=== PATIENT | female | born 1960 | race Caucasian/White ===

== ENCOUNTER 2024-12-22 16:27 | Emergency (ER) | payer MEDICARE, SELFPAY ==
[2024-12-22] VITALS (31 sets, daily range): BP systolic 77–116; BP diastolic 35–85; PULSE 110–150; RESP 17–35; TEMP 36.9–39.4; O2SAT 88–100
--- NOTE | ~2024-12-22 | XR_ITS ---
CHEST RADIOGRAPH CLINICAL HISTORY: Fever, weakness, CANCER PATIENT ([place]) . COMPARISON: None available TECHNIQUE: Single portable view of the chest. FINDINGS The cardiomediastinal silhouette is unremarkable. The lungs are clear. Visualized osseous structures and soft tissues are unremarkable. IMPRESSION: No focal infiltrate or effusion. Reviewed, dictated and finalized at location A.
--- NOTE | ~2024-12-22 | CT_ITS ---
History: Altered mental status PROCEDURE: CT head without contrast. COMPARISON: None TECHNIQUE: Axial imaging of the head performed from the skull base to the vertex without IV contrast. Sagittal a nd coronal reformations obtained. DLP: 605 mGy-cm FINDINGS: The ventricles are enlarged. The dilatation of the ventricles is proportional to the degree of sulcal prominence, not uncommon in the senescent brain. Decreased attenuation is identified within the periventricular white matter, likely secondary to micr ovascular ischemic disease, in a patient of this age. There is no mass, mass effect or midline shift. There is no abnormal extra-axial fluid collection or intracranial hemorrhage. Visualized paranasal sinuses are clear. The mastoid air cells are well aerated. No acute displaced fractures within the overlying cranium. Impression: No acute intracranial hemorrhage or suspicious mass effect. Reviewed, dictated and finalized at location A. Impression: No acute intracranial hemorrhage or suspicious mass effect.
--- NOTE | 2024-12-22 16:45 | ECG_ITS ---
Test Date: 2024-12-22 16:47:03 Measurements Intervals [place] Rate: 136 P: 52 WV: 119 QRS: 4 QRSD: 72 T: 89 QT: 331 QTc: 498 Interpretive Statements SINUS TACHYCARDIA WITH SHORT [place] INTERVAL EARLY PRECORDIAL R/S TRANSITION BORDERLINE ST-T WAVE ABNORMALITY- DIFFUSE LEADS BASELINE ARTIFACT- III, AVL, AVF ABNORMAL ECG No previous ECG available for comparison Electronically Signed On 12-23-2024 08:09:45 CDT by Alexandre Yoon D.O.
[2024-12-22 16:59] LABS: Hematocrit 26.3 % (37.0-47.0); Hemoglobin 8.8 g/dL (12.0-15.0); Immature Platelet Fraction Pct 11.9 % (0.9-11.2); Mean Corpuscular HGB Conc 33.5 g/dl (32-36); Mean Corpuscular Hemoglobin 28.4 pg (26-34); Mean Corpuscular Volume 84.8 fl (80-100); Red Cell Distribution Width 13.7 % (11.5-14.5)
[2024-12-22 17:20] LABS: Albumin Level 3.3 g/dL (3.5-5.1); Alkaline Phosphatase 60 U/L (38-126); Anion Gap 16 mmol/L (4-12); Aspartate Amino Transferase 26 U/L (14-36); Bilirubin,Total 1.4 mg/dL (0.2-1.3); Blood Urea Nitrogen 37 mg/dL (7-17); Calcium 8.3 mg/dL (8.4-10.2); Carbon Dioxide 27 mmol/L (22-30); Chloride 94 mmol/L (98-107); Estimated CRCL calculation 13 ml/min; Estimated Glomerular Filt Rate 15; Glucose 185 mg/dL (65-110); Potassium 3.3 mmol/L (3.4-5.0); Sodium 137 mmol/L (137-145)
--- NOTE | 2024-12-22 17:22 | ED_ITS ---
HPI - General Adult General Chief complaint: Weakness <Trav Perales MD - Last Filed: 12/22/24 22:11> Stated complaint: weakness, diarrhea, vag bleeding <Trav Perales MD - Last Filed: 12/22/24 22:11> Time Seen by Provider: 12/22/24 16:40 <Trav Perales MD - Last Filed: 12/22/24 22:11> History of Present Illness HPI narrative: Patient is a 64-year-old female who presents ER with diarrhea. There is blood either in her stool or coming from her vagina she is unsure which. She was recently diagnosed with lymphoma started on chemotherapy. Last chemo was on 12/18/2024. She is on experimental therapy at site in the cancer center. She is on Eliquis but does not know why. She is a poor historian and her family member who brought her in also does not know much else about the illness. Patient denies any fall or injury but has not been eating or drinking and and is having trouble standing due to weakness. <Trav Perales MD - Last Filed: 12/22/24 22:11> Related Data Allergies/adverse reactions: Allergies Allergy/AdvReac Type Severity Reaction Status Date / Time No Known Allergies Allergy Verified 12/22/24 16:48 <Trav Perales MD - Last Filed: 12/22/24 22:11> Review of Systems 2 Review of Systems: All systems reviewed & are unremarkable except as noted in HPI and below <Trav Perales MD - Last Filed: 12/22/24 22:11> Constitutional: Constitutional: Denies chills, Reports fatigue, Denies fever(s) and Reports weakness <Trav Perales MD - Last Filed: 12/22/24 22:11> ENT: Reports system reviewed and no additional complaints, except as documented <Trav Perales MD - Last Filed: 12/22/24 22:11> Cardiovascular: Cardiovascular: Reports no additional cardiovascular complaints <Trav Perales MD - Last Filed: 12/22/24 22:11> Respiratory: Respiratory: Reports no additional respiratory complaints < Trav Perales MD - Last Filed: 12/22/24 22:11> Gastrointestinal: Gastrointestinal: Denies abdominal pain, Denies nausea and Denies vomiting <Trav Perales MD - Last Filed: 12/22/24 22:11> Comments: + Rectal bleeding <Trav Perales MD - Last Filed: 12/22/24 22:11> Genitourinary: Genitourinary: Reports no additional female genitourinary complaints <Trav Perales MD - Last Filed: 12/22/24 22:11> [facility] Past Medical History Medical History: Medical History (Updated 12/22/24 @ 23:27 by Joaquín Rivera MD) DVT (deep venous thrombosis) Diffuse large B cell lymphoma Hypothyroidism <Trav Perales MD - Last Filed: 12/22/24 22:11> Exam 2 Narrative: GENERAL: Chronically ill-appearing, thin, and in no acute distress. HEAD: Normocephalic, atraumatic. EYES: PERRL and EOMI. ENT: Dry mucous membranes. NECK: Supple. CHEST: Clear to auscultation. No respiratory distress. HEART: Regular rate and rhythm. Normal peripheral pulses. ABDOMEN: Soft, nontender, nondistended. Liquid brown stool on digital rectal exam that is Hemoccult positive but there is no gross blood on inspection. EXTREMITIES: Normal range of motion. No edema. SKIN: Warm, dry, excoriations the skin around the vagina without hemorrhage. NEURO: Alert and oriented x3. <Trav Perales MD - Last Filed: 12/22/24 22:11> Course Course Emergency Course: 2118: Patient received 3 L of IV fluid which is above the 30 milliliters/kilogram fluid bolus for hypertension. She was found to be febrile. Her platelets were critically low as is her white blood cell count with an ANC of 880. She received 2 units of platelets. Initially given ceftriaxone IV. I spoke with Dr. Sharma with the bone marrow transplant team at [facility]. He accepts the patient for transfer. We will broaden the patient's antibiotic coverage to cefepime and vancomycin. Also recommends that should the patient's hemoglobin dropped below 8 that the patient should receive a unit of blood transfusion. 2208: Pressure is still poor. Accepted to ICU at [facility] by Dr. Dennis Aldridge. Will transfuse patient with a couple units of blood as she may have delusional anemia from the IV fluid. No central line to be started at this time his platelets are 5 and she is on Eliquis. She has started her platelet transfusion. No active hemorrhage. MARGARITA to Dr. Rivera <Trav Perales MD - Last Filed: 12/22/24 22:11> 9: Patient received 3 L of IV fluid which is above the 30 milliliters/kilogram fluid bolus for hypertension. She was found to be febrile. Her platelets were critically low as is her white blood cell count with an ANC of 880. She received 2 units of platelets. Initially given ceftriaxone IV. I spoke with Dr. Sharma with the bone marrow transplant team at [facility]. He accepts the patient for transfer. We will broaden the patient's antibiotic coverage to cefepime and vancomycin. Also recommends that should the patient's hemoglobin dropped below 8 that the patient should receive a unit of blood transfusion. 2208: Pressure is still poor. Accepted to ICU at [facility] by Dr. Dennis Aldridge. Will transfuse patient with a couple units of blood as she may have delusional anemia from the IV fluid. No central line to be started at this time his platelets are 5 and she is on Eliquis. She has started her platelet transfusion. No active hemorrhage. MARGARITA to Dr. Rivera Received patient in sign-out at 10:[address] Perales. Patient is what appears to be in septic shock likely source pain potential urinary tract infection. [facility] has accepted the patient to an ICU. I received a phone call from the fellow at their facility with additional recommendations. 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 Recommendations from him were to start tocilizumab 8 milligrams/kilogram for a total proximally 450 mg as well as dexamethasone 10 mg q.6 hours.. Patient is currently receiving blood products and has maxed out at 30 cc/kg bolus and still hypotensive and tachycardic. Mentation is appropriate at A&O 3-4, saturating 92% on 4 L nasal cannula. Norepinephrine was initiated peripherally. She has significant comorbidities and with nearly undetectable platelets would not be getting a central access catheter at this time. Will run vasopressor medications peripherally until repeat laboratory studies show improvement. Family at bedside were updated and made aware. Pending bed assignment in the ICU at [facility]. Patient was placed on high-flow nasal cannula for comfort and tachypnea. Chest x-ray was clear without any focal findings. Patient care signed out to oncoming morning physician at 7:00 a.m. <Joaquín Rivera MD - Last Filed: 12/23/24 20:20> Vital Signs Vital signs: Vital Signs Temperature 36.9 C 12/22/24 16:32 Pulse Rate 150 H 12/22/24 16:32 Respiratory Rate 17 12/22/24 16:32 Blood Pressure 83/35 L 12/22/24 16:32 Pulse Oximetry 96 12/22/24 16:32 Oxygen Delivery Room Air 12/22/24 16:32 Temperature 36.4 C 12/23/24 07:16 Pulse Rate 119 H 12/23/24 07:46 Respiratory Rate 24 H 12/23/24 07:46 Blood Pressure 139/87 12/23/24 07:46 Pulse Oximetry 94 12/23/24 07:46 Oxygen Delivery High Flow Therapy with Nasal Cannula 12/23/24 01:00 Oxygen Flow Rate 60 12/23/24 01:00 Fraction of Inspired Oxygen 61 12/23/24 01:00 <Trav Perales MD - Last Filed: 12/22/24 22:11> Vital Signs Temperature 36.9 C 12/22/24 16:32 Pulse Rate 150 H 12/22/24 16:32 Respiratory Rate 17 12/22/24 16:32 Blood Pressure 83/35 L 12/22/24 16:32 Pulse Oximetry 96 12/22/24 16:32 Oxygen Delivery Room Air 12/22/24 16:32 Temperature 36.4 C 12/23/24 07:16 Pulse Rate 119 H 12/23/24 07:46 Respiratory Rate 24 H 12/23/24 07:46 Blood Pressure 139/87 12/23/24 07:46 Pulse Oximetry 94 12/23/24 07:46 Oxygen Delivery High Flow Therapy with Nasal Cannula 12/23/24 01:00 Oxygen Flow Rate 60 12/23/24 01:00 Fraction of Inspired Oxygen 61 12/23/24 01:00 <Joaquín Rivera MD - Last Filed: 12/23/24 20:20> Medical Decision Making Vital Signs Vital Signs: Vital Signs Temperature 36.9 C 12/22/24 16:32 Pulse Rate 150 H 12/22/24 16:32 Respiratory Rate 17 12/22/24 16:32 Blood Pressure 83/35 L 12/22/24 16:32 Pulse Oximetry 96 12/22/24 16:32 Oxygen Delivery Room Air 12/22/24 16:32 Temperature 36.4 C 12/23/24 07:16 Pulse Rate 119 H 12/23/24 07:46 Respiratory Rate 24 H 12/23/24 07:46 Blood Pressure 139/87 12/23/24 07:46 Pulse Oximetry 94 12/23/24 07:46 Oxygen Delivery High Flow Therapy with Nasal Cannula 12/23/24 01:00 Oxygen Flow Rate 60 12/23/24 01:00 Fraction of Inspired Oxygen 61 12/23/24 01:00 <Trav Perales MD - Last Filed: 12/22/24 22:11> Vital Signs Temperature 36.9 C 12/22/24 16:32 Pulse Rate 150 H 12/22/24 16:32 Respiratory Rate 17 12/22/24 16:32 Blood Pressure 83/35 L 12/22/24 16:32 Pulse Oximetry 96 12/22/24 16:32 Oxygen Delivery Room Air 12/22/24 16:32 Temperature 36.4 C 12/23/24 07:16 Pulse Rate 119 H 12/23/24 07:46 Respiratory Rate 24 H 12/23/24 07:46 Blood Pressure 139/87 12/23/24 07:46 Pulse Oximetry 94 12/23/24 07:46 Oxygen Delivery High Flow Therapy with Nasal Cannula 12/23/24 01:00 Oxygen Flow Rate 60 12/23/24 01:00 Fraction of Inspired Oxygen 61 12/23/24 01:00 <Joaquín Rivera MD - Last Filed: 12/23/24 20:20> Lab Data Result diagrams: 12/23/24 05:24 12/23/24 05:24 <Trav Perales MD - Last Filed: 12/22/24 22:11> Labs: Lab Results 12/22/24 12/22/24 12/22/24 Range/Units 16:50 17:54 18:37 WBC 1.0 L* (4.5-10.0) K/mm3 RBC 3.10 L (4.2-5.4) M/mm3 Hgb 8.8 L (12.0-15.0) g/dL Hct 26.3 L (37.0-47.0) % MCV 84.8 (80-100) fl MCH 28.4 (26-34) pg MCHC 33.5 (32-36) g/dl RDW 13.7 (11.5-14.5) % Plt Count 5 L* (150-375) k/mm3 MPV Not Reportable Immature Gran % (Auto) Not Reportable Neut % (Auto) Not Reportable Lymph % (Auto) Not Reportable [place] % (Auto) Not Reportable Eos % (Auto) Not Reportable Baso % (Auto) Not Reportable Lymph # (Auto) Not Reportable [place] # (Auto) Not Reportable Eos # (Auto) Not Reportable Baso # (Auto) Not Reportable Abs Immat Gran (auto) Not Reportable Absolute Neuts (auto) Not Reportable Absolute Nucleated RBC Not Reportable Total Counted 100 Neutrophils % (Manual) 71 (46-73) % Band Neutrophils % 17 H (0-6) % Lymphocytes % (Manual) 5 L (18-44) % Monocytes % (Manual) 6 (3-9) % Myelocytes % 1 % Nucleated RBC % Not Reportable Abs Neuts (Manual) 0.88 L (1.7-7.2) K/mm3 Abs Lymphs (Manual) 0.05 L (1.1-4.5) K/mm3 Abs Monocytes (Manual) 0.06 L (0.1-0.90) K/mm3 Platelet Estimate Decreased (Adequate) % Immature Plt Fraction 11.9 H (0.9-11.2) % Ovalocytes 1+ Schistocytes None seen ESR (0-20) mm/hr PT (11.1-14.7) Seconds INR APTT (22.3-36.8) Seconds Sodium 137 (137-145) mmol/L Potassium 3.3 L (3.4-5.0) mmol/L Chloride 94 L (98-107) mmol/L Carbon Dioxide 27 (22-30) mmol/L Anion Gap 16 H (4-12) mmol/L BUN 37 H (7-17) mg/dL Creatinine 3.14 H (0.7-1.0) mg/dL Estim Creat Clear Calc 13 ml/min Estimated GFR 15 L (59 - ) Glucose 185 H (65-110) mg/dL Lactic Acid 4.2 H* (0.7-2.0) mmol/L Calcium 8.3 L (8.4-10.2) mg/dL Total Bilirubin 1.4 H (0.2-1.3) mg/dL AST 26 (14-36) U/L ALT 30 (6-35) U/L Alkaline Phosphatase 60 (38-126) U/L C-Reactive Protein (<1.0) mg/dL Total Protein 6.0 L (6.3-8.2) g/dL Albumin 3.3 L (3.5-5.1) g/dL Urine Color Dark yellow (Yellow) Urine Appearance Turbid H (Clear) Urine pH 5.0 (5.0-9.0) Ur Specific [place] 1.019 (1.001-1.035) Urine Protein 2+ H (Negative) mg/dL Urine Glucose (UA) Negative (Negative) mg/dL Urine Ketones Trace H (Negative) mg/dL Ur Blood (Man) 3+ H (Negative) Urine Nitrate Positive H (Negative) Urine Bilirubin 2+ H (Negative) Urine Urobilinogen 1.0 (<2.0) mg/dL Add Ur Microanalysis Reviewed Leukocyte Esterase Rfl 1+ H (Negative) DOLORES/UL Urine RBC 11-20 H (0-2) /hpf Urine WBC 6-10 H (0-3) /hpf Ur Squamous Epith Cells Many H (Few) /hpf Amorphous Sediment Few H (None) Urine Bacteria 3+ H /hpf Urine Casts >20 Urine Mucus Present /lpf Nasal MRSA (PCR) (NOT DETECTE) Influenza A (RT-PCR) Negative (Negative) Influenza B (RT-PCR) Negative (Negative) RSV (RT-PCR) Negative (Negative) SARS-CoV-2 RNA (RT-PCR) Negative (Negative) Blood Type O Positive Antibody Screen Negative Crossmatch See Detail 12/22/24 12/22/24 12/23/24 Range/Units 20:43 21:56 05:24 WBC 0.3 L* (4.5-10.0) K/mm3 RBC 3.51 L (4.2-5.4) M/mm3 Hgb 9.9 L (12.0-15.0) g/dL Hct 28.8 L (37.0-47.0) % MCV 82.1 (80-100) fl MCH 28.2 (26-34) pg MCHC 34.4 (32-36) g/dl RDW 14.0 (11.5-14.5) % Plt Count 47 L D (150-375) k/mm3 MPV 11.2 H Immature Gran % (Auto) Not Reportable Neut % (Auto) Not Reportable Lymph % (Auto) Not Reportable [place] % (Auto) Not Reportable Eos % (Auto) Not Reportable Baso % (Auto) Not Reportable Lymph # (Auto) Not Reportable [place] # (Auto) Not Reportable Eos # (Auto) Not Reportable Baso # (Auto) Not Reportable Abs Immat Gran (auto) Not Reportable Absolute Neuts (auto) Not Reportable Absolute Nucleated RBC Not Reportable Total Counted 100 Neutrophils % (Manual) 90 H (46-73) % Band Neutrophils % 3 (0-6) % Lymphocytes % (Manual) 3 L (18-44) % Monocytes % (Manual) 4 (3-9) % Myelocytes % % Nucleated RBC % Not Reportable Abs Neuts (Manual) 0.27 L (1.7-7.2) K/mm3 Abs Lymphs (Manual) 0.00 L (1.1-4.5) K/mm3 Abs Monocytes (Manual) 0.01 L (0.1-0.90) K/mm3 Platelet Estimate Slightly decreased (Adequate) % Immature Plt Fraction 3.5 (0.9-11.2) % Ovalocytes Schistocytes None seen ESR > 140 H (0-20) mm/hr PT 16.8 H (11.1-14.7) Seconds INR 1.3 APTT 30.6 (22.3-36.8) Seconds Sodium 140 (137-145) mmol/L Potassium 2.9 L (3.4-5.0) mmol/L Chloride 105 (98-107) mmol/L Carbon Dioxide 22 (22-30) mmol/L Anion Gap 13 H (4-12) mmol/L BUN 30 H (7-17) mg/dL Creatinine Cancelled (0.7-1.0) mg/dL Estim Creat Clear Calc ml/min Estimated GFR (59 - ) Glucose (65-110) mg/dL Lactic Acid 2.0 (0.7-2.0) mmol/L Calcium (8.4-10.2) mg/dL Total Bilirubin (0.2-1.3) mg/dL AST (14-36) U/L ALT (6-35) U/L Alkaline Phosphatase (38-126) U/L C-Reactive Protein (<1.0) mg/dL Total Protein (6.3-8.2) g/dL Albumin (3.5-5.1) g/dL Urine Color (Yellow) Urine Appearance (Clear) Urine pH (5.0-9.0) Ur Specific [place] (1.001-1.035) Urine Protein (Negative) mg/dL Urine Glucose (UA) (Negative) mg/dL Urine Ketones (Negative) mg/dL Ur Blood (Man) (Negative) Urine Nitrate (Negative) Urine Bilirubin (Negative) Urine Urobilinogen (<2.0) mg/dL Add Ur Microanalysis Leukocyte Esterase Rfl (Negative) DOLORES/UL Urine RBC (0-2) /hpf Urine WBC (0-3) /hpf Ur Squamous Epith Cells (Few) /hpf Amorphous Sediment (None) Urine Bacteria /hpf Urine Casts Urine Mucus /lpf Nasal MRSA (PCR) Not detected (NOT DETECTE) Influenza A (RT-PCR) (Negative) Influenza B (RT-PCR) (Negative) RSV (RT-PCR) (Negative) SARS-CoV-2 RNA (RT-PCR) (Negative) Blood Type Antibody Screen Crossmatch 12/23/24 12/23/24 12/23/24 Range/Units 05:24 05:24 05:24 WBC (4.5-10.0) K/mm3 RBC (4.2-5.4) M/mm3 Hgb (12.0-15.0) g/dL Hct (37.0-47.0) % MCV (80-100) fl MCH (26-34) pg MCHC (32-36) g/dl RDW (11.5-14.5) % Plt Count (150-375) k/mm3 MPV Immature Gran % (Auto) Neut % (Auto) Lymph % (Auto) [place] % (Auto) Eos % (Auto) Baso % (Auto) Lymph # (Auto) [place] # (Auto) Eos # (Auto) Baso # (Auto) Abs Immat Gran (auto) Absolute Neuts (auto) Absolute Nucleated RBC Total Counted Neutrophils % (Manual) (46-73) % Band Neutrophils % (0-6) % Lymphocytes % (Manual) (18-44) % Monocytes % (Manual) (3-9) % Myelocytes % % Nucleated RBC % Abs Neuts (Manual) (1.7-7.2) K/mm3 Abs Lymphs (Manual) (1.1-4.5) K/mm3 Abs Monocytes (Manual) (0.1-0.90) K/mm3 Platelet Estimate (Adequate) % Immature Plt Fraction (0.9-11.2) % Ovalocytes Schistocytes ESR (0-20) mm/hr PT (11.1-14.7) Seconds INR APTT (22.3-36.8) Seconds Sodium (137-145) mmol/L Potassium (3.4-5.0) mmol/L Chloride (98-107) mmol/L Carbon Dioxide (22-30) mmol/L Anion Gap (4-12) mmol/L BUN (7-17) mg/dL Creatinine 1.40 H (0.7-1.0) mg/dL Estim Creat Clear Calc Cancelled 29 ml/min Estimated GFR Cancelled 38 L (59 - ) Glucose 167 H (65-110) mg/dL Lactic Acid (0.7-2.0) mmol/L Calcium 7.0 L (8.4-10.2) mg/dL Total Bilirubin 1.3 (0.2-1.3) mg/dL AST 19 (14-36) U/L ALT 19 (6-35) U/L Alkaline Phosphatase 54 (38-126) U/L C-Reactive Protein 42.3 H (<1.0) mg/dL Total Protein 6.0 L (6.3-8.2) g/dL Albumin 2.8 L (3.5-5.1) g/dL Urine Color (Yellow) Urine Appearance (Clear) Urine pH (5.0-9.0) Ur Specific [place] (1.001-1.035) Urine Protein (Negative) mg/dL Urine Glucose (UA) (Negative) mg/dL Urine Ketones (Negative) mg/dL Ur Blood (Man) (Negative) Urine Nitrate (Negative) Urine Bilirubin (Negative) Urine Urobilinogen (<2.0) mg/dL Add Ur Microanalysis Leukocyte Esterase Rfl (Negative) DOLORES/UL Urine RBC (0-2) /hpf Urine WBC (0-3) /hpf Ur Squamous Epith Cells (Few) /hpf Amorphous Sediment (None) Urine Bacteria /hpf Urine Casts Urine Mucus /lpf Nasal MRSA (PCR) (NOT DETECTE) Influenza A (RT-PCR) (Negative) Influenza B (RT-PCR) (Negative) RSV (RT-PCR) (Negative) SARS-CoV-2 RNA (RT-PCR) (Negative) Blood Type Antibody Screen Crossmatch <Trav Perales MD - Last Filed: 12/22/24 22:11> Lab Results 12/22/24 12/22/24 12/22/24 Range/Units 16:50 17:54 18:37 WBC 1.0 L* (4.5-10.0) K/mm3 RBC 3.10 L (4.2-5.4) M/mm3 Hgb 8.8 L (12.0-15.0) g/dL Hct 26.3 L (37.0-47.0) % MCV 84.8 (80-100) fl MCH 28.4 (26-34) pg MCHC 33.5 (32-36) g/dl RDW 13.7 (11.5-14.5) % Plt Count 5 L* (150-375) k/mm3 MPV Not Reportable Immature Gran % (Auto) Not Reportable Neut % (Auto) Not Reportable Lymph % (Auto) Not Reportable [place] % (Auto) Not Reportable Eos % (Auto) Not Reportable Baso % (Auto) Not Reportable Lymph # (Auto) Not Reportable [place] # (Auto) Not Reportable Eos # (Auto) Not Reportable Baso # (Auto) Not Reportable Abs Immat Gran (auto) Not Reportable Absolute Neuts (auto) Not Reportable Absolute Nucleated RBC Not Reportable Total Counted 100 Neutrophils % (Manual) 71 (46-73) % Band Neutrophils % 17 H (0-6) % Lymphocytes % (Manual) 5 L (18-44) % Monocytes % (Manual) 6 (3-9) % Myelocytes % 1 % Nucleated RBC % Not Reportable Abs Neuts (Manual) 0.88 L (1.7-7.2) K/mm3 Abs Lymphs (Manual) 0.05 L (1.1-4.5) K/mm3 Abs Monocytes (Manual) 0.06 L (0.1-0.90) K/mm3 Platelet Estimate Decreased (Adequate) % Immature Plt Fraction 11.9 H (0.9-11.2) % Ovalocytes 1+ Schistocytes None seen ESR (0-20) mm/hr PT (11.1-14.7) Seconds INR APTT (22.3-36.8) Seconds Sodium 137 (137-145) mmol/L Potassium 3.3 L (3.4-5.0) mmol/L Chloride 94 L (98-107) mmol/L Carbon Dioxide 27 (22-30) mmol/L Anion Gap 16 H (4-12) mmol/L BUN 37 H (7-17) mg/dL Creatinine 3.14 H (0.7-1.0) mg/dL Estim Creat Clear Calc 13 ml/min Estimated GFR 15 L (59 - ) Glucose 185 H (65-110) mg/dL Lactic Acid 4.2 H* (0.7-2.0) mmol/L Calcium 8.3 L (8.4-10.2) mg/dL Total Bilirubin 1.4 H (0.2-1.3) mg/dL AST 26 (14-36) U/L ALT 30 (6-35) U/L Alkaline Phosphatase 60 (38-126) U/L C-Reactive Protein (<1.0) mg/dL Total Protein 6.0 L (6.3-8.2) g/dL Albumin 3.3 L (3.5-5.1) g/dL Urine Color Dark yellow (Yellow) Urine Appearance Turbid H (Clear) Urine pH 5.0 (5.0-9.0) Ur Specific [place] 1.019 (1.001-1.035) Urine Protein 2+ H (Negative) mg/dL Urine Glucose (UA) Negative (Negative) mg/dL Urine Ketones Trace H (Negative) mg/dL Ur Blood (Man) 3+ H (Negative) Urine Nitrate Positive H (Negative) Urine Bilirubin 2+ H (Negative) Urine Urobilinogen 1.0 (<2.0) mg/dL Add Ur Microanalysis Reviewed Leukocyte Esterase Rfl 1+ H (Negative) DOLORES/UL Urine RBC 11-20 H (0-2) /hpf Urine WBC 6-10 H (0-3) /hpf Ur Squamous Epith Cells Many H (Few) /hpf Amorphous Sediment Few H (None) Urine Bacteria 3+ H /hpf Urine Casts >20 Urine Mucus Present /lpf Nasal MRSA (PCR) (NOT DETECTE) Influenza A (RT-PCR) Negative (Negative) Influenza B (RT-PCR) Negative (Negative) RSV (RT-PCR) Negative (Negative) SARS-CoV-2 RNA (RT-PCR) Negative (Negative) Blood Type O Positive Antibody Screen Negative Crossmatch See Detail 12/22/24 12/22/24 12/23/24 Range/Units 20:43 21:56 05:24 WBC 0.3 L* (4.5-10.0) K/mm3 RBC 3.51 L (4.2-5.4) M/mm3 Hgb 9.9 L (12.0-15.0) g/dL Hct 28.8 L (37.0-47.0) % MCV 82.1 (80-100) fl MCH 28.2 (26-34) pg MCHC 34.4 (32-36) g/dl RDW 14.0 (11.5-14.5) % Plt Count 47 L D (150-375) k/mm3 MPV 11.2 H Immature Gran % (Auto) Not Reportable Neut % (Auto) Not Reportable Lymph % (Auto) Not Reportable [place] % (Auto) Not Reportable Eos % (Auto) Not Reportable Baso % (Auto) Not Reportable Lymph # (Auto) Not Reportable [place] # (Auto) Not Reportable Eos # (Auto) Not Reportable Baso # (Auto) Not Reportable Abs Immat Gran (auto) Not Reportable Absolute Neuts (auto) Not Reportable Absolute Nucleated RBC Not Reportable Total Counted 100 Neutrophils % (Manual) 90 H (46-73) % Band Neutrophils % 3 (0-6) % Lymphocytes % (Manual) 3 L (18-44) % Monocytes % (Manual) 4 (3-9) % Myelocytes % % Nucleated RBC % Not Reportable Abs Neuts (Manual) 0.27 L (1.7-7.2) K/mm3 Abs Lymphs (Manual) 0.00 L (1.1-4.5) K/mm3 Abs Monocytes (Manual) 0.01 L (0.1-0.90) K/mm3 Platelet Estimate Slightly decreased (Adequate) % Immature Plt Fraction 3.5 (0.9-11.2) % Ovalocytes Schistocytes None seen ESR > 140 H (0-20) mm/hr PT 16.8 H (11.1-14.7) Seconds INR 1.3 APTT 30.6 (22.3-36.8) Seconds Sodium 140 (137-145) mmol/L Potassium 2.9 L (3.4-5.0) mmol/L Chloride 105 (98-107) mmol/L Carbon Dioxide 22 (22-30) mmol/L Anion Gap 13 H (4-12) mmol/L BUN 30 H (7-17) mg/dL Creatinine Cancelled (0.7-1.0) mg/dL Estim Creat Clear Calc ml/min Estimated GFR (59 - ) Glucose (65-110) mg/dL Lactic Acid 2.0 (0.7-2.0) mmol/L Calcium (8.4-10.2) mg/dL Total Bilirubin (0.2-1.3) mg/dL AST (14-36) U/L ALT (6-35) U/L Alkaline Phosphatase (38-126) U/L C-Reactive Protein (<1.0) mg/dL Total Protein (6.3-8.2) g/dL Albumin (3.5-5.1) g/dL Urine Color (Yellow) Urine Appearance (Clear) Urine pH (5.0-9.0) Ur Specific [place] (1.001-1.035) Urine Protein (Negative) mg/dL Urine Glucose (UA) (Negative) mg/dL Urine Ketones (Negative) mg/dL Ur Blood (Man) (Negative) Urine Nitrate (Negative) Urine Bilirubin (Negative) Urine Urobilinogen (<2.0) mg/dL Add Ur Microanalysis Leukocyte Esterase Rfl (Negative) DOLORES/UL Urine RBC (0-2) /hpf Urine WBC (0-3) /hpf Ur Squamous Epith Cells (Few) /hpf Amorphous Sediment (None) Urine Bacteria /hpf Urine Casts Urine Mucus /lpf Nasal MRSA (PCR) Not detected (NOT DETECTE) Influenza A (RT-PCR) (Negative) Influenza B (RT-PCR) (Negative) RSV (RT-PCR) (Negative) SARS-CoV-2 RNA (RT-PCR) (Negative) Blood Type Antibody Screen Crossmatch 12/23/24 12/23/24 12/23/24 Range/Units 05:24 05:24 05:24 WBC (4.5-10.0) K/mm3 RBC (4.2-5.4) M/mm3 Hgb (12.0-15.0) g/dL Hct (37.0-47.0) % MCV (80-100) fl MCH (26-34) pg MCHC (32-36) g/dl RDW (11.5-14.5) % Plt Count (150-375) k/mm3 MPV Immature Gran % (Auto) Neut % (Auto) Lymph % (Auto) [place] % (Auto) Eos % (Auto) Baso % (Auto) Lymph # (Auto) [place] # (Auto) Eos # (Auto) Baso # (Auto) Abs Immat Gran (auto) Absolute Neuts (auto) Absolute Nucleated RBC Total Counted Neutrophils % (Manual) (46-73) % Band Neutrophils % (0-6) % Lymphocytes % (Manual) (18-44) % Monocytes % (Manual) (3-9) % Myelocytes % % Nucleated RBC % Abs Neuts (Manual) (1.7-7.2) K/mm3 Abs Lymphs (Manual) (1.1-4.5) K/mm3 Abs Monocytes (Manual) (0.1-0.90) K/mm3 Platelet Estimate (Adequate) % Immature Plt Fraction (0.9-11.2) % Ovalocytes Schistocytes ESR (0-20) mm/hr PT (11.1-14.7) Seconds INR APTT (22.3-36.8) Seconds Sodium (137-145) mmol/L Potassium (3.4-5.0) mmol/L Chloride (98-107) mmol/L Carbon Dioxide (22-30) mmol/L Anion Gap (4-12) mmol/L BUN (7-17) mg/dL Creatinine 1.40 H (0.7-1.0) mg/dL Estim Creat Clear Calc Cancelled 29 ml/min Estimated GFR Cancelled 38 L (59 - ) Glucose 167 H (65-110) mg/dL Lactic Acid (0.7-2.0) mmol/L Calcium 7.0 L (8.4-10.2) mg/dL Total Bilirubin 1.3 (0.2-1.3) mg/dL AST 19 (14-36) U/L ALT 19 (6-35) U/L Alkaline Phosphatase 54 (38-126) U/L C-Reactive Protein 42.3 H (<1.0) mg/dL Total Protein 6.0 L (6.3-8.2) g/dL Albumin 2.8 L (3.5-5.1) g/dL Urine Color (Yellow) Urine Appearance (Clear) Urine pH (5.0-9.0) Ur Specific [place] (1.001-1.035) Urine Protein (Negative) mg/dL Urine Glucose (UA) (Negative) mg/dL Urine Ketones (Negative) mg/dL Ur Blood (Man) (Negative) Urine Nitrate (Negative) Urine Bilirubin (Negative) Urine Urobilinogen (<2.0) mg/dL Add Ur Microanalysis Leukocyte Esterase Rfl (Negative) [place]OLORES/UL Urine RBC (0-2) /hpf Urine WBC (0-3) /hpf Ur Squamous Epith Cells (Few) /hpf Amorphous Sediment (None) Urine Bacteria /hpf Urine Casts Urine Mucus /lpf Nasal MRSA (PCR) (NOT DETECTE) Influenza A (RT-PCR) (Negative) Influenza B (RT-PCR) (Negative) RSV (RT-PCR) (Negative) SARS-CoV-2 RNA (RT-PCR) (Negative) Blood Type Antibody Screen Crossmatch <Joaquín Rivera MD - Last Filed: 12/23/24 20:20> Imaging Data Radiologist's impression: ITS Impressions Chest X-Ray 12/22/24 18:59 IMPRESSION: No focal infiltrate or effusion. Head CT 12/22/24 19:59 Impression: No acute intracranial hemorrhage or suspicious mass effect. <Trav Perales MD - Last Filed: 12/22/24 22:11> Critical Care Time Critical Care Time Critical Care Time: Yes <Trav Perales MD - Last Filed: 12/22/24 22:11> Total Critical Care Time: 45 <Trav Perales MD - Last Filed: 12/22/24 22:11> Discharge Plan Discharge Clinical Impression: Cytokine release syndrome, Fever and neutropenia, Acute UTI, Diarrhea, MIGUELINA (acute kidney injury), Anemia, Septic shock <Trav Perales MD - Last Filed: 12/22/24 22:11> Patient Disposition: Acute Care Hospital <Trav Perales MD - Last Filed: 12/22/24 22:11> Condition: Serious <Trav Perales MD - Last Filed: 12/22/24 22:11> Patient Language: Serbian <Trav Perales MD - Last Filed: 12/22/24 22:11> Follow-up/Referrals: PHYSICIAN NOT ON STAFF,NONSTAFF [Non-Staff] - <Trav Perales MD - Last Filed: 12/22/24 22:11>
[2024-12-22 17:31] LABS: Platelet Count Result 5 k/mm3 (150-375)
[2024-12-22 17:33] LABS: Alanine Aminotransferase 30 U/L (6-35)
[2024-12-22] MEDS: SODIUM CHLORIDE 0.9% IV 1,000 ML 999 ML IV CONT ×3 (17:43→19:06)
[2024-12-22 17:48] LABS: Band Neutrophils Percent 17 % (0-6); Lymphocytes Absolute Manual 0.05 K/mm3 (1.1-4.5); Lymphocytes Percent Manual 5 % (18-44); Neutrophils Absolute Manual 0.88 K/mm3 (1.7-7.2); Neutrophils Percent Manual 71 % (46-73); Total Cells Counted 100
[2024-12-22 17:49] LABS: Monocytes Absolute Manual 0.06 K/mm3 (0.1-0.90); Monocytes Percent Manual 6 % (3-9); Myelocytes Percent 1 %; Platelet Estimate Decreased (Adequate)
[2024-12-22 17:50] LABS: Ovalocytes 1+; Schistocytes None Seen
[2024-12-22 18:13] LABS: Lactic Acid Reflex 4.2 mmol/L (0.7-2.0)
[2024-12-22 19:08] LABS: Add Urine Microscopic? YES; Appearance Urine Turbid (Clear); Bacteria Urine 3+ /hpf; Bilirubin Urine 2+ (Negative); Blood Urine 3+ (Negative); Glucose Urine UA Negative (Negative); Ketones Urine Trace mg/dL (Negative); Leukocyte Esterase Ur 1+ LEU/UL (Negative); Mucus Urine Present /lpf; Need Manual Microscopic Reviewed; Nitrate Urine Positive (Negative); Non Pathogenic Casts >20; Protein Urine 2+ mg/dL (Negative); Specific Grav Ur 1.019 (1.001-1.035); Squamous Epithelial Cell Urine Many /hpf (Few)
[2024-12-22 19:12] LABS: Amorphous Sediment Urine Few; Color Urine Dark Yellow (Yellow)
--- OUTSIDE RECORDS SUMMARY | 2024-12-22 19:21 | XMS_ITS | Encounter Summary ---
Author Organization [facility] Address [address] [place] [address] Phone Care Team Providers Care Food Porter Name Role Phone No, Physician Primary Care Provider Bob Menard MD Unavailable [phone] Encounter Details Date Type Department Care Team (Late st Contact Info) Description 12/22/2024 Telephone [facility] Bone Marrow Transplant [address] [place] [address] Emerita Her RN Social History Tobacco Use Types Packs/Day Years Used Date Smoking Tobacco: Never [facility] Veohities Answer Date Recorded In the past 12 months has [employer] electric, gas, oil, or water company threatened to shut off services in your home? No 11/19/2024 Social Connection and Isolat ion Panel [NHANES] Answer Date Recorded In a typical week, how many times do you talk on the phone with family, friends, or neighbors? More than three times a week 11/19/2024 How often do you get togethe r with friends or relatives? Once a week 11/19/2024 How often do you attend chur ch or sikhism services? 1 to 4 times per year 11/19/2024 Do you belong to any clubs o r organizations such as presybeterian groups, unions, fraternal or athletic groups, or school groups? No 11/19/2024 How often do you attend meet ings of the clubs or organizations you belong to? Never 11/19/2024 Are you , , di vorced, , never , or living with a partner? 11/19/2024 Overall Financial Resource Strain (CARDIA) Answe r Date Recorded How hard is it for you to pa y for the very basics like food, housing, medical care, and heating? Not very hard 11/19/2024 Hunger Vital Sign Answer Date Recorded Within the past 12 months, y ou worried that your food would run out before you got the money to buy more. Never true 11/19/19 25 Within the past 12 months, t he food you bought just didn't last and you didn't have money to get more. Never true 11/19/2024 PRAPARE - Transportation Answer Date Re corded In the past 12 months, has l ack of transportation kept you from medical appointments or from getting medications? No 10/25 In the past 12 months, has l ack of transportation kept you from meetings, work, or from getting things needed for daily living? No 11/19/2024 Housing Stability Vital Sign Answer Louis e Recorded In the last 12 months, was t here a time when you were not able to pay the mortgage or rent on time? No 11/19/2024 In the past 12 months, how m any times have you moved where you were living? 0 11/19/2024 At any time in the past 12 m [facility], were you homeless or living in a alf (including now)? No 11/19/2024 Personal Safety Answer Date Recorded Have you ever been in or are you currently in a harmful physical or emotional relationship or is someone making you feel afraid or unsafe? Denies 11/08/2024 Comments Unknown Sex and Gender Information Value Date Recorded Sex Assigned at Not on file Legal Sex Female 6:33 PM [employer] Gender Identity Not on file Sexual Orientation Not on file documented as of this encounter Miscellaneous Notes * Telephone Encounter - Emerita Her RN - 12/22/2024 3:03 PM CDT Received message from patient's development coordinator that patient's sister's had reached out regarding'dire situation'. Called sister Patricia who reports that both sisters went to check on patient today,as patient lives alone, and she looks 'very bad' and lost more weight and has no appetite. She reported that she started having diarrhea over the weekend. Attempted to confirm how many episodes per day but patient could not give clear account of bowel movements. Patient denies fever, chills, body aches, sweats, chest pain or shortness of breath. She does report weakness and low PO intake. She 'has been trying to eat and drink'. Patient unable to confirm is she's completely finishing cup of water. Sisters are concerned that she's still having vaginal bleeding, reported two weeks ago to Dr. Menard. Dr. Menard aware of patient's condition and recommending [facility] evaluation and work up. Confirmed appointment is at 5 pm which allows for family to transport [facility]. Discussed that patient can be admitted from appt and potentially could stay if needed to be admitted. Sister and patient verbally agree with plan. documented in this encounter Plan of Treatment Not on file documented as of this encounter Visit Diagnoses Not on filedocumented in this encounter Care Teams Food Porter Relationship Specialty Start Date End Date No, Physician PCP - General 11/07/24 Bob Menard MD [address] [place] [address] Consulting Physician Internal Medicine 11/18/24 documented as of this encounter
--- OUTSIDE RECORDS SUMMARY | 2024-12-22 19:21 | XMS_ITS | Referral Summary ---
Author Organization [facility] al Address [address] [place] [address] Care Team Providers Care Graphic Art Designer Name Role Phone No, Physician Primary Care Provider [phone] Bob Menard MD Unavailable [phone] Encounters Date Type Department Care Team Description 12/22/2024 Telephone [facility] Bone Marrow Transplant [facility] [place] [phone] Emerita Her RN 12/18/2024 Documentation [facility] Nutrition Counseling [address] [place] [phone] 12/18/2024 8:00 AM CDT Infusion [facility] - Infusion [address] [place] [id number] Diffuse large B-cell lymphoma, unspecified body region (HCC) (Primary Dx); Chemotherapy induced neutropenia 12/18/2024 7:00 AM CDT Lab [facility] - Lab Collection [facility] [address] [address] Chemotherapy induced neutropenia; Diffuse large B-cell lymphoma, unspecified body region (HCC) 12/18/2024 9:00 AM CDT Office Visit [facility]row Transplant [address] [place] [phone] Bob Menard MD Diffuse large B-cell lymphoma, unspecified body region (HCC) (Primary Dx); Chemotherapy induced neutropenia 12/14/2024 Documentation [facility] Nutrition Counseling [address] [place] [address] 12/14/2024 Telephone [facility] Bone Marrow Transplant [address] [place] [address] Emerita Her RN 12/11/2024 Orders Only [facility] Bone Marrow Transplant [address] [place] [address] 6 [place] [phone] Darrius tiwari, Konrad Hankins MD PhD 12/11/2024 8:15 AM CDT Lab [facility] - Lab Collection [address] [place] [address] Floor 6 [place] [address] Chemotherapy induced neutropenia; Diffuse large B-cell lymphoma, unspecified body region (HCC) 12/11/2024 10:00 AM CDT Infusion [facility] - Infusion [address] [place] [address] Floor 6 [place] [address] Diffuse large B-cell lymphoma, unspecified body region (HCC) (Primary Dx); Chemotherapy induced neutropenia 12/11/2024 9:15 AM CDT Office Visit [facility] Bone Marrow Transplant [address] [place] [phone] Bob Menard MD Diffuse large B-cell lymphoma, unspecified body region (HCC) (Primary Dx); Chemotherapy induced neutropenia; Vaginal bleeding, abnormal; Diffuse large B-cell lymphoma of lymph nodes of multiple regions (HCC); Hypokalemia 12/08/2024 Orders Only [facility] Department of Otolaryngology Head-Neck Division [address] [place] [address] Floor 5 [place] [phone] Jyoti Estrada MD Thyroid mass (Primary Dx) 11/26/2024 Orders Only [facility] at [address] [place] [address] Sally Fiore RPh 11/20/2024 2:00 PM [facility] - 11/20/2024 5:54 PM [facility] ([facility]) [address] [place] [address] Diffuse large B-cell lymphoma, unspecified body region (HCC) (Primary Dx); Chemotherapy induced neutropenia Discharge Disposition: Discharge to home or self care 11/07/2024 8:12 AM [facility] - 11/20/2024 2:10 PM INSURANCE AGENT Hospital Encounter [address] [phone] Gurinder Fagan MD PhD Cinthya, MD Leif Omer, Alberto Garcia Jr., Carlos Enrique Ellsworth MD Hoyt, MD Amee Cormier Alyssa Renee, MD Farooqui, Arafat Ali, MD Adhikari, Arjab, MD Thyroid mass (Primary Dx); Dysphagia, unspecified type; Chemotherapy induced neutropenia; Diffuse large B-cell lymphoma, unspecified body region (HCC) Discharge Disposition: Discharge to home or self care 11/18/2024 Orders Only [address] [phone] [facility] 11/17/2024 Orders Only [address] [phone] Bob Menard MD Chemotherapy induced neutropenia (Primary Dx); Diffuse large B-cell lymphoma, unspecified body region (HCC) 11/16/2024 Telephone [facility] ([facility]) - [facility] ENT [address] [facility] [address] [place] [address] [place] [address] Kristen Ireland MS from Last 3 Months Allergies No known active allergies Medications acyclovir (ZOVIRAX) 400 mg tabletIndications: Prophylaxis, Medical Take 1 tablet (400 mg total) by mouth 2 (two) times a day 60 tablet 11/20/19 25 Active apixaban 5 mg (74 tabs) tablets,dose pack Take 10 mg (2 tablets) by mouth 2 (two) times a day for 7 days, then take 5 mg (1 tablet) by mouth 2 (two) times a day thereafter. 74 tablet 11/20/19 25 Active famotidine (PEPCID) 20 mg tablet Take 1 tablet (20 mg total) by mouth 2 (two) times a day for 5 days 10 tablet 11/20/19 25 Active ondansetron ODT (ZOFRAN-ODT) 4 mg disintegrating tabletIndications: Nausea and Vomiting Take 1 tablet (4 mg total) by mouth every 6 (six) hours as needed for nausea or vomiting 20 tablet 11/20/19 25 Active sulfamethoxazole-t rimethoprim (BACTRIM DS) 800-160 mg per tabletIndications: Prophylaxis, Medical 2 times per day on Saturday 20 tablet 11/24/19 25 Active levothyroxine (SYNTHROID) 50 mcg tablet Take 1 tablet (50 mcg total) by mouth early childhood educator aide before breakfast 30 tablet 11/22/19 25 Active prochlorperazine (COMPAZINE) 10 mg tabletIndications: Prevention of Chemotherapy-Induc ed Nausea and Vomiting Take 1 tablet (10 mg total) by mouth every 6 (six) hours as needed for nausea 30 tablet 12/12/19 25 025 Active potassium chloride ER (KLOR-CON) 20 mEq CR tabletIndications: Diffuse large B-cell lymphoma, unspecified body region (HCC),Hypokalemia Take 1 tablet (20 mEq total) by mouth 2 (two) times a day 14 tablet 12/12/19 25 Active predniSONE (DELTASONE) 50 mg tabletIndications: Diffuse large B-cell lymphoma, unspecified body region (HCC),Chemotherapy induced neutropenia Take 2 tablets (100 mg) by mouth daily Take on Days 2-5 of each treatment cycle 8 tablet 12/12/19 25 Active dexAMETHasone (DECADRON) 4 mg tabletIndications: hypersensitivity drug reaction Take 8 mg (two 4 mg tabs) by mouth for severe CRS (shaking, chills, difficulty breathing, feeling severely ill) at home prior to travel to Emergency department as directed by oncology team. 6 tablet 2 12/19/19 25 Active predniSONE (DELTASONE) 50 mg tabletIndications: Chemotherapy induced neutropenia,Diffus e large B-cell lymphoma, unspecified body region (HCC) Take 2 tablets (100 mg) by mouth daily for 1 dose 2 tablet 11/22/19 25 025 Active Problems Problem Noted Date Diagnosed Date DLBCL (diffuse large B cell lymphoma) 11/17/2024 Assessment & Plan (11/18/2024 3:19 PM INSURANCE AGENT): P/w 1 month of difficulty swallowing, neck swelling, voice changes, and SOB with laying flat. CT with large R thyroid lesion extending into the mediastinum, encasing the R common carotid artery, compressing the RIJ vein, and deviating the trachea. US-guided FNA showing numerous atypical lymphocytes c/f lymphoma. US-guided core biopsy 11/12 consistent with diffuse large B-cell lymphoma. HIV/hepatitis panel neg. EBV serology consistent with past infection. TTE 11/13 with normal ejection fraction 63%, normal diastolic function. CT CAP: Revealed multiple lymph nodes in the lower neck/upper chest and hypo enhancing liver lesions -PET 11/16: Large markedly hypermetabolic right thyroid mass consistent with B- cell lymphoma. Additional subcentimeter mildly hypermetabolic right level 2 and left level 3 lymph nodes are concerning for additional sites of lymphoma. - left PICC placed 11/13 - prephase prednisone 100 mg daily started 11/17 - C1D1 FERNANDO R CHP on SKYGLO 11/18 polatuzumab vedotin on day 2. She will receive Neulasta upon discharge. Chemotherapy induced neutropenia 11/17/2024 Suspected deep vein thrombosis 11/13/2024 Assessment & Plan (11/17/2024 2:53 PM INSURANCE AGENT): Neuro CT OSH on 11/07 with read here indicating Possible involvement of the right internal jugular vein with questionable intraluminal thrombosis. US neck that revealed no detectable flow in the right internal jugular vein in the area of the known mass. However, on the recent CT, it is patent just above the junction with the right subclavian vein centrally. -BMT recommended therapeutic Lovenox and it will be followed as an outpatient Hypothyroidism, unspecified 11/12/2024 Assessment & Plan (11/13/2024 5:02 PM INSURANCE AGENT): Continue synthroid Dysphagia 11/12/2024 Assessment & Plan (11/20/2024 3:19 PM INSURANCE AGENT): - Related to mass effect from the above malignancy -Speech therapy following, s/p MBS. Recommended full liquid diet with nectar thick liquids - repeat MBS, Swallow function is definitely improving. Still getting notable residue in the pharynx and esophagus but clearance is looking better. Recommend regular diet (choose softer foods)/thin liquid. Small bites/sips. Alternate bites/sips. Swallow x2 per bite. Meds-crushed/whole in puree with liquid wash. Remain upright 30 mins after meals Resolved Problems Problem Noted Date Diagnosed Date Resolved Date Hyperuricemia 11/13/2024 11/17/2024 Assessment & Plan (11/17/2024 2:53 PM INSURANCE AGENT): -s/p IVF and allopurinol given uric acid 12.7 (LDH, phos, K all WNL) - Uric acid normalized; allopurinol decreased from b.i.d. to once daily 11/16 Social History Tobacco Use Types Packs/Day Years Used Date Smoking Tobacco: Never Tobacco Cessation:Counseling Given: Not Answered [facility] Utilities Answer Date Recorded In the past 12 months has e [employer], gas, oil, or water [employer] threatened to shut off services in your [...] often do you attend chur ch or oriental orthodox services? 1 to 4 times per year 11/19/2024 Do you belong to any clubs o r organizations such as mormon groups, unions, fraternal or athletic groups, or [...] the money to buy more. Never true 02/27/20 25 Within the past 12 months, t [...] any time in the past 12 m [facility], were you homeless or living in a skilled nursing (including now)? No 11/19/2024 Personal Safety Answer Date Recorded Have you ever been in or are you currently in a harmful physical or emotional relationship or is someone making you feel afraid or unsafe? Denies 11/08/2024 Comments Unknown Sex and Gender Information Value Date Recorded Sex Assigned at Not on file Legal Sex Female 6:33 PM INSURANCE AGENT Gender Identity Not on file Sexual Orientation Not on file Last Filed Vital Signs Vital Sign Reading Time Taken Comments Blood Pressure 119/77 12/18/2024 8:41 AM CDT Pulse 103 12/18/2024 8:41 AM CDT Temperature 36.3 C (97.3 F) 12/18/2024 8:41 AM CDT Respiratory Rate 18 12/18/2024 8:41 AM CDT Oxygen Saturation 99% 12/18/2024 8:41 AM CDT Inhaled Oxygen Concentration - - Weight 60.1 kg (132 lb 9.6 oz) 12/18/2024 8:41 A M CDT Height 152.4 cm (5') 11/08/2024 9:20 PM INSURANCE AGENT Body Mass Index 25.9 11/08/2024 9:20 PM INSURANCE AGENT Plan of Treatment Not on file Procedures Procedure Name Priority Date/Time Associated Diagnosis Comments MANUAL DIFFERENTIAL STAT 12/18/2024 7 :20 AM CDT Chemotherapy induced neutropenia Diffuse large B-cell lymphoma, unspecified body region (HCC) EGFR STAT 12/18/2024 7:20 AM CDT Chemotherapy induced neutropenia Diffuse large B-cell lymphoma, unspecified body region (HCC) CBC WITH AUTO DIFFERENTIAL STAT 12/18/2024 7:20 AM CDT Chemotherapy induced neutropenia Diffuse large B-cell lymphoma, unspecified body region (HCC) COMPREHENSIVE METABOLIC PANEL STAT 12/18/2024 7:20 AM CDT Chemotherapy induced neutropenia Diffuse large B-cell lymphoma, unspecified body region (HCC) MAGNESIUM STAT 12/18/2024 7:20 AM CDT Chemotherapy induced neutropenia Diffuse large B-cell lymphoma, unspecified body region (HCC) PHOSPHORUS STAT 12/18/2024 7:20 AM CDT Chemotherapy induced neutropenia Diffuse large B-cell lymphoma, unspecified body region (HCC) URIC ACID STAT 12/18/2024 7:20 AM CDT Chemotherapy induced neutropenia Diffuse large B-cell lymphoma, unspecified body region (HCC) AMYLASE STAT 12/18/2024 7:20 AM CDT Chemotherapy induced neutropenia Diffuse large B-cell lymphoma, unspecified body region (HCC) LIPASE STAT 12/18/2024 7:20 AM CDT Chemotherapy induced neutropenia Diffuse large B-cell lymphoma, unspecified body region (HCC) GAMMA GT STAT 12/18/2024 7:20 AM CDT Chemotherapy induced neutropenia Diffuse large B-cell lymphoma, unspecified body region (HCC) BILIRUBIN, DIRECT Routine 12/18/2024 7:2 0 AM CDT Chemotherapy induced neutropenia Diffuse large B-cell lymphoma, unspecified body region (HCC) LACTATE DEHYDROGENASE Routine 12/18/2024 7:20 AM CDT Chemotherapy induced neutropenia Diffuse large B-cell lymphoma, unspecified body region (HCC) CRP (ACUTE PHASE) Routine 12/18/2024 7:2 0 AM CDT Chemotherapy induced neutropenia Diffuse large B-cell lymphoma, unspecified body region (HCC) FERRITIN Routine 12/18/2024 7:20 AM CDT Chemotherapy induced neutropenia Diffuse large B-cell lymphoma, unspecified body region (HCC) EGFR STAT 12/11/2024 8:45 AM CDT Chemotherapy induced neutropenia Diffuse large B-cell lymphoma, unspecified body region (HCC) MANUAL DIFFERENTIAL STAT 12/11/2024 8 :45 AM CDT Chemotherapy induced neutropenia Diffuse large B-cell lymphoma, unspecified body region (HCC) CBC WITH AUTO DIFFERENTIAL STAT 12/11/2024 8:45 AM CDT Chemotherapy induced neutropenia Diffuse large B-cell lymphoma, unspecified body region (HCC) COMPREHENSIVE METABOLIC PANEL STAT 12/11/2024 8:45 AM CDT Chemotherapy induced neutropenia Diffuse large B-cell lymphoma, unspecified body region (HCC) MAGNESIUM STAT 12/11/2024 8:45 AM CDT Chemotherapy induced neutropenia Diffuse large B-cell lymphoma, unspecified body region (HCC) PHOSPHORUS STAT 12/11/2024 8:45 AM CDT Chemotherapy induced neutropenia Diffuse large B-cell lymphoma, unspecified body region (HCC) URIC ACID STAT 12/11/2024 8:45 AM CDT Chemotherapy induced neutropenia Diffuse large B-cell lymphoma, unspecified body region (HCC) AMYLASE STAT 12/11/2024 8:45 AM CDT Chemotherapy induced neutropenia Diffuse large B-cell lymphoma, unspecified body region (HCC) LIPASE STAT 12/11/2024 8:45 AM CDT Chemotherapy induced neutropenia Diffuse large B-cell lymphoma, unspecified body region (HCC) GAMMA GT STAT 12/11/2024 8:45 AM CDT Chemotherapy induced neutropenia Diffuse large B-cell lymphoma, unspecified body region (HCC) BILIRUBIN, DIRECT Routine 12/11/2024 8:4 5 AM CDT Chemotherapy induced neutropenia Diffuse large B-cell lymphoma, unspecified body region (HCC) LACTATE DEHYDROGENASE Routine 12/11/2024 8:45 AM CDT Chemotherapy induced neutropenia Diffuse large B-cell lymphoma, unspecified body region (HCC) CRP (ACUTE PHASE) Routine 12/11/2024 8:4 5 AM CDT Chemotherapy induced neutropenia Diffuse large B-cell lymphoma, unspecified body region (HCC) FERRITIN Routine 12/11/2024 8:45 AM CDT Chemotherapy induced neutropenia Diffuse large B-cell lymphoma, unspecified body region (HCC) FL MODIFIED BARIUM SWALLOW W VIDEO IP Routine 11/20/2024 8:40 AM INSURANCE AGENT COMMANDER POLICE RESERVES EVALUATE AND TREAT VIDEOFLUOROSCOPIC SWALLOW STUDY Routine 11/20/2024 8:23 AM INSURANCE AGENT EGFR Routine 11/20/2024 1:16 AM INSURANCE AGENT DIFFERENTIAL AUTO Routine 11/20/2024 1:1 6 AM INSURANCE AGENT COMPREHENSIVE METABOLIC PANEL Routine 11/20/2024 1:16 AM INSURANCE AGENT URIC ACID Routine 11/20/2024 1:16 AM INSURANCE AGENT PHOSPHORUS Routine 11/20/2024 1:16 AM INSURANCE AGENT MAGNESIUM Routine 11/20/2024 1:16 AM INSURANCE AGENT CBC WITH AUTO DIFFERENTIAL Routine 11/20/2024 1:16 AM INSURANCE AGENT EGFR Routine 11/19/2024 2:07 AM INSURANCE AGENT DIFFERENTIAL AUTO Routine 11/19/2024 2:0 7 AM INSURANCE AGENT COMPREHENSIVE METABOLIC PANEL Routine 11/19/2024 2:07 AM INSURANCE AGENT URIC ACID Routine 11/19/2024 2:07 AM INSURANCE AGENT PHOSPHORUS Routine 11/19/2024 2:07 AM INSURANCE AGENT MAGNESIUM Routine 11/19/2024 2:07 AM INSURANCE AGENT CBC WITH AUTO DIFFERENTIAL Routine 11/19/2024 2:07 AM INSURANCE AGENT EGFR STAT 11/18/2024 2:33 AM INSURANCE AGENT Chemotherapy induced neutropenia Diffuse large B-cell lymphoma, unspecified body region (HCC) LACTATE DEHYDROGENASE Routine 11/18/2024 2:33 AM INSURANCE AGENT Chemotherapy induced neutropenia Diffuse large B-cell lymphoma, unspecified body region (HCC) BILIRUBIN, DIRECT Routine 11/18/2024 2:3 3 AM INSURANCE AGENT Chemotherapy induced neutropenia Diffuse large B-cell lymphoma, unspecified body region (HCC) LIPASE STAT 11/18/2024 2:33 AM INSURANCE AGENT Chemotherapy induced neutropenia Diffuse large B-cell lymphoma, unspecified body region (HCC) AMYLASE STAT 11/18/2024 2:33 AM INSURANCE AGENT Chemotherapy induced neutropenia Diffuse large B-cell lymphoma, unspecified body region (HCC) GAMMA GT STAT 11/18/2024 2:33 AM INSURANCE AGENT Chemotherapy induced neutropenia Diffuse large B-cell lymphoma, unspecified body region (HCC) URIC ACID STAT 11/18/2024 2:33 AM INSURANCE AGENT Chemotherapy induced neutropenia Diffuse large B-cell lymphoma, unspecified body region (HCC) MAGNESIUM STAT 11/18/2024 2:33 AM INSURANCE AGENT Chemotherapy induced neutropenia Diffuse large B-cell lymphoma, unspecified body region (HCC) PHOSPHORUS STAT 11/18/2024 2:33 AM INSURANCE AGENT Chemotherapy induced neutropenia Diffuse large B-cell lymphoma, unspecified body region (HCC) COMPREHENSIVE METABOLIC PANEL STAT 11/18/2024 2:33 AM INSURANCE AGENT Chemotherapy induced neutropenia Diffuse large B-cell lymphoma, unspecified body region (HCC) DIFFERENTIAL AUTO STAT 11/18/2024 1:5 8 AM INSURANCE AGENT Chemotherapy induced neutropenia Diffuse large B-cell lymphoma, unspecified body region (HCC) CBC WITH AUTO DIFFERENTIAL STAT 11/18/2024 1:58 AM INSURANCE AGENT Chemotherapy induced neutropenia Diffuse large B-cell lymphoma, unspecified body region (HCC) ECG 12-LEAD Routine 11/17/2024 1:06 PM INSURANCE AGENT FERRITIN STAT 11/17/2024 12:49 PM INSURANCE AGENT CRP (ACUTE PHASE) STAT 11/17/2024 12:49 PM INSURANCE AGENT FIBRINOGEN STAT 11/17/2024 12:49 PM INSURANCE AGENT D-DIMER, QUANTITATIVE STAT 11/17/2024 12:49 PM INSURANCE AGENT LIPASE STAT 11/17/2024 12:49 PM INSURANCE AGENT AMYLASE STAT 11/17/2024 12:49 PM INSURANCE AGENT GAMMA GT STAT 11/17/2024 12:49 PM INSURANCE AGENT BILIRUBIN, DIRECT STAT 11/17/2024 12:49 PM INSURANCE AGENT IMMUNOGLOBULIN PROFILE STAT 12:49 PM INSURANCE AGENT RESPIRATORY PATHOGEN PANEL Routine 11/17/2024 12:49 PM INSURANCE AGENT HEPATITIS B SURFACE ANTIBODY (IMMUNE STATUS) STAT 11/17/2024 12:49 PM INSURANCE AGENT HEPATITIS B CORE ANTIBODY, TOTAL STAT 11/17/2024 12:49 PM INSURANCE AGENT CYTOMEGALOVIRUS (CMV) DNA, QUANT GEN LAB STAT 11/17/2024 12:49 PM INSURANCE AGENT EGFR Routine 11/17/2024 1:08 AM INSURANCE AGENT EGFR Timed 11/17/2024 1:08 AM INSURANCE AGENT DIFFERENTIAL AUTO Routine 11/17/2024 1:0 8 AM INSURANCE AGENT URIC ACID Routine 11/17/2024 1:08 AM INSURANCE AGENT PHOSPHORUS Routine 11/17/2024 1:08 AM INSURANCE AGENT BASIC METABOLIC PANEL Routine 11/17/2024 1:08 AM INSURANCE AGENT MAGNESIUM Routine 11/17/2024 1:08 AM INSURANCE AGENT CBC WITH AUTO DIFFERENTIAL Routine 11/17/2024 1:08 AM INSURANCE AGENT CREATININE Timed 11/17/2024 1:08 AM INSURANCE AGENT PET/CT FDG SKULL TO THIGH IP Routine 11/16/2024 1:28 PM INSURANCE AGENT EGFR Routine 11/16/2024 1:24 AM INSURANCE AGENT DIFFERENTIAL AUTO Routine 11/16/2024 1:2 4 AM INSURANCE AGENT URIC ACID Routine 11/16/2024 1:24 AM INSURANCE AGENT PHOSPHORUS Routine 11/16/2024 1:24 AM INSURANCE AGENT BASIC METABOLIC PANEL Routine 11/16/2024 1:24 AM INSURANCE AGENT MAGNESIUM Routine 11/16/2024 1:24 AM INSURANCE AGENT CBC WITH AUTO DIFFERENTIAL Routine 11/16/2024 1:24 AM INSURANCE AGENT LACTATE DEHYDROGENASE Routine 11/16/2024 1:24 AM INSURANCE AGENT EGFR Routine 11/15/2024 12:45 AM INSURANCE AGENT DIFFERENTIAL AUTO Routine 11/15/2024 12:45 AM INSURANCE AGENT URIC ACID Routine 11/15/2024 12:45 AM INSURANCE AGENT PHOSPHORUS Routine 11/15/2024 12:45 AM INSURANCE AGENT LACTATE DEHYDROGENASE Routine 11/15/2024 12:45 AM INSURANCE AGENT BASIC METABOLIC PANEL Routine 11/15/2024 12:45 AM INSURANCE AGENT MAGNESIUM Routine 11/15/2024 12:45 AM INSURANCE AGENT HAPTOGLOBIN Routine 11/15/2024 12:45 AM INSURANCE AGENT CBC WITH AUTO DIFFERENTIAL Routine 11/15/2024 12:45 AM INSURANCE AGENT EGFR STAT 11/14/2024 5:37 PM INSURANCE AGENT CREATININE STAT 11/14/2024 5:37 PM INSURANCE AGENT APTT STAT 11/14/2024 5:37 PM INSURANCE AGENT CBC WITHOUT DIFFERENTIAL STAT 11/14/2024 5:37 PM INSURANCE AGENT PROTIME-INR STAT 11/14/2024 5:37 PM INSURANCE AGENT US INTERNAL JUGULAR VEIN FOR CLOT (C) IP Routine 11/14/2024 11:41 AM INSURANCE AGENT MAGNESIUM Timed 11/14/2024 12:48 AM INSURANCE AGENT EGFR Timed 11/14/2024 12:48 AM INSURANCE AGENT HAPTOGLOBIN Timed 11/14/2024 12:48 AM INSURANCE AGENT DIFFERENTIAL AUTO Routine 11/14/2024 12:48 AM INSURANCE AGENT URIC ACID Timed 11/14/2024 12:48 AM INSURANCE AGENT PHOSPHORUS Timed 11/14/2024 12:48 AM INSURANCE AGENT LACTATE DEHYDROGENASE Timed 11/14/2024 12:48 AM INSURANCE AGENT BASIC METABOLIC PANEL Timed 11/14/2024 12:48 AM INSURANCE AGENT CBC WITH AUTO DIFFERENTIAL Routine 11/14/2024 12:48 AM INSURANCE AGENT EGFR Timed 11/13/2024 7:19 PM INSURANCE AGENT URIC ACID Timed 11/13/2024 7:19 PM INSURANCE AGENT PHOSPHORUS Timed 11/13/2024 7:19 PM INSURANCE AGENT LACTATE DEHYDROGENASE Timed 11/13/2024 7:19 PM INSURANCE AGENT BASIC METABOLIC PANEL Timed 11/13/2024 7:19 PM INSURANCE AGENT TRANSTHORACIC ECHO (TTE) COMPLETE W DOPPLER/CF WO CONTRAST ED Urgent/IP Urgent 11/13/2024 3:[address] CHEST ABDOMEN PELVIS W CONTRAST IP Routine 11/13/2024 2:15 PM INSURANCE AGENT MAGNESIUM Timed 11/13/2024 2:53 AM INSURANCE AGENT EGFR Timed 11/13/2024 2:53 AM INSURANCE AGENT HAPTOGLOBIN Timed 11/13/2024 2:53 AM INSURANCE AGENT DIFFERENTIAL AUTO Routine 11/13/2024 2:5 3 AM INSURANCE AGENT TYPE AND SCREEN Timed 11/13/2024 2:53 AM INSURANCE AGENT URIC ACID Timed 11/13/2024 2:53 AM INSURANCE AGENT PHOSPHORUS Timed 11/13/2024 2:53 AM INSURANCE AGENT LACTATE DEHYDROGENASE Timed 11/13/2024 2:53 AM INSURANCE AGENT BASIC METABOLIC PANEL Timed 11/13/2024 2:53 AM INSURANCE AGENT CBC WITH AUTO DIFFERENTIAL Routine 11/13/2024 2:53 AM INSURANCE AGENT DIFFERENTIAL AUTO Timed 11/12/2024 12:45 PM INSURANCE AGENT CBC WITH AUTO DIFFERENTIAL Timed 11/12/2024 12:45 PM INSURANCE AGENT MELINDA-LOPES VIRUS VCA ANTIBODY PANEL Routine 11/12/2024 12:45 PM INSURANCE AGENT MELINDA-LOPES VIRUS (EBV) DNA QUANTITATIVE Routine 11/12/2024 12:45 PM INSURANCE AGENT HIV 1/2 ANTIBODY PLUS P24 ANTIGEN Routine 11/12/2024 12:45 PM INSURANCE AGENT HEPATITIS PANEL, ACUTE Routine 12:45 PM INSURANCE AGENT US GUIDED BIOPSY THYROID ED Urgent/IP Urgent 11/12/2024 11:07 AM INSURANCE AGENT FLOW LEUKEMIA/LYMPHOMA Routine 10:03 AM INSURANCE AGENT SURGICAL PATHOLOGY Routine 11/12/2024 10:03 AM INSURANCE AGENT Thyroid mass Dysphagia, unspecified type EGFR Timed 11/12/2024 5:00 AM INSURANCE AGENT PHOSPHORUS Routine 11/12/2024 5:00 AM INSURANCE AGENT MAGNESIUM Routine 11/12/2024 5:00 AM INSURANCE AGENT BASIC METABOLIC PANEL Timed 11/12/2024 5:00 AM INSURANCE AGENT HAPTOGLOBIN Routine 11/12/2024 5:00 AM INSURANCE AGENT LACTATE DEHYDROGENASE Routine 11/12/2024 5:00 AM INSURANCE AGENT URIC ACID Routine 11/12/2024 5:00 AM INSURANCE AGENT CYTOGENETICS Routine 11/12/2024 12:00 AM INSURANCE AGENT EGFR Timed 11/11/2024 9:57 PM INSURANCE AGENT PHOSPHORUS Routine 11/11/2024 9:57 PM INSURANCE AGENT MAGNESIUM Routine 11/11/2024 9:57 PM INSURANCE AGENT BASIC METABOLIC PANEL Timed 11/11/2024 9:57 PM INSURANCE AGENT HAPTOGLOBIN Routine 11/11/2024 9:57 PM INSURANCE AGENT LACTATE DEHYDROGENASE Routine 11/11/2024 9:57 PM INSURANCE AGENT URIC ACID Routine 11/11/2024 9:57 PM INSURANCE AGENT FL MODIFIED BARIUM SWALLOW W VIDEO IP Routine 11/11/2024 10:36 AM INSURANCE AGENT COMMANDER POLICE RESERVES EVALUATE AND TREAT VIDEOFLUOROSCOPIC SWALLOW STUDY Routine 11/11/2024 10:15 AM INSURANCE AGENT EGFR Routine 11/09/2024 10:53 PM INSURANCE AGENT DIFFERENTIAL AUTO Routine 11/09/2024 10:53 PM INSURANCE AGENT PHOSPHORUS Routine 11/09/2024 10:53 PM INSURANCE AGENT CBC WITH AUTO DIFFERENTIAL Routine 11/09/2024 10:53 PM INSURANCE AGENT MAGNESIUM Routine 11/09/2024 10:53 PM INSURANCE AGENT BASIC METABOLIC PANEL Routine 11/09/2024 10:53 PM INSURANCE AGENT US GUIDED THYROID FINE NEEDLE ASPIRATION 1ST LESION IP Routine 11/09/2024 12:14 PM INSURANCE AGENT CYTOLOGY Routine 11/09/2024 11:45 AM INSURANCE AGENT Thyroid mass Dysphagia, unspecified type EGFR Routine 11/08/2024 11:27 PM INSURANCE AGENT DIFFERENTIAL AUTO Routine 11/08/2024 11:27 PM INSURANCE AGENT PHOSPHORUS Routine 11/08/2024 11:27 PM INSURANCE AGENT CBC WITH AUTO DIFFERENTIAL Routine 11/08/2024 11:27 PM INSURANCE AGENT MAGNESIUM Routine 11/08/2024 11:27 PM INSURANCE AGENT BASIC METABOLIC PANEL Routine 11/08/2024 11:27 PM INSURANCE AGENT B CHECK SAMPLE STAT 11/07/2024 11:34 AM INSURANCE AGENT EGFR STAT 11/07/2024 9:00 AM INSURANCE AGENT T4, FREE STAT 11/07/2024 9:00 AM INSURANCE AGENT DIFFERENTIAL AUTO STAT 11/07/2024 9:0 0 AM INSURANCE AGENT THYROID FUNCTION CASCADE STAT 11/07/2024 9:00 AM INSURANCE AGENT TYPE AND SCREEN STAT 11/07/2024 9:00 AM INSURANCE AGENT APTT STAT 11/07/2024 9:00 AM INSURANCE AGENT PROTIME-INR STAT 11/07/2024 9:00 AM INSURANCE AGENT CBC WITH AUTO DIFFERENTIAL STAT 11/07/2024 9:00 AM INSURANCE AGENT COMPREHENSIVE METABOLIC PANEL STAT 11/07/2024 9:[address] BODY OUTSIDE CONSULT Routine 11/07/19 8:55 AM INSURANCE AGENT NEURO CT OUTSIDE CONSULT Routine 11/07/2024 8:52 AM INSURANCE AGENT from Last 3 Months Results * eGFR (12/18/2024 7:20 AM CDT) Pathologist [facility] eGFR >90 >=60 mL/min/1. 73 m2 Comment: Interpretive Data Reference Interval Normal >/= 90 mL/min/1.73m2 Mildly decreased* 60 - 89 mL/min/1.73m2 Mildly to moderately decreased 45 - 59 mL/min/1.73m2 Moderately to severely decreased 30 - 44 mL/min/1.73m2 Severely decreased 15 - 29 mL/min/1.73m2 Kidney Failure < 15 mL/min/1.73m2 *Relative to young adult level Estimated glomerular filtration rate is determined by the 2020 CKD-EPI equation recommended by the National Kidney Foundation (A Unifying Approach to GFR Estimation: Recommendations of the NKF-ASK Task Force on Reassessing the Inclusion of Race in Diagnosing Kidney Disease, JASN 2020). The CKD-EPI equation should not be used for patients with unstable renal function and has not been validated in children and those over 70. Current interpretive data was last reviewed 2021. Blood 12/18/2024 7:20 AM CDT 12/18/2024 7:25 AM CDT us Bob Menard MD LAB BLOOD ORDERABLES Final R esult [facility] Department [place] [address] * (ABNORMAL) CBC with auto differential (12/18/2024 7:20 AM CDT) WBC 0.2(C) 3.8 - 9.9 K/cumm Comment: Date-Time 12/18/24 0801 Critical called to Emerita Her and read back by Mariam Trevino Critical Result WBC:0.2 Called to and read back by EMERITA HER RN at: 12/18/2024 08:04:30 by:ISAAC. Testing performed by: [facility], [address] [place] [address] Hgb 9.5(L) 11.9 - 15.5 g/dL [facility] Comment:Testing performed by : [facility], [address] [place] [address] Hct 27.3(L) 35.6 - 45.5 % [facility] Comment:Testing performed by : [facility], [address] [place] [address] Plt 151 150 - 400 K/cumm [facility] Comment:Testing performed by : [facility], [address] [place] [address] MPV 10.1 6.8 - 10.4 fL [facility] Comment:Testing performed by : [facility], [address] [place] [address] RBC 3.37(L) 3.90 - 5.20 M/cumm [facility] Comment:Testing performed by : [facility], [address] [place] [address] MCV 81.0(L) 81.3 - 96.4 fL [facility] Comment:Testing performed by : [facility], [address] [place] [address] MCH 28.1 27.1 - 33.3 pg [facility] Comment:Testing performed by : [facility], [address] [place] [address] MCHC 34.7 32.3 - 35.7 g/dL [facility] Comment:Testing performed by : [facility], [address] [place] [address] RDW CV 14.2 11.1 - 14.9 % [facility] Comment:Testing performed by : [facility], [address] [place] [address] NRBC abs N/A 0.00 - 0.01 K/cumm [facility] Comment:Testing performed by : [facility], [address] [place] [address] Blood 12/18/2024 7:20 AM CDT 12/18/2024 7:24 AM CDT us Bob Menard MD LAB BLOOD ORDERABLES Final R esult [facility] Department [place] [address] * (ABNORMAL) Manual Differential (12/18/2024 7:20 AM CDT) Cells Counted 16 Comment:Testing performed by : [facility], [address] [place] [address] Neutrophil abs 0.1(L) 1.5 - 6.5 K/cumm [facility] Comment:Testing performed by : [facility], [address] [place], [place] [phone] Lymphocyte abs 0.1(L) 0.8 - 3.3 K/cumm [facility] Comment:Testing performed by : [facility], [address] [place], [place] [phone] Monocyte abs 0.0(L) 0.2 - 0.8 K/cumm [facility] Comment:Testing performed by : [facility], [address] [place], [place] [phone] Eosinophil abs 0.0 0.0 - 0.5 K/cumm [facility] Comment:Testing performed by : [facility], [address] [place] [address] Basophil abs 0.0 0.0 - 0.1 K/cumm [facility] Comment:Testing performed by : [facility], [address] [place] [address] Neutrophil pct 25.0 % [facility] Comment: Interpretive Data Percent cell count reference ranges are not reported, since discordance with absolute values may lead to misinterpretation of CBC data. Current Interpretive Data was last revised on 2017. Testing performed by: [facility], [address], [place] [address] Lymphocyte pct 56.0 % [facility] Comment: Interpretive Data Percent cell count reference ranges are not reported, since discordance with absolute values may lead to misinterpretation of CBC data. Current Interpretive Data was last revised on 2017. Testing performed by: [facility], [address] [place] [phone] Monocyte pct 0.0 % [facility] Comment: Interpretive Data Percent cell count reference ranges are not reported, since discordance with absolute values may lead to misinterpretation of CBC data. Current Interpretive Data was last revised on 2017. Testing performed by: [facility], [address] [place] [phone] Eosinophil pct 13.0 % [facility] Comment: Interpretive Data Percent cell count reference ranges are not reported, since discordance with absolute values may lead to misinterpretation of CBC data. Current Interpretive Data was last revised on 2017. Testing performed by: [facility], [address] [place] [phone] Basophil pct 6.0 % [facility] Comment: Interpretive Data Percent cell count reference ranges are not reported, since discordance with absolute values may lead to misinterpretation of CBC data. Current Interpretive Data was last revised on 2017. Testing performed by: [facility], [address] [place] [phone] RBC morphology Normal [facility] Comment:Testing performed by : [facility], [address] [place] [phone] Platelet estimate Adequate [facility] Comment:Testing performed by : [facility], [address] [place] [phone] Blood 12/18/2024 7:20 AM CDT 12/18/2024 7:50 AM CDT us Bob Menard MD LAB BLOOD ORDERABLES Final R esult [facility] Department [place] [address] * (ABNORMAL) CRP (acute phase) (12/18/2024 7:20 AM CDT) CRP 60.0(H) <=10.0 mg/L Blood 12/18/2024 7:20 AM CDT 12/18/2024 7:56 AM CDT Bob Menard MD LAB BLOOD ORDERABLES Final R esult Performing Organization Address City/[facility] Co de Phone Number [facility] [employer] [place] [address] * (ABNORMAL) Uric acid (12/18/2024 7:20 AM CDT) Uric acid 10.2(H) 2.5 - 7.0 mg/dL Blood 12/18/2024 7:20 AM CDT 12/18/2024 7:25 AM CDT Bob Menard MD LAB BLOOD ORDERABLES Final R esult Performing Organization Address City/[facility] Co de Phone Number [facility] [place] [employer] [place] [address] * Phosphorus (12/18/2024 7:20 AM CDT) Phosphorus, pl 2.5 2.3 - 4.5 mg/dL Blood 12/18/2024 7:20 AM CDT 12/18/2024 7:25 AM CDT Bob Menard MD LAB BLOOD ORDERABLES Final R esult Performing Organization Address [facility] Co de Phone Number [facility] [employer] [place] [address] * Magnesium (12/18/2024 7:20 AM CDT) Magnesium 2.1 1.4 - 2.5 mg/dL Blood 12/18/2024 7:20 AM CDT 12/18/2024 7:25 AM CDT us Bob Menard MD LAB BLOOD ORDERABLES Final R esult Performing Organization Address [facility] Co de Phone Number [facility] [place] [address] * Lipase (12/18/2024 7:20 AM CDT) Lipase 21 10 - 99 Units/L Blood 12/18/2024 7:20 AM CDT 12/18/2024 7:25 AM CDT us Bob Menard MD LAB BLOOD ORDERABLES Final R esult Performing Organization Address [facility] de Phone Number [facility] Department [place] [employer] [place] [address] * Lactate dehydrogenase (LD) (12/18/2024 7:20 AM CDT) Lactate dehydrogenase (LDH) 179 100 - 250 Units/L Blood 12/18/2024 7:20 AM CDT 12/18/2024 7:25 AM CDT us Bob Menard MD LAB BLOOD ORDERABLES Final R esult Performing Organization Address [facility] de Phone Number [facility] [place] [address] * Gamma GT (12/18/2024 7:20 AM CDT) GGT 22 5 - 35 Units/L Blood 12/18/2024 7:20 AM CDT 12/18/2024 7:25 AM CDT us Bob Menard MD LAB BLOOD ORDERABLES Final R esult Performing Organization Address City/[facility] Co de Phone Number [facility] [place] [address] * (ABNORMAL) Ferritin (12/18/2024 7:20 AM CDT) Ferritin 1,068(H) 13 - 150 ng/mL Blood 12/18/2024 7:20 AM CDT 12/18/2024 7:25 AM CDT Bob Menard MD LAB BLOOD ORDERABLES Final R esult Performing Organization Address [facility] de Phone Number [facility] [place] [employer] [place] [address] * (ABNORMAL) Bilirubin, direct (12/18/2024 7:20 AM CDT) Bilirubin, direct 0.5(H) 0.1 - 0.3 mg/dL Blood 12/18/2024 7:20 AM CDT 12/18/2024 7:25 AM CDT Bob Menard MD LAB BLOOD ORDERABLES Final R esult Performing Organization Address [facility] Co de Phone Number [facility] [place] [address] * Amylase (12/18/2024 7:20 AM CDT) Amylase <30 30 - 99 Units/L Blood 12/18/2024 7:20 AM CDT 12/18/2024 7:25 AM CDT Bob Menard MD LAB BLOOD ORDERABLES Final R esult Performing Organization Address [facility] Co de Phone Number [facility] [place] [address] * (ABNORMAL) Comprehensive metabolic panel (12/18/2024 7:20 AM CDT) Sodium 141 135 - 145 mmol/L Potassium, pl 3.0(L) 3.3 - 4.9 mmol/L [facility] Chloride 97 97 - 110 mmol/L [facility] CO2 32 22 - 32 mmol/L [facility] Anion gap 12 2 - 15 mmol/L [facility] BUN 16 6 - 25 mg/dL [facility] Creatinine 0.64 0.60 - 1.10 mg/dL [facility] Glucose 114 70 - 199 mg/dL [facility] Comment: Interpretive Data Fasting glucose >/= 126 mg/dl is diagnostic for diabetes. Fasting is defined as no caloric intake for at least 8 hours. Fasting glucose between 100 mg/dl to 125 mg/dl is diagnostic of prediabetes. In a patient with classic symptoms of hyperglycemia or hyperglycemic crisis, a random glucose >/= 200 mg/dl is diagnostic for diabetes. In the absence of unequivocal hyperglycemia, results should be confirmed by repeat testing. The classification and Diagnosis of Diabetes Diabetes Care 2021; 46: S19-S40. Current interpretive data was last revised 2022. Calcium 9.1 8.5 - 10.3 mg/dL [facility] Bilirubin, total 1.0 0.1 - 1.2 mg/dL [facility] Protein, pl 6.3(L) 6.5 - 8.5 g/dL [facility] Albumin 3.6 3.5 - 5.0 g/dL [facility] Alk phos 75 40 - 130 Units/L [facility] ALT 18 7 - 45 Units/L [facility] AST 24 10 - 45 Units/L [facility] Blood 12/18/2024 7:20 AM CDT 12/18/2024 7:25 AM CDT us Bob Menard MD LAB BLOOD ORDERABLES Final R esult [facility] Department [place] [address] * eGFR (12/11/2024 8:45 AM CDT) Pathologist [facility] eGFR 86 >=60 mL/min/1. 73 m2 Comment: Interpretive Data Reference Interval Normal >/= 90 mL/min/1.73m2 Mildly decreased* 60 - 89 mL/min/1.73m2 Mildly to moderately decreased 45 - 59 mL/min/1.73m2 Moderately to severely decreased 30 - 44 mL/min/1.73m2 Severely decreased 15 - 29 mL/min/1.73m2 Kidney Failure < 15 mL/min/1.73m2 *Relative to young adult level Estimated glomerular filtration rate is determined by the 2020 CKD-EPI equation recommended by the National Kidney Foundation (A Unifying Approach to GFR Estimation: Recommendations of the NKF-ASK Task Force on Reassessing the Inclusion of Race in Diagnosing Kidney Disease, JASN 2020). The CKD-EPI equation should not be used for patients with unstable renal function and has not been validated in children and those over 70. Current interpretive data was last reviewed 2021. Blood 12/11/2024 8:45 AM CDT 12/11/2024 9:03 AM CDT us Bob Menard MD LAB BLOOD ORDERABLES Final R esult [facility] Department [place] [address] * (ABNORMAL) CBC with auto differential (12/11/2024 8:45 AM CDT) Pathologist [facility] WBC 13.8(H) 3.8 - 9.9 K/cumm Comment:Testing performed by : [facility], [address] [place] [phone] Hgb 12.5 11.9 - 15.5 g/dL [facility] Comment:Testing performed by : [facility], [address] [place] [phone] Hct 36.8 35.6 - 45.5 % [facility] Comment:Testing performed by : [facility], [address] [place] [address] Plt 406(H) 150 - 400 K/cumm [facility] Comment:Testing performed by : [facility], [address] [place] [address] MPV 9.1 6.8 - 10.4 fL [facility] Comment:Testing performed by : [facility], [address] [place], [place] [phone] RBC 4.59 3.90 - 5.20 M/cumm [facility] Comment:Testing performed by : [facility], [address] [place] [address] MCV 80.1(L) 81.3 - 96.4 fL [facility] Comment:Testing performed by : [facility], [address] [place], [place] [phone] MCH 27.3 27.1 - 33.3 pg [facility] Comment:Testing performed by : [facility], [address] [place] [address] MCHC 34.0 32.3 - 35.7 g/dL [facility] Comment:Testing performed by : [facility], [address] [place] [address] RDW CV 14.4 11.1 - 14.9 % [facility] Comment:Testing performed by : [facility], [address] [place] [address] NRBC abs 0.00 0.00 - 0.01 K/cumm [facility] Comment:Testing performed by : [facility], [address] [place] [address] Blood 12/11/2024 8:45 AM CDT 12/11/2024 9:02 AM CDT us Bob Menard MD LAB BLOOD ORDERABLES Edited Result - Final [facility] Department [place] [address] * (ABNORMAL) Manual Differential (12/11/2024 8:45 AM CDT) Cells Counted 200 Comment:Testing performed by : [facility], [address] [place] [address] Neutrophil abs 11.9(H) 1.5 - 6.5 K/cumm [facility] Comment:Testing performed by : [facility], [address] [place], [place] [id number] Lymphocyte abs 0.6(L) 0.8 - 3.3 K/cumm [facility] Comment:Testing performed by : [facility], [address] [place], [place] [id number] Monocyte abs 0.4 0.2 - 0.8 K/cumm [facility] Comment:Testing performed by : [facility], [address] [place], [place] [id number] Eosinophil abs 0.0 0.0 - 0.5 K/cumm [facility] Comment:Testing performed by : [facility], [address] [place], [place] [id number] Basophil abs 0.1 0.0 - 0.1 K/cumm [facility] Comment:Testing performed by : [facility], [address] [place], [place] [phone] Neutrophil pct 86.0 % [facility] Comment: Interpretive Data Percent cell count reference ranges are not reported, since discordance with absolute values may lead to misinterpretation of CBC data. Current Interpretive Data was last revised on 2017. Testing performed by: [facility], [address] [place] [phone] Lymphocyte pct 4.0 % [facility] Comment: Interpretive Data Percent cell count reference ranges are not reported, since discordance with absolute values may lead to misinterpretation of CBC data. Current Interpretive Data was last revised on 2017. Testing performed by: [facility], [address] [place] [phone] Monocyte pct 3.0 % [facility] Comment: Interpretive Data Percent cell count reference ranges are not reported, since discordance with absolute values may lead to misinterpretation of CBC data. Current Interpretive Data was last revised on 2017. Testing performed by: [facility], [address] [place], [place] [id number] Eosinophil pct 0.0 % [facility] Comment: Interpretive Data Percent cell count reference ranges are not reported, since discordance with absolute values may lead to misinterpretation of CBC data. Current Interpretive Data was last revised on 2017. Testing performed by: [facility], [address] [place] [address] Basophil pct 1.0 % [facility] Comment: Interpretive Data Percent cell count reference ranges are not reported, since discordance with absolute values may lead to misinterpretation of CBC data. Current Interpretive Data was last revised on 2017. Testing performed by: [facility], [address] [place], [place] [id number] Metamyelocyte pct 5.0(H) 0.0 - 0.0 % [facility] Comment:Testing performed by : [facility], [address] [place] [address] Myelocyte pct 1.0(H) 0.0 - 0.0 % [facility] Comment:Testing performed by : [facility], [address] [place] [address] Promyelocyte pct 1.0(H) 0.0 - 0.0 % [facility] Comment:Testing performed by : [facility], [address] [place] [address] RBC morphology NRBCs present(A) [facility] Comment:Testing performed by : [facility], [address] [place], [place] [phone] Acanthocytes 1+(A) [facility] Comment:Testing performed by : [facility], [address] [place], [place] [phone] Echinocytes 1+(A) [facility] Comment:Testing performed by : [facility], [address] [place] [address] Platelet estimate Adequate [facility] Comment:Testing performed by : [facility], [address] [place] [phone] Giant platelets Present(A) [facility] Comment:Testing performed by : [facility], [address] [place] [phone] Blood 12/11/2024 8:45 AM CDT 12/11/2024 9:02 AM CDT Bob Menard MD LAB BLOOD ORDERABLES Final R esult Performing Organization Address City/[facility] Co de Phone Number [facility] [place] [address] * (ABNORMAL) CRP (acute phase) (12/11/2024 8:45 AM CDT) CRP 15.6(H) <=10.0 mg/L Blood 12/11/2024 8:45 AM CDT 12/11/2024 9:36 AM CDT us Bob Menard MD LAB BLOOD ORDERABLES Final R esult Performing Organization Address [facility] Co de Phone Number [facility] Department [place] [address] * (ABNORMAL) Uric acid (12/11/2024 8:45 AM CDT) Uric acid 14.9(H) 2.5 - 7.0 mg/dL Blood 12/11/2024 8:45 AM CDT 12/11/2024 9:03 AM CDT Bob Menard MD LAB BLOOD ORDERABLES Final R esult Performing Organization Address [facility] Co de Phone Number [facility] [place] [address] * Phosphorus (12/11/2024 8:45 AM CDT) Phosphorus, pl 2.8 2.3 - 4.5 mg/dL Blood 12/11/2024 8:45 AM CDT 12/11/2024 9:03 AM CDT Bob Menard MD LAB BLOOD ORDERABLES Final R esult Performing Organization Address [facility] Co de Phone Number [facility] [employer] [place] [address] * Magnesium (12/11/2024 8:45 AM CDT) Pathologist [facility] Magnesium 1.8 1.4 - 2.5 mg/dL Blood 12/11/2024 8:45 AM CDT 12/11/2024 9:03 AM CDT Bob Menard MD LAB BLOOD ORDERABLES Final R esult Performing Organization Address [facility] Co de Phone Number [facility] [employer] [place] [address] * Lipase (12/11/2024 8:45 AM CDT) Pathologist [facility] Lipase 27 10 - 99 Units/L Blood 12/11/2024 8:45 AM CDT 12/11/2024 9:03 AM CDT Bob Menard MD LAB BLOOD ORDERABLES Final R esult Performing Organization Address [facility] de Phone Number [facility] [employer] [place] [address] * Lactate dehydrogenase (LD) (12/11/2024 8:45 AM CDT) Pathologist [facility] Lactate dehydrogenase (LDH) 212 100 - 250 Units/L Blood 12/11/2024 8:45 AM CDT 12/11/2024 9:03 AM CDT us Bob Menard MD LAB BLOOD ORDERABLES Final R esult Performing Organization Address [facility] Co de Phone Number [facility] [employer] [place] [address] * Gamma GT (12/11/2024 8:45 AM CDT) GGT 18 5 - 35 Units/L Blood 12/11/2024 8:45 AM CDT 12/11/2024 9:03 AM CDT us Bob Menard MD LAB BLOOD ORDERABLES Final R esult Performing Organization Address [facility] Co de Phone Number [facility] [employer] [place] [address] * (ABNORMAL) Ferritin (12/11/2024 8:45 AM CDT) Ferritin 916(H) 13 - 150 ng/mL Blood 12/11/2024 8:45 AM CDT 12/11/2024 9:03 AM CDT us Bob Menard MD LAB BLOOD ORDERABLES Final R esult Performing Organization Address [facility] Co de Phone Number [facility] [employer] [place] [address] * (ABNORMAL) Bilirubin, direct (12/11/2024 8:45 AM CDT) Bilirubin, direct 0.4(H) 0.1 - 0.3 mg/dL Blood 12/11/2024 8:45 AM CDT 12/11/2024 9:03 AM CDT us Bob Menard MD LAB BLOOD ORDERABLES Final R esult Performing Organization Address City/[facility] Co de Phone Number [facility] [place] [address] * Amylase (12/11/2024 8:45 AM CDT) Amylase <30 30 - 99 Units/L Blood 12/11/2024 8:45 AM CDT 12/11/2024 9:03 AM CDT Bob Menard MD LAB BLOOD ORDERABLES Final R esult [facility] Department [place] [address] * (ABNORMAL) Comprehensive metabolic panel (12/11/2024 8:45 AM CDT) Pathologist [facility] Sodium 138 135 - 145 mmol/L Potassium, pl 3.0(L) 3.3 - 4.9 mmol/L [facility] Chloride 94(L) 97 - 110 mmol/L [facility] CO2 24 22 - 32 mmol/L [facility] Anion gap 20(H) 2 - 15 mmol/L [facility] BUN 14 6 - 25 mg/dL [facility] Creatinine 0.76 0.60 - 1.10 mg/dL [facility] Glucose 110 70 - 199 mg/dL [facility] Comment: Interpretive Data Fasting glucose >/= 126 mg/dl is diagnostic for diabetes. Fasting is defined as no caloric intake for at least 8 hours. Fasting glucose between 100 mg/dl to 125 mg/dl is diagnostic of prediabetes. In a patient with classic symptoms of hyperglycemia or hyperglycemic crisis, a random glucose >/= 200 mg/dl is diagnostic for diabetes. In the absence of unequivocal hyperglycemia, results should be confirmed by repeat testing. The classification and Diagnosis of Diabetes Diabetes Care 202; 46: S19-S40. Current interpretive data was last revised 2022. Calcium 9.6 8.5 - 10.3 mg/dL [facility] Bilirubin, total 0.7 0.1 - 1.2 mg/dL [facility] Protein, pl 7.0 6.5 - 8.5 g/dL [facility] Albumin 3.8 3.5 - 5.0 g/dL [facility] Alk phos 66 40 - 130 Units/L [facility] ALT 12 7 - 45 Units/L [facility] AST 20 10 - 45 Units/L [facility] Blood 12/11/2024 8:45 AM CDT 12/11/2024 9:03 AM CDT us Bob Menard MD LAB BLOOD ORDERABLES Final R esult [facility] Department [place] [address] * FL Modified Barium Swallow W Video (11/20/2024 8:40 AM INSURANCE AGENT) Anatomical Region Laterality Modality Head and Neck N/A Radio Fluoroscop y 11/20/2024 9:16 AM INSURANCE AGENT Impressions 11/20/2024 11:15 AM INSURANCE AGENT The swallowing mechanism is abnormal; see above comments. Please refer to the Speech Pathology procedure note for safe swallow recommendations as well as additional information regarding the oral-pharyngeal swallow function, plan of care, and recommended follow up. Dictated by: Petr Zavaleta MD PHD The radiology attending physician has personally reviewed this study, and had reviewed and/or edited this written report and agrees with it. Electronically signed by: Torey Vazquez M.D. Narrative 11/20/2024 11:15 AM INSURANCE AGENT EXAMINATION: MODIFIED BARIUM SWALLOW HISTORY: Dysphagia. TECHNIQUE: This procedure was completed in conjunction with a Speech Language Pathologist. The patient was given barium of multiple different consistencies to swallow. Video fluoroscopy was employed during the exam. FINDINGS: Pharyngeal swallow function is mildly impaired. There is suspected esophageal dysphagia with retention of barium in the proximal thoracic esophagus. Penetration: Yes There is penetration of thin liquid. Penetration is sometimes sensed. The penetrated material is sometimes cleared. Aspiration: Yes There is aspiration of thin liquid. Aspiration is sensed. The aspirated material is cleared. Residue:Yes There is pharyngeal residue of thin liquid, puree, and solid. Residue is sensed. The residual material is sometimes cleared. Other comments: Stepwise mild anterolisthesis of C3-C5. Mild kyphosis of the cervical spine. Procedure Note Torey Vazquez MD - 11/20/2024 EXAMINATION: MODIFIED BARIUM SWALLOW HISTORY: Dysphagia. TECHNIQUE: This procedure was completed in conjunction with a Speech Language Pathologist. The patient was given barium of multiple different consistencies to swallow. Video fluoroscopy was employed during the exam. FINDINGS: Pharyngeal swallow function is mildly impaired. There is suspected esophageal dysphagia with retention of barium in the proximal thoracic esophagus. Penetration: Yes There is penetration of thin liquid. Penetration is sometimes sensed. The penetrated material is sometimes cleared. Aspiration: Yes There is aspiration of thin liquid. Aspiration is sensed. The aspirated material is cleared. Residue:Yes There is pharyngeal residue of thin liquid, puree, and solid. Residue is sensed. The residual material is sometimes cleared. Other comments: Stepwise mild anterolisthesis of C3-C5. Mild kyphosis of the cervical spine. IMPRESSION: The swallowing mechanism is abnormal; see above comments. Please refer to the Speech Pathology procedure note for safe swallow recommendations as well as additional information regarding the oral-pharyngeal swallow function, plan of care, and recommended follow up. Dictated by: Petr Zavaleta MD PHD The radiology attending physician has personally reviewed this study, and had reviewed and/or edited this written report and agrees with it. Electronically signed by: Torey Vazquez M.D. Micheline Riggs MD IMG FLUOROSCOPY PROCEDURES Fin al Result * [employer] Evaluate and Treat (VFSS) (11/20/2024 8:23 AM INSURANCE AGENT) Narrative Melissa Taylor [employer] - 11/20/2024 8:23 AM INSURANCE AGENT Melissa Taylor [employer] 11/20/2024 9:50 AM Speech-Language Pathology: Videofluoroscopic Study of Swallow (VFSS/MBS) HPI/PMH 64 y.o. female with PMH hypothyroidism previously on levothyroxine who presents with 1 month progressive difficulty swallowing of solid/liquids and neck swelling. The patient notes a subacute progressive difficulty swallowing over the course of 1 month. She also notes neck swelling concerning for a mass that she initial recognized in August 2024. Since, the patient reports that the mass has been increasing in size. She does not note any associated or preceding symptoms other than a cough in the fall. Last night she felt short of breath when lying flat and presented to the ED for further evaluation. She initially presented to an outside hospital and had CT imaging done concerning for large heterogenous enhancing mass of the right thyroid that extends into the superior mediastinum, causing mass effect with deviation of the larynx and upper trachea and effacement of the airway at the level of the vocal cords. Respiratory/Intubation Status: RA Imaging: PET 11/16: Large markedly hypermetabolic right thyroid mass consistent with B-cell lymphoma. Additional subcentimeter mildly hypermetabolic right level 2 and left level 3 lymph nodes are concerning for additional sites of lymphoma. Chest CT 11/13-No suspicious pulmonary nodule, focal consolidation, pleural effusion, or pneumothorax. CT Neck 11/07- Large heterogeneously enhancing mass centered over expected location of right thyroid with extension into the superior mediastinum. There is potential invasion of the right cricoid cartilage. Mass effect causes leftward deviation of larynx and upper trachea with effacement of airway most prominent at level of vocal cords. CT Chest 11/07- There is no airspace consolidation, pleural effusion, or pneumothorax. Precautions: none documented in EMR Current Diet Order: Full liquid diet-nectar thick, no puree Baseline Diet: Regular diet thin liquid General Information Cat Hancock 11/20/24 [employer] Received On: 11/20/24 General Observations: Pt alert and sitting upright in fluoro chair upon arrival; agreeable to evaluation. Voicing appears improved when compared to previous sessions. Following all commands and able to self feed trials. Reason for Referral:To further assess oral-pharyngeal swallow function Pain Score: No/denies pain If pain >4, was RN notified? N/A Patient Stated Goal/Comments: Pt eager to advance back to foods Clinical Impression & Professional Recommendations Diet Solids Recommendation: Regular (choose softer foods) Diet Liquids Recommendations: Thin/regular Recommended Form of Medications: Crushed, Whole, With puree (followed by liquid wash) Compensatory Strategies/Modifications: Single sips, Small bites, Alternate solids and liquids, Double/repeat swallows to clear, Slow rate Postural Recommendations: Upright, Upright 30 min after meal Assistance with feeding/swallowing: Setup only Specialty Instructions: Thorough oral care 2-3x/day including teeth brushing (gums and tongue) with suction while upright at 90 to improve the oral biome and reduce the risk of aspiration related complications (i.e., PNA) Overall Clinical Impression/Additional Information: 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 Pt spontaneously taking small bites/sips throughout; hesitant to accept larger volumes. Pt continues to have reduced bolus drive across consistencies, requiring multiple repeat swallows to clear mild to moderate amounts of residue from pharynx. Efficiency and safety of swallow does appear improved when compared to previous MBS. Trace high-moderate depth penetration of thin liquid x1-2 that appeared to clear with force of swallow or during subsequent trials. Transient aspiration observed in 1/8 trials of thin liquid as liquid wash to solids. Aspiration appeared to fully clear trachea with force of swallow and residue remaining in vestibule appeared to clear during subsequent trials. No penetration/aspiration observed across trials of puree or hard/soft solids; however, given presence of residue pt at risk for aspiration after the swallow. Pt reflexively completing 2-3 repeat swallows per bolus. Residue did appear to build when not followed by liquid wash. Residue did not appear significantly different across consistencies. Pt was provided education on importance of good oral care, small bites, following up with liquid wash following each bite, and remaining upright after meals to reduce risk for aspiration. Retention observed below level of UES consistently across trials. Assessment Details & Results Purpose and Procedure of Videofluoroscopic Study of Swallow: Videofluoroscopic Study of Swallow completed to assess oropharyngeal swallow function and safety/efficiency of the swallow so that diet recommendations can be made. This test is completed in conjunction with Radiology. Results of this test are indicative of performance at the time of the exam. Standard procedure is in lateral view at 90 degrees. Consistencies Administered: Thin liquids, Purees, Solids Administered consistencies contain barium product. Thin Liquids: Laryngeal Penetration: Present Aspiration Present: Yes Timing: During, After Amount: Trace Penetration Aspiration Scale-Thin: 6-Material enters the airway, passes below the vocal folds and is ejected into the larynx or out of the airway Purees: Laryngeal Penetration: None Aspiration Present: No Penetration Aspiration Scale-Puree: 1-Material does not enter airway Solids: Laryngeal Penetration: None Aspiration Present: No Penetration Aspiration Scale-Solids: 1-Material does not enter airway Dysphagia Outcome and Severity Scale: Dysphagia Outcomes and Severity Scale: 5 Mild dysphagia Levels 1 & 2 on the NILAY indicate need for nonoral nutrition. Treatment Treatment was not provided this date. Please reference care plan for treatment goals and details, if indicated. Plan [employer] Frequency of Services during current admission: 1-2x/wk [employer] Recommendation (Add'l Services): Outpatient [employer] Next Visit Plan: treatment/therapy Additional Referrals: GI evaluation + OP [employer] Discharge Summary Statement If this is the last swallow therapy visit, this serves as the discharge summary. Micheline Riggs MD [employer] ORDERABLES Final Result * eGFR (11/20/2024 1:16 AM INSURANCE AGENT) eGFR 82 >=60 mL/min/1. 73 m2 Comment: Interpretive Data Reference Interval Normal >/= 90 mL/min/1.73m2 Mildly decreased* 60 - 89 mL/min/1.73m2 Mildly to moderately decreased 45 - 59 mL/min/1.73m2 Moderately to severely decreased 30 - 44 mL/min/1.73m2 Severely decreased 15 - 29 mL/min/1.73m2 Kidney Failure < 15 mL/min/1.73m2 *Relative to young adult level Estimated glomerular filtration rate is determined by the 2020 CKD-EPI equation recommended by the National Kidney Foundation (A Unifying Approach to GFR Estimation: Recommendations of the NKF-ASK Task Force on Reassessing the Inclusion of Race in Diagnosing Kidney Disease, JASN 2020). The CKD-EPI equation should not be used for patients with unstable renal function and has not been validated in children and those over 70. Current interpretive data was last reviewed 2021. Blood 11/20/2024 1:16 AM INSURANCE AGENT 11/20/2024 1:33 AM INSURANCE AGENT Micheline Riggs MD LAB BLOOD ORDERABLES Final Res ult [facility] Department [place] [address] * (ABNORMAL) Differential, auto (11/20/2024 1:16 AM INSURANCE AGENT) Neutrophil abs 4.5 1.5 - 6.5 K/cumm Imm gran abs 0.0 0.0 - 0.1 K/cumm [facility] Lymphocyte abs 0.2(L) 0.8 - 3.3 K/cumm [facility] Monocyte abs 0.3 0.2 - 0.8 K/cumm [facility] Eosinophil abs 0.0 0.0 - 0.5 K/cumm [facility] Basophil abs 0.0 0.0 - 0.1 K/cumm [facility] Neutrophil pct 90.0 % [facility] Comment: Interpretive Data Percent cell count reference ranges are not reported, since discordance with absolute values may lead to misinterpretation of CBC data. Current Interpretive Data was last revised on 2017. Imm gran pct 0.6 % [facility] Comment: Interpretive Data Percent cell count reference ranges are not reported, since discordance with absolute values may lead to misinterpretation of CBC data. Current Interpretive Data was last revised on 2017. Lymphocyte pct 4.2 % [facility] Comment: Interpretive Data Percent cell count reference ranges are not reported, since discordance with absolute values may lead to misinterpretation of CBC data. Current Interpretive Data was last revised on 2017. Monocyte pct 5.0 % [facility] Comment: Interpretive Data Percent cell count reference ranges are not reported, since discordance with absolute values may lead to misinterpretation of CBC data. Current Interpretive Data was last revised on 2017. Eosinophil pct 0.0 % [facility] Comment: Interpretive Data Percent cell count reference ranges are not reported, since discordance with absolute values may lead to misinterpretation of CBC data. Current Interpretive Data was last revised on 2017. Basophil pct 0.2 % [facility] Comment: Interpretive Data Percent cell count reference ranges are not reported, since discordance with absolute values may lead to misinterpretation of CBC data. Current Interpretive Data was last revised on 2017. Blood 11/20/2024 1:16 AM INSURANCE AGENT 11/20/2024 1:25 AM INSURANCE AGENT Janice Mendes MD LAB BLOOD ORDERABLES Final Result Performing Organization Address [facility] de Phone Number [facility] [place] [address] * CBC with auto differential (11/20/2024 1:16 AM INSURANCE AGENT) WBC 5.0 3.8 - 9.9 K/cumm Hgb 12.0 11.9 - 15.5 g/dL [facility] Hct 36.7 35.6 - 45.5 % [facility] Plt 189 150 - 400 K/cumm [facility] MPV 11.7 9.1 - 12.3 fL [facility] RBC 4.29 3.90 - 5.20 M/cumm [facility] MCV 85.5 81.3 - 96.4 fL [facility] MCH 28.0 27.1 - 33.3 pg [facility] MCHC 32.7 32.3 - 35.7 g/dL [facility] RDW CV 14.4 11.1 - 14.9 % [facility] RDW SD 44.2 35.7 - 48.1 fL [facility] NRBC abs 0.00 0.00 - 0.01 K/cumm [facility] Blood 11/20/2024 1:16 AM INSURANCE AGENT 11/20/2024 1:25 AM INSURANCE AGENT us Janice Mendes MD LAB BLOOD ORDERABLES Final Result Performing Organization Address [facility] de Phone Number [facility] Department [place] [address] * Uric acid (11/20/2024 1:16 AM INSURANCE AGENT) Uric acid 2.8 2.5 - 7.0 mg/dL Blood 11/20/2024 1:16 AM INSURANCE AGENT 11/20/2024 1:25 AM INSURANCE AGENT Gretel Brar MD LAB BLOOD ORDERABLES Sara l Result Performing Organization Address [facility] Co de Phone Number [facility] [place] [address] * Phosphorus (11/20/2024 1:16 AM INSURANCE AGENT) [facility] Phosphorus, pl 3.4 2.3 - 4.5 mg/dL Blood 11/20/2024 1:16 AM INSURANCE AGENT 11/20/2024 1:25 AM INSURANCE AGENT Gretel Brar MD LAB BLOOD ORDERABLES Sara l Result Performing Organization Address City/[facility]/ZIP Co de Phone Number [facility] [place] [address] * Magnesium (11/20/2024 1:16 AM INSURANCE AGENT) [facility] Magnesium 2.2 1.4 - 2.5 mg/dL Blood 11/20/2024 1:16 AM INSURANCE AGENT 11/20/2024 1:25 AM INSURANCE AGENT Janice Mendes MD LAB BLOOD ORDERABLES Final Result Performing Organization Address [facility] Co de Phone Number [facility] [place] [address] * (ABNORMAL) Comprehensive metabolic panel (11/20/2024 1:16 AM INSURANCE AGENT) [facility] Sodium 145 135 - 145 mmol/L Potassium, pl 4.0 3.3 - 4.9 mmol/L [facility] Chloride 106 97 - 110 mmol/L [facility] CO2 33(H) 22 - 32 mmol/L [facility] Anion gap 6 2 - 15 mmol/L [facility] BUN 10 6 - 25 mg/dL [facility] Creatinine 0.79 0.60 - 1.10 mg/dL [facility] Glucose 133 70 - 199 mg/dL [facility] Comment: Interpretive Data Fasting glucose >/= 126 mg/dl is diagnostic for diabetes. Fasting is defined as no caloric intake for at least 8 hours. Fasting glucose between 100 mg/dl to 125 mg/dl is diagnostic of prediabetes. In a patient with classic symptoms of hyperglycemia or hyperglycemic crisis, a random glucose >/= 200 mg/dl is diagnostic for diabetes. In the absence of unequivocal hyperglycemia, results should be confirmed by repeat testing. The classification and Diagnosis of Diabetes Diabetes Care 202; 46: S19-S40. Current interpretive data was last revised 2022. Calcium 9.5 8.5 - 10.3 mg/dL [facility] Bilirubin, total 0.4 0.1 - 1.2 mg/dL [facility] Protein, pl 6.7 6.5 - 8.5 g/dL [facility] Albumin 3.7 3.5 - 5.0 g/dL [facility] Alk phos 51 40 - 130 Units/L [facility] ALT 43 7 - 45 Units/L [facility] AST 47(H) 10 - 45 Units/L [facility] Blood 11/20/2024 1:16 AM INSURANCE AGENT 11/20/2024 1:25 AM INSURANCE AGENT us Micheline Riggs MD LAB BLOOD ORDERABLES Final Res ult [facility] Department [place] [address] * eGFR (11/19/2024 2:07 AM INSURANCE AGENT) eGFR 81 >=60 mL/min/1. 73 m2 Comment: Interpretive Data Reference Interval Normal >/= 90 mL/min/1.73m2 Mildly decreased* 60 - 89 mL/min/1.73m2 Mildly to moderately decreased 45 - 59 mL/min/1.73m2 Moderately to severely decreased 30 - 44 mL/min/1.73m2 Severely decreased 15 - 29 mL/min/1.73m2 Kidney Failure < 15 mL/min/1.73m2 *Relative to young adult level Estimated glomerular filtration rate is determined by the 2020 CKD-EPI equation recommended by the National Kidney Foundation (A Unifying Approach to GFR Estimation: Recommendations of the NKF-ASK Task Force on Reassessing the Inclusion of Race in Diagnosing Kidney Disease, JONATHANN 2020). The CKD-EPI equation should not be used for patients with unstable renal function and has not been validated in children and those over 70. Current interpretive data was last reviewed 2021. Blood 11/19/2024 2:07 AM INSURANCE AGENT 11/19/2024 2:30 AM INSURANCE AGENT us Micheline Riggs MD LAB BLOOD ORDERABLES Final Res ult [facility] Department [place] [address] * (ABNORMAL) Differential, auto (11/19/2024 2:07 AM INSURANCE AGENT) Neutrophil abs 7.8(H) 1.5 - 6.5 K/cumm Imm gran abs 0.0 0.0 - 0.1 K/cumm [facility] Lymphocyte abs 0.2(L) 0.8 - 3.3 K/cumm [facility] Monocyte abs 0.3 0.2 - 0.8 K/cumm [facility] Eosinophil abs 0.0 0.0 - 0.5 K/cumm [facility] Basophil abs 0.0 0.0 - 0.1 K/cumm [facility] Neutrophil pct 94.2 % [facility] Comment: Interpretive Data Percent cell count reference ranges are not reported, since discordance with absolute values may lead to misinterpretation of CBC data. Current Interpretive Data was last revised on 2017. Imm gran pct 0.5 % [facility] Comment: Interpretive Data Percent cell count reference ranges are not reported, since discordance with absolute values may lead to misinterpretation of CBC data. Current Interpretive Data was last revised on 2017. Lymphocyte pct 2.0 % [facility] Comment: Interpretive Data Percent cell count reference ranges are not reported, since discordance with absolute values may lead to misinterpretation of CBC data. Current Interpretive Data was last revised on 2017. Monocyte pct 3.1 % [facility] Comment: Interpretive Data Percent cell count reference ranges are not reported, since discordance with absolute values may lead to misinterpretation of CBC data. Current Interpretive Data was last revised on 2017. Eosinophil pct 0.0 % [facility] Comment: Interpretive Data Percent cell count reference ranges are not reported, since discordance with absolute values may lead to misinterpretation of CBC data. Current Interpretive Data was last revised on 2017. Basophil pct 0.2 % [facility] Comment: Interpretive Data Percent cell count reference ranges are not reported, since discordance with absolute values may lead to misinterpretation of CBC data. Current Interpretive Data was last revised on 2017. Blood 11/19/2024 2:07 AM INSURANCE AGENT 11/19/2024 2:30 AM INSURANCE AGENT us Janice Mendes MD LAB BLOOD ORDERABLES Final Result [facility] Department [place] [address] * (ABNORMAL) CBC with auto differential (11/19/2024 2:07 AM INSURANCE AGENT) WBC 8.3 3.8 - 9.9 K/cumm Hgb 11.7(L) 11.9 - 15.5 g/dL [facility] Hct 36.0 35.6 - 45.5 % [facility] Plt 178 150 - 400 K/cumm [facility] MPV 11.4 9.1 - 12.3 fL [facility] RBC 4.20 3.90 - 5.20 M/cumm [facility] MCV 85.7 81.3 - 96.4 fL [facility] MCH 27.9 27.1 - 33.3 pg [facility] MCHC 32.5 32.3 - 35.7 g/dL [facility] RDW CV 14.1 11.1 - 14.9 % [facility] RDW SD 43.8 35.7 - 48.1 fL [facility] NRBC abs 0.00 0.00 - 0.01 K/cumm [facility] Blood 11/19/2024 2:07 AM INSURANCE AGENT 11/19/2024 2:30 AM INSURANCE AGENT Janice Mendes MD LAB BLOOD ORDERABLES Final Result Performing Organization Address [facility] Co de Phone Number [facility] [employer] [place] [address] * Uric acid (11/19/2024 2:07 AM INSURANCE AGENT) Uric acid 3.4 2.5 - 7.0 mg/dL Blood 11/19/2024 2:07 AM INSURANCE AGENT 11/19/2024 2:30 AM INSURANCE AGENT Gretel Brar MD LAB BLOOD ORDERABLES Sara l Result Performing Organization Address [facility] [place] [address] * Phosphorus (11/19/2024 2:07 AM INSURANCE AGENT) Phosphorus, pl 3.6 2.3 - 4.5 mg/dL Blood 11/19/2024 2:07 AM INSURANCE AGENT 11/19/2024 2:30 AM INSURANCE AGENT us Gretel Brar MD LAB BLOOD ORDERABLES Sara l Result Performing Organization Address [facility] Co de Phone Number [facility] of [employer] [place] [address] * Magnesium (11/19/2024 2:07 AM INSURANCE AGENT) Magnesium 1.8 1.4 - 2.5 mg/dL Blood 11/19/2024 2:07 AM INSURANCE AGENT 11/19/2024 2:30 AM INSURANCE AGENT Janice Mendes MD LAB BLOOD ORDERABLES Final Result Performing Organization Address City/[facility] Co de Phone Number [facility] Department [place] [address] * Comprehensive metabolic panel (11/19/2024 2:07 AM INSURANCE AGENT) Sodium 143 135 - 145 mmol/L Potassium, pl 3.5 3.3 - 4.9 mmol/L [facility] Chloride 104 97 - 110 mmol/L [facility] CO2 29 22 - 32 mmol/L [facility] Anion gap 10 2 - 15 mmol/L [facility] BUN 9 6 - 25 mg/dL [facility] Creatinine 0.80 0.60 - 1.10 mg/dL [facility] Glucose 154 70 - 199 mg/dL [facility] Comment: Interpretive Data Fasting glucose >/= 126 mg/dl is diagnostic for diabetes. Fasting is defined as no caloric intake for at least 8 hours. Fasting glucose between 100 mg/dl to 125 mg/dl is diagnostic of prediabetes. In a patient with classic symptoms of hyperglycemia or hyperglycemic crisis, a random glucose >/= 200 mg/dl is diagnostic for diabetes. In the absence of unequivocal hyperglycemia, results should be confirmed by repeat testing. The classification and Diagnosis of Diabetes Diabetes Care 202; 46: S19-S40. Current interpretive data was last revised 2022. Calcium 9.1 8.5 - 10.3 mg/dL [facility] Bilirubin, total 0.6 0.1 - 1.2 mg/dL [facility] Protein, pl 6.6 6.5 - 8.5 g/dL [facility] Albumin 3.5 3.5 - 5.0 g/dL [facility] Alk phos 49 40 - 130 Units/L [facility] ALT 26 7 - 45 Units/L [facility] AST 39 10 - 45 Units/L [facility] Blood 11/19/2024 2:07 AM INSURANCE AGENT 11/19/2024 2:30 AM INSURANCE AGENT us Micheline Riggs MD LAB BLOOD ORDERABLES Final Res ult [facility] Department [place] [address] * eGFR (11/18/2024 2:33 AM INSURANCE AGENT) eGFR >90 >=60 mL/min/1. 73 m2 Comment: Interpretive Data Reference Interval Normal >/= 90 mL/min/1.73m2 Mildly decreased* 60 - 89 mL/min/1.73m2 Mildly to moderately decreased 45 - 59 mL/min/1.73m2 Moderately to severely decreased 30 - 44 mL/min/1.73m2 Severely decreased 15 - 29 mL/min/1.73m2 Kidney Failure < 15 mL/min/1.73m2 *Relative to young adult level Estimated glomerular filtration rate is determined by the 2020 CKD-EPI equation recommended by the National Kidney Foundation (A Unifying Approach to GFR Estimation: Recommendations of the NKF-ASK Task Force on Reassessing the Inclusion of Race in Diagnosing Kidney Disease, JASN 2020). The CKD-EPI equation should not be used for patients with unstable renal function and has not been validated in children and those over 70. Current interpretive data was last reviewed 2021. Blood 11/18/2024 2:33 AM INSURANCE AGENT 11/18/2024 2:56 AM INSURANCE AGENT us Bob Menard MD LAB BLOOD ORDERABLES Final R esult Performing Organization Address [facility] Co de Phone Number [facility] Department [place] [employer] [place] [address] * Uric acid (11/18/2024 2:33 AM INSURANCE AGENT) Pathologist [facility] Uric acid 4.0 2.5 - 7.0 mg/dL Blood 11/18/2024 2:33 AM INSURANCE AGENT 11/18/2024 2:56 AM INSURANCE AGENT Bob Menard MD LAB BLOOD ORDERABLES Final R esult Performing Organization Address [facility] Co de Phone Number [facility] Department [place] [address] * Phosphorus (11/18/2024 2:33 AM INSURANCE AGENT) Phosphorus, pl 3.4 2.3 - 4.5 mg/dL Blood 11/18/2024 2:33 AM INSURANCE AGENT 11/18/2024 2:56 AM INSURANCE AGENT Bob Menard MD LAB BLOOD ORDERABLES Final R esult Performing Organization Address [facility] de Phone Number [facility] [place] [employer] [place] [address] * Magnesium (11/18/2024 2:33 AM INSURANCE AGENT) Pathologist [facility] Magnesium 1.8 1.4 - 2.5 mg/dL Blood 11/18/2024 2:33 AM INSURANCE AGENT 11/18/2024 2:56 AM INSURANCE AGENT Bob Menard MD LAB BLOOD ORDERABLES Final R esult Performing Organization Address [facility] de Phone Number [facility] [place] [employer] [place] [address] * Lipase (11/18/2024 2:33 AM INSURANCE AGENT) [facility] Lipase 20 10 - 99 Units/L Blood 11/18/2024 2:33 AM INSURANCE AGENT 11/18/2024 2:56 AM INSURANCE AGENT Bob Menard MD LAB BLOOD ORDERABLES Final R esult Performing Organization Address [facility] de Phone Number [facility] [employer] [place] [address] * Lactate dehydrogenase (LD) (11/18/2024 2:33 AM INSURANCE AGENT) Lactate dehydrogenase (LDH) 245 100 - 250 Units/L Blood 11/18/2024 2:33 AM INSURANCE AGENT 11/18/2024 2:56 AM INSURANCE AGENT Bob Menard MD LAB BLOOD ORDERABLES Final R esult Performing Organization Address [facility] Co de Phone Number [facility] [employer] [place] [address] * Gamma GT (11/18/2024 2:33 AM INSURANCE AGENT) GGT 14 5 - 35 Units/L Blood 11/18/2024 2:33 AM INSURANCE AGENT 11/18/2024 2:56 AM INSURANCE AGENT Result [facility] Bob Menard MD LAB BLOOD ORDERABLES Final R esult Performing Organization Address [facility] [place] [address] * Bilirubin, direct (11/18/2024 2:33 AM INSURANCE AGENT) Bilirubin, direct 0.3 0.1 - 0.3 mg/dL Blood 11/18/2024 2:33 AM INSURANCE AGENT 11/18/2024 2:56 AM INSURANCE AGENT Result [facility] Bob Menard MD LAB BLOOD ORDERABLES Final R esult Performing Organization Address [facility] Co de Phone Number [facility] [employer] [place] [address] * Amylase (11/18/2024 2:33 AM INSURANCE AGENT) Amylase <30 30 - 99 Units/L Blood 11/18/2024 2:33 AM INSURANCE AGENT 11/18/2024 2:56 AM INSURANCE AGENT Result [facility] Bob Menard MD LAB BLOOD ORDERABLES Final R esult Performing Organization Address [facility] Co de Phone Number [facility] [place] [address] * (ABNORMAL) Comprehensive metabolic panel (11/18/2024 2:33 AM INSURANCE AGENT) Sodium 142 135 - 145 mmol/L Potassium, pl 3.7 3.3 - 4.9 mmol/L [facility] Chloride 100 97 - 110 mmol/L [facility] CO2 30 22 - 32 mmol/L [facility] Anion gap 12 2 - 15 mmol/L [facility] BUN 5(L) 6 - 25 mg/dL [facility] Creatinine 0.66 0.60 - 1.10 mg/dL [facility] Glucose 141 70 - 199 mg/dL [facility] Comment: Interpretive Data Fasting glucose >/= 126 mg/dl is diagnostic for diabetes. Fasting is defined as no caloric intake for at least 8 hours. Fasting glucose between 100 mg/dl to 125 mg/dl is diagnostic of prediabetes. In a patient with classic symptoms of hyperglycemia or hyperglycemic crisis, a random glucose >/= 200 mg/dl is diagnostic for diabetes. In the absence of unequivocal hyperglycemia, results should be confirmed by repeat testing. The classification and Diagnosis of Diabetes Diabetes Care 2021; 46: S19-S40. Current interpretive data was last revised 2022. Calcium 9.5 8.5 - 10.3 mg/dL [facility] Bilirubin, total 0.8 0.1 - 1.2 mg/dL [facility] Protein, pl 7.0 6.5 - 8.5 g/dL [facility] Albumin 3.9 3.5 - 5.0 g/dL [facility] Alk phos 51 40 - 130 Units/L [facility] ALT 19 7 - 45 Units/L [facility] AST 21 10 - 45 Units/L [facility] Blood 11/18/2024 2:33 AM INSURANCE AGENT 11/18/2024 2:56 AM INSURANCE AGENT us Bob Menard MD LAB BLOOD ORDERABLES Final R esult [facility] Department [place] [address] * (ABNORMAL) Differential, auto (11/18/2024 1:58 AM INSURANCE AGENT) Neutrophil abs 3.3 1.5 - 6.5 K/cumm Imm gran abs 0.0 0.0 - 0.1 K/cumm [facility] Lymphocyte abs 0.5(L) 0.8 - 3.3 K/cumm [facility] Monocyte abs 0.1(L) 0.2 - 0.8 K/cumm [facility] Eosinophil abs 0.0 0.0 - 0.5 K/cumm [facility] Basophil abs 0.0 0.0 - 0.1 K/cumm [facility] Neutrophil pct 83.7 % [facility] Comment: Interpretive Data Percent cell count reference ranges are not reported, since discordance with absolute values may lead to misinterpretation of CBC data. Current Interpretive Data was last revised on 2017. Imm gran pct 0.5 % [facility] Comment: Interpretive Data Percent cell count reference ranges are not reported, since discordance with absolute values may lead to misinterpretation of CBC data. Current Interpretive Data was last revised on 2017. Lymphocyte pct 11.7 % [facility] Comment: Interpretive Data Percent cell count reference ranges are not reported, since discordance with absolute values may lead to misinterpretation of CBC data. Current Interpretive Data was last revised on 2017. Monocyte pct 3.6 % [facility] Comment: Interpretive Data Percent cell count reference ranges are not reported, since discordance with absolute values may lead to misinterpretation of CBC data. Current Interpretive Data was last revised on 2017. Eosinophil pct 0.0 % [facility] Comment: Interpretive Data Percent cell count reference ranges are not reported, since discordance with absolute values may lead to misinterpretation of CBC data. Current Interpretive Data was last revised on 2017. Basophil pct 0.5 % [facility] Comment: Interpretive Data Percent cell count reference ranges are not reported, since discordance with absolute values may lead to misinterpretation of CBC data. Current Interpretive Data was last revised on 2017. Blood 11/18/2024 1:58 AM INSURANCE AGENT 11/18/2024 2:41 AM INSURANCE AGENT us Bob Menard MD LAB BLOOD ORDERABLES Final R esult Performing Organization Address [facility] Co de Phone Number [facility] [place] [employer] [place] [address] * CBC with auto differential (11/18/2024 1:58 AM INSURANCE AGENT) [facility] WBC 3.9 3.8 - 9.9 K/cumm Hgb 12.6 11.9 - 15.5 g/dL [facility] Hct 37.6 35.6 - 45.5 % [facility] Plt 218 150 - 400 K/cumm [facility] MPV 11.7 9.1 - 12.3 fL [facility] RBC 4.49 3.90 - 5.20 M/cumm [facility] MCV 83.7 81.3 - 96.4 fL [facility] MCH 28.1 27.1 - 33.3 pg [facility] MCHC 33.5 32.3 - 35.7 g/dL [facility] RDW CV 14.0 11.1 - 14.9 % [facility] RDW SD 42.7 35.7 - 48.1 fL [facility] NRBC abs 0.00 0.00 - 0.01 K/cumm [facility] Blood 11/18/2024 1:58 AM INSURANCE AGENT 11/18/2024 2:41 AM INSURANCE AGENT us Bob Menard MD LAB BLOOD ORDERABLES Final R esult [facility] Department [place] [address] * ECG 12 lead (11/17/2024 1:06 PM INSURANCE AGENT) Ventricular Rate EKG/Min 80 BPM [facility] Atrial Rate 80 BPM [facility] UT-Interval (MSEC) 140 ms [facility] QRS-Interval (MSEC) 72 ms [facility] QT-Interval (MSEC) 372 ms [facility] QTc 429 ms [facility] P [place]doel 59 degrees [facility] R Macdoel -8 degrees [facility] T Macdoel 55 degrees [facility] Diagnosis Normal sinus rhythm Normal ECG No previous ECGs available Confirmed by ALLI SEWELL M.D ([id number]) on 11/18/2024 9:02:09 AM [facility] 11/17/2024 1:06 PM INSURANCE AGENT 11/18/2024 9:02 AM INSURANCE AGENT Micheline Riggs MD ECG ORDERABLES Final Result Performing Organization Address [facility] de Phone Number [facility] * Cytomegalovirus (CMV) DNA PCR, quantitative Blood (11/17/2024 12:49 PM INSURANCE AGENT) Pathologist [facility] CMV DNA Not Detected [facility] Comment: Interpretive Data: The quantifiable range of this assay is 34 IUnits/mL to 10,000,000 IUnits/mL (1.53 log IUnits/mL to 7.0 log IUnits/mL). Testing was performed by the [employer] CMV Test ([employer] Testing performed at [facility]. Current interpretive data was last revised on 2021. Blood 11/17/2024 12:4 9 PM INSURANCE AGENT 11/17/2024 1:01 PM INSURANCE AGENT Bob Menard MD LAB MICROBIOLOGY - GENERAL O RDERABLES Final Result Performing Organization Address [facility] Co de Phone Number [facility] Department [place] [address] [facility] * Immunoglobulin profile (11/17/2024 12:49 PM INSURANCE AGENT) Pathologist [facility] Immunoglobulin G 1,193 700 - 1,600 mg/dL Immunoglobulin A 217 70 - 400 mg/dL [facility] Immunoglobulin M 60 40 - 230 mg/dL [facility] Blood 11/17/2024 12:4 9 PM INSURANCE AGENT 11/17/2024 1:06 PM INSURANCE AGENT Bob Menard MD LAB BLOOD ORDERABLES Final R esult [facility] Department [place] [address] * Respiratory pathogen panel Nasopharyngeal (11/17/2024 12:49 PM INSURANCE AGENT) Pathologist [facility] Influenza A RNA Not Detected Not Detected Influenza B RNA Not Detected Not Detected [facility] RSV RNA Not Detected Not Detected [facility] COVID-19 RNA Not Detected Not Detected [facility] Coronavirus 229E RNA Not Detected Not Detected [facility] Coronavirus HKU1 RNA Not Detected Not Detected [facility] Coronavirus NL63 RNA Not Detected Not Detected [facility] Coronavirus OC43 RNA Not Detected Not Detected [facility] Adenovirus DNA Not Detected Not Detected [facility] Metapneumovirus RNA Not Detected Not Detected [facility] Rhinovirus/Enterov irus RNA Not Detected Not Detected [facility] Parainfluenza 1 RNA Not Detected Not Detected [facility] Parainfluenza 2 RNA Not Detected Not Detected [facility] Parainfluenza 3 RNA Not Detected Not Detected [facility] Parainfluenza 4 RNA Not Detected Not Detected [facility] B. pertussis DNA Not Detected Not Detected [facility] B. parapertussis DNA Not Detected Not Detected [facility] C. pneumoniae DNA Not Detected Not Detected [facility] M. pneumoniae DNA Not Detected Not Detected [facility] Nasopharyngeal 11/17/2024 12 :49 PM INSURANCE AGENT 11/17/2024 1:00 PM INSURANCE AGENT Narrative [facility] - 11/17/2024 2:25 PM INSURANCE AGENT Is the Patient experiencing symptoms consistent with COVID?->No Surveillance testing for transplant patient?->No Interpretive Data The [employer] FilmArray Respiratory Panel (RP2.1) assay is a multiplexed real-time PCR based nucleic acid test capable of simultaneous qualitative detection and identification of multiple respiratory viral and bacterial nucleic acids, including SARS Coronavirus 2 (the causative agent of COVID-19). The following bacteria, viruses and virus subtypes can be identified using the FilmArray RP2.1 assay: Bordetella pertussis, Bordetella parapertussis, Chlamydia pneumoniae, Mycoplasma pneumoniae, Adenovirus, SARS Coronavirus 2, seasonal coronaviruses (Coronavirus HKU1, Coronavirus NL63, Coronavirus 229E, and Coronavirus OC43), Influenza A, Influenza A subtype H1, Influenza A subtype H3, Influenza A subtype 2009 H1, Influenza B, Metapneumovirus, Parainfluenza 1, Parainfluenza 2, Parainfluenza 3, Parainfluenza 4, RSV, Rhinovirus/Enterovirus. Due to the genetic similarity between human Rhinovirus and Enterovirus, the FilmArray RP2.1 assay cannot reliably differentiate them. Coronavirus OC43 may cross-react with some isolates of Coronavirus HKU1. A dual positive result may be due to cross-reactivity or may indicate a co- infection. The detection and identification of specific viral and bacterial nucleic acids from individuals exhibiting signs and symptoms of a respiratory infection aids in the diagnosis of respiratory infection if used in conjunction with other clinical and epidemiological information. The results of this test should not be used as the sole basis for diagnosis, treatment, or other management decisions. Negative results in the setting of a respiratory illness may be due to infection with pathogens that are not detected by this test. Positive results do not rule out infection/co-infection with other organisms. The agent(s) detected by the FilmArray RP2.1 may not be the definite cause of disease. Additional testing (lab, imaging, etc.) may be necessary when evaluating a patient with possible respiratory tract infection. The FilmArray RP2.1 assay has FDA clearance for testing of LUBRICATION WORKER swabs. The performance of additional specimen types has been assessed by the performing laboratory. The performance characteristics of this assay have been determined by [facility]. Current interpretive data was last revised on 22. us Micheline Riggs MD LAB MICROBIOLOGY - GENERAL ORD ERABLES Final Result BREANNA MATTA [facility] Department of Laboratories [place], [place] [id number] * Hepatitis B core antibody, total Blood (11/17/2024 12:49 PM INSURANCE AGENT) Hep B core IgG/IgM Nonreactive Nonreactive Blood 11/17/2024 12:4 9 PM INSURANCE AGENT 11/17/2024 1:06 PM INSURANCE AGENT Result [facility] Bob Menard MD LAB MICROBIOLOGY - GENERAL O RDERABLES Final Result Performing Organization Address [facility] de Phone Number [facility] Department [place] [address] * Hepatitis B surface antibody (immune status) Blood (11/17/2024 12:49 PM INSURANCE AGENT) Pathologist [facility] HBsAb (immune status) Nonreactive Comment:This result is consi stent with a lack of immunity to Hepatitis B Virus when used in the setting of routine screening. Current interpretative data was last revised on 22 Blood 11/17/2024 12:4 9 PM INSURANCE AGENT 11/17/2024 1:06 PM INSURANCE AGENT Result [facility] Bob Menard MD LAB MICROBIOLOGY - GENERAL O RDERABLES Final Result Performing Organization Address [facility] de Phone Number [facility] Department of [employer] [place] [address] * Fibrinogen (11/17/2024 12:49 PM INSURANCE AGENT) [facility] Fibrinogen 316 170 - 400 mg/dL Blood 11/17/2024 12:4 9 PM INSURANCE AGENT 11/17/2024 1:24 PM INSURANCE AGENT Result [facility] Bob Menard MD LAB BLOOD ORDERABLES Final R esult Performing Organization Address [facility] de Phone Number [facility] [employer] [place] [address] * (ABNORMAL) D-dimer, quantitative (11/17/2024 12:49 PM INSURANCE AGENT) Pathologist [facility] D-Dimer 1,720(H) <=499 ng/mL FEU Comment: Interpretive data FDA approved the D-dimer, in conjunction with a low or moderate pretest probability score, to exclude venous thromboembolic events (VTE) (PE and DVT) in outpatients when the D-dimer result is < 500 ng/ml FEU. Evidence supports using an age-adjusted D-dimer cut-off for outpatients older than 50 (age x 10) to improve specificity without sacrificing sensitivity. Example: age 68, VTE cut-off 680 ng/ml FEU. References; Schoutnina HT et al. Brit Med J. 2013;346:f2492. Kamryn et al. Annals Int Med. 2015;163:701-11. Current interpretive data was last revised on 2019. Blood 11/17/2024 12:4 9 PM INSURANCE AGENT 11/17/2024 1:24 PM INSURANCE AGENT Bob Menard MD LAB BLOOD ORDERABLES Final R esult Performing Organization Address [facility] de Phone Number [facility] Department of [employer] [place] [address] * (ABNORMAL) CRP (acute phase) (11/17/2024 12:49 PM INSURANCE AGENT) CRP 15.5(H) <=10.0 mg/L Blood 11/17/2024 12:4 9 PM INSURANCE AGENT 11/17/2024 1:06 PM INSURANCE AGENT Result [facility] Bob Menard MD LAB BLOOD ORDERABLES Final R esult Performing Organization Address [facility] de Phone Number [facility] [place] [employer] [place] [address] * Lipase (11/17/2024 12:49 PM INSURANCE AGENT) Lipase 26 10 - 99 Units/L Blood 11/17/2024 12:4 9 PM INSURANCE AGENT 11/17/2024 1:06 PM INSURANCE AGENT Bob Menard MD LAB BLOOD ORDERABLES Final R esult Performing Organization Address [facility]/ZIP Co de Phone Number [facility] [place] [address] * Gamma GT (11/17/2024 12:49 PM INSURANCE AGENT) GGT 15 5 - 35 Units/L Blood 11/17/2024 12:4 9 PM INSURANCE AGENT 11/17/2024 1:06 PM INSURANCE AGENT us Bob Menard MD LAB BLOOD ORDERABLES Final R esult Performing Organization Address City/[facility] [place] [address] * (ABNORMAL) Ferritin (11/17/2024 12:49 PM INSURANCE AGENT) Pathologist [facility] Ferritin 283(H) 13 - 150 ng/mL Blood 11/17/2024 12:4 9 PM INSURANCE AGENT 11/17/2024 1:06 PM INSURANCE AGENT us Bob Menard MD LAB BLOOD ORDERABLES Final R esult Performing Organization Address [facility] [place] [address] * (ABNORMAL) Bilirubin, direct (11/17/2024 12:49 PM INSURANCE AGENT) Pathologist [facility] Bilirubin, direct 0.4(H) 0.1 - 0.3 mg/dL Blood 11/17/2024 12:4 9 PM INSURANCE AGENT 11/17/2024 1:06 PM INSURANCE AGENT us Bob Menard MD LAB BLOOD ORDERABLES Final R esult Performing Organization Address City/[facility]/ZIP Co de Phone Number [facility] [place] [address] * Amylase (11/17/2024 12:49 PM INSURANCE AGENT) Amylase <30 30 - 99 Units/L Blood 11/17/2024 12:4 9 PM INSURANCE AGENT 11/17/2024 1:06 PM INSURANCE AGENT us Bob Menard MD LAB BLOOD ORDERABLES Final R esult Performing Organization Address [facility] Co de Phone Number [facility] [place] [address] * eGFR (11/17/2024 1:08 AM INSURANCE AGENT) eGFR >90 >=60 mL/min/1. 73 m2 Comment: Interpretive Data Reference Interval Normal >/= 90 mL/min/1.73m2 Mildly decreased* 60 - 89 mL/min/1.73m2 Mildly to moderately decreased 45 - 59 mL/min/1.73m2 Moderately to severely decreased 30 - 44 mL/min/1.73m2 Severely decreased 15 - 29 mL/min/1.73m2 Kidney Failure < 15 mL/min/1.73m2 *Relative to young adult level Estimated glomerular filtration rate is determined by the 2020 CKD-EPI equation recommended by the National Kidney Foundation (A Unifying Approach to GFR Estimation: Recommendations of the NKF-ASK Task Force on Reassessing the Inclusion of Race in Diagnosing Kidney Disease, JASN 2020). The CKD-EPI equation should not be used for patients with unstable renal function and has not been validated in children and those over 70. Current interpretive data was last reviewed 2021. Blood 11/17/2024 1:08 AM INSURANCE AGENT 11/17/2024 1:39 AM INSURANCE AGENT us Gretel Brar MD LAB BLOOD ORDERABLES Sara l Result Performing Organization Address [facility] Co de Phone Number [facility] Department [place] [employer] [place] [address] * eGFR (11/17/2024 1:08 AM INSURANCE AGENT) eGFR >90 >=60 mL/min/1. 73 m2 Comment: Interpretive Data Reference Interval Normal >/= 90 mL/min/1.73m2 Mildly decreased* 60 - 89 mL/min/1.73m2 Mildly to moderately decreased 45 - 59 mL/min/1.73m2 Moderately to severely decreased 30 - 44 mL/min/1.73m2 Severely decreased 15 - 29 mL/min/1.73m2 Kidney Failure < 15 mL/min/1.73m2 *Relative to young adult level Estimated glomerular filtration rate is determined by the 2020 CKD-EPI equation recommended by the National Kidney Foundation (A Unifying Approach to GFR Estimation: Recommendations of the NKF-ASK Task Force on Reassessing the Inclusion of Race in Diagnosing Kidney Disease, JASN 2020). The CKD-EPI equation should not be used for patients with unstable renal function and has not been validated in children and those over 70. Current interpretive data was last reviewed 2021. Blood 11/17/2024 1:08 AM INSURANCE AGENT 11/17/2024 1:38 AM INSURANCE AGENT Gretel Brar MD LAB BLOOD ORDERABLES Sara l Result [facility] Department [place] [address] * Differential, auto (11/17/2024 1:08 AM INSURANCE AGENT) Pathologist [facility] Neutrophil abs 3.5 1.5 - 6.5 K/cumm Imm gran abs 0.0 0.0 - 0.1 K/cumm [facility] Lymphocyte abs 0.9 0.8 - 3.3 K/cumm [facility] Monocyte abs 0.4 0.2 - 0.8 K/cumm [facility] Eosinophil abs 0.1 0.0 - 0.5 K/cumm [facility] Basophil abs 0.1 0.0 - 0.1 K/cumm [facility] Neutrophil pct 69.9 % [facility] Comment: Interpretive Data Percent cell count reference ranges are not reported, since discordance with absolute values may lead to misinterpretation of CBC data. Current Interpretive Data was last revised on 2017. Imm gran pct 0.4 % [facility] Comment: Interpretive Data Percent cell count reference ranges are not reported, since discordance with absolute values may lead to misinterpretation of CBC data. Current Interpretive Data was last revised on 2017. Lymphocyte pct 18.2 % [facility] Comment: Interpretive Data Percent cell count reference ranges are not reported, since discordance with absolute values may lead to misinterpretation of CBC data. Current Interpretive Data was last revised on 2017. Monocyte pct 8.5 % [facility] Comment: Interpretive Data Percent cell count reference ranges are not reported, since discordance with absolute values may lead to misinterpretation of CBC data. Current Interpretive Data was last revised on 2017. Eosinophil pct 2.0 % [facility] Comment: Interpretive Data Percent cell count reference ranges are not reported, since discordance with absolute values may lead to misinterpretation of CBC data. Current Interpretive Data was last revised on 2017. Basophil pct 1.0 % [facility] Comment: Interpretive Data Percent cell count reference ranges are not reported, since discordance with absolute values may lead to misinterpretation of CBC data. Current Interpretive Data was last revised on 2017. Blood 11/17/2024 1:08 AM INSURANCE AGENT 11/17/2024 1:38 AM INSURANCE AGENT us Janice Mendes MD LAB BLOOD ORDERABLES Final Result [facility] Department [place] [address] * CBC with auto differential (11/17/2024 1:08 AM INSURANCE AGENT) WBC 5.0 3.8 - 9.9 K/cumm Hgb 13.3 11.9 - 15.5 g/dL [facility] Hct 40.4 35.6 - 45.5 % [facility] Plt 193 150 - 400 K/cumm [facility] MPV 11.6 9.1 - 12.3 fL [facility] RBC 4.72 3.90 - 5.20 M/cumm [facility] MCV 85.6 81.3 - 96.4 fL [facility] MCH 28.2 27.1 - 33.3 pg [facility] MCHC 32.9 32.3 - 35.7 g/dL [facility] RDW CV 14.0 11.1 - 14.9 % [facility] RDW SD 43.5 35.7 - 48.1 fL [facility] NRBC abs 0.00 0.00 - 0.01 K/cumm [facility] Blood 11/17/2024 1:08 AM INSURANCE AGENT 11/17/2024 1:38 AM INSURANCE AGENT Janice Mendes MD LAB BLOOD ORDERABLES Final Result Performing Organization Address [facility] Co de Phone Number [facility] [employer] [place] [address] * Uric acid (11/17/2024 1:08 AM INSURANCE AGENT) Uric acid 4.3 2.5 - 7.0 mg/dL Blood 11/17/2024 1:08 AM INSURANCE AGENT 11/17/2024 1:39 AM INSURANCE AGENT Result [facility] Gretel Brar MD LAB BLOOD ORDERABLES Sara l Result Performing Organization Address [facility] Co de Phone Number [facility] [place] [employer] [place] [address] * Phosphorus (11/17/2024 1:08 AM INSURANCE AGENT) Phosphorus, pl 3.1 2.3 - 4.5 mg/dL Blood 11/17/2024 1:08 AM INSURANCE AGENT 11/17/2024 1:39 AM INSURANCE AGENT Gretel Brar MD LAB BLOOD ORDERABLES Sara l Result Performing Organization Address [facility] Co de Phone Number [facility] [place] [address] * Magnesium (11/17/2024 1:08 AM INSURANCE AGENT) [facility] Magnesium 1.9 1.4 - 2.5 mg/dL Blood 11/17/2024 1:08 AM INSURANCE AGENT 11/17/2024 1:39 AM INSURANCE AGENT Janice Mendes MD LAB BLOOD ORDERABLES Final Result Performing Organization Address City/[facility]/ZIP Co de Phone Number [facility] Department [place] [address] * Creatinine (11/17/2024 1:08 AM INSURANCE AGENT) [facility] Creatinine 0.70 0.60 - 1.10 mg/dL Blood 11/17/2024 1:08 AM INSURANCE AGENT 11/17/2024 1:38 AM INSURANCE AGENT Narrative [facility] - 11/17/2024 2:04 AM INSURANCE AGENT While on enoxaparin Gretel Brar MD LAB BLOOD ORDERABLES Sara l Result Performing Organization Address [facility] de Phone Number [facility] [place] [address] * (ABNORMAL) Basic metabolic panel (11/17/2024 1:08 AM INSURANCE AGENT) [facility] Sodium 145 135 - 145 mmol/L Potassium, pl 3.7 3.3 - 4.9 mmol/L [facility] Chloride 103 97 - 110 mmol/L [facility] CO2 29 22 - 32 mmol/L [facility] Anion gap 13 2 - 15 mmol/L [facility] BUN 3(L) 6 - 25 mg/dL [facility] Creatinine 0.72 0.60 - 1.10 mg/dL [facility] Glucose 85 70 - 199 mg/dL [facility] Comment: Interpretive Data Fasting glucose >/= 126 mg/dl is diagnostic for diabetes. Fasting is defined as no caloric intake for at least 8 hours. Fasting glucose between 100 mg/dl to 125 mg/dl is diagnostic of prediabetes. In a patient with classic symptoms of hyperglycemia or hyperglycemic crisis, a random glucose >/= 200 mg/dl is diagnostic for diabetes. In the absence of unequivocal hyperglycemia, results should be confirmed by repeat testing. The classification and Diagnosis of Diabetes Diabetes Care 202; 46: S19-S40. Current interpretive data was last revised 2022. Calcium 9.3 8.5 - 10.3 mg/dL [facility] Blood 11/17/2024 1:08 AM INSURANCE AGENT 11/17/2024 1:39 AM INSURANCE AGENT us Gretel Brar MD LAB BLOOD ORDERABLES Sara alanis Result [facility] Department [place] [address] * PET/CT FDG Skull to Thigh (11/16/2024 1:28 PM INSURANCE AGENT) Anatomical Region Laterality Modality N/A Positron Emissio n Tomography (PET) 11/16/2024 3:55 PM INSURANCE AGENT Impressions 11/16/2024 4:48 PM INSURANCE AGENT Large markedly hypermetabolic right thyroid mass consistent with fine needle aspiration-proven B-cell lymphoma. Additional subcentimeter mildly hypermetabolic right level 2 and left level 3 lymph nodes are concerning for additional sites of lymphoma. Based on comparison with SUVmax liver, 5PS = 5. The 5PS score is most useful in lymphoma types which are routinely FDG-avid. Lymphomas can be roughly grouped as follows: * Routinely FDG-avid: Hodgkin lymphoma, diffuse large B-cell lymphomas, follicular lymphoma, mantle cell lymphoma, elmo peripheral T-cell lymphoma, lymphoblastic lymphoma, and Burkitt lymphoma. * Generally not FDG-avid: Small lymphocytic lymphoma and chronic lymphocytic leukemia * Variably FDG-avid (both varying between patients and between lesions): Marginal-zone lymphomas and some T-cell lymphomas, notably cutaneous T-cell lymphomas Caution should be used when applying the 5PS score in the second and third categories above. Dictated by: Rell Mclain MD The radiology attending physician has personally reviewed this study, and had reviewed and/or edited this written report and agrees with it. Electronically signed by: Rodrick Carbajal MD, Ph.D Narrative 11/16/2024 4:48 PM INSURANCE AGENT EXAMINATION: TUMOR FDG-PET/CT IMAGING DATE OF STUDY: 11/16/2024 SCANNER: [facility] RADIOPHARMACEUTICAL: 13.93 mCi F-18 Fluorodeoxyglucose (FDG) i.v. Injection site: Left upper extremity peripherally inserted central venous catheter HISTORY: 64-year-old woman with right neck/thyroid mass status post fine-needle aspiration on 11/09/2024 demonstrating numerous atypical lymphocytes consistent with B-cell lymphoma. The patient underwent a core needle biopsy on 11/12/2024, with pathology pending. The study is requested for initial staging. Subsequent treatment strategy. TECHNIQUE: The patient's fasting blood glucose level, measured by glucometer before injection of FDG, was 88 mg/dL. After intravenous administration of FDG, noncontrast CT images were obtained for attenuation correction and for fusion with emission PET images to allow for anatomical localization of PET findings. Emission PET images were then obtained. The study was interpreted on the [employer] workstation. The mean liver SUV (reported for nurse quality purposes) is 2.3. The total scanned area was skull base to proximal thighs. Images of the body were obtained starting 63 minutes after injection of tracer. All reported SUVs are maximum SUVs, unless otherwise specified. COMPARISON: No prior PET/CT available for comparison. CT of the chest dated 11/13/2024. CT of the neck dated 11/07/2024. DESCRIPTORS OF LESION FDG AVIDITY: Minimal: <= blood pool Mild: > blood pool and <= liver Moderate: > liver and <= 2x SUVmax liver Moderate to marked: >2x SUVmax liver and <= 3x SUVmax liver Marked: > 3x SUVmax liver FINDINGS: There is a markedly FDG avid mass centered within the right thyroid (image 42) measuring approximately 7.0 x 6.5 cm with a maximum SUV of 44.2. A smaller exophytic portion of the mass indicating with along the right lateral aspect of the dominant mass measures up to 3.6 x 2.3 cm in axial dimension. The mass extends posteriorly behind the retropharyngeal/retropharyngeal space into the prevertebral space with anterior and left lateral displacement of the larynx and subglottic trachea. The mass is inseparable from the hypopharynx and cervical esophagus with left posterolateral displacement of the esophagus. There is encasement of the right common carotid artery. There is involvement of the pretracheal muscles, right greater than left. The mass additionally contacts the right sternocleidal mastoid muscle. There is mild intrathoracic extension. There is a right level 2B lymph node (image 35) is a 1.1 x 0.6 cm with a maximum SUV of 3.8. A left level 3 lymph node (image 54) measuring 0.6 x 0.4 cm with a maximum SUV of 2.7. Fibrin sheath with uptake. Groundglass opacities within the left upper lobe with mild hypermetabolism likely represents infectious/inflammatory etiologies. No additional foci of FDG avidity are identified. The most FDG-avid lesion is right thyroid mass, with a maximum SUV of 44.2, and approximate axial dimensions of 7.0 x 6.5 cm. The uptake in this lesion is: markedly greater than liver (5PS= 5). Additional CT findings: Left upper extremity peripherally inserted central venous catheter tip overlies the superior cavoatrial junction. Small hiatal hernia. Several liver cysts and additional small hypoattenuating lesions are too small calculus. Lithiasis without evidence of acute cholecystitis. Diverticulosis without evidence of diverticulitis. Uterus is present. Degenerative changes of the spine. Gas within the anterior abdominal wall likely from injection medications. Procedure Note Rodrick Graham MD PhD - 11/16/2024 EXAMINATION: TUMOR FDG-PET/CT IMAGING DATE OF STUDY: 11/16/2024 SCANNER: [facility] RADIOPHARMACEUTICAL: 13.93 mCi F-18 Fluorodeoxyglucose (FDG) i.v. Injection site: Left upper extremity peripherally inserted central venous catheter HISTORY: 64-year-old woman with right neck/thyroid mass status post fine-needle aspiration on 11/09/2024 demonstrating numerous atypical lymphocytes consistent with B-cell lymphoma. The patient underwent a core needle biopsy on 11/12/2024, with pathology pending. The study is requested for initial staging. Subsequent treatment strategy. TECHNIQUE: The patient's fasting blood glucose level, measured by glucometer before injection of FDG, was 88 mg/dL. After intravenous administration of FDG, noncontrast CT images were obtained for attenuation correction and for fusion with emission PET images to allow for anatomical localization of PET findings. Emission PET images were then obtained. The study was interpreted on the [employer] workstation. The mean liver SUV (reported for nurse quality purposes) is 2.3. The total scanned area was skull base to proximal thighs. Images of the body were obtained starting 63 minutes after injection of tracer. All reported SUVs are maximum SUVs, unless otherwise specified. COMPARISON: No prior PET/CT available for comparison. CT of the chest dated 11/13/2024. CT of the neck dated 11/07/2024. DESCRIPTORS OF LESION FDG AVIDITY: Minimal: <= blood pool Mild: > blood pool and <= liver Moderate: > liver and <= 2x SUVmax liver Moderate to marked: >2x SUVmax liver and <= 3x SUVmax liver Marked: > 3x SUVmax liver FINDINGS: There is a markedly FDG avid mass centered within the right thyroid (image 42) measuring approximately 7.0 x 6.5 cm with a maximum SUV of 44.2. A smaller exophytic portion of the mass indicating with along the right lateral aspect of the dominant mass measures up to 3.6 x 2.3 cm in axial dimension. The mass extends posteriorly behind the retropharyngeal/retropharyngeal space into the prevertebral space with anterior and left lateral displacement of the larynx and subglottic trachea. The mass is inseparable from the hypopharynx and cervical esophagus with left posterolateral displacement of the esophagus. There is encasement of the right common carotid artery. There is involvement of the pretracheal muscles, right greater than left. The mass additionally contacts the right sternocleidal mastoid muscle. There is mild intrathoracic extension. There is a right level 2B lymph node (image 35) is a 1.1 x 0.6 cm with a maximum SUV of 3.8. A left level 3 lymph node (image 54) measuring 0.6 x 0.4 cm with a maximum SUV of 2.7. Fibrin sheath with uptake. Groundglass opacities within the left upper lobe with mild hypermetabolism likely represents infectious/inflammatory etiologies. No additional foci of FDG avidity are identified. The most FDG-avid lesion is right thyroid mass, with a maximum SUV of 44.2, and approximate axial dimensions of 7.0 x 6.5 cm. The uptake in this lesion is: markedly greater than liver (5PS= 5). Additional CT findings: Left upper extremity peripherally inserted central venous catheter tip overlies the superior cavoatrial junction. Small hiatal hernia. Several liver cysts and additional small hypoattenuating lesions are too small calculus. Lithiasis without evidence of acute cholecystitis. Diverticulosis without evidence of diverticulitis. Uterus is present. Degenerative changes of the spine. Gas within the anterior abdominal wall likely from injection medications. IMPRESSION: Large markedly hypermetabolic right thyroid mass consistent with fine needle aspiration-proven B-cell lymphoma. Additional subcentimeter mildly hypermetabolic right level 2 and left level 3 lymph nodes are concerning for additional sites of lymphoma. Based on comparison with SUVmax liver, 5PS = 5. The 5PS score is most useful in lymphoma types which are routinely FDG-avid. Lymphomas can be roughly grouped as follows: * Routinely FDG-avid: Hodgkin lymphoma, diffuse large B-cell lymphomas, follicular lymphoma, mantle cell lymphoma, elmo peripheral T-cell lymphoma, lymphoblastic lymphoma, and Burkitt lymphoma. * Generally not FDG-avid: Small lymphocytic lymphoma and chronic lymphocytic leukemia * Variably FDG-avid (both varying between patients and between lesions): Marginal-zone lymphomas and some T-cell lymphomas, notably cutaneous T-cell lymphomas Caution should be used when applying the 5PS score in the second and third categories above. Dictated by: Rell Mclain MD The radiology attending physician has personally reviewed this study, and had reviewed and/or edited this written report and agrees with it. Electronically signed by: Rodrick Carbajal MD, Ph.D Gretel Brar MD IM PET PROCEDURES Final Result * eGFR (11/16/2024 1:24 AM INSURANCE AGENT) eGFR >90 >=60 mL/min/1. 73 m2 Comment: Interpretive Data Reference Interval Normal >/= 90 mL/min/1.73m2 Mildly decreased* 60 - 89 mL/min/1.73m2 Mildly to moderately decreased 45 - 59 mL/min/1.73m2 Moderately to severely decreased 30 - 44 mL/min/1.73m2 Severely decreased 15 - 29 mL/min/1.73m2 Kidney Failure < 15 mL/min/1.73m2 *Relative to young adult level Estimated glomerular filtration rate is determined by the 2020 CKD-EPI equation recommended by the National Kidney Foundation (A Unifying Approach to GFR Estimation: Recommendations of the NKF-ASK Task Force on Reassessing the Inclusion of Race in Diagnosing Kidney Disease, JASN 202). The CKD-EPI equation should not be used for patients with unstable renal function and has not been validated in children and those over 70. Current interpretive data was last reviewed 2021. Blood 11/16/2024 1:24 AM INSURANCE AGENT 11/16/2024 1:35 AM INSURANCE AGENT us Gretel Brar MD LAB BLOOD ORDERABLES Sara thapa Result [facility] Department [place] [address] * Differential, auto (11/16/2024 1:24 AM INSURANCE AGENT) Pathologist [facility] Neutrophil abs 3.1 1.5 - 6.5 K/cumm Imm gran abs 0.0 0.0 - 0.1 K/cumm [facility] Lymphocyte abs 0.9 0.8 - 3.3 K/cumm [facility] Monocyte abs 0.4 0.2 - 0.8 K/cumm [facility] Eosinophil abs 0.1 0.0 - 0.5 K/cumm [facility] Basophil abs 0.1 0.0 - 0.1 K/cumm [facility] Neutrophil pct 66.6 % [facility] Comment: Interpretive Data Percent cell count reference ranges are not reported, since discordance with absolute values may lead to misinterpretation of CBC data. Current Interpretive Data was last revised on 2017. Imm gran pct 0.2 % [facility] Comment: Interpretive Data Percent cell count reference ranges are not reported, since discordance with absolute values may lead to misinterpretation of CBC data. Current Interpretive Data was last revised on 2017. Lymphocyte pct 19.6 % [facility] Comment: Interpretive Data Percent cell count reference ranges are not reported, since discordance with absolute values may lead to misinterpretation of CBC data. Current Interpretive Data was last revised on 2017. Monocyte pct 9.3 % [facility] Comment: Interpretive Data Percent cell count reference ranges are not reported, since discordance with absolute values may lead to misinterpretation of CBC data. Current Interpretive Data was last revised on 2017. Eosinophil pct 3.0 % [facility] Comment: Interpretive Data Percent cell count reference ranges are not reported, since discordance with absolute values may lead to misinterpretation of CBC data. Current Interpretive Data was last revised on 2017. Basophil pct 1.3 % [facility] Comment: Interpretive Data Percent cell count reference ranges are not reported, since discordance with absolute values may lead to misinterpretation of CBC data. Current Interpretive Data was last revised on 2017. Blood 11/16/2024 1:24 AM INSURANCE AGENT 11/16/2024 1:35 AM INSURANCE AGENT us Janice Mendes MD LAB BLOOD ORDERABLES Final Result [facility] Department [place] [address] * CBC with auto differential (11/16/2024 1:24 AM INSURANCE AGENT) WBC 4.6 3.8 - 9.9 K/cumm Hgb 12.7 11.9 - 15.5 g/dL [facility] Hct 38.5 35.6 - 45.5 % [facility] Plt 191 150 - 400 K/cumm [facility] MPV 11.6 9.1 - 12.3 fL [facility] RBC 4.54 3.90 - 5.20 M/cumm [facility] MCV 84.8 81.3 - 96.4 fL [facility] MCH 28.0 27.1 - 33.3 pg [facility] MCHC 33.0 32.3 - 35.7 g/dL [facility] RDW CV 14.2 11.1 - 14.9 % [facility] RDW SD 43.5 35.7 - 48.1 fL [facility] NRBC abs 0.00 0.00 - 0.01 K/cumm [facility] Blood 11/16/2024 1:24 AM INSURANCE AGENT 11/16/2024 1:35 AM INSURANCE AGENT Janice Mendes MD LAB BLOOD ORDERABLES Final Result Performing Organization Address City/[facility] Co de Phone Number [facility] [place] [address] * Uric acid (11/16/2024 1:24 AM INSURANCE AGENT) Uric acid 4.6 2.5 - 7.0 mg/dL Blood 11/16/2024 1:24 AM INSURANCE AGENT 11/16/2024 1:35 AM INSURANCE AGENT Gretel Brar MD LAB BLOOD ORDERABLES Sara l Result Performing Organization Address [facility] de Phone Number [facility] [employer] [place] [address] * Phosphorus (11/16/2024 1:24 AM INSURANCE AGENT) Phosphorus, pl 2.8 2.3 - 4.5 mg/dL Blood 11/16/2024 1:24 AM INSURANCE AGENT 11/16/2024 1:35 AM INSURANCE AGENT Gretel Brar MD LAB BLOOD ORDERABLES Sara l Result Performing Organization Address [facility] [place] [address] * Magnesium (11/16/2024 1:24 AM INSURANCE AGENT) Magnesium 1.8 1.4 - 2.5 mg/dL Blood 11/16/2024 1:24 AM INSURANCE AGENT 11/16/2024 1:35 AM INSURANCE AGENT Janice Mendes MD LAB BLOOD ORDERABLES Final Result Performing Organization Address City/[facility] Co de Phone Number [facility] Department [place] [address] * (ABNORMAL) Lactate dehydrogenase (LD) (11/16/2024 1:24 AM INSURANCE AGENT) Pathologist [facility] Lactate dehydrogenase (LDH) 288(H) 100 - 250 Units/L Blood 11/16/2024 1:24 AM INSURANCE AGENT 11/16/2024 1:35 AM INSURANCE AGENT Gretel Brar MD LAB BLOOD ORDERABLES Sara l Result Performing Organization Address [facility] de Phone Number [facility] Department [place] [address] * (ABNORMAL) Basic metabolic panel (11/16/2024 1:24 AM INSURANCE AGENT) Pathologist [facility] Sodium 144 135 - 145 mmol/L Potassium, pl 3.5 3.3 - 4.9 mmol/L [facility] Chloride 104 97 - 110 mmol/L [facility] CO2 27 22 - 32 mmol/L [facility] Anion gap 13 2 - 15 mmol/L [facility] BUN 3(L) 6 - 25 mg/dL [facility] Creatinine 0.66 0.60 - 1.10 mg/dL [facility] Glucose 86 70 - 199 mg/dL [facility] Comment: Interpretive Data Fasting glucose >/= 126 mg/dl is diagnostic for diabetes. Fasting is defined as no caloric intake for at least 8 hours. Fasting glucose between 100 mg/dl to 125 mg/dl is diagnostic of prediabetes. In a patient with classic symptoms of hyperglycemia or hyperglycemic crisis, a random glucose >/= 200 mg/dl is diagnostic for diabetes. In the absence of unequivocal hyperglycemia, results should be confirmed by repeat testing. The classification and Diagnosis of Diabetes Diabetes Care 202; 46: S19-S40. Current interpretive data was last revised 2022. Calcium 9.1 8.5 - 10.3 mg/dL [facility] Blood 11/16/2024 1:24 AM INSURANCE AGENT 11/16/2024 1:35 AM INSURANCE AGENT Result [facility] Gretel Brar MD LAB BLOOD ORDERABLES Sara l Result Performing Organization Address [facility] Co de Phone Number [facility] Department of [employer] [place] [address] * eGFR (11/15/2024 12:45 AM INSURANCE AGENT) eGFR >90 >=60 mL/min/1. 73 m2 Comment: Interpretive Data Reference Interval Normal >/= 90 mL/min/1.73m2 Mildly decreased* 60 - 89 mL/min/1.73m2 Mildly to moderately decreased 45 - 59 mL/min/1.73m2 Moderately to severely decreased 30 - 44 mL/min/1.73m2 Severely decreased 15 - 29 mL/min/1.73m2 Kidney Failure < 15 mL/min/1.73m2 *Relative to young adult level Estimated glomerular filtration rate is determined by the 2020 CKD-EPI equation recommended by the National Kidney Foundation (A Unifying Approach to GFR Estimation: Recommendations of the NKF-ASK Task Force on Reassessing the Inclusion of Race in Diagnosing Kidney Disease, JASN 2020). The CKD-EPI equation should not be used for patients with unstable renal function and has not been validated in children and those over 70. Current interpretive data was last reviewed 2021. Blood 11/15/2024 12:4 5 AM INSURANCE AGENT 11/15/2024 12:59 AM INSURANCE AGENT Gretel Brar MD LAB BLOOD ORDERABLES Sara l Result Performing Organization Address [facility] Co de Phone Number [facility] Department [place] [employer] [place] [address] * Differential, auto (11/15/2024 12:45 AM INSURANCE AGENT) Neutrophil abs 3.2 1.5 - 6.5 K/cumm Imm gran abs 0.0 0.0 - 0.1 K/cumm [facility] Lymphocyte abs 0.9 0.8 - 3.3 K/cumm [facility] Monocyte abs 0.4 0.2 - 0.8 K/cumm [facility] Eosinophil abs 0.1 0.0 - 0.5 K/cumm [facility] Basophil abs 0.1 0.0 - 0.1 K/cumm [facility] Neutrophil pct 68.0 % [facility] Comment: Interpretive Data Percent cell count reference ranges are not reported, since discordance with absolute values may lead to misinterpretation of CBC data. Current Interpretive Data was last revised on 2017. Imm gran pct 0.2 % [facility] Comment: Interpretive Data Percent cell count reference ranges are not reported, since discordance with absolute values may lead to misinterpretation of CBC data. Current Interpretive Data was last revised on 2017. Lymphocyte pct 19.5 % [facility] Comment: Interpretive Data Percent cell count reference ranges are not reported, since discordance with absolute values may lead to misinterpretation of CBC data. Current Interpretive Data was last revised on 2017. Monocyte pct 8.8 % [facility] Comment: Interpretive Data Percent cell count reference ranges are not reported, since discordance with absolute values may lead to misinterpretation of CBC data. Current Interpretive Data was last revised on 2017. Eosinophil pct 2.4 % [facility] Comment: Interpretive Data Percent cell count reference ranges are not reported, since discordance with absolute values may lead to misinterpretation of CBC data. Current Interpretive Data was last revised on 2017. Basophil pct 1.1 % [facility] Comment: Interpretive Data Percent cell count reference ranges are not reported, since discordance with absolute values may lead to misinterpretation of CBC data. Current Interpretive Data was last revised on 2017. Blood 11/15/2024 12:4 5 AM INSURANCE AGENT 11/15/2024 12:58 AM INSURANCE AGENT Janice Mendes MD LAB BLOOD ORDERABLES Final Result Performing Organization Address [facility] Co de Phone Number [facility] [place] [address] * (ABNORMAL) CBC with auto differential (11/15/2024 12:45 AM INSURANCE AGENT) WBC 4.7 3.8 - 9.9 K/cumm Hgb 11.8(L) 11.9 - 15.5 g/dL [facility] Hct 35.4(L) 35.6 - 45.5 % [facility] Plt 180 150 - 400 K/cumm [facility] MPV 11.4 9.1 - 12.3 fL [facility] RBC 4.21 3.90 - 5.20 M/cumm [facility] MCV 84.1 81.3 - 96.4 fL [facility] MCH 28.0 27.1 - 33.3 pg [facility] MCHC 33.3 32.3 - 35.7 g/dL [facility] RDW CV 13.9 11.1 - 14.9 % [facility] RDW SD 43.0 35.7 - 48.1 fL [facility] NRBC abs 0.00 0.00 - 0.01 K/cumm [facility] Blood 11/15/2024 12:4 5 AM INSURANCE AGENT 11/15/2024 12:58 AM INSURANCE AGENT Janice Mendes MD LAB BLOOD ORDERABLES Final Result Performing Organization Address City/[facility]/ZIP Co de Phone Number [facility] Department [place] [address] * Uric acid (11/15/2024 12:45 AM INSURANCE AGENT) Pathologist [facility] Uric acid 6.1 2.5 - 7.0 mg/dL Blood 11/15/2024 12:4 5 AM INSURANCE AGENT 11/15/2024 12:59 AM INSURANCE AGENT Gretel Brar MD LAB BLOOD ORDERABLES Sara l Result Performing Organization Address City/[facility] [place] [address] * Phosphorus (11/15/2024 12:45 AM INSURANCE AGENT) Phosphorus, pl 2.5 2.3 - 4.5 mg/dL Blood 11/15/2024 12:4 5 AM INSURANCE AGENT 11/15/2024 12:59 AM INSURANCE AGENT Gretel Brar MD LAB BLOOD ORDERABLES Sara l Result Performing Organization Address [facility] [place] [address] * Magnesium (11/15/2024 12:45 AM INSURANCE AGENT) Pathologist [facility] Magnesium 1.6 1.4 - 2.5 mg/dL Blood 11/15/2024 12:4 5 AM INSURANCE AGENT 11/15/2024 12:59 AM INSURANCE AGENT Janice Mendes MD LAB BLOOD ORDERABLES Final Result Performing Organization Address [facility] Co de Phone Number [facility] of [employer] [place] [address] * Lactate dehydrogenase (LD) (11/15/2024 12:45 AM INSURANCE AGENT) Lactate dehydrogenase (LDH) 223 100 - 250 Units/L Blood 11/15/2024 12:4 5 AM INSURANCE AGENT 11/15/2024 12:59 AM INSURANCE AGENT us Gretel Brar MD LAB BLOOD ORDERABLES Sara l Result Performing Organization Address City/[facility] Co de Phone Number [facility] [employer] [place] [address] * Haptoglobin (11/15/2024 12:45 AM INSURANCE AGENT) Haptoglobin 79.0 30.0 - 200.0 mg/dL Blood 11/15/2024 12:4 5 AM INSURANCE AGENT 11/15/2024 12:59 AM INSURANCE AGENT Janice Mendes MD LAB BLOOD ORDERABLES Final Result Performing Organization Address [facility] Co de Phone Number [facility] Department [place] [address] * (ABNORMAL) Basic metabolic panel (11/15/2024 12:45 AM INSURANCE AGENT) Pathologist [facility] Sodium 144 135 - 145 mmol/L Potassium, pl 3.1(L) 3.3 - 4.9 mmol/L [facility] Chloride 104 97 - 110 mmol/L [facility] CO2 28 22 - 32 mmol/L [facility] Anion gap 12 2 - 15 mmol/L [facility] BUN 3(L) 6 - 25 mg/dL [facility] Creatinine 0.62 0.60 - 1.10 mg/dL [facility] Glucose 85 70 - 199 mg/dL [facility] Comment: Interpretive Data Fasting glucose >/= 126 mg/dl is diagnostic for diabetes. Fasting is defined as no caloric intake for at least 8 hours. Fasting glucose between 100 mg/dl to 125 mg/dl is diagnostic of prediabetes. In a patient with classic symptoms of hyperglycemia or hyperglycemic crisis, a random glucose >/= 200 mg/dl is diagnostic for diabetes. In the absence of unequivocal hyperglycemia, results should be confirmed by repeat testing. The classification and Diagnosis of Diabetes Diabetes Care 2021; 46: S19-S40. Current interpretive data was last revised 2022. Calcium 8.7 8.5 - 10.3 mg/dL [facility] Blood 11/15/2024 12:4 5 AM INSURANCE AGENT 11/15/2024 12:59 AM INSURANCE AGENT Gretel Brar MD LAB BLOOD ORDERABLES Sara l Result Performing Organization Address [facility] de Phone Number [facility] Department [place] [address] * eGFR (11/14/2024 5:37 PM INSURANCE AGENT) eGFR >90 >=60 mL/min/1. 73 m2 Comment: Interpretive Data Reference Interval Normal >/= 90 mL/min/1.73m2 Mildly decreased* 60 - 89 mL/min/1.73m2 Mildly to moderately decreased 45 - 59 mL/min/1.73m2 Moderately to severely decreased 30 - 44 mL/min/1.73m2 Severely decreased 15 - 29 mL/min/1.73m2 Kidney Failure < 15 mL/min/1.73m2 *Relative to young adult level Estimated glomerular filtration rate is determined by the 2020 CKD-EPI equation recommended by the National Kidney Foundation (A Unifying Approach to GFR Estimation: Recommendations of the NKF-ASK Task Force on Reassessing the Inclusion of Race in Diagnosing Kidney Disease, JASN 2020). The CKD-EPI equation should not be used for patients with unstable renal function and has not been validated in children and those over 70. Current interpretive data was last reviewed 2021. Blood 11/14/2024 5:37 PM INSURANCE AGENT 11/14/2024 5:53 PM INSURANCE AGENT Gretel Brar MD LAB BLOOD ORDERABLES Sara l Result Performing Organization Address [facility] de Phone Number [facility] Department [place] [address] * aPTT (11/14/2024 5:37 PM INSURANCE AGENT) aPTT 33 28 - 38 sec Comment: Interpretive Data Heparin therapeutic range: 66.0 - 100.0 seconds. Range based on correlation with therapeutic heparin activity range of 0.3 - 0.7 Units/mL. Current interpretive data was last revised on 2023. Blood 11/14/2024 5:37 PM INSURANCE AGENT 11/14/2024 5:57 PM INSURANCE AGENT Narrative [facility] - 11/14/2024 6:20 PM INSURANCE AGENT Baseline prior to enoxaparin initiation. Gretel Brar MD LAB BLOOD ORDERABLES Sara l Result Performing Organization Address [facility] [place] [address] * (ABNORMAL) Protime-INR (11/14/2024 5:37 PM INSURANCE AGENT) Pathologist [facility] PT 13.6(H) 9.7 - 13.0 sec INR 1.25(H) 0.90 - 1.20 [facility] Comment: Interpretive data Oral anticoagulant therapeutic ranges: Venous thromboembolism prophylaxis or treatment: 2.0-3.0 CARDIOLOGY Standard range: 2.0-3.0 High-intensity range: 2.5-3.5 Refer to indication-specific guidelines for appropriate target ranges for prosthetic heart valve replacement. Current interpretive data was last revised on 2019. Blood 11/14/2024 5:37 PM INSURANCE AGENT 11/14/2024 5:57 PM INSURANCE AGENT Narrative [facility] - 11/14/2024 6:20 PM INSURANCE AGENT Baseline prior to enoxaparin initiation. Gretel Brar MD LAB BLOOD ORDERABLES Sara l Result Performing Organization Address [facility] Co de Phone Number [facility] [place] [address] * CBC without differential (11/14/2024 5:37 PM INSURANCE AGENT) WBC 5.4 3.8 - 9.9 K/cumm Hgb 13.2 11.9 - 15.5 g/dL [facility] Hct 39.5 35.6 - 45.5 % [facility] Plt 202 150 - 400 K/cumm [facility] MPV 11.5 9.1 - 12.3 fL [facility] RBC 4.65 3.90 - 5.20 M/cumm [facility] MCV 84.9 81.3 - 96.4 fL [facility] MCH 28.4 27.1 - 33.3 pg [facility] MCHC 33.4 32.3 - 35.7 g/dL [facility] RDW CV 13.9 11.1 - 14.9 % [facility] RDW SD 42.7 35.7 - 48.1 fL [facility] NRBC abs 0.00 0.00 - 0.01 K/cumm [facility] Blood 11/14/2024 5:37 PM INSURANCE AGENT 11/14/2024 5:53 PM INSURANCE AGENT Narrative [facility] - 11/14/2024 6:03 PM INSURANCE AGENT Baseline prior to enoxaparin initiation. us Gretel Brar MD LAB BLOOD ORDERABLES Sara l Result Performing Organization Address City/[facility] Co de Phone Number [facility] Department [place] [address] * Creatinine (11/14/2024 5:37 PM INSURANCE AGENT) Creatinine 0.70 0.60 - 1.10 mg/dL Blood 11/14/2024 5:37 PM INSURANCE AGENT 11/14/2024 5:53 PM INSURANCE AGENT Narrative [facility] - 11/14/2024 6:23 PM INSURANCE AGENT Baseline prior to enoxaparin initiation. us Gretel Brar MD LAB BLOOD ORDERABLES Sara l Result Performing Organization Address City/[facility]/ZIP Co de Phone Number [facility] [place] [employer] [place] [address] * US Internal Jugular Vein for Clot (C) (11/14/2024 11:41 AM INSURANCE AGENT) Anatomical Region Laterality Modality Vascular Left Ultrasound 11/14/2024 11:4 5 AM INSURANCE AGENT Impressions 11/14/2024 11:45 AM INSURANCE AGENT 1. No detectable flow in the right internal jugular vein in the area of the known mass. However, on the recent CT, it is patent just above the junction with the right subclavian vein centrally. Electronically signed by: Gage Alston M.D. Narrative 11/14/2024 11:45 AM INSURANCE AGENT EXAMINATION: US INTERNAL JUGULAR VEIN FOR CLOT (C) HISTORY: Right neck mass COMPARISON: CT performed yesterday FINDINGS: Targeted views of the right neck demonstrated a heterogeneous solid mass corresponding to known lymphoma. There are normal arterial waveforms within branches of the right internal carotid artery. There is no patent right internal jugular vein within the lateral compartment of the right neck, although when correlating with yesterday's CT, it appears patent in the inferior most aspect of the neck. Procedure Note Gage Alston MD - 11/14/2024 EXAMINATION: US INTERNAL JUGULAR VEIN FOR CLOT (C) HISTORY: Right neck mass COMPARISON: CT performed yesterday FINDINGS: Targeted views of the right neck demonstrated a heterogeneous solid mass corresponding to known lymphoma. There are normal arterial waveforms within branches of the right internal carotid artery. There is no patent right internal jugular vein within the lateral compartment of the right neck, although when correlating with yesterday's CT, it appears patent in the inferior most aspect of the neck. IMPRESSION: 1. No detectable flow in the right internal jugular vein in the area of the known mass. However, on the recent CT, it is patent just above the junction with the right subclavian vein centrally. Electronically signed by: Gage Alston M.D. Gretel Brar MD [facility] US PROCEDURES Final R esult * eGFR (11/14/2024 12:48 AM INSURANCE AGENT) eGFR >90 >=60 mL/min/1. 73 m2 Comment: Interpretive Data Reference Interval Normal >/= 90 mL/min/1.73m2 Mildly decreased* 60 - 89 mL/min/1.73m2 Mildly to moderately decreased 45 - 59 mL/min/1.73m2 Moderately to severely decreased 30 - 44 mL/min/1.73m2 Severely decreased 15 - 29 mL/min/1.73m2 Kidney Failure < 15 mL/min/1.73m2 *Relative to young adult level Estimated glomerular filtration rate is determined by the 2020 CKD-EPI equation recommended by the National Kidney Foundation (A Unifying Approach to GFR Estimation: Recommendations of the NKF-ASK Task Force on Reassessing the Inclusion of Race in Diagnosing Kidney Disease, JASN 2020). The CKD-EPI equation should not be used for patients with unstable renal function and has not been validated in children and those over 70. Current interpretive data was last reviewed 2021. Blood 11/14/2024 12:4 8 AM INSURANCE AGENT 11/14/2024 1:07 AM INSURANCE AGENT us Janice Mendes MD LAB BLOOD ORDERABLES Final Result [facility] Department [place] [address] * Differential, auto (11/14/2024 12:48 AM INSURANCE AGENT) Neutrophil abs 4.2 1.5 - 6.5 K/cumm Imm gran abs 0.0 0.0 - 0.1 K/cumm [facility] Lymphocyte abs 0.9 0.8 - 3.3 K/cumm [facility] Monocyte abs 0.3 0.2 - 0.8 K/cumm [facility] Eosinophil abs 0.1 0.0 - 0.5 K/cumm [facility] Basophil abs 0.1 0.0 - 0.1 K/cumm [facility] Neutrophil pct 75.5 % [facility] Comment: Interpretive Data Percent cell count reference ranges are not reported, since discordance with absolute values may lead to misinterpretation of CBC data. Current Interpretive Data was last revised on 2017. Imm gran pct 0.4 % [facility] Comment: Interpretive Data Percent cell count reference ranges are not reported, since discordance with absolute values may lead to misinterpretation of CBC data. Current Interpretive Data was last revised on 2017. Lymphocyte pct 15.6 % [facility] Comment: Interpretive Data Percent cell count reference ranges are not reported, since discordance with absolute values may lead to misinterpretation of CBC data. Current Interpretive Data was last revised on 2017. Monocyte pct 5.8 % [facility] Comment: Interpretive Data Percent cell count reference ranges are not reported, since discordance with absolute values may lead to misinterpretation of CBC data. Current Interpretive Data was last revised on 2017. Eosinophil pct 1.8 % [facility] Comment: Interpretive Data Percent cell count reference ranges are not reported, since discordance with absolute values may lead to misinterpretation of CBC data. Current Interpretive Data was last revised on 2017. Basophil pct 0.9 % [facility] Comment: Interpretive Data Percent cell count reference ranges are not reported, since discordance with absolute values may lead to misinterpretation of CBC data. Current Interpretive Data was last revised on 2017. Blood 11/14/2024 12:4 8 AM INSURANCE AGENT 11/14/2024 1:09 AM INSURANCE AGENT us Janice Mendes MD LAB BLOOD ORDERABLES Final Result [facility] Department [place] [address] * CBC with auto differential (11/14/2024 12:48 AM INSURANCE AGENT) WBC 5.6 3.8 - 9.9 K/cumm Hgb 12.2 11.9 - 15.5 g/dL [facility] Hct 35.9 35.6 - 45.5 % [facility] Plt 202 150 - 400 K/cumm [facility] MPV 11.8 9.1 - 12.3 fL [facility] RBC 4.29 3.90 - 5.20 M/cumm [facility] MCV 83.7 81.3 - 96.4 fL [facility] MCH 28.4 27.1 - 33.3 pg [facility] MCHC 34.0 32.3 - 35.7 g/dL [facility] RDW CV 14.1 11.1 - 14.9 % [facility] RDW SD 42.8 35.7 - 48.1 fL [facility] NRBC abs 0.00 0.00 - 0.01 K/cumm [facility] Blood 11/14/2024 12:4 8 AM INSURANCE AGENT 11/14/2024 1:09 AM INSURANCE AGENT Janice Mendes MD LAB BLOOD ORDERABLES Final Result Performing Organization Address [facility] de Phone Number [facility] [place] [address] * (ABNORMAL) Uric acid (11/14/2024 12:48 AM INSURANCE AGENT) Uric acid 8.2(H) 2.5 - 7.0 mg/dL Blood 11/14/2024 12:4 8 AM INSURANCE AGENT 11/14/2024 1:00 AM INSURANCE AGENT Janice Mendes MD LAB BLOOD ORDERABLES Final Result Performing Organization Address [facility] [place] [address] * Phosphorus (11/14/2024 12:48 AM INSURANCE AGENT) Phosphorus, pl 2.5 2.3 - 4.5 mg/dL Blood 11/14/2024 12:4 8 AM INSURANCE AGENT 11/14/2024 1:00 AM INSURANCE AGENT Janice Mendes MD LAB BLOOD ORDERABLES Final Result Performing Organization Address [facility] [place] [address] * Magnesium (11/14/2024 12:48 AM INSURANCE AGENT) Magnesium 1.7 1.4 - 2.5 mg/dL Blood 11/14/2024 12:4 8 AM INSURANCE AGENT 11/14/2024 1:00 AM INSURANCE AGENT Gretel Brar MD LAB BLOOD ORDERABLES Sara l Result Performing Organization Address [facility] Co de Phone Number [facility] [employer] [place] [address] * (ABNORMAL) Lactate dehydrogenase (LD) (11/14/2024 12:48 AM INSURANCE AGENT) [facility] Lactate dehydrogenase (LDH) 251(H) 100 - 250 Units/L Blood 11/14/2024 12:4 8 AM INSURANCE AGENT 11/14/2024 1:00 AM INSURANCE AGENT Janice Mendes MD LAB BLOOD ORDERABLES Final Result Performing Organization Address [facility] Co de Phone Number [facility] [place] [address] * Haptoglobin (11/14/2024 12:48 AM INSURANCE AGENT) [facility] Haptoglobin 77.0 30.0 - 200.0 mg/dL Blood 11/14/2024 12:4 8 AM INSURANCE AGENT 11/14/2024 1:00 AM INSURANCE AGENT Gretel Brar MD LAB BLOOD ORDERABLES Sara l Result Performing Organization Address [facility] Co de Phone Number [facility] [place] [address] * Basic metabolic panel (11/14/2024 12:48 AM INSURANCE AGENT) Pathologist [facility] Sodium 143 135 - 145 mmol/L Potassium, pl 3.5 3.3 - 4.9 mmol/L [facility] Chloride 106 97 - 110 mmol/L [facility] CO2 26 22 - 32 mmol/L [facility] Anion gap 11 2 - 15 mmol/L [facility] BUN 8 6 - 25 mg/dL [facility] Creatinine 0.65 0.60 - 1.10 mg/dL [facility] Glucose 104 70 - 199 mg/dL [facility] Comment: Interpretive Data Fasting glucose >/= 126 mg/dl is diagnostic for diabetes. Fasting is defined as no caloric intake for at least 8 hours. Fasting glucose between 100 mg/dl to 125 mg/dl is diagnostic of prediabetes. In a patient with classic symptoms of hyperglycemia or hyperglycemic crisis, a random glucose >/= 200 mg/dl is diagnostic for diabetes. In the absence of unequivocal hyperglycemia, results should be confirmed by repeat testing. The classification and Diagnosis of Diabetes Diabetes Care 202; 46: S19-S40. Current interpretive data was last revised 2022. Calcium 8.7 8.5 - 10.3 mg/dL [facility] Blood 11/14/2024 12:4 8 AM INSURANCE AGENT 11/14/2024 1:00 AM INSURANCE AGENT us Janice Mendes MD LAB BLOOD ORDERABLES Final Result [facility] Department [place] [address] * eGFR (11/13/2024 7:19 PM INSURANCE AGENT) eGFR >90 >=60 mL/min/1. 73 m2 Comment: Interpretive Data Reference Interval Normal >/= 90 mL/min/1.73m2 Mildly decreased* 60 - 89 mL/min/1.73m2 Mildly to moderately decreased 45 - 59 mL/min/1.73m2 Moderately to severely decreased 30 - 44 mL/min/1.73m2 Severely decreased 15 - 29 mL/min/1.73m2 Kidney Failure < 15 mL/min/1.73m2 *Relative to young adult level Estimated glomerular filtration rate is determined by the 2020 CKD-EPI equation recommended by the National Kidney Foundation (A Unifying Approach to GFR Estimation: Recommendations of the NKF-ASK Task Force on Reassessing the Inclusion of Race in Diagnosing Kidney Disease, JASN 2020). The CKD-EPI equation should not be used for patients with unstable renal function and has not been validated in children and those over 70. Current interpretive data was last reviewed 2021. Blood 11/13/2024 7:19 PM INSURANCE AGENT 11/13/2024 7:45 PM INSURANCE AGENT us Janice Mendes MD LAB BLOOD ORDERABLES Final Result Performing Organization Address [facility] Co de Phone Number [facility] [place] [address] * (ABNORMAL) Uric acid (11/13/2024 7:19 PM INSURANCE AGENT) Uric acid 8.6(H) 2.5 - 7.0 mg/dL Blood 11/13/2024 7:19 PM INSURANCE AGENT 11/13/2024 7:37 PM INSURANCE AGENT Janice Mendes MD LAB BLOOD ORDERABLES Final Result Performing Organization Address [facility] Phone Number [facility] [place] [address] * Phosphorus (11/13/2024 7:19 PM INSURANCE AGENT) Phosphorus, pl 2.3 2.3 - 4.5 mg/dL Blood 11/13/2024 7:19 PM INSURANCE AGENT 11/13/2024 7:37 PM INSURANCE AGENT Janice Mendes MD LAB BLOOD ORDERABLES Final Result Performing Organization Address [facility] de Phone Number [facility] [place] [address] * Lactate dehydrogenase (LD) (11/13/2024 7:19 PM INSURANCE AGENT) Lactate dehydrogenase (LDH) 223 100 - 250 Units/L Blood 11/13/2024 7:19 PM INSURANCE AGENT 11/13/2024 7:37 PM INSURANCE AGENT Janice Mendes MD LAB BLOOD ORDERABLES Final Result Performing Organization Address [facility] Co de Phone Number [facility] Department [place] [address] * Basic metabolic panel (11/13/2024 7:19 PM INSURANCE AGENT) Sodium 144 135 - 145 mmol/L Potassium, pl 3.7 3.3 - 4.9 mmol/L [facility] Chloride 106 97 - 110 mmol/L [facility] CO2 27 22 - 32 mmol/L [facility] Anion gap 11 2 - 15 mmol/L [facility] BUN 9 6 - 25 mg/dL [facility] Creatinine 0.71 0.60 - 1.10 mg/dL [facility] Glucose 101 70 - 199 mg/dL [facility] Comment: Interpretive Data Fasting glucose >/= 126 mg/dl is diagnostic for diabetes. Fasting is defined as no caloric intake for at least 8 hours. Fasting glucose between 100 mg/dl to 125 mg/dl is diagnostic of prediabetes. In a patient with classic symptoms of hyperglycemia or hyperglycemic crisis, a random glucose >/= 200 mg/dl is diagnostic for diabetes. In the absence of unequivocal hyperglycemia, results should be confirmed by repeat testing. The classification and Diagnosis of Diabetes Diabetes Care 2021; 46: S19-S40. Current interpretive data was last revised 2022. Calcium 9.0 8.5 - 10.3 mg/dL [facility] Blood 11/13/2024 7:19 PM INSURANCE AGENT 11/13/2024 7:37 PM INSURANCE AGENT us Janice Mendes MD LAB BLOOD ORDERABLES Final Result [facility] Department [place] [address] * TRANSTHORACIC ECHO (TTE) COMPLETE W DOPPLER/CF WO CONTRAST (11/13/2024 3:38 PM INSURANCE AGENT) Anatomical Region Laterality Modality Ultrasound 11/13/2024 3:08 PM INSURANCE AGENT Narrative 11/13/2024 4:12 PM INSURANCE AGENT [facility] Cardiac Diagnostic Lab [facility] [place] [address] Transthoracic Echocardiographic Report Patient Name: CAT HANCOCK L : 1960 (64y 7m) Gender: F Study Date: 11/13/2024 03:08:34 PM Ht(Inch): 60 Wt(Lb): 147.05 BSA: 1.68 [place]: Nadya Freeman Location: [id number] Order Provider: JACOB LUBIN Heart Rate: 76 BMI: 28.72 BP: 139 / 75 Quality: The study images were of technically good quality. Ref Provider: JACOB LUBIN PROCEDURES: Echocardiographic Report: [id number]) Transthoracic complete echo with strain imaging, 2D, spectral and tissue Doppler, color flow Doppler, M-mode. Additional Procedures: Myocardial strain imaging was performed. INDICATIONS: Neck mass. FINDINGS: Left Ventricle: Normal left ventricular size based on volume index. Normal LV wall thickness. Normal left ventricular systolic function. The Ejection Fraction (Goldstein's) is measured at 63 %. Left ventricular diastolic parameters are consistent with normal diastolic function. The average global longitudinal strain rate is normal. The LV global strain is: -20.5 %. Right Ventricle: Normal right ventricular size. Normal right ventricular systolic function. Left Atrium: The left atrium is normal in size. Right Atrium: The right atrium is normal in size. Mitral Valve: Normal mitral valve leaflet structure. No mitral regurgitation seen. No stenosis present. Aortic Valve: Trileaflet aortic valve. The aortic cusps appear mildly thickened. No aortic regurgitation seen. No aortic valve stenosis. Tricuspid Valve: The tricuspid valve demonstrates normal leaflet structure. Trace TR. No tricuspid valve stenosis. Pulmonic Valve: The pulmonic valve demonstrates normal leaflet structure. No evidence of pulmonic regurgitation. Pericardium: No pericardial effusion. Aorta: The aortic root is normal in size. IVC: IVC is normal in size. CONCLUSIONS: 1. Normal LV size, wall thickness, and systolic function, LVEF 63 %. Normal diastolic function with normal est. LA pressure. Normal global longitudinal strain. 2. Normal right ventricular size and systolic function. 3. Normal aorta, LA, RA and IVC. 4. Normal valves. 5. Normal mean PA pressure based on PV acceleration time. 6. No pericardial effusion. MEASUREMENTS: 2D/MM Value Range Doppler Value Range LVIDd 2D 3.90 cm [ 3.80 - 5.20 ] AV Peak Vladislav 1.43 m/s [ 1.00 - 1.70 ] LVIDs 2D 2.79 cm [ 2.20 - 3.50 ] AV Peak PG 8.18 IVSd 2D 1.01 cm [ 0.60 - 0.90 ] AV Mean PG 4.28 mmHg LVPWd 2D 0.96 cm [ 0.60 - 0.90 ] AV VTI 29.05 cm LV Thickness Ratio 1.05 LVOT Peak Vladislav 1.28 m/s [ 0.70 - 1.10 ] LV FS 2D 28.52 % [ 27.00 - 45.00 ] LVOT Peak PG 6.55 LV Mass 2D 121.43 g LVOT Mean PG 2.70 mmHg LV Mass Index 2D 72.28 g/m2 LVOT VTI 25.72 cm RWT 0.49 LVOT Diam 1.72 cm EDV Mod BP 46.00 ml [ 46.00 - 106.00 ] GIANLUCA VTI 2.06 cm2 LV EDV Index 27.38 ml/m2 LVOT/AV VTI 0.89 - Dimensionless index (DVI) ESV Mod BP 17.16 ml [ 14.00 - 42.00 ] MV E Peak Vladislav 0.63 m/s [ 0.60 - 1.30 ] EF Mod BP 63 % [ 54 - 74 ] MV A Peak Vladislav 0.67 m/s [ 1.00 - 1.20 ] LV GLS -20.5 % [ -18.0 - -16.0 ] MV E/A 0.94 ratio [ 0.80 - 1.50 ] LA Length 2C 4.96 cm MV Decel Time 153.90 msec [ 104.00 - 258.00 ] LA Length 4C 4.37 cm Med E` Vladislav 7.39 cm/sec [ 8.00 - 15.00 ] LA Volume BP 36.90 ml Lat E` Vladislav 9.63 cm/sec [ 10.00 - 15.00 ] LA Volume Index 21.96 ml/m2 [ 16.00 - 34.00 ] Average E/E` 7.40 RV Base Dimen 2D 2.7 cm [ 2.5 - 4.2 ] RV S` 13.88 cm/sec TAPSE 1.53 cm [ 1.71 - 5.00 ] RA Volume 16.02 ml RA Volume Index 9.54 ml/m2 AoR Diam 2D 3.10 cm [ 2.70 - 3.70 ] Ao Root Index 1.85 cm/m2 [ 1.00 - 2.00 ] Asc Ao Diam 2D 3.08 cm Asc Ao Index 1.83 cm/m2 - COMPARISONS: There was no previous study available for comparison. ATTESTATION: I have reviewed and interpreted the pertinent images and measurements of this study. I attest to the conclusions in the final report that is provided above. DISCLAIMER: The study images and the final report will be retained in the patient chart by the [facility] Laboratory for the legally required time period. This chart constitutes the legal record of any testing performed. Electronically Signed By: Rell Swann MD 11/13/2024 4:12:31 PM INSURANCE AGENT Electronically Signed By: Rell Swann MD 11/13/2024 4:12:31 PM INSURANCE AGENT Procedure Note Rell Swann MD - 11/13/2024 [facility] [place] [address] Transthoracic Echocardiographic Report Patient Name: CAT HANCOCK L : 1960 (64y 7m) Gender: F Study Date: 11/13/2024 03:08:34 PM Ht(Inch): 60 Wt(Lb): 147.05 BSA: 1.68 [place]: Nadya Freeman Location: [id number] Order Provider:JACOB LUBIN Heart Rate: 76 BMI: 28.72 BP: 139 / 75 Quality: The study images were oftechnically good quality. Ref Provider: JACOB LUBIN PROCEDURES: Echocardiographic Report: ([id number], [id number]) Transthoracic complete echo withstrain imaging, 2D, spectral and tissue Doppler, color flow Doppler, M-mode. Additional Procedures: Myocardial strain imaging was performed. INDICATIONS: Neck mass. FINDINGS: Left Ventricle: Normal left ventricular size based on volume index. NormalLV wall thickness. Normal left ventricular systolic function. The EjectionFraction (Goldstein's) is measured at 63 %. Left ventricular diastolic parameters are consistentwith normal diastolic function. The average global longitudinal strain rate is normal.The LV global strain is: -20.5 %. Right Ventricle: Normal right ventricular size. Normal right ventricularsystolic function. Left Atrium: The left atrium is normal in size. Right Atrium: The right atrium is normal in size. Mitral Valve: Normal mitral valve leaflet structure. No mitralregurgitation seen. No stenosis present. Aortic Valve: Trileaflet aortic valve. The aortic cusps appear mildlythickened. No aortic regurgitation seen. No aortic valve stenosis. Tricuspid Valve: The tricuspid valve demonstrates normal leafletstructure. Trace TR. No tricuspid valve stenosis. Pulmonic Valve: The pulmonic valve demonstrates normal leaflet structure.No evidence of pulmonic regurgitation. Pericardium: No pericardial effusion. Aorta: The aortic root is normal in size. IVC: IVC is normal in size. CONCLUSIONS: 1. Normal LV size, wall thickness, and systolic function, LVEF 63 %.Normal diastolic function with normal est. LA pressure. Normal global longitudinalstrain. 2. Normal right ventricular size and systolic function. 3. Normal aorta, LA, RA and IVC. 4. Normal valves. 5. Normal mean PA pressure based on PV acceleration time. 6. No pericardial effusion. MEASUREMENTS: 2D/MM Value Range DopplerValue Range LVIDd 2D 3.90 cm [ 3.80 - 5.20 ] AV Peak Vel1.43 m/s [ 1.00 - 1.70 ] LVIDs 2D 2.79 cm [ 2.20 - 3.50 ] AV Peak PG8.18 IVSd 2D 1.01 cm [ 0.60 - 0.90 ] AV Mean PG4.28 mmHg LVPWd 2D 0.96 cm [ 0.60 - 0.90 ] AV VTI29.05 cm LV Thickness Ratio 1.05 LVOT Peak Vel1.28 m/s [ 0.70 - 1.10 ] LV FS 2D 28.52 % [ 27.00 - 45.00 ] LVOT Peak PG6.55 LV Mass 2D 121.43 g LVOT Mean PG2.70 mmHg LV Mass Index 2D 72.28 g/m2 LVOT VTI25.72 cm RWT 0.49 LVOT Diam1.72 cm EDV Mod BP 46.00 ml [ 46.00 - 106.00 ] GIANLUCA VTI2.06 cm2 LV EDV Index 27.38 ml/m2 LVOT/AV VTI0.89 - Dimensionless index (DVI) ESV Mod BP 17.16 ml [ 14.00 - 42.00 ] MV E Peak Vel0.63 m/s [ 0.60 - 1.30 ] EF Mod BP 63 % [ 54 - 74 ] MV A Peak Vel0.67 m/s [ 1.00 - 1.20 ] LV GLS -20.5 % [ -18.0 - -16.0 ] MV E/A0.94 ratio [ 0.80 - 1.50 ] LA Length 2C 4.96 cm MV Decel Unde977.90 msec [ 104.00 - 258.00 ] LA Length 4C 4.37 cm Med E` Vel7.39 cm/sec [ 8.00 - 15.00 ] LA Volume BP 36.90 ml Lat E` Vel9.63 cm/sec [ 10.00 - 15.00 ] LA Volume Index 21.96 ml/m2 [ 16.00 - 34.00 ] Average E/E`7.40 RV Base Dimen 2D 2.7 cm [ 2.5 - 4.2 ] RV S`13.88 cm/sec TAPSE 1.53 cm [ 1.71 - 5.00 ] RA Gatxyr55.02 ml RA Volume Index9.54 ml/m2 AoR Diam 2D 3.10 cm [ 2.70 - 3.70 ] Ao Root Index 1.85 cm/m2 [ 1.00 - 2.00 ] Asc Ao Diam 2D3.08 cm Asc Ao Index1.83 cm/m2 - COMPARISONS: There was no previous study available for comparison. ATTESTATION: I have reviewed and interpreted the pertinent images and measurements ofthis study. I attest to the conclusions in the final report that is provided above. DISCLAIMER: The study images and the final report will be retained in the patientchart by the [facility] Laboratory for the legally required time period. This chart constitutesthe legal record of any testing performed. Electronically Signed By: Rell Swann MD 11/13/2024 4:12:31 PM INSURANCE AGENT Electronically Signed By: Rell Swann MD 11/13/2024 4:12:31 PM INSURANCE AGENT Jacob Lubin MD ECHO PROCEDURES Final Result * CT Chest Abdomen Pelvis W Contrast (11/13/2024 2:15 PM INSURANCE AGENT) Anatomical Region Laterality Modality Body N/A Computed Tomogra phy 11/13/2024 3:09 PM INSURANCE AGENT Impressions 11/13/2024 3:09 PM INSURANCE AGENT 1. Incompletely imaged neck mass similar to prior study. 2. Multiple lymph nodes in the lower neck/upper chest which are not enlarged by CT criteria but could represent additional sites of disease. Consider further evaluation with PET CT as indicated. 3. Centimeters hypoenhancing liver lesions are incompletely characterized due to their size. These could also be evaluated with PET/CT. 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 COMPARISON: CT chest 11/07/2024 FINDINGS: Chest: Left upper extremity peripherally inserted central catheter tip terminates in the superior cavoatrial junction. A large right neck mass encasing the right lobe of the thyroid and surrounding the trachea and abutting the esophagus is more completely evaluated on recent CT of the neck. The dimensions are approximately 9.7 by a 6.5 cm on series 2 image 1. This is at least severely narrows if not occludes the right internal jugular vein and encases the right common carotid arteries. The trachea is deviated towards the left but patent. No suspicious pulmonary nodule, focal consolidation, pleural effusion, or pneumothorax. Normal heart size with no pericardial effusion. Mildly enlarged left level 4 lymph node measuring 7 mm (series 2 image 7) and a prominent right paratracheal lymph node measuring 6 mm (series 2 image 32). Otherwise, no enlarged lymph nodes in the chest. Abdomen/Pelvis: A large hypoenhancing lesion in the liver dome likely represents a cyst, though there are additional ill-defined hypoenhancing lesions which cannot definitively be characterized as cysts, examples and segment 8 (series 2 image 109) and segment 6 (series 2 image 121). Cholelithiasis without cholecystitis. No biliary duct dilation. Pancreas and adrenal glands are normal. Spleen is normal size with no focal lesion. Kidneys enhance symmetrically with no hydronephrosis. Urinary bladder is normal but incompletely distended. Uterus is anteverted. No adnexal mass. High density contrast throughout the colon from prior swallow study. Colonic diverticulosis is noted without evidence of diverticulitis. Appendix is normal. Small bowel and stomach are normal. No mesenteric, retroperitoneal, pelvic, or inguinal lymphadenopathy. No intra-abdominal free air or free fluid. Normal abdominal aorta. No suspicious osseous lesion or acute fracture. 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 COMPARISON: CT chest 11/07/2024 FINDINGS: Chest: Left upper extremity peripherally inserted central catheter tip terminates in the superior cavoatrial junction. A large right neck mass encasing the right lobe of the thyroid and surrounding the trachea and abutting the esophagus is more completely evaluated on recent CT of the neck. The dimensions are approximately 9.7 by a 6.5 cm on series 2 image 1. This is at least severely narrows if not occludes the right internal jugular vein and encases the right common carotid arteries. The trachea is deviated towards the left but patent. No suspicious pulmonary nodule, focal consolidation, pleural effusion, or pneumothorax. Normal heart size with no pericardial effusion. Mildly enlarged left level 4 lymph node measuring 7 mm (series 2 image 7) and a prominent right paratracheal lymph node measuring 6 mm (series 2 image 32). Otherwise, no enlarged lymph nodes in the chest. Abdomen/Pelvis: A large hypoenhancing lesion in the liver dome likely represents a cyst, though there are additional ill-defined hypoenhancing lesions which cannot definitively be characterized as cysts, examples and segment 8 (series 2 image 109) and segment 6 (series 2 image 121). Cholelithiasis without cholecystitis. No biliary duct dilation. Pancreas and adrenal glands are normal. Spleen is normal size with no focal lesion. Kidneys enhance symmetrically with no hydronephrosis. Urinary bladder is normal but incompletely distended. Uterus is anteverted. No adnexal mass. High density contrast throughout the colon from prior swallow study. Colonic diverticulosis is noted without evidence of diverticulitis. Appendix is normal. Small bowel and stomach are normal. No mesenteric, retroperitoneal, pelvic, or inguinal lymphadenopathy. No intra-abdominal free air or free fluid. Normal abdominal aorta. No suspicious osseous lesion or acute fracture. IMPRESSION: 1. Incompletely imaged neck mass similar to prior study. 2. Multiple lymph nodes in the lower neck/upper chest which are not enlarged by CT criteria but could represent additional sites of disease. Consider further evaluation with PET CT as indicated. 3. Centimeters hypoenhancing liver lesions are incompletely characterized due to their size. These could also be evaluated with PET/CT. Electronically signed by: Omid Prieto MD, PHD Gretel Brar MD IMG CT PROCEDURES Final R esult * eGFR (11/13/2024 2:53 AM INSURANCE AGENT) eGFR 78 >=60 mL/min/1. 73 m2 Comment: Interpretive Data Reference Interval Normal >/= 90 mL/min/1.73m2 Mildly decreased* 60 - 89 mL/min/1.73m2 Mildly to moderately decreased 45 - 59 mL/min/1.73m2 Moderately to severely decreased 30 - 44 mL/min/1.73m2 Severely decreased 15 - 29 mL/min/1.73m2 Kidney Failure < 15 mL/min/1.73m2 *Relative to young adult level Estimated glomerular filtration rate is determined by the 2020 CKD-EPI equation recommended by the National Kidney Foundation (A Unifying Approach to GFR Estimation: Recommendations of the NKF-ASK Task Force on Reassessing the Inclusion of Race in Diagnosing Kidney Disease, JASN 2020). The CKD-EPI equation should not be used for patients with unstable renal function and has not been validated in children and those over 70. Current interpretive data was last reviewed 2021. Blood 11/13/2024 2:53 AM INSURANCE AGENT 11/13/2024 3:12 AM INSURANCE AGENT Janice Mendes MD LAB BLOOD ORDERABLES Final Result [facility] Department of Laboratories [place], [place] [id number] * Differential, auto (11/13/2024 2:53 AM INSURANCE AGENT) Neutrophil abs 4.5 1.5 - 6.5 K/cumm Imm gran abs 0.0 0.0 - 0.1 K/cumm [facility] Lymphocyte abs 1.2 0.8 - 3.3 K/cumm [facility] Monocyte abs 0.5 0.2 - 0.8 K/cumm [facility] Eosinophil abs 0.1 0.0 - 0.5 K/cumm [facility] Basophil abs 0.1 0.0 - 0.1 K/cumm [facility] Neutrophil pct 69.4 % [facility] Comment: Interpretive Data Percent cell count reference ranges are not reported, since discordance with absolute values may lead to misinterpretation of CBC data. Current Interpretive Data was last revised on 2017. Imm gran pct 0.3 % [facility] Comment: Interpretive Data Percent cell count reference ranges are not reported, since discordance with absolute values may lead to misinterpretation of CBC data. Current Interpretive Data was last revised on 2017. Lymphocyte pct 19.1 % [facility] Comment: Interpretive Data Percent cell count reference ranges are not reported, since discordance with absolute values may lead to misinterpretation of CBC data. Current Interpretive Data was last revised on 2017. Monocyte pct 7.6 % [facility] Comment: Interpretive Data Percent cell count reference ranges are not reported, since discordance with absolute values may lead to misinterpretation of CBC data. Current Interpretive Data was last revised on 2017. Eosinophil pct 2.2 % [facility] Comment: Interpretive Data Percent cell count reference ranges are not reported, since discordance with absolute values may lead to misinterpretation of CBC data. Current Interpretive Data was last revised on 2017. Basophil pct 1.4 % [facility] Comment: Interpretive Data Percent cell count reference ranges are not reported, since discordance with absolute values may lead to misinterpretation of CBC data. Current Interpretive Data was last revised on 2017. Blood 11/13/2024 2:53 AM INSURANCE AGENT 11/13/2024 3:12 AM INSURANCE AGENT us Janice Mendes MD LAB BLOOD ORDERABLES Final Result [facility] Department [place] [address] * CBC with auto differential (11/13/2024 2:53 AM INSURANCE AGENT) WBC 6.5 3.8 - 9.9 K/cumm Hgb 14.3 11.9 - 15.5 g/dL [facility] Hct 43.3 35.6 - 45.5 % [facility] Plt 244 150 - 400 K/cumm [facility] MPV 11.5 9.1 - 12.3 fL [facility] RBC 5.11 3.90 - 5.20 M/cumm [facility] MCV 84.7 81.3 - 96.4 fL [facility] MCH 28.0 27.1 - 33.3 pg [facility] MCHC 33.0 32.3 - 35.7 g/dL [facility] RDW CV 14.0 11.1 - 14.9 % [facility] RDW SD 43.3 35.7 - 48.1 fL [facility] NRBC abs 0.00 0.00 - 0.01 K/cumm [facility] Blood 11/13/2024 2:53 AM INSURANCE AGENT 11/13/2024 3:12 AM INSURANCE AGENT Janice Mendes MD LAB BLOOD ORDERABLES Final Result Performing Organization Address [facility] Co de Phone Number [facility] [place] [employer] [place] [address] * Type and screen (11/13/2024 2:53 AM INSURANCE AGENT) Pathologist [facility] Heidi, indirect Negative ABO Rh O Positive [facility] Blood 11/13/2024 2:53 AM INSURANCE AGENT 11/13/2024 3:10 AM INSURANCE AGENT Narrative [facility] - 11/13/2024 4:06 AM INSURANCE AGENT Has the patient had Daratumumab or Isatuximab in the past 6 months?->Unknown Janice Mendes MD LAB BLOOD BANK TEST ORDERAB LES Final Result Performing Organization Address [facility]/ZIP Co de Phone Number [facility] [place] [employer] [place] [address] * (ABNORMAL) Uric acid (11/13/2024 2:53 AM INSURANCE AGENT) Uric acid 10.5(H) 2.5 - 7.0 mg/dL Blood 11/13/2024 2:53 AM INSURANCE AGENT 11/13/2024 3:01 AM INSURANCE AGENT Janice Mendes MD LAB BLOOD ORDERABLES Final Result Performing Organization Address City/[facility] Co de Phone Number [facility] [place] [employer] [place] [address] * Phosphorus (11/13/2024 2:53 AM INSURANCE AGENT) Pathologist [facility] Phosphorus, pl 2.5 2.3 - 4.5 mg/dL Blood 11/13/2024 2:53 AM INSURANCE AGENT 11/13/2024 3:01 AM INSURANCE AGENT Janice Mendes MD LAB BLOOD ORDERABLES Final Result Performing Organization Address [facility] de Phone Number [facility] [place] [employer] [place] [address] * Magnesium (11/13/2024 2:53 AM INSURANCE AGENT) Pathologist [facility] Magnesium 1.9 1.4 - 2.5 mg/dL Blood 11/13/2024 2:53 AM INSURANCE AGENT 11/13/2024 3:01 AM INSURANCE AGENT Jacob Lubin MD LAB BLOOD ORDERABLES Sara l Result Performing Organization Address [facility] Co de Phone Number [facility] [employer] [place] [address] * Lactate dehydrogenase (LD) (11/13/2024 2:53 AM INSURANCE AGENT) Lactate dehydrogenase (LDH) 228 100 - 250 Units/L Blood 11/13/2024 2:53 AM INSURANCE AGENT 11/13/2024 3:01 AM INSURANCE AGENT Janice Mendes MD LAB BLOOD ORDERABLES Final Result Performing Organization Address City/[facility]/ZIP Co de Phone Number [facility] [place] [address] * Haptoglobin (11/13/2024 2:53 AM INSURANCE AGENT) Pathologist [facility] Haptoglobin 92.0 30.0 - 200.0 mg/dL Blood 11/13/2024 2:53 AM INSURANCE AGENT 11/13/2024 3:01 AM INSURANCE AGENT Jacob Lubin MD LAB BLOOD ORDERABLES Sara l Result Performing Organization Address [facility] Co de Phone Number [facility] [place] [address] * (ABNORMAL) Basic metabolic panel (11/13/2024 2:53 AM INSURANCE AGENT) Pathologist [facility] Sodium 146(H) 135 - 145 mmol/L Potassium, pl 3.5 3.3 - 4.9 mmol/L [facility] Chloride 104 97 - 110 mmol/L [facility] CO2 26 22 - 32 mmol/L [facility] Anion gap 16(H) 2 - 15 mmol/L [facility] BUN 16 6 - 25 mg/dL [facility] Creatinine 0.83 0.60 - 1.10 mg/dL [facility] Glucose 88 70 - 199 mg/dL [facility] Comment: Interpretive Data Fasting glucose >/= 126 mg/dl is diagnostic for diabetes. Fasting is defined as no caloric intake for at least 8 hours. Fasting glucose between 100 mg/dl to 125 mg/dl is diagnostic of prediabetes. In a patient with classic symptoms of hyperglycemia or hyperglycemic crisis, a random glucose >/= 200 mg/dl is diagnostic for diabetes. In the absence of unequivocal hyperglycemia, results should be confirmed by repeat testing. The classification and Diagnosis of Diabetes Diabetes Care 202; 46: S19-S40. Current interpretive data was last revised 2022. Calcium 9.6 8.5 - 10.3 mg/dL [facility] Blood 11/13/2024 2:53 AM INSURANCE AGENT 11/13/2024 3:01 AM INSURANCE AGENT us Janice Mendes MD LAB BLOOD ORDERABLES Final Result [facility] Department [place] [address] * Differential, auto (11/12/2024 12:45 PM INSURANCE AGENT) Neutrophil abs 5.1 1.5 - 6.5 K/cumm Imm gran abs 0.0 0.0 - 0.1 K/cumm [facility] Lymphocyte abs 1.1 0.8 - 3.3 K/cumm [facility] Monocyte abs 0.5 0.2 - 0.8 K/cumm [facility] Eosinophil abs 0.1 0.0 - 0.5 K/cumm [facility] Basophil abs 0.1 0.0 - 0.1 K/cumm [facility] Neutrophil pct 72.9 % [facility] Comment: Interpretive Data Percent cell count reference ranges are not reported, since discordance with absolute values may lead to misinterpretation of CBC data. Current Interpretive Data was last revised on 2017. Imm gran pct 0.3 % [facility] Comment: Interpretive Data Percent cell count reference ranges are not reported, since discordance with absolute values may lead to misinterpretation of CBC data. Current Interpretive Data was last revised on 2017. Lymphocyte pct 16.3 % [facility] Comment: Interpretive Data Percent cell count reference ranges are not reported, since discordance with absolute values may lead to misinterpretation of CBC data. Current Interpretive Data was last revised on 2017. Monocyte pct 7.4 % [facility] Comment: Interpretive Data Percent cell count reference ranges are not reported, since discordance with absolute values may lead to misinterpretation of CBC data. Current Interpretive Data was last revised on 2017. Eosinophil pct 2.0 % [facility] Comment: Interpretive Data Percent cell count reference ranges are not reported, since discordance with absolute values may lead to misinterpretation of CBC data. Current Interpretive Data was last revised on 2017. Basophil pct 1.1 % [facility] Comment: Interpretive Data Percent cell count reference ranges are not reported, since discordance with absolute values may lead to misinterpretation of CBC data. Current Interpretive Data was last revised on 2017. Blood 11/12/2024 12:4 5 PM INSURANCE AGENT 11/12/2024 1:20 PM INSURANCE AGENT us Jacob Lubin MD LAB BLOOD ORDERABLES Sara l Result Performing Organization Address City/[facility]/ZIP Co de Phone Number [facility] [place] [employer] [place] [address] * Melinda-Lopes Virus (EBV) DNA Quantitative Blood (11/12/2024 12:45 PM INSURANCE AGENT) [facility] EBV DNA Result Not Detected [facility] Comment: Interpretive Data The quantifiable range of this assay is 35 IUnits/mL to 100,000,000 IUnits/mL (1.54 log IUnits/mL to 8.0 log IUnits/mL). Testing was performed by the [employer] EBV Test ([employer] Testing performed at [facility]. Current interpretive data was last revised on 2023. Blood 11/12/2024 12:4 5 PM INSURANCE AGENT 11/12/2024 1:14 PM INSURANCE AGENT us Jacob Lubin MD LAB MICROBIOLOGY - GENERA L ORDERABLES Final Result [facility] [employer] [place] [address] [facility] * HIV 1/2 Antibody plus p24 Antigen Blood (11/12/2024 12:45 PM INSURANCE AGENT) [facility] HIV 1/2 ab + p24 ag Nonreactive Nonreactive Comment:Nonreactive for HIV- 1 antigen and HIV-1/HIV-2 antibodies. No laboratory evidence of HIV infection. If acute HIV infection is suspected, consider testing for HIV-1 RNA. Current interpretive data was last revised on 22. Blood 11/12/2024 12:4 5 PM INSURANCE AGENT 11/12/2024 1:21 PM INSURANCE AGENT Jacob Lubin MD LAB MICROBIOLOGY - GENERA L ORDERABLES Final Result Performing Organization Address City/[facility] Co de Phone Number [facility] Department [place] [address] * (ABNORMAL) CBC with auto differential (11/12/2024 12:45 PM INSURANCE AGENT) Pathologist [facility] WBC 7.0 3.8 - 9.9 K/cumm Hgb 14.4 11.9 - 15.5 g/dL [facility] Hct 44.8 35.6 - 45.5 % [facility] Plt 259 150 - 400 K/cumm [facility] MPV 11.7 9.1 - 12.3 fL [facility] RBC 5.21(H) 3.90 - 5.20 M/cumm [facility] MCV 86.0 81.3 - 96.4 fL [facility] MCH 27.6 27.1 - 33.3 pg [facility] MCHC 32.1(L) 32.3 - 35.7 g/dL [facility] RDW CV 13.9 11.1 - 14.9 % [facility] RDW SD 43.6 35.7 - 48.1 fL [facility] NRBC abs 0.00 0.00 - 0.01 K/cumm [facility] Blood 11/12/2024 12:4 5 PM INSURANCE AGENT 11/12/2024 1:20 PM INSURANCE AGENT Jacob Lubin MD LAB BLOOD ORDERABLES Sara l Result Performing Organization Address City/[facility]/ZIP Co de Phone Number [facility] Department [place] [address] * (ABNORMAL) Melinda-Lopes virus (EBV) antibody panel Blood (11/12/2024 12:45 PM INSURANCE AGENT) Pathologist [facility] EBV nuclear Ab Positive(A) Negative Comment:Indicates the presen ce of detectable IgG antibody to EBV Nuclear Antigen. EBV VCA IgG Positive(A) Negative [facility] Comment:Indicates the presen ce of antibody; 90% of the adult population will have been infected with EBV sometime in the past. EBV VCA IgM Negative Negative [facility] Comment:No detectable IgM an tibody to EBV-VCA. A negative result indicates no current infection with EBV. If clinical suspicion of acute EBV infection is present, testing should be repeated after one week. EBV interp Past Infection [facility] Blood 11/12/2024 12:4 5 PM INSURANCE AGENT 11/12/2024 1:20 PM INSURANCE AGENT Jacob Lubin MD LAB MICROBIOLOGY - GENERA L ORDERABLES Final Result Performing Organization Address City/[facility]/ZIP Co de Phone Number [facility] Department [place] [address] * Hepatitis panel, acute Blood (11/12/2024 12:45 PM INSURANCE AGENT) [facility] Hep A IgM Nonreactive Nonreactive Hep B core IgM Nonreactive Nonreactive [facility] Hep C Ab Nonreactive Nonreactive [facility] Comment:Antibodies to HCV no t detected. Does NOT exclude the possibility of recent exposure to HCV. Current interpretive data was last revised on 22 HepBsAg Nonreactive Nonreactive [facility] Blood 11/12/2024 12:4 5 PM INSURANCE AGENT 11/12/2024 1:20 PM INSURANCE AGENT Jacob Lubin MD LAB MICROBIOLOGY - GENERA L ORDERABLES Final Result Performing Organization Address City/[facility]/ZIP Co de Phone Number [facility] Department [place] [address] * US Guided Biopsy Thyroid (11/12/2024 11:07 AM INSURANCE AGENT) Anatomical Region Laterality Modality Thyroid N/A Ultrasound 11/12/2024 2:28 PM INSURANCE AGENT Impressions 11/12/2024 3:00 PM INSURANCE AGENT 1. Successful ultrasound-guided core needle biopsy of right neck mass. 2. Please see separate Surgical Pathology results for final interpretation. Dr. Dakota De Santiago (radiology physician assistant) personally participated in sonographic imaging of this patient. Dictated by: Dakota De Santiago M.D. The radiology attending physician has personally reviewed this study, and had reviewed and/or edited this written report and agrees with it. Electronically signed by: Serjio Cabrera M.D. Narrative 11/12/2024 3:00 PM INSURANCE AGENT EXAMINATION: ULTRASOUND-GUIDED CORE BIOPSY HISTORY: 64-year-old female with enlarged right neck mass. FNA biopsy on 11/09/2024 with preliminary pathology is consistent with diffuse large B-cell lymphoma. Ultrasound-guided core biopsy with flow cytometry to evaluate for anaplastic thyroid cancer. COMPARISON: Ultrasound guided FNA from 11/09/[address] from 11/07/2024. FINDINGS: There is a large, ill-defined hypoechoic mass completely replacing the thyroid and encircling the trachea, displacing the right carotid and obscuring the right jugular vein. The rightward aspect of this mass was targeted from a medial to lateral approach. TECHNIQUE: The procedure for ultrasound-guided core biopsy was explained to and discussed with the patient. Risks were explained to include, but not be limited to, hemorrhage, infection, injury to adjacent organs, non-diagnostic specimen and adverse reaction to medications administered. The patient voiced understanding and wished to proceed and signed the consent form. PROCEDURAL SEDATION: Local anesthesia only CORE BIOPSY: The lesion was located in the right neck space and measured 10.5 cm x 6.1 cm x 8 cm. An appropriate site was localized for core biopsy. The patient's overlying skin was prepped and draped in the usual sterile fashion. Local anesthesia was achieved via subcutaneous and deep administration with 10 mL of Lidocaine 1%. Under realtime ultrasound guidance, 6 passes were made with an 18 gauge BioPince core biopsy needle, 1 cm throw, without the use of a 17 gauge introducer needle. The core specimens were placed in formalin and submitted to the spreader operator automatic service for delivery to Surgical Pathology. No tract embolization was performed. The patient's skin was cleaned and dressed. The patient tolerated the entire procedure well without immediate complications. Dr. Serjio Cabrera M.D., the attending radiologist, was present from the beginning to the end of the procedure. Dr. Dakota De Santiago performed the biopsy. Procedure Note Serjio Cabrera MD - 11/12/2024 EXAMINATION: ULTRASOUND-GUIDED CORE BIOPSY HISTORY: 64-year-old female with enlarged right neck mass. FNA biopsy on 11/09/2024 with preliminary pathology is consistent with diffuse large B-cell lymphoma. Ultrasound-guided core biopsy with flow cytometry to evaluate for anaplastic thyroid cancer. COMPARISON: Ultrasound guided FNA from 11/09/[address] from 11/07/2024. FINDINGS: There is a large, ill-defined hypoechoic mass completely replacing the thyroid and encircling the trachea, displacing the right carotid and obscuring the right jugular vein. The rightward aspect of this mass was targeted from a medial to lateral approach. TECHNIQUE: The procedure for ultrasound-guided core biopsy was explained to and discussed with the patient. Risks were explained to include, but not be limited to, hemorrhage, infection, injury to adjacent organs, non-diagnostic specimen and adverse reaction to medications administered. The patient voiced understanding and wished to proceed and signed the consent form. PROCEDURAL SEDATION: Local anesthesia only CORE BIOPSY: The lesion was located in the right neck space and measured 10.5 cm x 6.1 cm x 8 cm. An appropriate site was localized for core biopsy. The patient's overlying skin was prepped and draped in the usual sterile fashion. Local anesthesia was achieved via subcutaneous and deep administration with 10 mL of Lidocaine 1%. Under realtime ultrasound guidance, 6 passes were made with an 18 gauge BioPince core biopsy needle, 1 cm throw, without the use of a 17 gauge introducer needle. The core specimens were placed in formalin and submitted to the spreader operator automatic service for delivery to Surgical Pathology. No tract embolization was performed. The patient's skin was cleaned and dressed. The patient tolerated the entire procedure well without immediate complications. Dr. Serjio Cabrera M.D., the attending radiologist, was present from the beginning to the end of the procedure. Dr. Dakota De Santiago performed the biopsy. IMPRESSION: 1. Successful ultrasound-guided core needle biopsy of right neck mass. 2. Please see separate Surgical Pathology results for final interpretation. Dr. Dakota De Santiago (radiology physician assistant) personally participated in sonographic imaging of this patient. Dictated by: Dakota De Santiago M.D. The radiology attending physician has personally reviewed this study, and had reviewed and/or edited this written report and agrees with it. Electronically signed by: Serjio Cabrera M.D. us Jacob Lubin MD IMG US PROCEDURES Final R esult * Flow Leukemia/Lymphoma Tissue (11/12/2024 10:03 AM INSURANCE AGENT) Jones Stain Test Completed Leukemia/Lymp kobi Result See separate Surgical Pathology report. [facility] Tissue 11/12/2024 10:0 3 AM INSURANCE AGENT 11/12/2024 3:58 PM INSURANCE AGENT us Jacob Lubin MD LAB PATHOLOGY ORDERABLES Final Result [facility] Department [place] [address] * Surgical pathology (11/12/2024 10:03 AM INSURANCE AGENT) Tissue (Thyroid Biopsy) 11/12/2024 10:03 AM INSURANCE AGENT Tissue (Thyroid Biopsy) 11/12/2024 10:04 AM INSURANCE AGENT Comment:Prelim FNA positive for DLBCL Narrative PATHOLOGY [facility] - 11/17/2024 10:21 AM INSURANCE AGENT EPIC results best viewed via link to PDF [facility] [place] [address] Note to Patients: This report may contain a detailed description of human tissue sent by a health care provider to the laboratory for pathologic evaluation. The content of this report is essential for diagnosis and may provide important critical findings. This information may be unfamiliar to patients to review without a medical professional present. It is advised that the patient review this report in the presence of a health care provider who can answer questions and explain the details. SURGICAL PATHOLOGY REPORT FINAL WITH ADDENDUM Patient Name: CAT HANCOCK Gender: F : 1960 (Age: 64) Address: [address] [place] [id number] Hospital #: [id number] Taken:11/12/2024 Received:11/12/2024 Reported: 11/17/2024 Patient Type: [facility] Inpatient Service: Oncology Location: [facility] [address] Physician(s): Serjio Cabrera M.D. Diagnosis: Soft tissue, right thyroid mass, core biopsy: - Features consistent with diffuse large B-cell lymphoma - See comment mars11/16/2024 12:06 By this signature, I attest that the above diagnosis is based upon my personal examination of the slides(and/or other material indicated in the diagnosis). Mariama Hutchinson M.D., Ph.D. Report Electronically Reviewed and Signed Out By Mariama Hutchinson M.D., Ph.D. 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 Correlation with clinical, laboratory, cytogenetic and radiologic findings is needed for full evaluation. The case reviewed by Dr. Maikol Aguillon who agrees with the final diagnosis. Microscopic Description and Comment: Histology: Microscopic examination of right thyroid tissue mass core biopsies reveals proliferation of large atypical cells with irregular nuclear contours, vesicular chromatin and distinct nucleoli. There are scattered mitotic figures and frequent apoptotic bodies. Immunohistochemistry: Immunohistochemistry and in situ hybridization studies (with appropriate controls) are performed for further evaluation in tissue context. Large atypical cells are [id number] B-cells with coexpression of PAX5, CD10 (weak, ~80-90%), BCL6 (`80-90%) and MUM-1 (variable intensity, ~70-80%). Immunostain for c-MYC is positive in approximately 10% of cellularity. Immunostain for Bcl-2 is positive in approximately 20% cellularity (weak). immunostainf ro CD21 is psoitive in subset of the cells and highlight rare small disrupted residual follicular dendritic networks. Immunostain for CD30 is negative in neoplastic cells. Immunostains for Cyclin D1, CD34 and TdT are negative. In situ hybridization for EBV encoded RNA (PJ) is negative in neoplastic cells. Immunostain for CD3 highlights admixed scattered T-cells. Proliferation rate, as assessed by immunostain for Ki-67, is approximately 70-80%. Flow cytometry: Specimen quality: Adequate (mildly decreased viability of 81% viability) Flow cytometry identifies an atypical CD10+ B-cell population comprising 61% of total cellular events. Of the CD19+ B-lymphoid cells 25% are large have increased forward scatter characteristics indicative of larger cell volume or size. Antigens expressed: CD45, CD19, CD20, CD10 (dim) , CD38 (dimmer), CD22 Antigens not expressed: CD34, [place], Lambda, CD5, CD200, CD123 CD3+ T-lymphocytes show no moore T cell antigen aberrancies and have a CD4 to CD8 ratio within normal limits. Natural killer cells are not increased. Plasma cells are not overtly increased. No significant increase in CD45 dim population is identified. CD34+ blasts are not increased. A Jones-Giemsa stained cytospin from the flow cytometry specimen was examined for internal nurse quality purposes. Flow cytometry was performed using antibodies to the following cellular antigens: CD45, CD34, CD19, CD20, [place], Lambda, CD10, CD5, CD200, CD38, CD2, CD3, CD4, CD7, CD8, CD56, TCR-GD. Total antigens analyzed: 17 Additional flow cytometry was performed to further characterize B-lymphocytes using antibodies to the following cellular antigens: CD45, CD19, CD10, CD22, CD123.Total antigens analyzed: 5 Mercedes Valle M.D. History: The patient is a 64-year-old woman presenting with thyroid mass; dysphagia, unspecified type. Operative procedure: Thyroid mass biopsy. Specimen(s) Received: A: Right thyroid mass cores in formalin B: Right thyroid mass cores in rpmi for flow cytometry Gross Description: Received in formalin, labeled with the patient s identifiers and right thyroid mass cores and consists of four costa, hemorrhagic core(s) of soft tissue measuring 0.7-1.3 cm each in length x 0.1 cm in diameter. Labeled A1 to A2. Jar 0. sxst11/12/2024 13:38 PA(s): Melissa Dotson By this signature, I attest that the above diagnosis is based upon my personal examination of the slides(and/or other material). Addenda/Procedures Addendum Ordered:11/18/2024Status:Signed OutAddendum Complete:11/18/2024y:Mariama Hutchinson M.D., Ph.D.Addendum Signed Out:11/18/2024 Addendum Diagnosis A digital scan of the original reference lab report will begin on page two of this addendum. By this signature, I attest that the above diagnosis is based upon my personal examination of the slides(and/or other material indicated in the diagnosis). Mariama Hutchinson M.D., Ph.D.Report Electronically Reviewed and Signed Out By Mariama Hutchinson M.D., Ph.D. 11/18/2024 11:52:07 The performance characteristics of some immunohistochemical stains, fluorescence in-situ hybridization tests and immunophenotyping by flow cytometry cited in this report (if any) were determined by the Surgical Pathology and Flow Cytometry Departments at [facility] as part of an ongoing environmental quality analyst program and in compliance with federally mandated regulations drawn from the Clinical Laboratory Improvement Act of 1988 (CLIA '88). Some of these tests rely on the use of analyte specific reagents and are subject to specific labeling requirements by the US Food and Drug Administration. Such diagnostic tests may only be performed in a facility that is certified by the Department of Health and Human Services as a high complexity laboratory under CLIA '88. The FDA has determined that such clearance or approval is not necessary. This test is used for clinical purposes. It should not be regarded as investigational or for research. Nevertheless, federal rules concerning the medical use of analyte specific reagents require that the following disclaimer be attached to the report: This test was developed and its performance characteristics determined by the Surgical Pathology and Flow Cytometry Departments of [facility]. It has not been cleared or approved by the U. S. Food and Drug Administration. IMAGES AND SCANNED DOCUMENTS, IF INCLUDED, ONLY VIEWABLE IN PDF VERSION OF REPORT us Jacob Lubin MD LAB PATHOLOGY ORDERABLES Final Result PATHOLOGY [facility] 3rd Floor [place], [place] [phone] * eGFR (11/12/2024 5:00 AM INSURANCE AGENT) eGFR 81 >=60 mL/min/1. 73 m2 Comment: Interpretive Data Reference Interval Normal >/= 90 mL/min/1.73m2 Mildly decreased* 60 - 89 mL/min/1.73m2 Mildly to moderately decreased 45 - 59 mL/min/1.73m2 Moderately to severely decreased 30 - 44 mL/min/1.73m2 Severely decreased 15 - 29 mL/min/1.73m2 Kidney Failure < 15 mL/min/1.73m2 *Relative to young adult level Estimated glomerular filtration rate is determined by the 2020 CKD-EPI equation recommended by the National Kidney Foundation (A Unifying Approach to GFR Estimation: Recommendations of the NKF-ASK Task Force on Reassessing the Inclusion of Race in Diagnosing Kidney Disease, JASN 2020). The CKD-EPI equation should not be used for patients with unstable renal function and has not been validated in children and those over 70. Current interpretive data was last reviewed 2021. Blood 11/12/2024 5:00 AM INSURANCE AGENT 11/11/2024 11:32 PM INSURANCE AGENT us Jacob Lubin MD LAB BLOOD ORDERABLES Sara l Result Performing Organization Address City/[facility]/ZIP Co de Phone Number [facility] Department of [employer] [place] [address] * (ABNORMAL) Uric acid (11/12/2024 5:00 AM INSURANCE AGENT) Uric acid 12.7(H) 2.5 - 7.0 mg/dL Blood 11/12/2024 5:00 AM INSURANCE AGENT 11/11/2024 11:32 PM INSURANCE AGENT Jacob Lubin MD LAB BLOOD ORDERABLES Sara l Result [facility] [employer] [place] [address] * Phosphorus (11/12/2024 5:00 AM INSURANCE AGENT) Phosphorus, pl 3.2 2.3 - 4.5 mg/dL Blood 11/12/2024 5:00 AM INSURANCE AGENT 11/11/2024 11:32 PM INSURANCE AGENT Jacob Lubin MD LAB BLOOD ORDERABLES Sara l Result Performing Organization Address City/[facility] Co de Phone Number [facility] [employer] [place] [address] * Magnesium (11/12/2024 5:00 AM INSURANCE AGENT) Pathologist [facility] Magnesium 2.0 1.4 - 2.5 mg/dL Blood 11/12/2024 5:00 AM INSURANCE AGENT 11/11/2024 11:32 PM INSURANCE AGENT Jacob Lubin MD LAB BLOOD ORDERABLES Sara l Result Performing Organization Address [facility] Co de Phone Number [facility] [employer] [place] [address] * Lactate dehydrogenase (LD) (11/12/2024 5:00 AM INSURANCE AGENT) Lactate dehydrogenase (LDH) 234 100 - 250 Units/L Blood 11/12/2024 5:00 AM INSURANCE AGENT 11/11/2024 11:32 PM INSURANCE AGENT Jacob Lubin MD LAB BLOOD ORDERABLES Sara l Result Performing Organization Address [facility] Co de Phone Number [facility] [employer] [place] [address] * Haptoglobin (11/12/2024 5:00 AM INSURANCE AGENT) Haptoglobin 103.0 30.0 - 200.0 mg/dL Blood 11/12/2024 5:00 AM INSURANCE AGENT 11/11/2024 11:32 PM INSURANCE AGENT Jacob Lubin MD LAB BLOOD ORDERABLES Sara l Result Performing Organization Address [facility]/ZIP Co de Phone Number [facility] Department [place] [address] * (ABNORMAL) Basic metabolic panel (11/12/2024 5:00 AM INSURANCE AGENT) [facility] Sodium 143 135 - 145 mmol/L Potassium, pl 3.5 3.3 - 4.9 mmol/L [facility] Chloride 99 97 - 110 mmol/L [facility] CO2 25 22 - 32 mmol/L [facility] Anion gap 19(H) 2 - 15 mmol/L [facility] BUN 17 6 - 25 mg/dL [facility] Creatinine 0.80 0.60 - 1.10 mg/dL [facility] Glucose 73 70 - 199 mg/dL [facility] Comment: Interpretive Data Fasting glucose >/= 126 mg/dl is diagnostic for diabetes. Fasting is defined as no caloric intake for at least 8 hours. Fasting glucose between 100 mg/dl to 125 mg/dl is diagnostic of prediabetes. In a patient with classic symptoms of hyperglycemia or hyperglycemic crisis, a random glucose >/= 200 mg/dl is diagnostic for diabetes. In the absence of unequivocal hyperglycemia, results should be confirmed by repeat testing. The classification and Diagnosis of Diabetes Diabetes Care 2021; 46: S19-S40. Current interpretive data was last revised 2022. Calcium 10.1 8.5 - 10.3 mg/dL [facility] Blood 11/12/2024 5:00 AM INSURANCE AGENT 11/11/2024 11:32 PM INSURANCE AGENT Jacob Lubin MD LAB BLOOD ORDERABLES Sara l Result Performing Organization Address [facility] Co de Phone Number [facility] Department [place] [address] * Cytogenetics (11/12/2024 12:00 AM INSURANCE AGENT) Miscellaneous 11/12/2024 11/13/2024 Narrative 11/16/2024 5:30 PM INSURANCE AGENT EPIC results best viewed via link to PDF [facility] Department of Pathol [facility] [place] [address] Patient Information Name: CAT HANCOCK Gender: F : 1960 (Age: 64) Tissue: FFPE FISH Visit Information Hospital #: [id number] Facility[facility] Service[facility] OP Location: [place] [address] Patient Type: [facility] Inpatient Specimen Information: Culture #: [id number] Date Collected: 11/12/2024 Date Accessioned: 11/14/2024 Date Ordered: 11/13/2024 Physician(s): Serjio Cabrera M.D. Processing: FFPE FISH - Right thyroid mass Indication: The patient is a 64-year-old woman presenting with thyroid mass; dysphagia, unspecified type. Operative procedure: Thyroid mass biopsy. Specimen Quality: Adequate FISH: FFPE CLINICAL REPORT PARAFFIN EMBEDDED FISH Fluorescence In-situ hybridization (FISH) Results: Specimen # [id number] NEGATIVE- FISH result for MYC gene rearrangement NEGATIVE- FISH result for IGH::BCL2 translocation NEGATIVE- FISH result for BCL6 gene rearrangement nuc umang (MYC)x1[63/200]/(MYC)x3~5[29/200] nuc umang (IGH,BCL2)x1[41/200]/(IGHx1,BCL2x2)[24/200]/(IGHx2,BCL2x1)[45/200] nuc umang (BCL6)x1[76/200] Chromosome analysis and Fluorescence In Situ Hybridization (FISH) analysis are performed using the [employer] Cytovision Imaging System. Comments MYC-BA FISH FISH was performed utilizing Vysis LSI MYC (8q24) Dual Color Break Apart Rearrangement probe set ([employer], [place], [place]). In this particular case, there was no split of SpectrumOrange and SpectrumGreen signals in 200 interphase nuclei examined utilizing a manual scoring system and therefore, no evidence for a MYC-containing chromosomal rearrangement. A loss of MYC was seen in 31.5%, additionally a gain of MYC was seen in 14.5%, the significance of which, if any, is unclear. The above test was developed and its performance characteristics determined by [facility]. It has not been cleared or approved by the FDA. The laboratory is regulated under CLIA as qualified to perform high- complexity testing. This test is used for clinical purposes. It should not be regarded as investigational or for research. IGH::BCL2 FISH FISH was performed utilizing Vysis IGH/BCL2 Dual Color Dual Fusion probe set ([employer], [place], [place]). In this particular case, no dual-fused signals were found in 200 interphase cells examined utilizing a manual scoring system, indicating that there is no t(14;18) translocation involving these two genes. A loss of IGH, was noted in 32.5%; additionally, a loss of BCL2, was noted in 43%, the clinical significance of which, if any, is unclear. The above test was developed and its performance characteristics determined by [facility]. It has not been cleared or approved by the FDA. The laboratory is regulated under CLIA as qualified to perform high- complexity testing. This test is used for clinical purposes. It should not be regarded as investigational or for research. BCL6-BA FISH FISH was performed utilizing Vysis LSI BCL6 (3q27) Dual Color Break Apart Rearrangement probe set ([employer], [place], [place]). In this particular case, there was no split of SpectrumOrange and SpectrumGreen signals in 200 interphase nuclei examined utilizing a manual scoring system and therefore, no evidence for a BCL6-containing chromosomal rearrangement. A loss of BCL6 was seen in 38%, the significance of which, if any, is unclear. The above test was developed and its performance characteristics determined by [facility]. It has not been cleared or approved by the FDA. The laboratory is regulated under CLIA as qualified to perform high- complexity testing. This test is used for clinical purposes. It should not be regarded as investigational or for research. Note: The interphase nuclei analyzed in this case were obtained in the area(s) designated on a marked H&E stained slide, provided by the ordering pathologist. Report Electronically Reviewed and Signed Out By Abeba Aguillon M.D., Ph.D. Date Reported: 11/16/2024 us Serjio Cabrera MD LAB GENETIC TESTING Final Res ult * eGFR (11/11/2024 9:57 PM INSURANCE AGENT) eGFR 80 >=60 mL/min/1. 73 m2 Comment: Interpretive Data Reference Interval Normal >/= 90 mL/min/1.73m2 Mildly decreased* 60 - 89 mL/min/1.73m2 Mildly to moderately decreased 45 - 59 mL/min/1.73m2 Moderately to severely decreased 30 - 44 mL/min/1.73m2 Severely decreased 15 - 29 mL/min/1.73m2 Kidney Failure < 15 mL/min/1.73m2 *Relative to young adult level Estimated glomerular filtration rate is determined by the 2020 CKD-EPI equation recommended by the National Kidney Foundation (A Unifying Approach to GFR Estimation: Recommendations of the NKF-ASK Task Force on Reassessing the Inclusion of Race in Diagnosing Kidney Disease, JASN 2020). The CKD-EPI equation should not be used for patients with unstable renal function and has not been validated in children and those over 70. Current interpretive data was last reviewed 2021. Blood 11/11/2024 9:57 PM INSURANCE AGENT 11/11/2024 11:34 PM INSURANCE AGENT Jacob Lubin MD LAB BLOOD ORDERABLES Sara l Result Performing Organization Address City/[facility]/ZIP Co de Phone Number [facility] [place] [address] * (ABNORMAL) Uric acid (11/11/2024 9:57 PM INSURANCE AGENT) Uric acid 12.4(H) 2.5 - 7.0 mg/dL Blood 11/11/2024 9:57 PM INSURANCE AGENT 11/11/2024 11:34 PM INSURANCE AGENT Jacob Lubin MD LAB BLOOD ORDERABLES Sara l Result [facility] [place] [address] * Phosphorus (11/11/2024 9:57 PM INSURANCE AGENT) Phosphorus, pl 3.3 2.3 - 4.5 mg/dL Blood 11/11/2024 9:57 PM INSURANCE AGENT 11/11/2024 11:33 PM INSURANCE AGENT Jacob Lubin MD LAB BLOOD ORDERABLES Sara l Result Performing Organization Address City/[facility] [place] [address] * Magnesium (11/11/2024 9:57 PM INSURANCE AGENT) Pathologist [facility] Magnesium 2.0 1.4 - 2.5 mg/dL Blood 11/11/2024 9:57 PM INSURANCE AGENT 11/11/2024 11:33 PM INSURANCE AGENT Jacob Lubin MD LAB BLOOD ORDERABLES Sara l Result Performing Organization Address [facility] Co de Phone Number [facility] [employer] [place] [address] * Lactate dehydrogenase (LD) (11/11/2024 9:57 PM INSURANCE AGENT) Pathologist [facility] Lactate dehydrogenase (LDH) 240 100 - 250 Units/L Blood 11/11/2024 9:57 PM INSURANCE AGENT 11/11/2024 11:34 PM INSURANCE AGENT Jacob Lubin MD LAB BLOOD ORDERABLES Sara l Result Performing Organization Address [facility] [place] [address] * Haptoglobin (11/11/2024 9:57 PM INSURANCE AGENT) Haptoglobin 102.0 30.0 - 200.0 mg/dL Blood 11/11/2024 9:57 PM INSURANCE AGENT 11/11/2024 11:34 PM INSURANCE AGENT Jacob Lbuin MD LAB BLOOD ORDERABLES Sara l Result Performing Organization Address [facility]/ZIP Co de Phone Number [facility] Department [place] [address] * (ABNORMAL) Basic metabolic panel (11/11/2024 9:57 PM INSURANCE AGENT) [facility] Sodium 142 135 - 145 mmol/L Potassium, pl 3.5 3.3 - 4.9 mmol/L [facility] Chloride 99 97 - 110 mmol/L [facility] CO2 26 22 - 32 mmol/L [facility] Anion gap 17(H) 2 - 15 mmol/L [facility] BUN 17 6 - 25 mg/dL [facility] Creatinine 0.81 0.60 - 1.10 mg/dL [facility] Glucose 77 70 - 199 mg/dL [facility] Comment: Interpretive Data Fasting glucose >/= 126 mg/dl is diagnostic for diabetes. Fasting is defined as no caloric intake for at least 8 hours. Fasting glucose between 100 mg/dl to 125 mg/dl is diagnostic of prediabetes. In a patient with classic symptoms of hyperglycemia or hyperglycemic crisis, a random glucose >/= 200 mg/dl is diagnostic for diabetes. In the absence of unequivocal hyperglycemia, results should be confirmed by repeat testing. The classification and Diagnosis of Diabetes Diabetes Care 2021; 46: S19-S40. Current interpretive data was last revised 2022. Calcium 9.9 8.5 - 10.3 mg/dL [facility] Blood 11/11/2024 9:57 PM INSURANCE AGENT 11/11/2024 11:34 PM INSURANCE AGENT Jacob Lubin MD LAB BLOOD ORDERABLES Sara l Result Performing Organization Address [facility]/ZIP Co de Phone Number [facility] Department [place] [address] * FL Modified Barium Swallow W Video (11/11/2024 10:36 AM INSURANCE AGENT) Anatomical Region Laterality Modality Head and Neck N/A Radio Fluoroscop y 11/11/2024 11:0 0 AM INSURANCE AGENT Impressions 11/11/2024 11:33 AM INSURANCE AGENT The swallowing mechanism is abnormal; see above comments. Please refer to the Speech Pathology procedure note for safe swallow recommendations as well as additional information regarding the oral-pharyngeal swallow function, plan of care, and recommended follow up. Dictated by: Petr Zavaleta MD PHD The radiology attending physician has personally reviewed this study, and had reviewed and/or edited this written report and agrees with it. Electronically signed by: Jas Deng M.D. Narrative 11/11/2024 11:33 AM INSURANCE AGENT EXAMINATION: MODIFIED BARIUM SWALLOW HISTORY: Dysphagia. TECHNIQUE: This procedure was completed in conjunction with a Speech Language Pathologist. The patient was given barium of multiple different consistencies to swallow. Video fluoroscopy was employed during the exam. FINDINGS: Pharyngeal swallow function is moderate to severely impaired. Penetration: Yes There is penetration of thin and nectar thick liquids. Penetration is not sensed. The penetrated material is sometimes cleared. Aspiration: Yes There is aspiration of thin liquids. Aspiration is sensed. The aspirated material is not cleared. Residue:Yes There is pharyngeal residue of thin and nectar thick liquids, and puree. Residue is sensed. The residual material is cleared. Other comments: Upper esophageal retention of contrast is seen. Soft tissue prominence posterior to the esophagus likely correlates to the patient's cervical mass better seen on CT 11/07/2024. Mild anterolisthesis of C3 on C4 seen during flexion. Procedure Note Jas Deng MD - 11/11/2024 EXAMINATION: MODIFIED BARIUM SWALLOW HISTORY: Dysphagia. TECHNIQUE: This procedure was completed in conjunction with a Speech Language Pathologist. The patient was given barium of multiple different consistencies to swallow. Video fluoroscopy was employed during the exam. FINDINGS: Pharyngeal swallow function is moderate to severely impaired. Penetration: Yes There is penetration of thin and nectar thick liquids. Penetration is not sensed. The penetrated material is sometimes cleared. Aspiration: Yes There is aspiration of thin liquids. Aspiration is sensed. The aspirated material is not cleared. Residue:Yes There is pharyngeal residue of thin and nectar thick liquids, and puree. Residue is sensed. The residual material is cleared. Other comments: Upper esophageal retention of contrast is seen. Soft tissue prominence posterior to the esophagus likely correlates to the patient's cervical mass better seen on CT 11/07/2024. Mild anterolisthesis of C3 on C4 seen during flexion. IMPRESSION: The swallowing mechanism is abnormal; see above comments. Please refer to the Speech Pathology procedure note for safe swallow recommendations as well as additional information regarding the oral-pharyngeal swallow function, plan of care, and recommended follow up. Dictated by: Petr Zavaleta MD PHD The radiology attending physician has personally reviewed this study, and had reviewed and/or edited this written report and agrees with it. Electronically signed by: Jas Deng M.D. us Jacob Lubin MD IMG FLUOROSCOPY PROCEDURE S Final Result * [employer] Evaluate and Treat (VFSS) (11/11/2024 10:15 AM INSURANCE AGENT) Narrative Jasmyn Mcclellan SLP - 11/11/2024 10:15 AM INSURANCE AGENT Jasmyn Mcclellan SLP 11/11/2024 2:18 PM Speech-Language Pathology: Videofluoroscopic Study of Swallow (VFSS/MBS) HPI/PMH 64 y.o. female with PMH hypothyroidism previously on levothyroxine who presents with 1 month progressive difficulty swallowing of solid/liquids and neck swelling. The patient notes a subacute progressive difficulty swallowing over the course of 1 month. She also notes neck swelling concerning for a mass that she initial recognized in August 2024. Since, the patient reports that the mass has been increasing in size. She does not note any associated or preceding symptoms other than a cough in the fall. Last night she felt short of breath when lying flat and presented to the ED for further evaluation. She initially presented to an outside hospital and had CT imaging done concerning for large heterogenous enhancing mass of the right thyroid that extends into the superior mediastinum, causing mass effect with deviation of the larynx and upper trachea and effacement of the airway at the level of the vocal cords. Respiratory/Intubation Status: RA Imaging: CT Neck 11/07- Large heterogeneously enhancing mass centered over expected location of right thyroid with extension into the superior mediastinum. There is potential invasion of the right cricoid cartilage. Mass effect causes leftward deviation of larynx and upper trachea with effacement of airway most prominent at level of vocal cords. CT Chest 11/07- There is no airspace consolidation, pleural effusion, or pneumothorax. Precautions: none documented in EMR Current Diet Order: Clear liquids Baseline Diet: Regular General Information Cat Hancock 11/11/24 [employer] Received On: 11/11/24 General Observations: Pt was seen sitting upright in fluoro chair. Required encouragement to participate in exam. Reason for Referral:further define swallow physiology Pain Score: 0 - No pain If pain >4, was RN notified? N/A Patient Stated Goal/Comments: none stated Clinical Impression & Professional Recommendations Diet Solids Recommendation: Full liquids (NO PUREE) Diet Liquids Recommendations: Mclean thick Recommended Form of Medications: (crushed with nectar thick liquids or non-orally) Compensatory Strategies/Modifications: Slow rate, Single sips, Double/repeat swallows to clear, Cued cough Assistance with feeding/swallowing: Assist with aggressive oral hygiene prior to po, Assistance with thickening liquid Specialty Instructions: good oral care 2-3x per day Overall Clinical Impression/Additional Information: 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 Cued cough was not effective in clearing material from the trachea. Chin tuck and head turn were not successful in eliminating aspiration. Penetration occurred with nectar thick liquids. However, material is cleared from the laryngeal vestibule during repeat swallows or with cued cough. No penetration or aspiration observed with puree. However, significant pharyngeal residue present with 4-5 swallows required to clear small bolus through the UES. Pt declined attempting solids. Assessment overall limited d/t pt's minimal intake and participation. Assessment Details & Results Purpose and Procedure of Videofluoroscopic Study of Swallow: Videofluoroscopic Study of Swallow completed to assess oropharyngeal swallow function and safety/efficiency of the swallow so that diet recommendations can be made. This test is completed in conjunction with Radiology. Results of this test are indicative of performance at the time of the exam. Standard procedure is in lateral view at 90 degrees. Consistencies Administered: Thin liquids, Mclean thickened liquids, Purees Administered consistencies contain barium product. Thin Liquids: Laryngeal Penetration: Present Aspiration Present: Yes Timing: During Amount: Moderate Penetration Aspiration Scale-Thin: 8-Material enters the airway, passes below the vocal folds and no effort is made to eject Mclean Thickened Liquids: Laryngeal Penetration: Present Aspiration Present: No Penetration Aspiration Scale-Mclean: 2-Material enters the airway, remains above the vocal folds and is ejected from the airway Purees: Aspiration Present: No Penetration Aspiration Scale-Puree: 1-Material does not enter airway MBSImp: MBSImp Results: Lip closure : 1-Interlabial escape, no progression to anterior lip Tongue Control with Bolus Hold: 0-Cohesive bolus between tongue to palatal seal Bolus Preparation/Mastication : (N/A d/t pt refusal) Bolus Transport/Lingual Motion : 2-Slowed tongue motion Oral Residue: 1-Trace residue lining oral structures (normal variant) Initiation of Pharyngeal Swallow : 3-Bolus head in pyriforms Soft Palate : 0-No bolus between soft palate and pharyngeal wall Laryngeal Elevation : 1-Partial superior movement of thyroid cartilage with partial approximation of arytenoids to epiglottic petiole Anterior Hyoid Excursion: 1-Partial anterior movement Epiglottic Movement: 1-Partial inversion Laryngeal Vestibular Closure: 1-Incomplete, narrow column of air/contrast in laryngeal vestibule Pharyngeal Stripping Wave: 1-Present but diminished Pharyngeal Contraction (AP view only): Not assessed, No AP view Pharyngoesophageal Segment Opening : 2-Minimal distension/minimal duration, marked obstruction of flow Tongue Base Retraction : 3-Wide column of contrast or air between tongue base and posterior pharyngeal wall Pharyngeal Residue : 2-Collection of residue within or on pharyngeal structures Esophageal Clearance (upright position): Not assessed, No AP view Dysphagia Outcome and Severity Scale: Dysphagia Outcomes and Severity Scale: 2 Moderate/Severe dysphagia Levels 1 & 2 on the NILAY indicate need for nonoral nutrition. Treatment Treatment was not provided this date. Please reference care plan for treatment goals and details, if indicated. Plan [employer] Frequency of Services during current admission: 2-3x/wk [employer] Recommendation (Add'l Services): Outpatient [employer] Next Visit Plan: treatment/therapy Discharge Summary Statement If this is the last swallow therapy visit, this serves as the discharge summary. us Jacob Lubin MD [employer] ORDERABLES Final Res ult * eGFR (11/09/2024 10:53 PM INSURANCE AGENT) Pathologist [facility] eGFR 82 >=60 mL/min/1. 73 m2 Comment: Interpretive Data Reference Interval Normal >/= 90 mL/min/1.73m2 Mildly decreased* 60 - 89 mL/min/1.73m2 Mildly to moderately decreased 45 - 59 mL/min/1.73m2 Moderately to severely decreased 30 - 44 mL/min/1.73m2 Severely decreased 15 - 29 mL/min/1.73m2 Kidney Failure < 15 mL/min/1.73m2 *Relative to young adult level Estimated glomerular filtration rate is determined by the 2020 CKD-EPI equation recommended by the National Kidney Foundation (A Unifying Approach to GFR Estimation: Recommendations of the NKF-ASK Task Force on Reassessing the Inclusion of Race in Diagnosing Kidney Disease, JASN 2020). The CKD-EPI equation should not be used for patients with unstable renal function and has not been validated in children and those over 70. Current interpretive data was last reviewed 2021. Blood 11/09/2024 10:5 3 PM INSURANCE AGENT 11/09/2024 11:38 PM INSURANCE AGENT us Carlos Enrique Powers MD LAB BLOOD ORDERABLES Final Result [facility] Department [place] [address] * Differential, auto (11/09/2024 10:53 PM INSURANCE AGENT) [facility] Neutrophil abs 4.7 1.5 - 6.5 K/cumm Imm gran abs 0.0 0.0 - 0.1 K/cumm [facility] Lymphocyte abs 1.1 0.8 - 3.3 K/cumm [facility] Monocyte abs 0.5 0.2 - 0.8 K/cumm [facility] Eosinophil abs 0.1 0.0 - 0.5 K/cumm [facility] Basophil abs 0.1 0.0 - 0.1 K/cumm [facility] Neutrophil pct 72.4 % [facility] Comment: Interpretive Data Percent cell count reference ranges are not reported, since discordance with absolute values may lead to misinterpretation of CBC data. Current Interpretive Data was last revised on 2017. Imm gran pct 0.3 % [facility] Comment: Interpretive Data Percent cell count reference ranges are not reported, since discordance with absolute values may lead to misinterpretation of CBC data. Current Interpretive Data was last revised on 2017. Lymphocyte pct 17.2 % [facility] Comment: Interpretive Data Percent cell count reference ranges are not reported, since discordance with absolute values may lead to misinterpretation of CBC data. Current Interpretive Data was last revised on 2017. Monocyte pct 7.7 % [facility] Comment: Interpretive Data Percent cell count reference ranges are not reported, since discordance with absolute values may lead to misinterpretation of CBC data. Current Interpretive Data was last revised on 2017. Eosinophil pct 1.5 % [facility] Comment: Interpretive Data Percent cell count reference ranges are not reported, since discordance with absolute values may lead to misinterpretation of CBC data. Current Interpretive Data was last revised on 2017. Basophil pct 0.9 % [facility] Comment: Interpretive Data Percent cell count reference ranges are not reported, since discordance with absolute values may lead to misinterpretation of CBC data. Current Interpretive Data was last revised on 2017. Blood 11/09/2024 10:5 3 PM INSURANCE AGENT 11/09/2024 11:38 PM INSURANCE AGENT us Carlos Enrique Powers MD LAB BLOOD ORDERABLES Final Result [facility] Department [place] [address] * (ABNORMAL) CBC with auto differential (11/09/2024 10:53 PM INSURANCE AGENT) WBC 6.5 3.8 - 9.9 K/cumm Hgb 14.9 11.9 - 15.5 g/dL [facility] Hct 44.8 35.6 - 45.5 % [facility] Plt 218 150 - 400 K/cumm [facility] MPV 11.2 9.1 - 12.3 fL [facility] RBC 5.26(H) 3.90 - 5.20 M/cumm [facility] MCV 85.2 81.3 - 96.4 fL [facility] MCH 28.3 27.1 - 33.3 pg [facility] MCHC 33.3 32.3 - 35.7 g/dL [facility] RDW CV 13.9 11.1 - 14.9 % [facility] RDW SD 43.0 35.7 - 48.1 fL [facility] NRBC abs 0.00 0.00 - 0.01 K/cumm [facility] Blood 11/09/2024 10:5 3 PM INSURANCE AGENT 11/09/2024 11:38 PM INSURANCE AGENT Carlos Enrique Powers MD LAB BLOOD ORDERABLES Final Result Performing Organization Address City/[facility] Co de Phone Number [facility] Department [place] [address] * Phosphorus (11/09/2024 10:53 PM INSURANCE AGENT) Phosphorus, pl 2.6 2.3 - 4.5 mg/dL Blood 11/09/2024 10:5 3 PM INSURANCE AGENT 11/09/2024 11:38 PM INSURANCE AGENT Carlos Enrique Powers MD LAB BLOOD ORDERABLES Final Result Performing Organization Address City/[facility] Co de Phone Number [facility] Department [place] [address] * Magnesium (11/09/2024 10:53 PM INSURANCE AGENT) Magnesium 2.2 1.4 - 2.5 mg/dL Blood 11/09/2024 10:5 3 PM INSURANCE AGENT 11/09/2024 11:38 PM INSURANCE AGENT Carlos Enrique Powers MD LAB BLOOD ORDERABLES Final Result Performing Organization Address City/[facility] Co de Phone Number [facility] Department [place] [address] * Basic metabolic panel (11/09/2024 10:53 PM INSURANCE AGENT) Sodium 141 135 - 145 mmol/L Potassium, pl 3.6 3.3 - 4.9 mmol/L [facility] Chloride 101 97 - 110 mmol/L [facility] CO2 26 22 - 32 mmol/L [facility] Anion gap 14 2 - 15 mmol/L [facility] BUN 14 6 - 25 mg/dL [facility] Creatinine 0.79 0.60 - 1.10 mg/dL [facility] Glucose 87 70 - 199 mg/dL [facility] Comment: Interpretive Data Fasting glucose >/= 126 mg/dl is diagnostic for diabetes. Fasting is defined as no caloric intake for at least 8 hours. Fasting glucose between 100 mg/dl to 125 mg/dl is diagnostic of prediabetes. In a patient with classic symptoms of hyperglycemia or hyperglycemic crisis, a random glucose >/= 200 mg/dl is diagnostic for diabetes. In the absence of unequivocal hyperglycemia, results should be confirmed by repeat testing. The classification and Diagnosis of Diabetes Diabetes Care 2021; 46: S19-S40. Current interpretive data was last revised 2022. Calcium 9.8 8.5 - 10.3 mg/dL [facility] Blood 11/09/2024 10:5 3 PM INSURANCE AGENT 11/09/2024 11:38 PM INSURANCE AGENT us Carlos Enrique Powers MD LAB BLOOD ORDERABLES Final Result [facility] Department [place] [address] * US Guided Thyroid Fine Needle Aspiration 1st Lesion (11/09/2024 12:14 PM INSURANCE AGENT) Anatomical Region Laterality Modality Thyroid N/A Ultrasound 11/09/2024 12:3 7 PM INSURANCE AGENT Impressions 11/09/2024 12:37 PM INSURANCE AGENT Successful thyroid biopsy of the right thyroid lobe. Electronically signed by: Aniyah Camacho M.D. Narrative 11/09/2024 12:37 PM INSURANCE AGENT EXAMINATION: ULTRASOUND-GUIDED THYROID FINE NEEDLE ASPIRATION HISTORY: 64-year-old with large infiltrative right neck mass with involvement of the right thyroid lobe on CT 11/07/2024 COMPARISON: CT 11/07/2024 FINDINGS: Biopsy #: 1 No prior ultrasound examination. The right thyroid lobe was biopsied. Initial sonographic images demonstrate a infiltrative heterogeneous mass in the right thyroid lobe that closely abuts the overlying right sternocleidomastoid muscle. Size: 9.1 cm craniocaudal x 3.8 cm transverse x 4.9 cm AP Maximum Size: 1.1 cm Location: Right thyroid Reason for biopsy: Suspicion for malignancy. FINE NEEDLE ASPIRATION: The procedure for ultrasound-guided FNA and its benefits and risks were explained to the patient. Risks were explained to include, but not be limited to, hemorrhage, infection, injury to adjacent organs, non-diagnostic specimen and adverse reaction to medications administered. The patient voiced understanding and wished to proceed and signed the consent form. A site was localized for fine needle aspiration. The site was prepped and draped in the usual manner. 10 mL of 1% Lidocaine was used for local anesthesia. 9 passes were made with 25 gauge needles into the lesion. Appropriate needle localization was documented with continuous sonographic guidance. The fine needle aspirates were handed to the machines technician present during the procedure. Please refer to the dictated cytology report for final interpretation. The patient's skin was cleaned and dressed. The patient tolerated the procedure well without immediate complication. Dr. Aniyah Camacho M.D., the attending radiologist, was present from the beginning to the end of the procedure. Drs. Aniyah Camacho and Jonnathan performed the biopsy. Dr. De Santiago (radiology physician assistant) personally participated in sonographic imaging of this patient. Procedure Note Aniyah Camacho MD - 11/09/2024 EXAMINATION: ULTRASOUND-GUIDED THYROID FINE NEEDLE ASPIRATION HISTORY: 64-year-old with large infiltrative right neck mass with involvement of the right thyroid lobe on CT 11/07/2024 COMPARISON: CT 11/07/2024 FINDINGS: Biopsy #: 1 No prior ultrasound examination. The right thyroid lobe was biopsied. Initial sonographic images demonstrate a infiltrative heterogeneous mass in the right thyroid lobe that closely abuts the overlying right sternocleidomastoid muscle. Size: 9.1 cm craniocaudal x 3.8 cm transverse x 4.9 cm AP Maximum Size: 1.1 cm Location: Right thyroid Reason for biopsy: Suspicion for malignancy. FINE NEEDLE ASPIRATION: The procedure for ultrasound-guided FNA and its benefits and risks were explained to the patient. Risks were explained to include, but not be limited to, hemorrhage, infection, injury to adjacent organs, non-diagnostic specimen and adverse reaction to medications administered. The patient voiced understanding and wished to proceed and signed the consent form. A site was localized for fine needle aspiration. The site was prepped and draped in the usual manner. 10 mL of 1% Lidocaine was used for local anesthesia. 9 passes were made with 25 gauge needles into the lesion. Appropriate needle localization was documented with continuous sonographic guidance. The fine needle aspirates were handed to the machines technician present during the procedure. Please refer to the dictated cytology report for final interpretation. The patient's skin was cleaned and dressed. The patient tolerated the procedure well without immediate complication. Dr. Aniyah Camacho M.D., the attending radiologist, was present from the beginning to the end of the procedure. Drs. Aniyah Camacho and Jonnathan performed the biopsy. Dr. De Santiago (radiology physician assistant) personally participated in sonographic imaging of this patient. IMPRESSION: Successful thyroid biopsy of the right thyroid lobe. Electronically signed by: Aniyah Camacho M.D. us Janice Mendes MD IMG US PROCEDURES Final Res ult * Cytology (11/09/2024 11:45 AM INSURANCE AGENT) Fine needle aspirate (Thyroid Gland (Cytology)) 11/09/2024 11:56 AM INSURANCE AGENT Comment:BRAF STAINING ALSO Narrative [facility] - 11/12/2024 4:20 PM INSURANCE AGENT EPIC results best viewed via link to PDF [facility] Robyn Ahumada Laboratory of Surgical Pathology [facility] [address] Note to Patients: This report may contain a detailed description of human tissue sent by a health care provider to the laboratory for pathologic evaluation. The content of this report is essential for diagnosis and may provide important critical findings. This information may be unfamiliar to patients to review without a medical professional present. It is advised that the patient review this report in the presence of a health care provider who can answer questions and explain the details. CYTOPATHOLOGY REPORT FINAL Patient Name: CAT HANCOCK Gender: F : 1960 (Age: 64) Address: [address] [place] [address] Hospital #: [id number] Taken:11/09/2024 Received:11/09/2024 Reported: 11/12/2024 [facility] In[facility] Service: Medical Location: [facility] Physician(s): Rony Paulino M.D. FINAL DIAGNOSIS A. Thyroid, right lobe mass, ultrasound guided fine needle aspiration: - Numerous atypical lymphocytes present, consistent with B cell lymphoma (see comment) - Please correlate with subsequent core biopsy and flow cytometry for final characterization Comments The morphologic features are consistent with a B cell lymphoma, and the most likely differential diagnosis would include diffuse large B cell lymphoma. However, due to the specimen type and degenerative necrotic changes, an exact histologic characterization is deferred to the subsequently performed tissue core biopsy specimen and flow cytometry. The aspirate smears and cell block shows abundant atypical large lymphoid cells in a background of necrotic debris. Immunohistochemical studies (single antibody procedures with appropriate controls) are performed for further characterization. Interpretation is limited by degenerative changes; however, these show that the large lymphoid cells are positive for CD45, CD20, CD19, CD79a, and PAX-5. MUM1, BCL-6, and BCL-2 have patchy weak to intermediate strength staining, but interpretation is limited by necrosis. The Ki67 proliferation rate is high (90%). Negative immunohistochemical stains include PJ-UMANG, PAX-8 (patchy weak staining predominantly in background cells), CD3, CD5, CD10, CD23, cyclin D1, CAM5.2, pankeratin (AE1/AE3/PCK26), SOX-10, and TTF-1. This result was flagged as significant and preliminary findings were sent to Diana Esparza Chu, and Kevin-Hemelt via secure [employer] message on . This case was reviewed by Dr. Hutchinson (Hematopathology) who agrees with the diagnosis. pamo/11/10/2024 10:24 By this signature, I attest that the above diagnosis is based upon my personal examination of the slides(and/or other material indicated in the diagnosis). Marii Hanson M.D. Report Electronically Reviewed and Signed Out By Marii Hanson M.D. 11/12/2024 16:20:41 Jasmyn Bowers, CT([facility]) Gross Description A. Thyroid, right lobe mass, ultrasound guided fine needle aspiration: 3 Pap stained smear(s) and 3 Diff-Quik stained smear(s). 1 cell block prepared from needle rinse tube. Aspirated by clinician. (ARLINE) Clinical Diagnosis and History The patient is a 64-year-old woman who presented with subacute progressive difficulty swallowing and neck swelling. CT imaging showed a large heterogenous enhancing mass (9.1 cm) of the right thyroid that extends into the superior mediastinum and associated lymphadenopathy. REPORT IMAGES AND SCANNED DOCUMENTS, IF INCLUDED, ONLY VIEWABLE IN PDF VERSION OF REPORT The performance characteristics of some immunohistochemical stains, in-situ hybridization and fluorescence in-situ hybridization tests and immunophenotyping by flow cytometry cited in this report (if any) were determined by the Surgical Pathology and Flow Cytometry Departments at [facility] as part of an ongoing environmental quality analyst program and in compliance with federally mandated regulations drawn from the Clinical Laboratory Improvement Act of 1988 (CLIA '88). Some of these tests rely on the use of analyte specific reagents and are subject to specific labeling requirements by the US Food and Drug Administration. Such diagnostic tests may only be performed in a facility that is certified by the Department of Health and Human Services as a high complexity laboratory under CLIA '88. The FDA has determined that such clearance or approval is not necessary. This test is used for clinical purposes. It should not be regarded as investigational or for research. Nevertheless, federal rules concerning the medical use of analyte specific reagents require that the following disclaimer be attached to the report: This test was developed and its performance characteristics determined by the Surgical Pathology and Flow Cytometry Departments of [facility]. It has not been cleared or approved by the U. S. Food and Drug Administration. Janice Mendes MD LAB CYTOLOGY ORDERABLES Fin al Result [facility] [address] Floor [place], [place] [phone] * eGFR (11/08/2024 11:27 PM INSURANCE AGENT) eGFR 71 >=60 mL/min/1. 73 m2 Comment: Interpretive Data Reference Interval Normal >/= 90 mL/min/1.73m2 Mildly decreased* 60 - 89 mL/min/1.73m2 Mildly to moderately decreased 45 - 59 mL/min/1.73m2 Moderately to severely decreased 30 - 44 mL/min/1.73m2 Severely decreased 15 - 29 mL/min/1.73m2 Kidney Failure < 15 mL/min/1.73m2 *Relative to young adult level Estimated glomerular filtration rate is determined by the 2020 CKD-EPI equation recommended by the National Kidney Foundation (A Unifying Approach to GFR Estimation: Recommendations of the NKF-ASK Task Force on Reassessing the Inclusion of Race in Diagnosing Kidney Disease, JASN 2020). The CKD-EPI equation should not be used for patients with unstable renal function and has not been validated in children and those over 70. Current interpretive data was last reviewed 2021. Blood 11/08/2024 11:2 7 PM INSURANCE AGENT 11/09/2024 12:21 AM INSURANCE AGENT Carlos Enrique Powers MD LAB BLOOD ORDERABLES Final Result Performing Organization Address City/[facility]/ZIP Co de Phone Number [facility] Department [place] [address] * Differential, auto (11/08/2024 11:27 PM INSURANCE AGENT) Neutrophil abs 5.2 1.5 - 6.5 K/cumm Imm gran abs 0.0 0.0 - 0.1 K/cumm [facility] Lymphocyte abs 1.2 0.8 - 3.3 K/cumm [facility] Monocyte abs 0.6 0.2 - 0.8 K/cumm [facility] Eosinophil abs 0.1 0.0 - 0.5 K/cumm [facility] Basophil abs 0.1 0.0 - 0.1 K/cumm [facility] Neutrophil pct 72.6 % [facility] Comment: Interpretive Data Percent cell count reference ranges are not reported, since discordance with absolute values may lead to misinterpretation of CBC data. Current Interpretive Data was last revised on 2017. Imm gran pct 0.6 % [facility] Comment: Interpretive Data Percent cell count reference ranges are not reported, since discordance with absolute values may lead to misinterpretation of CBC data. Current Interpretive Data was last revised on 2017. Lymphocyte pct 16.9 % [facility] Comment: Interpretive Data Percent cell count reference ranges are not reported, since discordance with absolute values may lead to misinterpretation of CBC data. Current Interpretive Data was last revised on 2017. Monocyte pct 7.7 % [facility] Comment: Interpretive Data Percent cell count reference ranges are not reported, since discordance with absolute values may lead to misinterpretation of CBC data. Current Interpretive Data was last revised on 2017. Eosinophil pct 1.4 % [facility] Comment: Interpretive Data Percent cell count reference ranges are not reported, since discordance with absolute values may lead to misinterpretation of CBC data. Current Interpretive Data was last revised on 2017. Basophil pct 0.8 % [facility] Comment: Interpretive Data Percent cell count reference ranges are not reported, since discordance with absolute values may lead to misinterpretation of CBC data. Current Interpretive Data was last revised on 2017. Blood 11/08/2024 11:2 7 PM INSURANCE AGENT 11/09/2024 12:24 AM INSURANCE AGENT us Carlos Enrique Powers MD LAB BLOOD ORDERABLES Final Result [facility] [place] [address] * (ABNORMAL) CBC with auto differential (11/08/2024 11:27 PM INSURANCE AGENT) WBC 7.1 3.8 - 9.9 K/cumm Hgb 14.0 11.9 - 15.5 g/dL [facility] [facility] Hct 43.9 35.6 - 45.5 % [facility] Plt 221 150 - 400 K/cumm [facility] MPV 11.0 9.1 - 12.3 fL [facility] RBC 5.02 3.90 - 5.20 M/cumm [facility] MCV 87.5 81.3 - 96.4 fL [facility] MCH 27.9 27.1 - 33.3 pg [facility] MCHC 31.9(L) 32.3 - 35.7 g/dL [facility] RDW CV 13.7 11.1 - 14.9 % [facility] RDW SD 43.6 35.7 - 48.1 fL [facility] NRBC abs 0.00 0.00 - 0.01 K/cumm [facility] Blood 11/08/2024 11:2 7 PM INSURANCE AGENT 11/09/2024 12:24 AM INSURANCE AGENT Carlos Enrique Powers MD LAB BLOOD ORDERABLES Final Result [facility] [place] [employer] [place] [address] * Phosphorus (11/08/2024 11:27 PM INSURANCE AGENT) Phosphorus, pl 2.6 2.3 - 4.5 mg/dL Blood 11/08/2024 11:2 7 PM INSURANCE AGENT 11/09/2024 12:21 AM INSURANCE AGENT Carlos Enrique Powers MD LAB BLOOD ORDERABLES Final Result [facility] [place] [employer] [place] [address] * Magnesium (11/08/2024 11:27 PM INSURANCE AGENT) Magnesium 2.0 1.4 - 2.5 mg/dL Blood 11/08/2024 11:2 7 PM INSURANCE AGENT 11/09/2024 12:21 AM INSURANCE AGENT Carlos Enrique Powers MD LAB BLOOD ORDERABLES Final Result [facility] Department [place] [address] * Basic metabolic panel (11/08/2024 11:27 PM INSURANCE AGENT) Sodium 142 135 - 145 mmol/L Potassium, pl 3.8 3.3 - 4.9 mmol/L [facility] Chloride 101 97 - 110 mmol/L [facility] CO2 28 22 - 32 mmol/L [facility] Anion gap 13 2 - 15 mmol/L [facility] BUN 12 6 - 25 mg/dL [facility] Creatinine 0.89 0.60 - 1.10 mg/dL [facility] Glucose 88 70 - 199 mg/dL [facility] Comment: Interpretive Data Fasting glucose >/= 126 mg/dl is diagnostic for diabetes. Fasting is defined as no caloric intake for at least 8 hours. Fasting glucose between 100 mg/dl to 125 mg/dl is diagnostic of prediabetes. In a patient with classic symptoms of hyperglycemia or hyperglycemic crisis, a random glucose >/= 200 mg/dl is diagnostic for diabetes. In the absence of unequivocal hyperglycemia, results should be confirmed by repeat testing. The classification and Diagnosis of Diabetes Diabetes Care 2021; 46: S19-S40. Current interpretive data was last revised 2022. Calcium 9.7 8.5 - 10.3 mg/dL [facility] Blood 11/08/2024 11:2 7 PM INSURANCE AGENT 11/09/2024 12:21 AM INSURANCE AGENT Carlos Enrique Powers MD LAB BLOOD ORDERABLES Final Result [facility] Department [place] [address] * Check Sample (11/07/2024 11:34 AM INSURANCE AGENT) ABO Rh O Positive [facility] OTHER 11/07/2024 11:3 4 AM INSURANCE AGENT 11/07/2024 11:45 AM INSURANCE AGENT us Gurinder Fagan MD PhD LAB BLOOD ORDERABL ES Final Result Performing Organization Address [facility] Co de Phone Number [facility] [place] [address] BJ * eGFR (11/07/2024 9:00 AM INSURANCE AGENT) eGFR 80 >=60 mL/min/1. 73 m2 Comment: Interpretive Data Reference Interval Normal >/= 90 mL/min/1.73m2 Mildly decreased* 60 - 89 mL/min/1.73m2 Mildly to moderately decreased 45 - 59 mL/min/1.73m2 Moderately to severely decreased 30 - 44 mL/min/1.73m2 Severely decreased 15 - 29 mL/min/1.73m2 Kidney Failure < 15 mL/min/1.73m2 *Relative to young adult level Estimated glomerular filtration rate is determined by the 2020 CKD-EPI equation recommended by the National Kidney [employer] (A Unifying Approach to GFR Estimation: Recommendations of the NKF-ASK Task Force on Reassessing the Inclusion of Race in Diagnosing Kidney Disease, JASN 2020). The CKD-EPI equation should not be used for patients with unstable renal function and has not been validated in children and those over 70. Current interpretive data was last reviewed 2021. Blood 11/07/2024 9:00 AM INSURANCE AGENT 11/07/2024 9:25 AM INSURANCE AGENT us Preethi Beck MD LAB BLOOD ORDERABLE S Final Result Performing Organization Address City/[facility]/ZIP Co de Phone Number [facility] [place] [address] * Differential, auto (11/07/2024 9:00 AM INSURANCE AGENT) Neutrophil abs 4.8 1.5 - 6.5 K/cumm Imm gran abs 0.0 0.0 - 0.1 K/cumm [facility] Lymphocyte abs 1.0 0.8 - 3.3 K/cumm [facility] Monocyte abs 0.4 0.2 - 0.8 K/cumm [facility] Eosinophil abs 0.1 0.0 - 0.5 K/cumm [facility] Basophil abs 0.1 0.0 - 0.1 K/cumm [facility] Neutrophil pct 75.7 % [facility] Comment: Interpretive Data Percent cell count reference ranges are not reported, since discordance with absolute values may lead to misinterpretation of CBC data. Current Interpretive Data was last revised on 2017. Imm gran pct 0.2 % [facility] Comment: Interpretive Data Percent cell count reference ranges are not reported, since discordance with absolute values may lead to misinterpretation of CBC data. Current Interpretive Data was last revised on 2017. Lymphocyte pct 15.9 % [facility] Comment: Interpretive Data Percent cell count reference ranges are not reported, since discordance with absolute values may lead to misinterpretation of CBC data. Current Interpretive Data was last revised on 2017. Monocyte pct 6.6 % [facility] Comment: Interpretive Data Percent cell count reference ranges are not reported, since discordance with absolute values may lead to misinterpretation of CBC data. Current Interpretive Data was last revised on 2017. Eosinophil pct 0.8 % [facility] Comment: Interpretive Data Percent cell count reference ranges are not reported, since discordance with absolute values may lead to misinterpretation of CBC data. Current Interpretive Data was last revised on 2017. Basophil pct 0.8 % [facility] Comment: Interpretive Data Percent cell count reference ranges are not reported, since discordance with absolute values may lead to misinterpretation of CBC data. Current Interpretive Data was last revised on 2017. Blood 11/07/2024 9:00 AM INSURANCE AGENT 11/07/2024 9:23 AM INSURANCE AGENT us Preethi Beck MD LAB BLOOD ORDERABLE S Final Result [facility] Department [place] [address] * (ABNORMAL) Thyroid Function [place] (11/07/2024 9:00 AM INSURANCE AGENT) [facility] TSH 20.90(H) 0.30 - 4.20 mcIUnit/mL Blood 11/07/2024 9:00 AM INSURANCE AGENT 11/07/2024 9:25 AM INSURANCE AGENT Preethi Beck MD LAB BLOOD ORDERABLE S Final Result [facility] Department [place] [address] * (ABNORMAL) CBC with auto differential (11/07/2024 9:00 AM INSURANCE AGENT) [facility] WBC 6.3 3.8 - 9.9 K/cumm Hgb 13.3 11.9 - 15.5 g/dL [facility] Hct 41.6 35.6 - 45.5 % [facility] Plt 201 150 - 400 K/cumm [facility] MPV 11.1 9.1 - 12.3 fL [facility] RBC 4.71 3.90 - 5.20 M/cumm [facility] MCV 88.3 81.3 - 96.4 fL [facility] MCH 28.2 27.1 - 33.3 pg [facility] MCHC 32.0(L) 32.3 - 35.7 g/dL [facility] RDW CV 13.7 11.1 - 14.9 % [facility] RDW SD 44.7 35.7 - 48.1 fL [facility] NRBC abs 0.00 0.00 - 0.01 K/cumm [facility] Blood 11/07/2024 9:00 AM INSURANCE AGENT 11/07/2024 9:23 AM INSURANCE AGENT Preethi Beck MD LAB BLOOD ORDERABLE S Final Result [facility] [place] [address] * aPTT (11/07/2024 9:00 AM INSURANCE AGENT) aPTT 32 28 - 38 sec Comment: Interpretive Data Heparin therapeutic range: 66.0 - 100.0 seconds. Range based on correlation with therapeutic heparin activity range of 0.3 - 0.7 Units/mL. Current interpretive data was last revised on 2023. Blood 11/07/2024 9:00 AM INSURANCE AGENT 11/07/2024 9:32 AM INSURANCE AGENT Preethi Beck MD LAB BLOOD ORDERABLE S Final Result Performing Organization Address [facility] [place] [address] * Protime-INR (11/07/2024 9:00 AM INSURANCE AGENT) PT 13.0 9.7 - 13.0 sec INR 1.20 0.90 - 1.20 [facility] Comment: Interpretive data Oral anticoagulant therapeutic ranges: Venous thromboembolism prophylaxis or treatment: 2.0-3.0 CARDIOLOGY Standard range: 2.0-3.0 High-intensity range: 2.5-3.5 Refer to indication-specific guidelines for appropriate target ranges for prosthetic heart valve replacement. Current interpretive data was last revised on 2019. Blood 11/07/2024 9:00 AM INSURANCE AGENT 11/07/2024 9:32 AM INSURANCE AGENT Preethi Beck MD LAB BLOOD ORDERABLE S Final Result Performing Organization Address City/[facility] [place] [address] * Type and screen (11/07/2024 9:00 AM INSURANCE AGENT) ABO Rh O Positive Heidi, indirect Negative [facility] Blood 11/07/2024 9:00 AM INSURANCE AGENT 11/07/2024 9:52 AM INSURANCE AGENT Narrative [facility] - 11/07/2024 10:37 AM INSURANCE AGENT Has the patient had Daratumumab or Isatuximab in the past 6 months?->Unknown Preethi Beck MD LAB BLOOD BANK TEST ORDERABLES Final Result Performing Organization Address City/[facility]/ZIP Co de Phone Number [facility] [place] [address] * T4, free (11/07/2024 9:00 AM INSURANCE AGENT) Pathologist [facility] Free T4 1.04 0.90 - 1.70 ng/dL Blood 11/07/2024 9:00 AM INSURANCE AGENT 11/07/2024 9:25 AM INSURANCE AGENT Narrative [facility] - 11/07/2024 10:19 AM INSURANCE AGENT This test was reflexed from a TSH result. Preethi Beck MD LAB BLOOD ORDERABLE S Final Result Performing Organization Address City/[facility] Co de Phone Number [facility] [employer] [place] [address] * (ABNORMAL) Comprehensive metabolic panel (11/07/2024 9:00 AM INSURANCE AGENT) Pathologist [facility] Sodium 143 135 - 145 mmol/L Potassium, pl 4.0 3.3 - 4.9 mmol/L [facility] Chloride 103 97 - 110 mmol/L [facility] CO2 26 22 - 32 mmol/L [facility] Anion gap 14 2 - 15 mmol/L [facility] BUN 12 6 - 25 mg/dL [facility] Creatinine 0.81 0.60 - 1.10 mg/dL [facility] Glucose 92 70 - 199 mg/dL [facility] Comment: Interpretive Data Fasting glucose >/= 126 mg/dl is diagnostic for diabetes. Fasting is defined as no caloric intake for at least 8 hours. Fasting glucose between 100 mg/dl to 125 mg/dl is diagnostic of prediabetes. In a patient with classic symptoms of hyperglycemia or hyperglycemic crisis, a random glucose >/= 200 mg/dl is diagnostic for diabetes. In the absence of unequivocal hyperglycemia, results should be confirmed by repeat testing. The classification and Diagnosis of Diabetes Diabetes Care 2021; 46: S19-S40. Current interpretive data was last revised 2022. Calcium 9.4 8.5 - 10.3 mg/dL [facility] Bilirubin, total 1.5(H) 0.1 - 1.2 mg/dL [facility] Protein, pl 7.7 6.5 - 8.5 g/dL [facility] Albumin 4.4 3.5 - 5.0 g/dL [facility] Alk phos 67 40 - 130 Units/L [facility] ALT 19 7 - 45 Units/L [facility] AST 36 10 - 45 Units/L [facility] Blood 11/07/2024 9:00 AM INSURANCE AGENT 11/07/2024 9:25 AM INSURANCE AGENT us Preethi Beck MD LAB BLOOD ORDERABLE S Final Result [facility] Department [place] [address] * CT Body Outside Consult (11/07/2024 8:55 AM INSURANCE AGENT) Anatomical Region Laterality Modality Body N/A Computed Tomogra phy 11/07/2024 9:49 AM INSURANCE AGENT Impressions 11/07/2024 10:05 AM INSURANCE AGENT 1. Large predominantly hypoattenuating right thyroid lesion which extends inferiorly into the mediastinum. This lesion encases the right common carotid artery and compresses the right internal jugular vein. This lesion also appears to abut the trachea without invasion, the trachea is deviated to the left due to mass effect. Refer to the neuro CT report for additional characterization of this lesion. Recommend surgical consultation. The findings, conclusions and recommendations within this report do not replace the initial findings, conclusions and recommendations made at the facility where the study was performed based upon the imaging and clinical condition at that time. Comparison with the prior report and clinical history is necessary. The provided images may or may not represent the cabazon source data set and thus may contain changes that may lower the accuracy of this second-opinion interpretation. Dictated by: Anand Staton M.D. The radiology attending physician has personally reviewed this study, and had reviewed and/or edited this written report and agrees with it. Electronically signed by: Serjio Bailey MD Narrative 11/07/2024 10:05 AM INSURANCE AGENT EXAMINATION: RADIOLOGY CONSULTATION ON OUTSIDE IMAGING STUDY STUDY INITIALLY PERFORMED: 11/07/2024 at [facility]. TYPE OF STUDY: Multiple CT images of the chest with intravenous contrast are provided at the time of this interpretation. CONTRAST ROUTE: Intravenous The protocol was adequate to address the clinical question. The outside final report was not available at the time of this second opinion interpretation. TYPE OF CONSULTATION: Consult on outside imaging study with images submitted through Outside Image Sharing Service DATE OF CONSULTATION: 11/07/2024 9:28 AM HISTORY: Thyroid mass COMPARISON: No comparisons are available. FINDINGS: There is a partially imaged large predominantly hypoenhancing right thyroid lesion which extends inferiorly into the upper mediastinum. This lesion encases the right common carotid artery and compresses the right internal jugular vein. Within the provided field of view this thyroid lesion measures at least 7.3 x 6.8 x 3.7 cm on this examination. This lesion does not appear to infiltrate the airway however there is leftward shift of the trachea. No supraclavicular, axilla, or mediastinal lymphadenopathy. No focal consolidation. No pleural effusion. No pneumothorax. The heart is normal in size. No pericardial effusion. There is a large hypoattenuating lesion within the hepatic dome likely representing a large simple liver cyst. Additional hypoattenuating liver lesions noted throughout the liver, favored to represent additional simple liver cysts. Cholelithiasis without evidence of acute cholecystitis. No biliary duct dilation. Spleen is normal. Pancreas is normal. The partially imaged kidneys are normal. The right adrenal gland is normal. Small hypoattenuating focus within the left adrenal gland favored to represent a adrenal adenoma. Procedure Note Serjio Bailey MD - 11/07/2024 EXAMINATION: RADIOLOGY CONSULTATION ON OUTSIDE IMAGING STUDY STUDY INITIALLY PERFORMED: 11/07/2024 at [facility]. TYPE OF STUDY: Multiple CT images of the chest with intravenous contrast are provided at the time of this interpretation. CONTRAST ROUTE: Intravenous The protocol was adequate to address the clinical question. The outside final report was not available at the time of this second opinion interpretation. TYPE OF CONSULTATION: Consult on outside imaging study with images submitted through Outside Image Sharing Service DATE OF CONSULTATION: 11/07/2024 9:28 AM HISTORY: Thyroid mass COMPARISON: No comparisons are available. FINDINGS: There is a partially imaged large predominantly hypoenhancing right thyroid lesion which extends inferiorly into the upper mediastinum. This lesion encases the right common carotid artery and compresses the right internal jugular vein. Within the provided field of view this thyroid lesion measures at least 7.3 x 6.8 x 3.7 cm on this examination. This lesion does not appear to infiltrate the airway however there is leftward shift of the trachea. No supraclavicular, axilla, or mediastinal lymphadenopathy. No focal consolidation. No pleural effusion. No pneumothorax. The heart is normal in size. No pericardial effusion. There is a large hypoattenuating lesion within the hepatic dome likely representing a large simple liver cyst. Additional hypoattenuating liver lesions noted throughout the liver, favored to represent additional simple liver cysts. Cholelithiasis without evidence of acute cholecystitis. No biliary duct dilation. Spleen is normal. Pancreas is normal. The partially imaged kidneys are normal. The right adrenal gland is normal. Small hypoattenuating focus within the left adrenal gland favored to represent a adrenal adenoma. IMPRESSION: 1. Large predominantly hypoattenuating right thyroid lesion which extends inferiorly into the mediastinum. This lesion encases the right common carotid artery and compresses the right internal jugular vein. This lesion also appears to abut the trachea without invasion, the trachea is deviated to the left due to mass effect. Refer to the neuro CT report for additional characterization of this lesion. Recommend surgical consultation. The findings, conclusions and recommendations within this report do not replace the initial findings, conclusions and recommendations made at the facility where the study was performed based upon the imaging and clinical condition at that time. Comparison with the prior report and clinical history is necessary. The provided images may or may not represent the cabazon source data set and thus may contain changes that may lower the accuracy of this second-opinion interpretation. Dictated by: Anand Staton M.D. The radiology attending physician has personally reviewed this study, and had reviewed and/or edited this written report and agrees with it. Electronically signed by: Serjio Bailey MD Preethi Courtney Beck MD IMG CT PROCEDURES F inal Result * Neuro CT Outside Consult (11/07/2024 8:52 AM INSURANCE AGENT) Anatomical Region Laterality Modality N/A Computed Tomogra phy 11/07/2024 10:2 0 AM INSURANCE AGENT Impressions 11/07/2024 10:20 AM INSURANCE AGENT 1. Large heterogeneously enhancing mass within the right thyroid lobe with extension and mass effect as above detailed, concerning for malignancy. 2. Possible involvement of the right internal jugular vein with questionable intraluminal thrombosis. 3. Multiple bilateral indeterminate borderline enlarged cervical lymph nodes. The findings, conclusions and recommendations within this report do not replace the initial findings, conclusions and recommendations made at the facility where the study was performed based upon the imaging and clinical condition at that time. Comparison with the prior report and clinical history is necessary. The provided images may or may not represent the cabazon source data set and thus may contain changes that may lower the accuracy of this second-opinion interpretation. Electronically signed by: Esteban Day MD Narrative 11/07/2024 10:20 AM INSURANCE AGENT EXAMINATION: RADIOLOGY CONSULTATION ON OUTSIDE IMAGING STUDY STUDY INITIALLY PERFORMED: 11/07/2024 at [facility]. TYPE OF STUDY: Multiple CT images of the neck with IV contrast are provided at the time of this interpretation. CONTRAST ROUTE: Contrast was administered via the intravenous route. The protocol was adequate to address the clinical question. The outside final report was not available at the time of this second opinion interpretation. TYPE OF CONSULTATION: Consult on outside imaging study with images submitted through Outside Image Sharing Service DATE OF CONSULTATION: 11/07/2024 10:10 AM HISTORY: 64-year-old female with history of thyroid issues not on medication presents with 1 month of difficulty swallowing and subjective complaints of a mass in her neck. COMPARISON: None available. FINDINGS: There is a large heterogeneously enhancing mass within the right thyroid lobe, measuring up to 70 x 65 mm and its maximal axial diameters. The mass is extending posteriorly behind the retropharyngeal/retrolaryngeal space into the prevertebral space with anterior and left lateral displacement of the larynx and subglottic trachea. This is inseparable from the hypopharynx and cervical esophagus with left posterolateral displacement. There is encasement of the right common carotid artery. There is possible infiltration of the right internal jugular vein with questionable intraluminal filling defect (series 2, image 34). There is involvement of the pretracheal muscles, right greater than left. The mass contacts the right sternocleidomastoid muscle. No evidence of osseous invasion. Retrosternal and mild intrathoracic extension without evidence of vascular invasion. There is possibly exophytic nodule communicating with and along the right lateral aspect of the dominant mass measuring up to 36 x 23 mm at its maximal axial diameters (series 2, image 43). The mass is indenting the right sternocleidomastoid muscle. Multiple prominent discrete cervical lymph nodes are seen at bilateral level 2A, 2B, left level 3, level 4B and right level 5B. Fatty atrophy of the submandibular and parotid glands. The lung apices are clear. Multilevel degenerative changes of the cervical spine. Procedure Note Esteban Day MD PhD - 11/07/2024 EXAMINATION: RADIOLOGY CONSULTATION ON OUTSIDE IMAGING STUDY STUDY INITIALLY PERFORMED: 11/07/2024 at [facility]. TYPE OF STUDY: Multiple CT images of the neck with IV contrast are provided at the time of this interpretation. CONTRAST ROUTE: Contrast was administered via the intravenous route. The protocol was adequate to address the clinical question. The outside final report was not available at the time of this second opinion interpretation. TYPE OF CONSULTATION: Consult on outside imaging study with images submitted through Outside Image Sharing Service DATE OF CONSULTATION: 11/07/2024 10:10 AM HISTORY: 64-year-old female with history of thyroid issues not on medication presents with 1 month of difficulty swallowing and subjective complaints of a mass in her neck. COMPARISON: None available. FINDINGS: There is a large heterogeneously enhancing mass within the right thyroid lobe, measuring up to 70 x 65 mm and its maximal axial diameters. The mass is extending posteriorly behind the retropharyngeal/retrolaryngeal space into the prevertebral space with anterior and left lateral displacement of the larynx and subglottic trachea. This is inseparable from the hypopharynx and cervical esophagus with left posterolateral displacement. There is encasement of the right common carotid artery. There is possible infiltration of the right internal jugular vein with questionable intraluminal filling defect (series 2, image 34). There is involvement of the pretracheal muscles, right greater than left. The mass contacts the right sternocleidomastoid muscle. No evidence of osseous invasion. Retrosternal and mild intrathoracic extension without evidence of vascular invasion. There is possibly exophytic nodule communicating with and along the right lateral aspect of the dominant mass measuring up to 36 x 23 mm at its maximal axial diameters (series 2, image 43). The mass is indenting the right sternocleidomastoid muscle. Multiple prominent discrete cervical lymph nodes are seen at bilateral level 2A, 2B, left level 3, level 4B and right level 5B. Fatty atrophy of the submandibular and parotid glands. The lung apices are clear. Multilevel degenerative changes of the cervical spine. IMPRESSION: 1. Large heterogeneously enhancing mass within the right thyroid lobe with extension and mass effect as above detailed, concerning for malignancy. 2. Possible involvement of the right internal jugular vein with questionable intraluminal thrombosis. 3. Multiple bilateral indeterminate borderline enlarged cervical lymph nodes. The findings, conclusions and recommendations within this report do not replace the initial findings, conclusions and recommendations made at the facility where the study was performed based upon the imaging and clinical condition at that time. Comparison with the prior report and clinical history is necessary. The provided images may or may not represent the [place] source data set and thus may contain changes that may lower the accuracy of this second-opinion interpretation. 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
--- OUTSIDE RECORDS SUMMARY | 2024-12-22 19:21 | XMS_ITS | Clinical Summary ---
Author Organization [facility], 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 before breakfast 30 tablet 11/22/19 25 Active [...] 11/17/2024 Assessment & Plan (11/18/2024 3:19 PM SALESFORCE DEVELOPER): P/w 1 month of difficulty swallowing, neck [...] 11/13/2024 Assessment & Plan (11/17/2024 2:53 PM SALESFORCE DEVELOPER): Neuro CT OSH on 11/07 with read [...] 11/12/2024 Assessment & Plan (11/13/2024 5:02 PM SALESFORCE DEVELOPER): Continue synthroid Dysphagia 11/12/2024 Assessment & Plan (11/20/2024 3:19 PM SALESFORCE DEVELOPER): - Related to mass effect from the [...] 11/17/2024 Assessment & Plan (11/17/2024 2:53 PM SALESFORCE DEVELOPER): -s/p IVF and allopurinol given uric acid 12.7 (LDH, phos, K all WNL) - Uric acid normalized; allopurinol decreased from b.i.d. to once daily 11/16 Encounters Date Type Department Care Team Description 12/22/2024 Telephone [facility] [address] [place] [phone] Emerita Her RN 12/18/2024 9:00 AM CDT Office Visit [facility] [address] [place] [address] 6 [place] [phone] Bob Menard MD Diffuse large B-cell lymphoma, unspecified body region (HCC) (Primary Dx); Chemotherapy induced neutropenia 12/18/2024 8:00 AM CDT Infusion [facility] - Infusion [address] [facility] 6 [place] [address] Diffuse large B-cell lymphoma, unspecified body region (HCC) (Primary Dx); Chemotherapy induced neutropenia 12/18/2024 7:00 AM CDT Lab [facility] - Lab Collection [facility] 6 [place] [address] Chemotherapy induced neutropenia; Diffuse large B-cell lymphoma, unspecified body region (HCC) 12/18/2024 Documentation [facility] Nutrition Counseling 1 [place] [address] Justina Carlos, ALEXI 12/14/2024 Documentation [facility] 1 [place] [address] 12/14/2024 Telephone [facility] [address] [place] [address] Emerita Her, VALENCIA 12/11/2024 10:00 AM CDT Infusion [facility] - Infusion [address] [facility] 6 [place] [address] Diffuse large B-cell lymphoma, unspecified body region (HCC) (Primary Dx); Chemotherapy induced neutropenia 12/11/2024 9:15 AM CDT Office Visit [facility] [address] [place] [address] 6 [place] [phone] Bob Menard MD Diffuse large B-cell lymphoma, unspecified body region (HCC) (Primary Dx); Chemotherapy induced neutropenia; Vaginal bleeding, abnormal; Diffuse large B-cell lymphoma of lymph nodes of multiple regions (HCC); Hypokalemia 12/11/2024 8:15 AM CDT Lab [facility] - Lab Collection [address] [facility] 6 [place] [address] Chemotherapy induced neutropenia; Diffuse large B-cell lymphoma, unspecified body region (HCC) 12/11/2024 Orders Only [facility] [address] [facility] Floor 6 [place] [address] Darrius tiwari, Konrad Hankins MD PhD 12/08/2024 Orders Only [facility] of [facility]ology Head-Neck Division [address] [facility] Floor 5 [place] [address] Jyoti Estrada MD Thyroid mass (Primary Dx) 11/26/2024 Orders Only [address] [place] [address] Sally Fiore, [facility] 11/20/2024 2:00 PM SALESFORCE DEVELOPER - 11/20/2024 5:54 PM SALESFORCE DEVELOPER Hospital Encounter [facility] ([facility]) [address] [place] [address] Diffuse large B-cell lymphoma, unspecified body region (HCC) (Primary Dx); Chemotherapy induced neutropenia Discharge Disposition: Discharge to home or self care 11/18/2024 Orders Only [address] [address] Christian Mai, [facility] 11/17/2024 Orders Only [address] [address] Bob Menard MD Chemotherapy induced neutropenia (Primary Dx); Diffuse large B-cell lymphoma, unspecified body region (HCC) 11/16/2024 Telephone [facility] ([facility]) - [facility] ENT [address] [facility] 11th [place] [address] [place] [address] Kristen Ireland MS 11/07/2024 8:12 AM SALESFORCE DEVELOPER - 11/20/2024 2:10 PM SALESFORCE DEVELOPER Hospital Encounter [address] [address] Gurinder Fagan MD PhD Cinthya, Janice Palmer, MD Yadav, Alberto Garcia Jr., MD Powers, Carlos Enrique Smith, MD Gutierrez, MD Amee Cormier, Jacob Arce, MD Brar, MD Keely Dominguez Arjab, MD Thyroid mass (Primary Dx); Dysphagia, unspecified type; Chemotherapy induced neutropenia; Diffuse large B-cell lymphoma, unspecified body region (HCC) Discharge Disposition: Discharge to home or self care from Last 3 Months Social History Tobacco Use Types Packs/Day Years Used Date Smoking Tobacco: Never Tobacco Cessation:Counseling Given: Not Answered [facility] Utilities Answer Date Recorded In the past 12 months has [employer] electric, gas, oil, or water [employer] threatened to shut off services in your [...] often do you attend chur ch or anglican services? 1 to 4 times per year 11/19/2024 Do you belong to any clubs o r organizations such as pentecostalism groups, unions, fraternal or athletic groups, or [...] any time in the past 12 m [facility], were you homeless or living in a [...] on file Legal Sex Female 6:33 PM SALESFORCE DEVELOPER Gender Identity Not on file Sexual Orientation Not on file Obstetrics History Last Filed Vital Signs Vital Sign Reading [...] Height 152.4 cm (5') 11/08/2024 9:20 PM SALESFORCE DEVELOPER Body Mass Index 25.9 11/08/2024 9:20 PM SALESFORCE DEVELOPER Plan of Treatment Health Maintenance Due Date Last Done Comments Breast Cancer Screening-Mammogram 1958 Colon Cancer Screening-Colonoscopy 1960 Depression Screening 1958 Osteoporosis Screening-Bone Density Scan 1958 DTaP/Tdap/Td Vaccine (1 - Tdap) 1969 Pneumococcal vaccine 65+ (1 of 2 - PCV) 1977 Zoster Vaccine (1 of 2) 1977 Well Visit 65+ 2023 Influenza Vaccine (Season Ended) 2025 Fall Risk Assessment 11/20/2025 11/20/2024 Hepatitis B Screening Completed 11/12/2024 Hepatitis C Screening Completed 11/12/2024 Procedures Procedure Name Priority Date/Time Associated Diagnosis [...] W VIDEO IP Routine 11/20/2024 8:40 AM SALESFORCE DEVELOPER RN PSYCHIATRIC EVALUATE AND TREAT VIDEOFLUOROSCOPIC SWALLOW STUDY Routine 11/20/2024 8:23 AM SALESFORCE DEVELOPER EGFR Routine 11/20/2024 1:16 AM SALESFORCE DEVELOPER DIFFERENTIAL AUTO Routine 11/20/2024 1:1 6 AM SALESFORCE DEVELOPER COMPREHENSIVE METABOLIC PANEL Routine 11/20/2024 1:16 AM SALESFORCE DEVELOPER URIC ACID Routine 11/20/2024 1:16 AM SALESFORCE DEVELOPER PHOSPHORUS Routine 11/20/2024 1:16 AM SALESFORCE DEVELOPER MAGNESIUM Routine 11/20/2024 1:16 AM SALESFORCE DEVELOPER CBC WITH AUTO DIFFERENTIAL Routine 11/20/2024 1:16 AM SALESFORCE DEVELOPER EGFR Routine 11/19/2024 2:07 AM SALESFORCE DEVELOPER DIFFERENTIAL AUTO Routine 11/19/2024 2:0 7 AM SALESFORCE DEVELOPER COMPREHENSIVE METABOLIC PANEL Routine 11/19/2024 2:07 AM SALESFORCE DEVELOPER URIC ACID Routine 11/19/2024 2:07 AM SALESFORCE DEVELOPER PHOSPHORUS Routine 11/19/2024 2:07 AM SALESFORCE DEVELOPER MAGNESIUM Routine 11/19/2024 2:07 AM SALESFORCE DEVELOPER CBC WITH AUTO DIFFERENTIAL Routine 11/19/2024 2:07 AM SALESFORCE DEVELOPER EGFR STAT 11/18/2024 2:33 AM SALESFORCE DEVELOPER Chemotherapy induced neutropenia Diffuse large B-cell lymphoma, unspecified body region (HCC) LACTATE DEHYDROGENASE Routine 11/18/2024 2:33 AM SALESFORCE DEVELOPER Chemotherapy induced neutropenia Diffuse large B-cell lymphoma, unspecified body region (HCC) BILIRUBIN, DIRECT Routine 11/18/2024 2:3 3 AM SALESFORCE DEVELOPER Chemotherapy induced neutropenia Diffuse large B-cell lymphoma, unspecified body region (HCC) LIPASE STAT 11/18/2024 2:33 AM SALESFORCE DEVELOPER Chemotherapy induced neutropenia Diffuse large B-cell lymphoma, unspecified body region (HCC) AMYLASE STAT 11/18/2024 2:33 AM SALESFORCE DEVELOPER Chemotherapy induced neutropenia Diffuse large B-cell lymphoma, unspecified body region (HCC) GAMMA GT STAT 11/18/2024 2:33 AM SALESFORCE DEVELOPER Chemotherapy induced neutropenia Diffuse large B-cell lymphoma, unspecified body region (HCC) URIC ACID STAT 11/18/2024 2:33 AM SALESFORCE DEVELOPER Chemotherapy induced neutropenia Diffuse large B-cell lymphoma, unspecified body region (HCC) MAGNESIUM STAT 11/18/2024 2:33 AM SALESFORCE DEVELOPER Chemotherapy induced neutropenia Diffuse large B-cell lymphoma, unspecified body region (HCC) PHOSPHORUS STAT 11/18/2024 2:33 AM SALESFORCE DEVELOPER Chemotherapy induced neutropenia Diffuse large B-cell lymphoma, unspecified body region (HCC) COMPREHENSIVE METABOLIC PANEL STAT 11/18/2024 2:33 AM SALESFORCE DEVELOPER Chemotherapy induced neutropenia Diffuse large B-cell lymphoma, unspecified body region (HCC) DIFFERENTIAL AUTO STAT 11/18/2024 1:5 8 AM SALESFORCE DEVELOPER Chemotherapy induced neutropenia Diffuse large B-cell lymphoma, unspecified body region (HCC) CBC WITH AUTO DIFFERENTIAL STAT 11/18/2024 1:58 AM SALESFORCE DEVELOPER Chemotherapy induced neutropenia Diffuse large B-cell lymphoma, unspecified body region (HCC) ECG 12-LEAD Routine 11/17/2024 1:06 PM SALESFORCE DEVELOPER FERRITIN STAT 11/17/2024 12:49 PM SALESFORCE DEVELOPER CRP (ACUTE PHASE) STAT 11/17/2024 12:49 PM SALESFORCE DEVELOPER FIBRINOGEN STAT 11/17/2024 12:49 PM SALESFORCE DEVELOPER D-DIMER, QUANTITATIVE STAT 11/17/2024 12:49 PM SALESFORCE DEVELOPER LIPASE STAT 11/17/2024 12:49 PM SALESFORCE DEVELOPER AMYLASE STAT 11/17/2024 12:49 PM SALESFORCE DEVELOPER GAMMA GT STAT 11/17/2024 12:49 PM SALESFORCE DEVELOPER BILIRUBIN, DIRECT STAT 11/17/2024 12:49 PM SALESFORCE DEVELOPER IMMUNOGLOBULIN PROFILE STAT 12:49 PM SALESFORCE DEVELOPER RESPIRATORY PATHOGEN PANEL Routine 11/17/2024 12:49 PM SALESFORCE DEVELOPER HEPATITIS B SURFACE ANTIBODY (IMMUNE STATUS) STAT 11/17/2024 12:49 PM SALESFORCE DEVELOPER HEPATITIS B CORE ANTIBODY, TOTAL STAT 11/17/2024 12:49 PM SALESFORCE DEVELOPER CYTOMEGALOVIRUS (CMV) DNA, QUANT GEN LAB STAT 11/17/2024 12:49 PM SALESFORCE DEVELOPER EGFR Routine 11/17/2024 1:08 AM SALESFORCE DEVELOPER EGFR Timed 11/17/2024 1:08 AM SALESFORCE DEVELOPER DIFFERENTIAL AUTO Routine 11/17/2024 1:0 8 AM SALESFORCE DEVELOPER URIC ACID Routine 11/17/2024 1:08 AM SALESFORCE DEVELOPER PHOSPHORUS Routine 11/17/2024 1:08 AM SALESFORCE DEVELOPER BASIC METABOLIC PANEL Routine 11/17/2024 1:08 AM SALESFORCE DEVELOPER MAGNESIUM Routine 11/17/2024 1:08 AM SALESFORCE DEVELOPER CBC WITH AUTO DIFFERENTIAL Routine 11/17/2024 1:08 AM SALESFORCE DEVELOPER CREATININE Timed 11/17/2024 1:08 AM SALESFORCE DEVELOPER PET/CT FDG SKULL TO THIGH IP Routine 11/16/2024 1:28 PM SALESFORCE DEVELOPER EGFR Routine 11/16/2024 1:24 AM SALESFORCE DEVELOPER DIFFERENTIAL AUTO Routine 11/16/2024 1:2 4 AM SALESFORCE DEVELOPER URIC ACID Routine 11/16/2024 1:24 AM SALESFORCE DEVELOPER PHOSPHORUS Routine 11/16/2024 1:24 AM SALESFORCE DEVELOPER BASIC METABOLIC PANEL Routine 11/16/2024 1:24 AM SALESFORCE DEVELOPER MAGNESIUM Routine 11/16/2024 1:24 AM SALESFORCE DEVELOPER CBC WITH AUTO DIFFERENTIAL Routine 11/16/2024 1:24 AM SALESFORCE DEVELOPER LACTATE DEHYDROGENASE Routine 11/16/2024 1:24 AM SALESFORCE DEVELOPER EGFR Routine 11/15/2024 12:45 AM SALESFORCE DEVELOPER DIFFERENTIAL AUTO Routine 11/15/2024 12:45 AM SALESFORCE DEVELOPER URIC ACID Routine 11/15/2024 12:45 AM SALESFORCE DEVELOPER PHOSPHORUS Routine 11/15/2024 12:45 AM SALESFORCE DEVELOPER LACTATE DEHYDROGENASE Routine 11/15/2024 12:45 AM SALESFORCE DEVELOPER BASIC METABOLIC PANEL Routine 11/15/2024 12:45 AM SALESFORCE DEVELOPER MAGNESIUM Routine 11/15/2024 12:45 AM SALESFORCE DEVELOPER HAPTOGLOBIN Routine 11/15/2024 12:45 AM SALESFORCE DEVELOPER CBC WITH AUTO DIFFERENTIAL Routine 11/15/2024 12:45 AM SALESFORCE DEVELOPER EGFR STAT 11/14/2024 5:37 PM SALESFORCE DEVELOPER CREATININE STAT 11/14/2024 5:37 PM SALESFORCE DEVELOPER APTT STAT 11/14/2024 5:37 PM SALESFORCE DEVELOPER CBC WITHOUT DIFFERENTIAL STAT 11/14/2024 5:37 PM SALESFORCE DEVELOPER PROTIME-INR STAT 11/14/2024 5:37 PM SALESFORCE DEVELOPER US INTERNAL JUGULAR VEIN FOR CLOT (C) IP Routine 11/14/2024 11:41 AM SALESFORCE DEVELOPER MAGNESIUM Timed 11/14/2024 12:48 AM SALESFORCE DEVELOPER EGFR Timed 11/14/2024 12:48 AM SALESFORCE DEVELOPER HAPTOGLOBIN Timed 11/14/2024 12:48 AM SALESFORCE DEVELOPER DIFFERENTIAL AUTO Routine 11/14/2024 12:48 AM SALESFORCE DEVELOPER URIC ACID Timed 11/14/2024 12:48 AM SALESFORCE DEVELOPER PHOSPHORUS Timed 11/14/2024 12:48 AM SALESFORCE DEVELOPER LACTATE DEHYDROGENASE Timed 11/14/2024 12:48 AM SALESFORCE DEVELOPER BASIC METABOLIC PANEL Timed 11/14/2024 12:48 AM SALESFORCE DEVELOPER CBC WITH AUTO DIFFERENTIAL Routine 11/14/2024 12:48 AM SALESFORCE DEVELOPER EGFR Timed 11/13/2024 7:19 PM SALESFORCE DEVELOPER URIC ACID Timed 11/13/2024 7:19 PM SALESFORCE DEVELOPER PHOSPHORUS Timed 11/13/2024 7:19 PM SALESFORCE DEVELOPER LACTATE DEHYDROGENASE Timed 11/13/2024 7:19 PM SALESFORCE DEVELOPER BASIC METABOLIC PANEL Timed 11/13/2024 7:19 PM SALESFORCE DEVELOPER TRANSTHORACIC ECHO (TTE) COMPLETE W DOPPLER/CF WO CONTRAST ED Urgent/IP Urgent 11/13/2024 3:[address] CHEST ABDOMEN PELVIS W CONTRAST IP Routine 11/13/2024 2:15 PM SALESFORCE DEVELOPER MAGNESIUM Timed 11/13/2024 2:53 AM SALESFORCE DEVELOPER EGFR Timed 11/13/2024 2:53 AM SALESFORCE DEVELOPER HAPTOGLOBIN Timed 11/13/2024 2:53 AM SALESFORCE DEVELOPER DIFFERENTIAL AUTO Routine 11/13/2024 2:5 3 AM SALESFORCE DEVELOPER TYPE AND SCREEN Timed 11/13/2024 2:53 AM SALESFORCE DEVELOPER URIC ACID Timed 11/13/2024 2:53 AM SALESFORCE DEVELOPER PHOSPHORUS Timed 11/13/2024 2:53 AM SALESFORCE DEVELOPER LACTATE DEHYDROGENASE Timed 11/13/2024 2:53 AM SALESFORCE DEVELOPER BASIC METABOLIC PANEL Timed 11/13/2024 2:53 AM SALESFORCE DEVELOPER CBC WITH AUTO DIFFERENTIAL Routine 11/13/2024 2:53 AM SALESFORCE DEVELOPER DIFFERENTIAL AUTO Timed 11/12/2024 12:45 PM SALESFORCE DEVELOPER CBC WITH AUTO DIFFERENTIAL Timed 11/12/2024 12:45 PM SALESFORCE DEVELOPER MELINDA-LOPES VIRUS VCA ANTIBODY PANEL Routine 11/12/2024 12:45 PM SALESFORCE DEVELOPER MELINDA-LOPES VIRUS (EBV) DNA QUANTITATIVE Routine 11/12/2024 12:45 PM SALESFORCE DEVELOPER HIV 1/2 ANTIBODY PLUS P24 ANTIGEN Routine 11/12/2024 12:45 PM SALESFORCE DEVELOPER HEPATITIS PANEL, ACUTE Routine 12:45 PM SALESFORCE DEVELOPER US GUIDED BIOPSY THYROID ED Urgent/IP Urgent 11/12/2024 11:07 AM SALESFORCE DEVELOPER FLOW LEUKEMIA/LYMPHOMA Routine 10:03 AM SALESFORCE DEVELOPER SURGICAL PATHOLOGY Routine 11/12/2024 10:03 AM SALESFORCE DEVELOPER Thyroid mass Dysphagia, unspecified type EGFR Timed 11/12/2024 5:00 AM SALESFORCE DEVELOPER PHOSPHORUS Routine 11/12/2024 5:00 AM SALESFORCE DEVELOPER MAGNESIUM Routine 11/12/2024 5:00 AM SALESFORCE DEVELOPER BASIC METABOLIC PANEL Timed 11/12/2024 5:00 AM SALESFORCE DEVELOPER HAPTOGLOBIN Routine 11/12/2024 5:00 AM SALESFORCE DEVELOPER LACTATE DEHYDROGENASE Routine 11/12/2024 5:00 AM SALESFORCE DEVELOPER URIC ACID Routine 11/12/2024 5:00 AM SALESFORCE DEVELOPER CYTOGENETICS Routine 11/12/2024 12:00 AM SALESFORCE DEVELOPER EGFR Timed 11/11/2024 9:57 PM SALESFORCE DEVELOPER PHOSPHORUS Routine 11/11/2024 9:57 PM SALESFORCE DEVELOPER MAGNESIUM Routine 11/11/2024 9:57 PM SALESFORCE DEVELOPER BASIC METABOLIC PANEL Timed 11/11/2024 9:57 PM SALESFORCE DEVELOPER HAPTOGLOBIN Routine 11/11/2024 9:57 PM SALESFORCE DEVELOPER LACTATE DEHYDROGENASE Routine 11/11/2024 9:57 PM SALESFORCE DEVELOPER URIC ACID Routine 11/11/2024 9:57 PM SALESFORCE DEVELOPER FL MODIFIED BARIUM SWALLOW W VIDEO IP Routine 11/11/2024 10:36 AM SALESFORCE DEVELOPER RN PSYCHIATRIC EVALUATE AND TREAT VIDEOFLUOROSCOPIC SWALLOW STUDY Routine 11/11/2024 10:15 AM SALESFORCE DEVELOPER EGFR Routine 11/09/2024 10:53 PM SALESFORCE DEVELOPER DIFFERENTIAL AUTO Routine 11/09/2024 10:53 PM SALESFORCE DEVELOPER PHOSPHORUS Routine 11/09/2024 10:53 PM SALESFORCE DEVELOPER CBC WITH AUTO DIFFERENTIAL Routine 11/09/2024 10:53 PM SALESFORCE DEVELOPER MAGNESIUM Routine 11/09/2024 10:53 PM SALESFORCE DEVELOPER BASIC METABOLIC PANEL Routine 11/09/2024 10:53 PM SALESFORCE DEVELOPER US GUIDED THYROID FINE NEEDLE ASPIRATION 1ST LESION IP Routine 11/09/2024 12:14 PM SALESFORCE DEVELOPER CYTOLOGY Routine 11/09/2024 11:45 AM SALESFORCE DEVELOPER Thyroid mass Dysphagia, unspecified type EGFR Routine 11/08/2024 11:27 PM SALESFORCE DEVELOPER DIFFERENTIAL AUTO Routine 11/08/2024 11:27 PM SALESFORCE DEVELOPER PHOSPHORUS Routine 11/08/2024 11:27 PM SALESFORCE DEVELOPER CBC WITH AUTO DIFFERENTIAL Routine 11/08/2024 11:27 PM SALESFORCE DEVELOPER MAGNESIUM Routine 11/08/2024 11:27 PM SALESFORCE DEVELOPER BASIC METABOLIC PANEL Routine 11/08/2024 11:27 PM SALESFORCE DEVELOPER B CHECK SAMPLE STAT 11/07/2024 11:34 AM SALESFORCE DEVELOPER EGFR STAT 11/07/2024 9:00 AM SALESFORCE DEVELOPER T4, FREE STAT 11/07/2024 9:00 AM SALESFORCE DEVELOPER DIFFERENTIAL AUTO STAT 11/07/2024 9:0 0 AM SALESFORCE DEVELOPER THYROID FUNCTION CASCADE STAT 11/07/2024 9:00 AM SALESFORCE DEVELOPER TYPE AND SCREEN STAT 11/07/2024 9:00 AM SALESFORCE DEVELOPER APTT STAT 11/07/2024 9:00 AM SALESFORCE DEVELOPER PROTIME-INR STAT 11/07/2024 9:00 AM SALESFORCE DEVELOPER CBC WITH AUTO DIFFERENTIAL STAT 11/07/2024 9:00 AM SALESFORCE DEVELOPER COMPREHENSIVE METABOLIC PANEL STAT 11/07/2024 9:[address] BODY OUTSIDE CONSULT Routine 11/07/19 8:55 AM SALESFORCE DEVELOPER NEURO CT OUTSIDE CONSULT Routine 11/07/2024 8:52 AM SALESFORCE DEVELOPER from Last 3 Months Results * eGFR (12/18/2024 7:20 AM CDT) eGFR >90 >=60 mL/min/1. 73 m2 Comment: [...] MD LAB BLOOD ORDERABLES Final R esult [facility] [place] [address] * (ABNORMAL) CBC with auto differential (12/18/2024 7:20 AM CDT) WBC 0.2(C) 3.8 - 9.9 K/cumm Comment: Date-Time 12/18/24 0801 Critical called to Emerita Her and read back by Mariam Trevino Critical Result WBC:0.2 Called to and read back by EMERITA HER RN at: 12/18/2024 08:04:30 by:ISAAC. Testing performed by: [facility], [address] [place] [address] Hgb 9.5(L) 11.9 - 15.5 g/dL CERNER [facility] Comment:Testing performed by : [facility], [address] [place] [address] Hct 27.3(L) 35.6 - 45.5 % CERNER BJ Comment:Testing performed by : [facility], [address] [place] [address] Plt 151 150 - 400 K/cumm CEREYAL BJ Comment:Testing performed by : [facility], [address] [place] [address] MPV 10.1 6.8 - 10.4 fL CERNER BJ Comment:Testing performed by : [facility], [address] [place] [address] RBC 3.37(L) 3.90 - 5.20 M/cumm CERNER BJ Comment:Testing performed by : [facility], [address] [place] [address] MCV 81.0(L) 81.3 - 96.4 fL CERNER BJ Comment:Testing performed by : [facility], [address] [place] [address] MCH 28.1 27.1 - 33.3 pg CERNER BJ Comment:Testing performed by : [facility], [address] [place] [address] MCHC 34.7 32.3 - 35.7 g/dL BREANNA MATTA Comment:Testing performed by : [facility], [address] [place] [address] RDW CV 14.2 11.1 - 14.9 % BREANNA MATTA Comment:Testing performed by : [facility], [address] [place] [address] NRBC abs N/A 0.00 - 0.01 K/cumm BREANNA MATTA Comment:Testing performed by : [facility], [address] [place] [address] Blood 12/18/2024 7:20 AM CDT 12/18/2024 7:24 AM CDT us Bob Menard MD LAB BLOOD ORDERABLES Final R esult Performing Organization Address City/State/[facility] Co de Phone Number BREANNA [facility] One [facility] Department [place] [address] * (ABNORMAL) Manual Differential (12/18/2024 7:20 AM CDT) Cells Counted 16 Comment:Testing performed by : [facility], [address] [place] [address] Neutrophil abs 0.1(L) 1.5 - 6.5 K/cumm BREANNA MATTA Comment:Testing performed by : [facility], [address] [place] [address] Lymphocyte abs 0.1(L) 0.8 - 3.3 K/cumm BREANNA MATTA Comment:Testing performed by : [facility], [address] [place] [address] Monocyte abs 0.0(L) 0.2 - 0.8 K/cumm BREANNA MATTA Comment:Testing performed by : [facility], [address] [place] [address] Eosinophil abs 0.0 0.0 - 0.5 K/cumm BREANNA MATTA Comment:Testing performed by : [facility], [address] [place] [phone] Basophil abs 0.0 0.0 - 0.1 K/cumm CERNER BJ Comment:Testing performed by : [facility], [address] [place] [phone] Neutrophil pct 25.0 % CERNER BJ Comment: Interpretive Data Percent cell count reference ranges are not reported, since discordance with absolute values may lead to misinterpretation of CBC data. Current Interpretive Data was last revised on 2017. Testing performed by: [facility], [address] [place] [phone] Lymphocyte pct 56.0 % CEREYAL BJ Comment: Interpretive Data Percent cell count reference ranges are not reported, since discordance with absolute values may lead to misinterpretation of CBC data. Current Interpretive Data was last revised on 2017. Testing performed by: [facility], [address] [place] [phone] Monocyte pct 0.0 % CERNER BJ Comment: Interpretive Data Percent cell count reference ranges are not reported, since discordance with absolute values may lead to misinterpretation of CBC data. Current Interpretive Data was last revised on 2017. Testing performed by: [facility], [address] [place] [phone] Eosinophil pct 13.0 % CERNER BJ Comment: Interpretive Data Percent cell count reference ranges are not reported, since discordance with absolute values may lead to misinterpretation of CBC data. Current Interpretive Data was last revised on 2017. Testing performed by: [facility], [address] [place] [phone] Basophil pct 6.0 % CERNER BJ Comment: Interpretive Data Percent cell count reference ranges are not reported, since discordance with absolute values may lead to misinterpretation of CBC data. Current Interpretive Data was last revised on 2017. Testing performed by: [facility], [address] [place] [phone] RBC morphology Normal CERNER BJ Comment:Testing performed by : [facility], [address] [place] [address], [place] [phone] Platelet estimate Adequate [facility] Comment:Testing performed by : [facility], [facility] [place] [address] Blood 12/18/2024 7:20 AM CDT 12/18/2024 7:50 AM CDT us Bob Menard MD LAB BLOOD ORDERABLES Final R esult Performing Organization Address City/[facility] FACILITY Co de Phone Number [facility] [place] [address] * (ABNORMAL) CRP (acute phase) (12/18/2024 7:20 AM CDT) CRP 60.0(H) <=10.0 mg/L Blood 12/18/2024 7:20 AM CDT 12/18/2024 7:56 AM CDT us Bob Menard MD LAB BLOOD ORDERABLES Final R esult Performing Organization Address City/[facility] Co de Phone Number [facility] [place] [address] * (ABNORMAL) Uric acid (12/18/2024 7:20 AM CDT) Uric acid 10.2(H) 2.5 - 7.0 mg/dL Blood 12/18/2024 7:20 AM CDT 12/18/2024 7:25 AM CDT Bob Menard MD LAB BLOOD ORDERABLES Final R esult Performing Organization Address City/[facility] [place] [address] * Phosphorus (12/18/2024 7:20 AM CDT) Phosphorus, pl 2.5 2.3 - 4.5 mg/dL Blood 12/18/2024 7:20 AM CDT 12/18/2024 7:25 AM CDT Bob Menard MD LAB BLOOD ORDERABLES Final R esult Performing Organization Address [facility] de Phone Number [facility] [place] [address] * Magnesium (12/18/2024 7:20 AM CDT) Magnesium 2.1 1.4 - 2.5 mg/dL Blood 12/18/2024 7:20 AM CDT 12/18/2024 7:25 AM CDT Bob Menard MD LAB BLOOD ORDERABLES Final R esult Performing Organization Address [facility] de Phone Number [facility] [place] [address] * Lipase (12/18/2024 7:20 AM CDT) Pathologist [facility] Lipase 21 10 - 99 Units/L Blood 12/18/2024 7:20 AM CDT 12/18/2024 7:25 AM CDT Bob Menard MD LAB BLOOD ORDERABLES Final R esult Performing Organization Address [facility] [place] [address] * Lactate dehydrogenase (LD) (12/18/2024 7:20 AM CDT) Lactate dehydrogenase (LDH) 179 100 - 250 Units/L Blood 12/18/2024 7:20 AM CDT 12/18/2024 7:25 AM CDT Bob Menard MD LAB BLOOD ORDERABLES Final R esult Performing Organization Address City/[facility] Co de Phone Number [facility] [place] [place] [address] * Gamma GT (12/18/2024 7:20 AM CDT) GGT 22 5 - 35 Units/L Blood 12/18/2024 7:20 AM CDT 12/18/2024 7:25 AM CDT Bob Menard MD LAB BLOOD ORDERABLES Final R esult Performing Organization Address [facility] Co de Phone Number [facility] [place] [place] [address] * (ABNORMAL) Ferritin (12/18/2024 7:20 AM CDT) Ferritin 1,068(H) 13 - 150 ng/mL Blood 12/18/2024 7:20 AM CDT 12/18/2024 7:25 AM CDT Bob Menard MD LAB BLOOD ORDERABLES Final R esult Performing Organization Address [facility] Co de Phone Number [facility] [place] [place] [address] * (ABNORMAL) Bilirubin, direct (12/18/2024 7:20 AM CDT) Bilirubin, direct 0.5(H) 0.1 - 0.3 mg/dL Blood 12/18/2024 7:20 AM CDT 12/18/2024 7:25 AM CDT Bob Menard MD LAB BLOOD ORDERABLES Final R esult Performing Organization Address City/[facility] Co de Phone Number [facility] [place] [place] [address] * Amylase (12/18/2024 7:20 AM CDT) Amylase <30 30 - 99 Units/L Blood 12/18/2024 7:20 AM CDT 12/18/2024 7:25 AM CDT us Bob Menard MD LAB BLOOD ORDERABLES Final R esult [facility] [place] [address] * (ABNORMAL) Comprehensive metabolic panel (12/18/2024 7:20 AM CDT) Pathologist [facility] Sodium 141 135 - 145 mmol/L Potassium, pl 3.0(L) 3.3 - 4.9 mmol/L [facility] Chloride 97 97 - 110 mmol/L [facility] CO2 32 22 - 32 mmol/L [facility] Anion gap 12 2 - 15 mmol/L [facility] BUN 16 6 - 25 mg/dL [facility] Creatinine 0.64 0.60 - 1.10 mg/dL [facility] Glucose 114 70 - 199 mg/dL [facility] Comment: Interpretive Data Fasting glucose >/= 126 [...] 2022. Calcium 9.1 8.5 - 10.3 mg/dL [facility] Bilirubin, total 1.0 0.1 - 1.2 mg/dL [facility] Protein, pl 6.3(L) 6.5 - 8.5 g/dL [facility] Albumin 3.6 3.5 - 5.0 g/dL [facility] Alk phos 75 40 - 130 Units/L [facility] ALT 18 7 - 45 Units/L [facility] AST 24 10 - 45 Units/L [facility] Blood 12/18/2024 7:20 AM CDT 12/18/2024 7:25 AM CDT Bob Menard MD LAB BLOOD ORDERABLES Final R esult Performing Organization Address City/[facility]/ZIP Co de Phone Number [facility] [place] [address] * eGFR (12/11/2024 8:45 AM CDT) eGFR 86 >=60 mL/min/1. 73 m2 Comment: [...] ORDERABLES Final R esult Performing Organization Address City/[facility]/ZIP Co de Phone Number [facility] [place] [address] * (ABNORMAL) CBC with auto differential (12/11/2024 8:45 AM CDT) WBC 13.8(H) 3.8 - 9.9 K/cumm Comment:Testing performed by : [facility], [address] [place], [place] [id number] Hgb 12.5 11.9 - 15.5 g/dL CERNER BJ Comment:Testing performed by : [facility], [address] [place], [place] [id number] Hct 36.8 35.6 - 45.5 % CERNER BJ Comment:Testing performed by : [facility], [address] [place], [place] [id number] Plt 406(H) 150 - 400 K/cumm CERNER BJ Comment:Testing performed by : [facility], [address] [place], [place] [id number] MPV 9.1 6.8 - 10.4 fL CERNER BJ Comment:Testing performed by : [facility], [address] [place] [address] RBC 4.59 3.90 - 5.20 M/cumm CERNER BJ Comment:Testing performed by : [facility], [address] [place] [address] MCV 80.1(L) 81.3 - 96.4 fL CERNER [facility]J Comment:Testing performed by : [facility], [address] [place] [address] MCH 27.3 27.1 - 33.3 pg CERNER BJ Comment:Testing performed by : [facility], [address] [place] [address] MCHC 34.0 32.3 - 35.7 g/dL CERNER [facility]J Comment:Testing performed by : [facility], [address] [place] [address] RDW CV 14.4 11.1 - 14.9 % CERNER BJ Comment:Testing performed by : [facility], [address] [place] [address] NRBC abs 0.00 0.00 - 0.01 K/cumm CERNER BJ Comment:Testing performed by : [facility], [address] [place] [phone] Blood 12/11/2024 8:45 AM CDT 12/11/2024 9:02 AM CDT Bob Menard MD LAB BLOOD ORDERABLES Edited Result - Final BREANNA MATTA [facility] [place] [address] * (ABNORMAL) Manual Differential (12/11/2024 8:45 AM CDT) Cells Counted 200 Comment:Testing performed by : [facility], [address] [place], [place] [phone] Neutrophil abs 11.9(H) 1.5 - 6.5 K/cumm CEREYAL MATTA Comment:Testing performed by : [facility], [address] [place], [place] [phone] Lymphocyte abs 0.6(L) 0.8 - 3.3 K/cumm CEREYAL BJ Comment:Testing performed by : [facility], [address] [place], [place] [phone] Monocyte abs 0.4 0.2 - 0.8 K/cumm CEREYAL BJ Comment:Testing performed by : [facility], [address] [place], [place] [phone] Eosinophil abs 0.0 0.0 - 0.5 K/cumm CEREYAL BJ Comment:Testing performed by : [facility], [address] [place] [phone] Basophil abs 0.1 0.0 - 0.1 K/cumm CEREYAL BJ Comment:Testing performed by : [facility], [address] [place], [place] [phone] Neutrophil pct 86.0 % CEREYAL MATTA Comment: Interpretive Data Percent cell count reference ranges are not reported, since discordance with absolute values may lead to misinterpretation of CBC data. Current Interpretive Data was last revised on 2017. Testing performed by: [facility], [address] [place] [phone] Lymphocyte pct 4.0 % [facility] Comment: Interpretive Data Percent cell count reference ranges are not reported, since discordance with absolute values may lead to misinterpretation of CBC data. Current Interpretive Data was last revised on 2017. Testing performed by: [facility], [address] [place] [phone] Monocyte pct 3.0 % [facility] Comment: Interpretive Data Percent cell count reference ranges are not reported, since discordance with absolute values may lead to misinterpretation of CBC data. Current Interpretive Data was last revised on 2017. Testing performed by: [facility], [address] [place] [phone] Eosinophil pct 0.0 % [facility] Comment: Interpretive Data Percent cell count reference ranges are not reported, since discordance with absolute values may lead to misinterpretation of CBC data. Current Interpretive Data was last revised on 2017. Testing performed by: [facility], [address] [place] [phone] Basophil pct 1.0 % [facility] Comment: Interpretive Data Percent cell count reference ranges are not reported, since discordance with absolute values may lead to misinterpretation of CBC data. Current Interpretive Data was last revised on 2017. Testing performed by: [facility], [address] [place] [phone] Metamyelocyte pct 5.0(H) 0.0 - 0.0 % [facility] Comment:Testing performed by : [facility], [address] [place] [phone] Myelocyte pct 1.0(H) 0.0 - 0.0 % [facility] Comment:Testing performed by : [facility], [address] [place] [phone] Promyelocyte pct 1.0(H) 0.0 - 0.0 % [facility] Comment:Testing performed by : [facility], [address] [place] [phone] RBC morphology NRBCs present(A) BREANNA [facility] Comment:Testing performed by : [facility], [address] [place], [place] [id number] Acanthocytes 1+(A) BREANNA [facility] Comment:Testing performed by : [facility], [address] [place], [place] [id number] Echinocytes 1+(A) BREANNA [facility] Comment:Testing performed by : [facility], [address] [place], [place] [phone] Platelet estimate Adequate BREANNA [facility] Comment:Testing performed by : [facility], [address] [place], [place] [phone] Giant platelets Present(A) BREANNA [facility] Comment:Testing performed by : [facility], [address] [place] [phone] Blood 12/11/2024 8:45 AM CDT 12/11/2024 9:02 AM CDT us Bob Menard MD LAB BLOOD ORDERABLES Final R esult [facility] [place] [address] * (ABNORMAL) CRP (acute phase) (12/11/2024 8:45 AM CDT) Pathologist [facility] CRP 15.6(H) <=10.0 mg/L Blood 12/11/2024 8:45 AM CDT 12/11/2024 9:36 AM CDT Bob Menard MD LAB BLOOD ORDERABLES Final R esult [facility] [place] [address] * (ABNORMAL) Uric acid (12/11/2024 8:45 AM CDT) Uric acid 14.9(H) 2.5 - 7.0 mg/dL Blood 12/11/2024 8:45 AM CDT 12/11/2024 9:03 AM CDT Bob Menard MD LAB BLOOD ORDERABLES Final R esult Performing Organization Address City/[facility] Co de Phone Number [facility] [place] [address] * Phosphorus (12/11/2024 8:45 AM CDT) Pathologist [facility] Phosphorus, pl 2.8 2.3 - 4.5 mg/dL Blood 12/11/2024 8:45 AM CDT 12/11/2024 9:03 AM CDT Bob Menard MD LAB BLOOD ORDERABLES Final R esult Performing Organization Address City/[facility] Co de Phone Number [facility] [place] [address] * Magnesium (12/11/2024 8:45 AM CDT) Pathologist [facility] Magnesium 1.8 1.4 - 2.5 mg/dL Blood 12/11/2024 8:45 AM CDT 12/11/2024 9:03 AM CDT Bob Menard MD LAB BLOOD ORDERABLES Final R esult Performing Organization Address City/[facility] Co de Phone Number [facility] [place] [address] * Lipase (12/11/2024 8:45 AM CDT) Lipase 27 10 - 99 Units/L Blood 12/11/2024 8:45 AM CDT 12/11/2024 9:03 AM CDT us Bob Menard MD LAB BLOOD ORDERABLES Final R esult Performing Organization Address [facility] Co de Phone Number [facility] [place] [address] * Lactate dehydrogenase (LD) (12/11/2024 8:45 AM CDT) Lactate dehydrogenase (LDH) 212 100 - 250 Units/L Blood 12/11/2024 8:45 AM CDT 12/11/2024 9:03 AM CDT us Bob Menard MD LAB BLOOD ORDERABLES Final R esult Performing Organization Address [facility] [place] [address] * Gamma GT (12/11/2024 8:45 AM CDT) GGT 18 5 - 35 Units/L Blood 12/11/2024 8:45 AM CDT 12/11/2024 9:03 AM CDT us Bob Menard MD LAB BLOOD ORDERABLES Final R esult Performing Organization Address [facility] Co de Phone Number [facility] [place] [address] * (ABNORMAL) Ferritin (12/11/2024 8:45 AM CDT) Ferritin 916(H) 13 - 150 ng/mL Blood 12/11/2024 8:45 AM CDT 12/11/2024 9:03 AM CDT us Bob Menard MD LAB BLOOD ORDERABLES Final R esult Performing Organization Address City/[facility] Co de Phone Number [facility] [place] [address] * (ABNORMAL) Bilirubin, direct (12/11/2024 8:45 AM CDT) Pathologist [facility] Bilirubin, direct 0.4(H) 0.1 - 0.3 mg/dL Blood 12/11/2024 8:45 AM CDT 12/11/2024 9:03 AM CDT Bob Menard MD LAB BLOOD ORDERABLES Final R esult [facility] [place] [address] * Amylase (12/11/2024 8:45 AM CDT) [facility] Amylase <30 30 - 99 Units/L Blood 12/11/2024 8:45 AM CDT 12/11/2024 9:03 AM CDT Bob Menard MD LAB BLOOD ORDERABLES Final R esult [facility] [place] [address] * (ABNORMAL) Comprehensive metabolic panel (12/11/2024 8:45 AM CDT) Pathologist [facility] Sodium 138 135 - 145 mmol/L Potassium, pl 3.0(L) 3.3 - 4.9 mmol/L [facility] Chloride 94(L) 97 - 110 mmol/L [facility] CO2 24 22 - 32 mmol/L [facility] Anion gap 20(H) 2 - 15 mmol/L [facility] BUN 14 6 - 25 mg/dL [facility] Creatinine 0.76 0.60 - 1.10 mg/dL [facility] Glucose 110 70 - 199 mg/dL [facility] Comment: Interpretive Data Fasting glucose >/= 126 [...] 2022. Calcium 9.6 8.5 - 10.3 mg/dL CERNER [facility] Bilirubin, total 0.7 0.1 - 1.2 mg/dL CERNER [facility] Protein, pl 7.0 6.5 - 8.5 g/dL [facility] Albumin 3.8 3.5 - 5.0 g/dL CERNER [facility] Alk phos 66 40 - 130 Units/L [facility] ALT 12 7 - 45 Units/L [facility] AST 20 10 - 45 Units/L CERNER [facility] Blood 12/11/2024 8:45 AM CDT 12/11/2024 9:03 AM CDT us Bob Menard MD LAB BLOOD ORDERABLES Final R esult [facility] [place] [address] * FL Modified Barium Swallow W Video (11/20/2024 8:40 AM [employer] DEVEL[employer]) Anatomical Region Laterality Modality Head and Neck N/A Radio Fluoroscop y 11/20/2024 9:16 AM [employer] DEVELOPER Impressions 11/20/2024 11:15 AM [employer] DEVELOPER The swallowing mechanism is abnormal; see above [...] Torey Vazquez M.D. Narrative 11/20/2024 11:15 AM [employer] DEVELOPER EXAMINATION: MODIFIED BARIUM SWALLOW HISTORY: Dysphagia. TECHNIQUE: [...] it. Electronically signed by: Torey Vazquez M.D. us Micheline Riggs MD IMG FLUOROSCOPY PROCEDURES Fin al Result * RN PSYCHIATRIC Evaluate and Treat (VFSS) (11/20/2024 8:23 AM [employer] DEVELOPER) Narrative Melissa Taylor SLP - 11/20/2024 8:23 AM Lisa Alexanderah Ngozi, RN PSYCHIATRIC 11/20/2024 9:50 AM Speech-Language Pathology: Videofluoroscopic Study [...] thin liquid General Information Cat Hancock 11/20/24 RN PSYCHIATRIC Received On: 11/20/24 General Observations: Pt alert [...] treatment goals and details, if indicated. Plan RN PSYCHIATRIC Frequency of Services during current admission: 1-2x/wk RN PSYCHIATRIC Recommendation (Add'l Services): Outpatient RN PSYCHIATRIC Next Visit Plan: treatment/therapy Additional Referrals: GI evaluation + OP RN PSYCHIATRIC Discharge Summary Statement If this is the last swallow therapy visit, this serves as the discharge summary. us Micheline Riggs MD RN PSYCHIATRIC ORDERABLES Final Result * eGFR (11/20/2024 1:16 AM [employer] DEVELOPER) eGFR 82 >=60 mL/min/1. 73 m2 Comment: [...] last reviewed 2021. Blood 11/20/2024 1:16 AM [employer] DEVELOPER 11/20/2024 1:33 AM [employer] DEVELOPER us Micheline Riggs MD LAB BLOOD ORDERABLES Final Res ult [facility] [place] [address] * (ABNORMAL) Differential, auto (11/20/2024 1:16 AM [employer] DEVELOPER) Neutrophil abs 4.5 1.5 - 6.5 K/cumm Imm gran abs 0.0 0.0 - 0.1 K/cumm CERNER [facility] Lymphocyte abs 0.2(L) 0.8 - 3.3 K/cumm [facility] Monocyte abs 0.3 0.2 - 0.8 K/cumm [facility] Eosinophil abs 0.0 0.0 - 0.5 K/cumm [facility] Basophil abs 0.0 0.0 - 0.1 K/cumm [facility] Neutrophil pct 90.0 % [facility] Comment: Interpretive Data Percent cell count reference ranges are not reported, since discordance with absolute values may lead to misinterpretation of CBC data. Current Interpretive Data was last revised on 2017. Imm gran pct 0.6 % [facility] Comment: Interpretive Data Percent cell count reference ranges are not reported, since discordance with absolute values may lead to misinterpretation of CBC data. Current Interpretive Data was last revised on 2017. Lymphocyte pct 4.2 % [facility] Comment: Interpretive Data Percent cell count reference ranges are not reported, since discordance with absolute values may lead to misinterpretation of CBC data. Current Interpretive Data was last revised on 2017. Monocyte pct 5.0 % [facility] Comment: Interpretive Data Percent cell count reference ranges are not reported, since discordance with absolute values may lead to misinterpretation of CBC data. Current Interpretive Data was last revised on 2017. Eosinophil pct 0.0 % [facility] Comment: Interpretive Data Percent cell count reference ranges are not reported, since discordance with absolute values may lead to misinterpretation of CBC data. Current Interpretive Data was last revised on 2017. Basophil pct 0.2 % [facility] Comment: Interpretive Data Percent cell count reference ranges are not reported, since discordance with absolute values may lead to misinterpretation of CBC data. Current Interpretive Data was last revised on 2017. Blood 11/20/2024 1:16 AM [employer] DEVELOPER 11/20/2024 1:25 AM [employer] DEVELOPER Janice Mendes MD LAB BLOOD ORDERABLES Final Result Performing Organization Address City/[facility] Co de Phone Number [facility] [place] [address] * CBC with auto differential (11/20/2024 1:16 AM [employer] DEVELOPER) WBC 5.0 3.8 - 9.9 K/cumm Hgb 12.0 11.9 - 15.5 g/dL [facility] Hct 36.7 35.6 - 45.5 % [facility] Plt 189 150 - 400 K/cumm [facility] MPV 11.7 9.1 - 12.3 fL [facility] RBC 4.29 3.90 - 5.20 M/cumm [facility] MCV 85.5 81.3 - 96.4 fL [facility] MCH 28.0 27.1 - 33.3 pg [facility] MCHC 32.7 32.3 - 35.7 g/dL [facility] RDW CV 14.4 11.1 - 14.9 % [facility] RDW SD 44.2 35.7 - 48.1 fL [facility] NRBC abs 0.00 0.00 - 0.01 K/cumm [facility] Blood 11/20/2024 1:16 AM [employer] DEVELOPER 11/20/2024 1:25 AM [employer] DEVELOPER Janice Mendes MD LAB BLOOD ORDERABLES Final Result Performing Organization Address City/State/[facility] Co de Phone Number [facility] [place] [place] [address] * Uric acid (11/20/2024 1:16 AM [employer] DEVELOPER) Uric acid 2.8 2.5 - 7.0 mg/dL Blood 11/20/2024 1:16 AM [employer] DEVELOPER 11/20/2024 1:25 AM [employer] DEVELOPER Gretel Brar MD LAB BLOOD ORDERABLES Sara l Result Performing Organization Address [facility] [place] [address] * Phosphorus (11/20/2024 1:16 AM SALESFORCE DEVELOPER) Phosphorus, pl 3.4 2.3 - 4.5 mg/dL Blood 11/20/2024 1:16 AM [employer] DEVELOPER 11/20/2024 1:25 AM [employer] DEVELOPER Gretel Brar MD LAB BLOOD ORDERABLES Sara l Result Performing Organization Address [facility] Co de Phone Number [facility] [place] [address] * Magnesium (11/20/2024 1:16 AM [employer] DEVELOPER) Magnesium 2.2 1.4 - 2.5 mg/dL Blood 11/20/2024 1:16 AM [employer]ES[employer]CE DEVELOPER 11/20/2024 1:25 AM [employer] DEVELOPER Janice Mendes MD LAB BLOOD ORDERABLES Final Result Performing Organization Address [facility] Co de Phone Number [facility] [place] [address] * (ABNORMAL) Comprehensive metabolic panel (11/20/2024 1:16 AM [employer] DEVELOPER) Sodium 145 135 - 145 mmol/L Potassium, pl 4.0 3.3 - 4.9 mmol/L [facility] Chloride 106 97 - 110 mmol/L [facility] CO2 33(H) 22 - 32 mmol/L [facility] Anion gap 6 2 - 15 mmol/L [facility] BUN 10 6 - 25 mg/dL [facility] Creatinine 0.79 0.60 - 1.10 mg/dL [facility] [facility] Glucose 133 70 - 199 mg/dL [facility] Comment: Interpretive Data Fasting glucose >/= 126 [...] 2022. Calcium 9.5 8.5 - 10.3 mg/dL [facility] Bilirubin, total 0.4 0.1 - 1.2 mg/dL [facility] Protein, pl 6.7 6.5 - 8.5 g/dL [facility] Albumin 3.7 3.5 - 5.0 g/dL [facility] Alk phos 51 40 - 130 Units/L [facility] ALT 43 7 - 45 Units/L [facility] AST 47(H) 10 - 45 Units/L [facility] Blood 11/20/2024 1:16 AM SALESFORCE DEVELOPER 11/20/2024 1:25 AM SALESFORCE DEVELOPER us Micheline Riggs MD LAB BLOOD ORDERABLES Final Res ult [facility] Department [place] [address] * eGFR (11/19/2024 2:07 AM SALESFORCE DEVELOPER) eGFR 81 >=60 mL/min/1. 73 m2 Comment: [...] last reviewed 2021. Blood 11/19/2024 2:07 AM SALESFORCE DEVELOPER 11/19/2024 2:30 AM SALESFORCE DEVELOPER us Micheline Riggs MD LAB BLOOD ORDERABLES Final Res ult [facility] [place] [address] * (ABNORMAL) Differential, auto (11/19/2024 2:07 AM SALESFORCE DEVELOPER) Pathologist [facility] Neutrophil abs 7.8(H) 1.5 - 6.5 K/cumm Imm gran abs 0.0 0.0 - 0.1 K/cumm [facility] Lymphocyte abs 0.2(L) 0.8 - 3.3 K/cumm [facility] Monocyte abs 0.3 0.2 - 0.8 K/cumm [facility] Eosinophil abs 0.0 0.0 - 0.5 K/cumm [facility] Basophil abs 0.0 0.0 - 0.1 K/cumm [facility] Neutrophil pct 94.2 % [facility] Comment: Interpretive Data Percent cell count reference ranges are not reported, since discordance with absolute values may lead to misinterpretation of CBC data. Current Interpretive Data was last revised on 2017. Imm gran pct 0.5 % [facility] Comment: Interpretive Data Percent cell count reference ranges are not reported, since discordance with absolute values may lead to misinterpretation of CBC data. Current Interpretive Data was last revised on 2017. Lymphocyte pct 2.0 % [facility] Comment: Interpretive Data Percent cell count reference ranges are not reported, since discordance with absolute values may lead to misinterpretation of CBC data. Current Interpretive Data was last revised on 2017. Monocyte pct 3.1 % [facility] Comment: Interpretive Data Percent cell count reference ranges are not reported, since discordance with absolute values may lead to misinterpretation of CBC data. Current Interpretive Data was last revised on 2017. Eosinophil pct 0.0 % [facility] Comment: Interpretive Data Percent cell count reference ranges are not reported, since discordance with absolute values may lead to misinterpretation of CBC data. Current Interpretive Data was last revised on 2017. Basophil pct 0.2 % [facility] Comment: Interpretive Data Percent cell count reference ranges are not reported, since discordance with absolute values may lead to misinterpretation of CBC data. Current Interpretive Data was last revised on 2017. Blood 11/19/2024 2:07 AM SALESFORCE DEVELOPER 11/19/2024 2:30 AM SALESFORCE DEVELOPER us Janice Mendes MD LAB BLOOD ORDERABLES Final Result [facility] [place] [address] * (ABNORMAL) CBC with auto differential (11/19/2024 2:07 AM SALESFORCE DEVELOPER) WBC 8.3 3.8 - 9.9 K/cumm Hgb 11.7(L) 11.9 - 15.5 g/dL [facility] Hct 36.0 35.6 - 45.5 % [facility] Plt 178 150 - 400 K/cumm [facility] MPV 11.4 9.1 - 12.3 fL [facility] RBC 4.20 3.90 - 5.20 M/cumm [facility] MCV 85.7 81.3 - 96.4 fL [facility] MCH 27.9 27.1 - 33.3 pg [facility] MCHC 32.5 32.3 - 35.7 g/dL [facility] RDW CV 14.1 11.1 - 14.9 % [facility] RDW SD 43.8 35.7 - 48.1 fL [facility] NRBC abs 0.00 0.00 - 0.01 K/cumm [facility] Blood 11/19/2024 2:07 AM SALESFORCE DEVELOPER 11/19/2024 2:30 AM SALESFORCE DEVELOPER Janice Mendes MD LAB BLOOD ORDERABLES Final Result Performing Organization Address [facility] Co de Phone Number [facility] Department [place] [address] * Uric acid (11/19/2024 2:07 AM SALESFORCE DEVELOPER) Uric acid 3.4 2.5 - 7.0 mg/dL Blood 11/19/2024 2:07 AM SALESFORCE DEVELOPER 11/19/2024 2:30 AM SALESFORCE DEVELOPER Gretel Brar MD LAB BLOOD ORDERABLES Sara l Result Performing Organization Address City/[facility] Co de Phone Number [facility] Department [place] [address] * Phosphorus (11/19/2024 2:07 AM SALESFORCE DEVELOPER) Phosphorus, pl 3.6 2.3 - 4.5 mg/dL Blood 11/19/2024 2:07 AM SALESFORCE DEVELOPER 11/19/2024 2:30 AM SALESFORCE DEVELOPER us Gretel Brar MD LAB BLOOD ORDERABLES Sara l Result Performing Organization Address City/[facility] Co de Phone Number [facility] [place] [address] * Magnesium (11/19/2024 2:07 AM SALESFORCE DEVELOPER) [facility] Magnesium 1.8 1.4 - 2.5 mg/dL Blood 11/19/2024 2:07 AM SALESFORCE DEVELOPER 11/19/2024 2:30 AM SALESFORCE DEVELOPER Janice Mendes MD LAB BLOOD ORDERABLES Final Result [facility] [place] [address] * Comprehensive metabolic panel (11/19/2024 2:07 AM SALESFORCE DEVELOPER) [facility] Sodium 143 135 - 145 mmol/L Potassium, pl 3.5 3.3 - 4.9 mmol/L [facility] Chloride 104 97 - 110 mmol/L [facility] CO2 29 22 - 32 mmol/L [facility] Anion gap 10 2 - 15 mmol/L [facility] BUN 9 6 - 25 mg/dL [facility] Creatinine 0.80 0.60 - 1.10 mg/dL [facility] Glucose 154 70 - 199 mg/dL [facility] Comment: Interpretive Data Fasting glucose >/= 126 [...] 2022. Calcium 9.1 8.5 - 10.3 mg/dL [facility] Bilirubin, total 0.6 0.1 - 1.2 mg/dL [facility] Protein, pl 6.6 6.5 - 8.5 g/dL [facility] Albumin 3.5 3.5 - 5.0 g/dL [facility] Alk phos 49 40 - 130 Units/L [facility] ALT 26 7 - 45 Units/L [facility] AST 39 10 - 45 Units/L [facility] Blood 11/19/2024 2:07 AM SALESFORCE DEVELOPER 11/19/2024 2:30 AM SALESFORCE DEVELOPER us Micheline Riggs MD LAB BLOOD ORDERABLES Final Res ult Performing Organization Address [facility]/ZIP Co de Phone Number [facility] Department [place] [address] * eGFR (11/18/2024 2:33 AM SALESFORCE DEVELOPER) eGFR >90 >=60 mL/min/1. 73 m2 Comment: [...] last reviewed 2021. Blood 11/18/2024 2:33 AM SALESFORCE DEVELOPER 11/18/2024 2:56 AM SALESFORCE DEVELOPER us Bob Menard MD LAB BLOOD ORDERABLES Final R esult Performing Organization Address [facility]/ZIP Co de Phone Number [facility] Department [place] [address] * Uric acid (11/18/2024 2:33 AM SALESFORCE DEVELOPER) Uric acid 4.0 2.5 - 7.0 mg/dL Blood 11/18/2024 2:33 AM SALESFORCE DEVELOPER 11/18/2024 2:56 AM SALESFORCE DEVELOPER Bob Menard MD LAB BLOOD ORDERABLES Final R esult Performing Organization Address [facility] de Phone Number [facility] [place] [address] * Phosphorus (11/18/2024 2:33 AM SALESFORCE DEVELOPER) Pathologist [facility] Phosphorus, pl 3.4 2.3 - 4.5 mg/dL Blood 11/18/2024 2:33 AM SALESFORCE DEVELOPER 11/18/2024 2:56 AM SALESFORCE DEVELOPER Result [facility] Bob Menard MD LAB BLOOD ORDERABLES Final R esult Performing Organization Address [facility] de Phone Number [facility] [place] [address] * Magnesium (11/18/2024 2:33 AM SALESFORCE DEVELOPER) Magnesium 1.8 1.4 - 2.5 mg/dL Blood 11/18/2024 2:33 AM SALESFORCE DEVELOPER 11/18/2024 2:56 AM SALESFORCE DEVELOPER Result [facility] Bob Menard MD LAB BLOOD ORDERABLES Final R esult Performing Organization Address [facility] de Phone Number [facility] [place] [address] * Lipase (11/18/2024 2:33 AM SALESFORCE DEVELOPER) Lipase 20 10 - 99 Units/L Blood 11/18/2024 2:33 AM SALESFORCE DEVELOPER 11/18/2024 2:56 AM SALESFORCE DEVELOPER us Bob Menard MD LAB BLOOD ORDERABLES Final R esult Performing Organization Address City/[facility] Co de Phone Number [facility] [place] [address] * Lactate dehydrogenase (LD) (11/18/2024 2:33 AM SALESFORCE DEVELOPER) Lactate dehydrogenase (LDH) 245 100 - 250 Units/L Blood 11/18/2024 2:33 AM SALESFORCE DEVELOPER 11/18/2024 2:56 AM SALESFORCE DEVELOPER us Bob Menard MD LAB BLOOD ORDERABLES Final R esult Performing Organization Address [facility] Co de Phone [place] [address] * Gamma GT (11/18/2024 2:33 AM SALESFORCE DEVELOPER) GGT 14 5 - 35 Units/L Blood 11/18/2024 2:33 AM SALESFORCE DEVELOPER 11/18/2024 2:56 AM SALESFORCE DEVELOPER us Bob Menard MD LAB BLOOD ORDERABLES Final R esult Performing Organization Address [facility] Co de Phone Number [facility] [place] [address] * Bilirubin, direct (11/18/2024 2:33 AM SALESFORCE DEVELOPER) Bilirubin, direct 0.3 0.1 - 0.3 mg/dL Blood 11/18/2024 2:33 AM SALESFORCE DEVELOPER 11/18/2024 2:56 AM SALESFORCE DEVELOPER us Bob Menard MD LAB BLOOD ORDERABLES Final R esult Performing Organization Address City/[facility]/ZIP Co de Phone Number [facility] [place] [address] * Amylase (11/18/2024 2:33 AM SALESFORCE DEVELOPER) Amylase <30 30 - 99 Units/L Blood 11/18/2024 2:33 AM SALESFORCE DEVELOPER 11/18/2024 2:56 AM SALESFORCE DEVELOPER us Bob Menard MD LAB BLOOD ORDERABLES Final R esult [facility] [place] [address] * (ABNORMAL) Comprehensive metabolic panel (11/18/2024 2:33 AM SALESFORCE DEVELOPER) Pathologist [facility] Sodium 142 135 - 145 mmol/L Potassium, pl 3.7 3.3 - 4.9 mmol/L [facility] Chloride 100 97 - 110 mmol/L [facility] CO2 30 22 - 32 mmol/L [facility] Anion gap 12 2 - 15 mmol/L [facility] BUN 5(L) 6 - 25 mg/dL [facility] Creatinine 0.66 0.60 - 1.10 mg/dL [facility] Glucose 141 70 - 199 mg/dL [facility] Comment: Interpretive Data Fasting glucose >/= 126 [...] 2022. Calcium 9.5 8.5 - 10.3 mg/dL [facility] Bilirubin, total 0.8 0.1 - 1.2 mg/dL [facility] Protein, pl 7.0 6.5 - 8.5 g/dL [facility] Albumin 3.9 3.5 - 5.0 g/dL [facility] Alk phos 51 40 - 130 Units/L [facility] ALT 19 7 - 45 Units/L [facility] AST 21 10 - 45 Units/L [facility] Blood 11/18/2024 2:33 AM SALESFORCE DEVELOPER 11/18/2024 2:56 AM SALESFORCE DEVELOPER us Bob Menard MD LAB BLOOD ORDERABLES Final R esult [facility] [place] [address] * (ABNORMAL) Differential, auto (11/18/2024 1:58 AM SALESFORCE DEVELOPER) Neutrophil abs 3.3 1.5 - 6.5 K/cumm Imm gran abs 0.0 0.0 - 0.1 K/cumm [facility] Lymphocyte abs 0.5(L) 0.8 - 3.3 [facility] Monocyte abs 0.1(L) 0.2 - 0.8 K/cumm [facility] Eosinophil abs 0.0 0.0 - 0.5 K/cumm [facility] Basophil abs 0.0 0.0 - 0.1 K/cumm [facility] Neutrophil pct 83.7 % [facility] Comment: Interpretive Data Percent cell count reference ranges are not reported, since discordance with absolute values may lead to misinterpretation of CBC data. Current Interpretive Data was last revised on 2017. Imm gran pct 0.5 % [facility] Comment: Interpretive Data Percent cell count reference ranges are not reported, since discordance with absolute values may lead to misinterpretation of CBC data. Current Interpretive Data was last revised on 2017. Lymphocyte pct 11.7 % [facility] Comment: Interpretive Data Percent cell count reference ranges are not reported, since discordance with absolute values may lead to misinterpretation of CBC data. Current Interpretive Data was last revised on 2017. Monocyte pct 3.6 % [facility] Comment: Interpretive Data Percent cell count reference ranges are not reported, since discordance with absolute values may lead to misinterpretation of CBC data. Current Interpretive Data was last revised on 2017. Eosinophil pct 0.0 % [facility] Comment: Interpretive Data Percent cell count reference ranges are not reported, since discordance with absolute values may lead to misinterpretation of CBC data. Current Interpretive Data was last revised on 2017. Basophil pct 0.5 % [facility] Comment: Interpretive Data Percent cell count reference ranges are not reported, since discordance with absolute values may lead to misinterpretation of CBC data. Current Interpretive Data was last revised on 2017. Blood 11/18/2024 1:58 AM SALESFORCE DEVELOPER 11/18/2024 2:41 AM SALESFORCE DEVELOPER us Bob Menard MD LAB BLOOD ORDERABLES Final R esult [facility] [place] [address] * CBC with auto differential (11/18/2024 1:58 AM SALESFORCE DEVELOPER) WBC 3.9 3.8 - 9.9 K/cumm Hgb 12.6 11.9 - 15.5 g/dL [facility] Hct 37.6 35.6 - 45.5 % [facility] Plt 218 150 - 400 K/cumm [facility] MPV 11.7 9.1 - 12.3 fL [facility] RBC 4.49 3.90 - 5.20 M/cumm [facility] MCV 83.7 81.3 - 96.4 fL [facility] MCH 28.1 27.1 - 33.3 pg [facility] MCHC 33.5 32.3 - 35.7 g/dL [facility] RDW CV 14.0 11.1 - 14.9 % [facility] RDW SD 42.7 35.7 - 48.1 fL [facility] NRBC abs 0.00 0.00 - 0.01 K/cumm [facility] Blood 11/18/2024 1:58 AM SALESFORCE DEVELOPER 11/18/2024 2:41 AM SALESFORCE DEVELOPER us Bob Menard MD LAB BLOOD ORDERABLES Final R esult Performing Organization Address [facility] de Phone Number [facility] [place] [address] * ECG 12 lead (11/17/2024 1:06 PM SALESFORCE DEVELOPER) [facility] Ventricular Rate EKG/Min 80 BPM [facility] Atrial Rate 80 BPM [facility] RI-Interval (MSEC) 140 ms [facility] QRS-Interval (MSEC) 72 ms [facility] QT-Interval (MSEC) 372 ms [facility] QTc 429 ms [facility] P Gratis 59 degrees [facility] R Gratis -8 degrees [facility] T Gratis 55 degrees [facility] Diagnosis Normal sinus rhythm Normal ECG No previous ECGs available Confirmed by ALLI SEWELL M.D ([id number]) on 11/18/2024 9:02:09 AM [facility] 11/17/2024 1:06 PM SALESFORCE DEVELOPER 11/18/2024 9:02 AM SALESFORCE DEVELOPER us Micheline Riggs MD ECG ORDERABLES Final Result Performing Organization Address [facility] Phone Number [facility] * Cytomegalovirus (CMV) DNA PCR, quantitative Blood (11/17/2024 12:49 PM SALESFORCE DEVELOPER) [facility] CMV DNA Not Detected [facility] Comment: Interpretive Data: The quantifiable range of this assay is 34 IUnits/mL to 10,000,000 IUnits/mL (1.53 log IUnits/mL to 7.0 log IUnits/mL). Testing was performed by the [employer] CMV Test ([employer] Testing performed at [facility]. Current interpretive data was last revised on 2021. Blood 11/17/2024 12:4 9 PM SALESFORCE DEVELOPER 11/17/2024 1:01 PM SALESFORCE DEVELOPER us Bob Menard MD LAB MICROBIOLOGY - GENERAL O RDERABLES Final Result Performing Organization Address [facility]/State/ZIP Co de Phone Number [facility] [place] [address] [facility] * Immunoglobulin profile (11/17/2024 12:49 PM SALESFORCE DEVELOPER) [facility] Immunoglobulin G 1,193 700 - 1,600 mg/dL Immunoglobulin A 217 70 - 400 mg/dL [facility] Immunoglobulin M 60 40 - 230 mg/dL [facility] Blood 11/17/2024 12:4 9 PM SALESFORCE DEVELOPER 11/17/2024 1:06 PM SALESFORCE DEVELOPER Bob Menard MD LAB BLOOD ORDERABLES Final R esult [facility] [place] [address] * Respiratory pathogen panel Nasopharyngeal (11/17/2024 12:49 PM SALESFORCE DEVELOPER) [facility] Influenza A RNA Not Detected Not Detected Influenza B RNA Not Detected Not Detected [facility] RSV RNA Not Detected Not Detected [facility] COVID-19 RNA Not Detected Not Detected [facility] Coronavirus 229E RNA Not Detected Not Detected [facility] Coronavirus HKU1 RNA Not Detected Not Detected [facility] Coronavirus NL63 RNA Not Detected Not Detected [facility] Coronavirus OC43 RNA Not Detected Not Detected [facility] Adenovirus DNA Not Detected Not Detected [facility] Metapneumovirus RNA Not Detected Not Detected [facility] Rhinovirus/Enterov irus RNA Not Detected Not Detected [facility] Parainfluenza 1 RNA Not Detected Not Detected [facility] Parainfluenza 2 RNA Not Detected Not Detected [facility] Parainfluenza 3 RNA Not Detected Not Detected [facility] Parainfluenza 4 RNA Not Detected Not Detected [facility] B. pertussis DNA Not Detected Not Detected [facility] B. parapertussis DNA Not Detected Not Detected [facility] C. pneumoniae DNA Not Detected Not Detected [facility] M. pneumoniae DNA Not Detected Not Detected [facility] Nasopharyngeal 11/17/2024 12 :49 PM SALESFORCE DEVELOPER 11/17/2024 1:00 PM SALESFORCE DEVELOPER [place] [facility]LOS [facility] - 11/17/2024 2:25 PM SALESFORCE DEVELOPER Is the Patient experiencing symptoms consistent with COVID?->No Surveillance testing for transplant patient?->No Interpretive Data The [employer] Respiratory Panel (RP2.1) assay is a [...] assay has FDA clearance for testing of INSULATION CUPOLA CHARGER swabs. The performance of additional specimen types has been assessed by the performing laboratory. The performance characteristics of this assay have been determined by [facility] Molecular Infectious Disease Laboratory. Current interpretive data was last revised on 22. Micheline Riggs MD LAB MICROBIOLOGY - GENERAL ORD ERABLES Final Result [facility] [place] [address] * Hepatitis B core antibody, total Blood (11/17/2024 12:49 PM SALESFORCE DEVELOPER) Hep B core IgG/IgM Nonreactive Nonreactive Blood 11/17/2024 12:4 9 PM SALESFORCE DEVELOPER 11/17/2024 1:06 PM SALESFORCE DEVELOPER Bob Menard MD LAB MICROBIOLOGY - GENERAL O RDERABLES Final Result Performing Organization Address [facility] Co de Phone Number [facility] [place] [address] * Hepatitis B surface antibody (immune status) Blood (11/17/2024 12:49 PM SALESFORCE DEVELOPER) HBsAb (immune status) Nonreactive Comment:This result is consi stent with a lack of immunity to Hepatitis B Virus when used in the setting of routine screening. Current interpretative data was last revised on 22 Blood 11/17/2024 12:4 9 PM SALESFORCE DEVELOPER 11/17/2024 1:06 PM SALESFORCE DEVELOPER us Bob Menard MD LAB MICROBIOLOGY - GENERAL O RDERABLES Final Result Performing Organization Address City/[facility]/[place] [address] * Fibrinogen (11/17/2024 12:49 PM SALESFORCE DEVELOPER) Fibrinogen 316 170 - 400 mg/dL Blood 11/17/2024 12:4 9 PM SALESFORCE DEVELOPER 11/17/2024 1:24 PM SALESFORCE DEVELOPER Bob Menard MD LAB BLOOD ORDERABLES Final R esult Performing Organization Address City/[facility] Co de Phone Number [facility] MATTA Evelia [facility] [place] [address] * (ABNORMAL) D-dimer, quantitative (11/17/2024 12:49 PM SALESFORCE DEVELOPER) D-Dimer 1,720(H) <=499 ng/mL FEU Comment: Interpretive [...] 68, VTE cut-off 680 ng/ml FEU. References; Schouten HT et al. Brit Med J. 2013;346:f2492. Kamryn FAY et al. Annals Int Med. 2015;163:701-11. Current interpretive data was last revised on 2019. Blood 11/17/2024 12:4 9 PM SALESFORCE DEVELOPER 11/17/2024 1:24 PM SALESFORCE DEVELOPER Bob Menard MD LAB BLOOD ORDERABLES Final R esult Performing Organization Address City/[facility] Co de Phone Number BREANNA MATTA Evelia [facility] [place] [address] * (ABNORMAL) CRP (acute phase) (11/17/2024 12:49 PM SALESFORCE DEVELOPER) CRP 15.5(H) <=10.0 mg/L Blood 11/17/2024 12:4 9 PM SALESFORCE DEVELOPER 11/17/2024 1:06 PM SALESFORCE DEVELOPER Bob Menard MD LAB BLOOD ORDERABLES Final R esult Performing Organization Address City/[facility] Co de Phone Number [facility] [place] [address] * Lipase (11/17/2024 12:49 PM SALESFORCE DEVELOPER) Lipase 26 10 - 99 Units/L Blood 11/17/2024 12:4 9 PM SALESFORCE DEVELOPER 11/17/2024 1:06 PM SALESFORCE DEVELOPER Bob Meanrd MD LAB BLOOD ORDERABLES Final R esult Performing Organization Address [facility] [place] [address] * Gamma GT (11/17/2024 12:49 PM SALESFORCE DEVELOPER) Pathologist [facility] GGT 15 5 - 35 Units/L Blood 11/17/2024 12:4 9 PM SALESFORCE DEVELOPER 11/17/2024 1:06 PM SALESFORCE DEVELOPER Bob Menard MD LAB BLOOD ORDERABLES Final R esult Performing Organization Address [facility] Co de Phone Number [facility] [place] [address] * (ABNORMAL) Ferritin (11/17/2024 12:49 PM SALESFORCE DEVELOPER) Pathologist [facility] Ferritin 283(H) 13 - 150 ng/mL Blood 11/17/2024 12:4 9 PM SALESFORCE DEVELOPER 11/17/2024 1:06 PM SALESFORCE DEVELOPER Bob Menard MD LAB BLOOD ORDERABLES Final R esult Performing Organization Address [facility] Co de Phone Number [facility] [place] [address] * (ABNORMAL) Bilirubin, direct (11/17/2024 12:49 PM SALESFORCE DEVELOPER) Bilirubin, direct 0.4(H) 0.1 - 0.3 mg/dL Blood 11/17/2024 12:4 9 PM SALESFORCE DEVELOPER 11/17/2024 1:06 PM SALESFORCE DEVELOPER Bob Menard MD LAB BLOOD ORDERABLES Final R esult Performing Organization Address City/State/[facility] Co de Phone Number [facility] Department [place] [address] * Amylase (11/17/2024 12:49 PM SALESFORCE DEVELOPER) Amylase <30 30 - 99 Units/L Blood 11/17/2024 12:4 9 PM SALESFORCE DEVELOPER 11/17/2024 1:06 PM SALESFORCE DEVELOPER Bob Menard MD LAB BLOOD ORDERABLES Final R esult Performing Organization Address City/[facility] de Phone Number BREANNA [facility] Department [place] [address] * eGFR (11/17/2024 1:08 AM SALESFORCE DEVELOPER) eGFR >90 >=60 mL/min/1. 73 m2 Comment: [...] last reviewed 2021. Blood 11/17/2024 1:08 AM SALESFORCE DEVELOPER 11/17/2024 1:39 AM SALESFORCE DEVELOPER Gretel Brar MD LAB BLOOD ORDERABLES Sara l Result Performing Organization Address City/[facility]/ZIP Co de Phone Number [facility] [place] [address] * eGFR (11/17/2024 1:08 AM SALESFORCE DEVELOPER) eGFR >90 >=60 mL/min/1. 73 m2 Comment: [...] last reviewed 2021. Blood 11/17/2024 1:08 AM SALESFORCE DEVELOPER 11/17/2024 1:38 AM SALESFORCE DEVELOPER Gretel Brar MD LAB BLOOD ORDERABLES Sara l Result [facility] Department [place] [address] * Differential, auto (11/17/2024 1:08 AM SALESFORCE DEVELOPER) Neutrophil abs 3.5 1.5 - 6.5 K/cumm Imm gran abs 0.0 0.0 - 0.1 K/cumm [facility] Lymphocyte abs 0.9 0.8 - 3.3 K/cumm [facility] Monocyte abs 0.4 0.2 - 0.8 K/cumm [facility] Eosinophil abs 0.1 0.0 - 0.5 K/cumm [facility] Basophil abs 0.1 0.0 - 0.1 K/cumm [facility] Neutrophil pct 69.9 % [facility] Comment: Interpretive Data Percent cell count reference ranges are not reported, since discordance with absolute values may lead to misinterpretation of CBC data. Current Interpretive Data was last revised on 2017. Imm gran pct 0.4 % [facility] Comment: Interpretive Data Percent cell count reference ranges are not reported, since discordance with absolute values may lead to misinterpretation of CBC data. Current Interpretive Data was last revised on 2017. Lymphocyte pct 18.2 % [facility] Comment: Interpretive Data Percent cell count reference ranges are not reported, since discordance with absolute values may lead to misinterpretation of CBC data. Current Interpretive Data was last revised on 2017. Monocyte pct 8.5 % [facility] Comment: Interpretive Data Percent cell count reference ranges are not reported, since discordance with absolute values may lead to misinterpretation of CBC data. Current Interpretive Data was last revised on 2017. Eosinophil pct 2.0 % [facility] Comment: Interpretive Data Percent cell count reference ranges are not reported, since discordance with absolute values may lead to misinterpretation of CBC data. Current Interpretive Data was last revised on 2017. Basophil pct 1.0 % [facility] Comment: Interpretive Data Percent cell count reference ranges are not reported, since discordance with absolute values may lead to misinterpretation of CBC data. Current Interpretive Data was last revised on 2017. Blood 11/17/2024 1:08 AM SALESFORCE DEVELOPER 11/17/2024 1:38 AM SALESFORCE DEVELOPER us Janice Mendes MD LAB BLOOD ORDERABLES Final Result [facility] One [facility] [place] [address] * CBC with auto differential (11/17/2024 1:08 AM SALESFORCE DEVELOPER) [facility] WBC 5.0 3.8 - 9.9 K/cumm Hgb 13.3 11.9 - 15.5 g/dL [facility] Hct 40.4 35.6 - 45.5 % [facility] Plt 193 150 - 400 K/cumm [facility] MPV 11.6 9.1 - 12.3 fL [facility] RBC 4.72 3.90 - 5.20 M/cumm [facility] MCV 85.6 81.3 - 96.4 fL [facility] MCH 28.2 27.1 - 33.3 pg [facility] MCHC 32.9 32.3 - 35.7 g/dL [facility] RDW CV 14.0 11.1 - 14.9 % [facility] RDW SD 43.5 35.7 - 48.1 fL [facility] NRBC abs 0.00 0.00 - 0.01 K/cumm [facility] Blood 11/17/2024 1:08 AM SALESFORCE DEVELOPER 11/17/2024 1:38 AM SALESFORCE DEVELOPER Janice Mendes MD LAB BLOOD [place] [address] * Uric acid (11/17/2024 1:08 AM SALESFORCE DEVELOPER) [facility] Uric acid 4.3 2.5 - 7.0 mg/dL Blood 11/17/2024 1:08 AM SALESFORCE DEVELOPER 11/17/2024 1:39 AM SALESFORCE DEVELOPER Gretel Brar MD LAB BLOOD ORDERABLES Sara l Result [facility] [place] [address] * Phosphorus (11/17/2024 1:08 AM SALESFORCE DEVELOPER) Pathologist [facility] Phosphorus, pl 3.1 2.3 - 4.5 mg/dL Blood 11/17/2024 1:08 AM SALESFORCE DEVELOPER 11/17/2024 1:39 AM SALESFORCE DEVELOPER Gretel Brar MD LAB BLOOD ORDERABLES Sara l Result Performing Organization Address City/[facility]/ZIP Co de Phone Number [facility] Department [place] [address] * Magnesium (11/17/2024 1:08 AM SALESFORCE DEVELOPER) [facility] Magnesium 1.9 1.4 - 2.5 mg/dL Blood 11/17/2024 1:08 AM SALESFORCE DEVELOPER 11/17/2024 1:39 AM SALESFORCE DEVELOPER Janice Mendes MD LAB BLOOD ORDERABLES Final Result Performing Organization Address [facility] Co de Phone Number [facility] Department [place] [address] * Creatinine (11/17/2024 1:08 AM SALESFORCE DEVELOPER) [facility] Creatinine 0.70 0.60 - 1.10 mg/dL Blood 11/17/2024 1:08 AM SALESFORCE DEVELOPER 11/17/2024 1:38 AM SALESFORCE DEVELOPER Narrative [facility] - 11/17/2024 2:04 AM SALESFORCE DEVELOPER While on enoxaparin Gretel Brar MD LAB BLOOD ORDERABLES Sara l Result Performing Organization Address City/[facility] Co de Phone Number [facility] [place] [place] [address] * (ABNORMAL) Basic metabolic panel (11/17/2024 1:08 AM SALESFORCE DEVELOPER) Sodium 145 135 - 145 mmol/L Potassium, pl 3.7 3.3 - 4.9 mmol/L [facility] Chloride 103 97 - 110 mmol/L [facility] CO2 29 22 - 32 mmol/L [facility] Anion gap 13 2 - 15 mmol/L [facility] BUN 3(L) 6 - 25 mg/dL [facility] Creatinine 0.72 0.60 - 1.10 mg/dL [facility] Glucose 85 70 - 199 mg/dL [facility] Comment: Interpretive Data Fasting glucose >/= 126 [...] 2022. Calcium 9.3 8.5 - 10.3 mg/dL [facility] Blood 11/17/2024 1:08 AM SALESFORCE DEVELOPER 11/17/2024 1:39 AM SALESFORCE DEVELOPER us Gretel Brar MD LAB BLOOD ORDERABLES Sara thapa Result [facility] One [facility] Department [place] [address] * PET/CT FDG Skull to Thigh (11/16/2024 1:28 PM SALESFORCE DEVELOPER) Anatomical Region Laterality Modality N/A Positron Emissio n Tomography (PET) 11/16/2024 3:55 PM SALESFORCE DEVELOPER Impressions 11/16/2024 4:48 PM SALESFORCE DEVELOPER Large markedly hypermetabolic right thyroid mass consistent [...] Carbajal MD, Ph.D Narrative 11/16/2024 4:48 PM SALESFORCE DEVELOPER EXAMINATION: TUMOR FDG-PET/CT IMAGING DATE OF STUDY: 11/16/2024 SCANNER: [facility] [employer] RADIOPHARMACEUTICAL: 13.93 mCi F-18 Fluorodeoxyglucose (FDG) i.v. [...] obtained. The study was interpreted on the [employer] workstation. The mean liver SUV (reported for clinical quality rn purposes) is 2.3. The total scanned area [...] FDG-PET/CT IMAGING DATE OF STUDY: 11/16/2024 SCANNER: [facility] RADIOPHARMACEUTICAL: 13.93 mCi F-18 Fluorodeoxyglucose (FDG) [...] obtained. The study was interpreted on the [employer] workstation. The mean liver SUV (reported for clinical quality rn purposes) is 2.3. The total scanned area [...] Rodrick Carbajal MD, Ph.D Gretel Brar MD IMG PET PROCEDURES Final Result * eGFR (11/16/2024 1:24 AM SALESFORCE DEVELOPER) eGFR >90 >=60 mL/min/1. 73 m2 Comment: [...] last reviewed 2021. Blood 11/16/2024 1:24 AM SALESFORCE DEVELOPER 11/16/2024 1:35 AM SALESFORCE DEVELOPER Gretel Brar MD LAB BLOOD ORDERABLES Sara l Result [facility] One [facility] Department [place] [address] * Differential, auto (11/16/2024 1:24 AM SALESFORCE DEVELOPER) Neutrophil abs 3.1 1.5 - 6.5 K/cumm Imm gran abs 0.0 0.0 - 0.1 K/cumm [facility] Lymphocyte abs 0.9 0.8 - 3.3 K/cumm [facility] Monocyte abs 0.4 0.2 - 0.8 K/cumm [facility] Eosinophil abs 0.1 0.0 - 0.5 K/cumm [facility] Basophil abs 0.1 0.0 - 0.1 K/cumm [facility] Neutrophil pct 66.6 % [facility] Comment: Interpretive Data Percent cell count reference ranges are not reported, since discordance with absolute values may lead to misinterpretation of CBC data. Current Interpretive Data was last revised on 2017. Imm gran pct 0.2 % [facility] Comment: Interpretive Data Percent cell count reference ranges are not reported, since discordance with absolute values may lead to misinterpretation of CBC data. Current Interpretive Data was last revised on 2017. Lymphocyte pct 19.6 % [facility] Comment: Interpretive Data Percent cell count reference ranges are not reported, since discordance with absolute values may lead to misinterpretation of CBC data. Current Interpretive Data was last revised on 2017. Monocyte pct 9.3 % [facility] Comment: Interpretive Data Percent cell count reference ranges are not reported, since discordance with absolute values may lead to misinterpretation of CBC data. Current Interpretive Data was last revised on 2017. Eosinophil pct 3.0 % [facility] Comment: Interpretive Data Percent cell count reference ranges are not reported, since discordance with absolute values may lead to misinterpretation of CBC data. Current Interpretive Data was last revised on 2017. Basophil pct 1.3 % [facility] Comment: Interpretive Data Percent cell count reference ranges are not reported, since discordance with absolute values may lead to misinterpretation of CBC data. Current Interpretive Data was last revised on 2017. Blood 11/16/2024 1:24 AM SALESFORCE DEVELOPER 11/16/2024 1:35 AM SALESFORCE DEVELOPER us Janice Mendes MD LAB BLOOD ORDERABLES Final Result [facility] One [facility] Department [place] [address] * CBC with auto differential (11/16/2024 1:24 AM SALESFORCE DEVELOPER) WBC 4.6 3.8 - 9.9 K/cumm Hgb 12.7 11.9 - 15.5 g/dL [facility] Hct 38.5 35.6 - 45.5 % [facility] Plt 191 150 - 400 K/cumm [facility] MPV 11.6 9.1 - 12.3 fL [facility] RBC 4.54 3.90 - 5.20 M/cumm [facility] MCV 84.8 81.3 - 96.4 fL [facility] MCH 28.0 27.1 - 33.3 pg [facility] MCHC 33.0 32.3 - 35.7 g/dL [facility] RDW CV 14.2 11.1 - 14.9 % [facility] RDW SD 43.5 35.7 - 48.1 fL [facility] NRBC abs 0.00 0.00 - 0.01 K/cumm [facility] Blood 11/16/2024 1:24 AM SALESFORCE DEVELOPER 11/16/2024 1:35 AM SALESFORCE DEVELOPER Janice Mendes MD LAB BLOOD ORDERABLES Final Result [facility] [place] [address] * Uric acid (11/16/2024 1:24 AM SALESFORCE DEVELOPER) Uric acid 4.6 2.5 - 7.0 mg/dL Blood 11/16/2024 1:24 AM SALESFORCE DEVELOPER 11/16/2024 1:35 AM SALESFORCE DEVELOPER Gretel Brar MD LAB BLOOD ORDERABLES Sara l Result [facility] [place] [address] * Phosphorus (11/16/2024 1:24 AM SALESFORCE DEVELOPER) Phosphorus, pl 2.8 2.3 - 4.5 mg/dL Blood 11/16/2024 1:24 AM SALESFORCE DEVELOPER 11/16/2024 1:35 AM SALESFORCE DEVELOPER us Gretel Brar MD LAB BLOOD ORDERABLES Sara l Result Performing Organization Address [facility] Co de Phone Number [facility] [place] [address] * Magnesium (11/16/2024 1:24 AM SALESFORCE DEVELOPER) [facility] Magnesium 1.8 1.4 - 2.5 mg/dL Blood 11/16/2024 1:24 AM SALESFORCE DEVELOPER 11/16/2024 1:35 AM SALESFORCE DEVELOPER Janice Mendes MD LAB BLOOD ORDERABLES Final Result Performing Organization Address [facility] [place] [address] * (ABNORMAL) Lactate dehydrogenase (LD) (11/16/2024 1:24 AM SALESFORCE DEVELOPER) [facility] Lactate dehydrogenase (LDH) 288(H) 100 - 250 Units/L Blood 11/16/2024 1:24 AM SALESFORCE DEVELOPER 11/16/2024 1:35 AM SALESFORCE DEVELOPER Gretel Brar MD LAB BLOOD ORDERABLES Sara l Result Performing Organization Address [facility] [place] [address] * (ABNORMAL) Basic metabolic panel (11/16/2024 1:24 AM SALESFORCE DEVELOPER) [facility] Sodium 144 135 - 145 mmol/L Potassium, pl 3.5 3.3 - 4.9 mmol/L [facility] Chloride 104 97 - 110 mmol/L [facility] CO2 27 22 - 32 mmol/L [facility] Anion gap 13 2 - 15 mmol/L [facility] BUN 3(L) 6 - 25 mg/dL [facility] Creatinine 0.66 0.60 - 1.10 mg/dL [facility] Glucose 86 70 - 199 mg/dL [facility] Comment: Interpretive Data Fasting glucose >/= 126 [...] 2022. Calcium 9.1 8.5 - 10.3 mg/dL [facility] Blood 11/16/2024 1:24 AM SALESFORCE DEVELOPER 11/16/2024 1:35 AM SALESFORCE DEVELOPER Gretel Brar MD LAB BLOOD ORDERABLES Sara l Result [facility] One [facility] [place] [address] * eGFR (11/15/2024 12:45 AM SALESFORCE DEVELOPER) eGFR >90 >=60 mL/min/1. 73 m2 Comment: [...] reviewed 2021. Blood 11/15/2024 12:4 5 AM SALESFORCE DEVELOPER 11/15/2024 12:59 AM SALESFORCE DEVELOPER Gretel Brar MD LAB BLOOD ORDERABLES Sara l Result [facility] One [facility] Department [place] [address] * Differential, auto (11/15/2024 12:45 AM SALESFORCE DEVELOPER) Neutrophil abs 3.2 1.5 - 6.5 K/cumm Imm gran abs 0.0 0.0 - 0.1 K/cumm [facility] Lymphocyte abs 0.9 0.8 - 3.3 K/cumm [facility] Monocyte abs 0.4 0.2 - 0.8 K/cumm [facility] Eosinophil abs 0.1 0.0 - 0.5 K/cumm [facility] Basophil abs 0.1 0.0 - 0.1 K/cumm [facility] Neutrophil pct 68.0 % [facility] Comment: Interpretive Data Percent cell count reference ranges are not reported, since discordance with absolute values may lead to misinterpretation of CBC data. Current Interpretive Data was last revised on 2017. Imm gran pct 0.2 % [facility] Comment: Interpretive Data Percent cell count reference ranges are not reported, since discordance with absolute values may lead to misinterpretation of CBC data. Current Interpretive Data was last revised on 2017. Lymphocyte pct 19.5 % [facility] Comment: Interpretive Data Percent cell count reference ranges are not reported, since discordance with absolute values may lead to misinterpretation of CBC data. Current Interpretive Data was last revised on 2017. Monocyte pct 8.8 % [facility] Comment: Interpretive Data Percent cell count reference ranges are not reported, since discordance with absolute values may lead to misinterpretation of CBC data. Current Interpretive Data was last revised on 2017. Eosinophil pct 2.4 % [facility] Comment: Interpretive Data Percent cell count reference ranges are not reported, since discordance with absolute values may lead to misinterpretation of CBC data. Current Interpretive Data was last revised on 2017. Basophil pct 1.1 % [facility] Comment: Interpretive Data Percent cell count reference ranges are not reported, since discordance with absolute values may lead to misinterpretation of CBC data. Current Interpretive Data was last revised on 2017. Blood 11/15/2024 12:4 5 AM SALESFORCE DEVELOPER 11/15/2024 12:58 AM SALESFORCE DEVELOPER Janice Mendes MD LAB BLOOD ORDERABLES Final Result [facility] One [facility] [place] [address] * (ABNORMAL) CBC with auto differential (11/15/2024 12:45 AM SALESFORCE DEVELOPER) WBC 4.7 3.8 - 9.9 K/cumm Hgb 11.8(L) 11.9 - 15.5 g/dL [facility] Hct 35.4(L) 35.6 - 45.5 % [facility] Plt 180 150 - 400 K/cumm [facility] MPV 11.4 9.1 - 12.3 fL [facility] RBC 4.21 3.90 - 5.20 M/cumm [facility] MCV 84.1 81.3 - 96.4 fL [facility] MCH 28.0 27.1 - 33.3 pg [facility] MCHC 33.3 32.3 - 35.7 g/dL [facility] RDW CV 13.9 11.1 - 14.9 % [facility] RDW SD 43.0 35.7 - 48.1 fL [facility] NRBC abs 0.00 0.00 - 0.01 K/cumm [facility] Blood 11/15/2024 12:4 5 AM SALESFORCE DEVELOPER 11/15/2024 12:58 AM SALESFORCE DEVELOPER Janice Mendes MD LAB BLOOD ORDERABLES Final Result Performing Organization Address [facility] Co de Phone Number [facility] [place] [address] * Uric acid (11/15/2024 12:45 AM SALESFORCE DEVELOPER) Uric acid 6.1 2.5 - 7.0 mg/dL Blood 11/15/2024 12:4 5 AM SALESFORCE DEVELOPER 11/15/2024 12:59 AM SALESFORCE DEVELOPER Result [facility] Gretel Brar MD LAB BLOOD ORDERABLES Sara l Result Performing Organization Address [facility] de Phone Number [facility] [place] [address] * Phosphorus (11/15/2024 12:45 AM SALESFORCE DEVELOPER) Phosphorus, pl 2.5 2.3 - 4.5 mg/dL Blood 11/15/2024 12:4 5 AM SALESFORCE DEVELOPER 11/15/2024 12:59 AM SALESFORCE DEVELOPER Result [facility] Gretel Brar MD LAB BLOOD ORDERABLES Sara l Result Performing Organization Address [facility] Co de Phone Number [facility] [place] [address] * Magnesium (11/15/2024 12:45 AM SALESFORCE DEVELOPER) Magnesium 1.6 1.4 - 2.5 mg/dL Blood 11/15/2024 12:4 5 AM SALESFORCE DEVELOPER 11/15/2024 12:59 AM SALESFORCE DEVELOPER Janice Mendes MD LAB BLOOD ORDERABLES Final Result Performing Organization Address City/[facility] Co de Phone Number [facility] [place] [address] * Lactate dehydrogenase (LD) (11/15/2024 12:45 AM SALESFORCE DEVELOPER) Pathologist [facility] Lactate dehydrogenase (LDH) 223 100 - 250 Units/L Blood 11/15/2024 12:4 5 AM SALESFORCE DEVELOPER 11/15/2024 12:59 AM SALESFORCE DEVELOPER Gretel Brar MD LAB BLOOD ORDERABLES Sara l Result Performing Organization Address City/[facility]/ZIP Co de Phone Number [facility] [place] [address] * Haptoglobin (11/15/2024 12:45 AM SALESFORCE DEVELOPER) [facility] Haptoglobin 79.0 30.0 - 200.0 mg/dL Blood 11/15/2024 12:4 5 AM SALESFORCE DEVELOPER 11/15/2024 12:59 AM SALESFORCE DEVELOPER Janice Mendes MD LAB BLOOD ORDERABLES Final Result Performing Organization Address [facility] de Phone Number [facility] [place] [address] * (ABNORMAL) Basic metabolic panel (11/15/2024 12:45 AM SALESFORCE DEVELOPER) [facility] Sodium 144 135 - 145 mmol/L Potassium, pl 3.1(L) 3.3 - 4.9 mmol/L [facility] Chloride 104 97 - 110 mmol/L [facility] CO2 28 22 - 32 mmol/L [facility] Anion gap 12 2 - 15 mmol/L [facility] BUN 3(L) 6 - 25 mg/dL [facility] Creatinine 0.62 0.60 - 1.10 mg/dL [facility] Glucose 85 70 - 199 mg/dL [facility] Comment: Interpretive Data Fasting glucose >/= 126 [...] 2022. Calcium 8.7 8.5 - 10.3 mg/dL [facility] Blood 11/15/2024 12:4 5 AM SALESFORCE DEVELOPER 11/15/2024 12:59 AM SALESFORCE DEVELOPER Gretel Brar MD LAB BLOOD ORDERABLES Sara l Result Performing Organization Address City/[facility]/ZIP Co de Phone Number [facility] [place] [address] * eGFR (11/14/2024 5:37 PM SALESFORCE DEVELOPER) eGFR >90 >=60 mL/min/1. 73 m2 Comment: [...] last reviewed 2021. Blood 11/14/2024 5:37 PM SALESFORCE DEVELOPER 11/14/2024 5:53 PM SALESFORCE DEVELOPER Gretel Brar MD LAB BLOOD ORDERABLES Sara l Result [facility] [place] [address] * aPTT (11/14/2024 5:37 PM SALESFORCE DEVELOPER) aPTT 33 28 - 38 sec Comment: Interpretive Data Heparin therapeutic range: 66.0 - 100.0 seconds. Range based on correlation with therapeutic heparin activity range of 0.3 - 0.7 Units/mL. Current interpretive data was last revised on 2023. Blood 11/14/2024 5:37 PM SALESFORCE DEVELOPER 11/14/2024 5:57 PM SALESFORCE DEVELOPER Narrative [facility] - 11/14/2024 6:20 PM SALESFORCE DEVELOPER Baseline prior to enoxaparin initiation. us Gretel Brar MD LAB BLOOD ORDERABLES Sara l Result Performing Organization Address [facility] Phone Number [facility] [place] [address] * (ABNORMAL) Protime-INR (11/14/2024 5:37 PM SALESFORCE DEVELOPER) PT 13.6(H) 9.7 - 13.0 sec INR 1.25(H) 0.90 - 1.20 [facility] Comment: Interpretive data Oral anticoagulant therapeutic ranges: Venous thromboembolism prophylaxis or treatment: 2.0-3.0 CARDIOLOGY Standard range: 2.0-3.0 High-intensity range: 2.5-3.5 Refer to indication-specific guidelines for appropriate target ranges for prosthetic heart valve replacement. Current interpretive data was last revised on 2019. Blood 11/14/2024 5:37 PM SALESFORCE DEVELOPER 11/14/2024 5:57 PM SALESFORCE DEVELOPER [facility]ative [facility] - 11/14/2024 6:20 PM SALESFORCE DEVELOPER Baseline prior to enoxaparin initiation. us Gretel Brar MD LAB BLOOD ORDERABLES Sara l Result Performing Organization Address [facility] de Phone Number [facility] [place] [address] * CBC without differential (11/14/2024 5:37 PM SALESFORCE DEVELOPER) WBC 5.4 3.8 - 9.9 K/cumm Hgb 13.2 11.9 - 15.5 g/dL [facility] Hct 39.5 35.6 - 45.5 % [facility] Plt 202 150 - 400 K/cumm [facility] MPV 11.5 9.1 - 12.3 fL [facility] RBC 4.65 3.90 - 5.20 M/cumm [facility] MCV 84.9 81.3 - 96.4 fL [facility] MCH 28.4 27.1 - 33.3 pg [facility] MCHC 33.4 32.3 - 35.7 g/dL [facility] RDW CV 13.9 11.1 - 14.9 % [facility] RDW SD 42.7 35.7 - 48.1 fL [facility] NRBC abs 0.00 0.00 - 0.01 K/cumm [facility] Blood 11/14/2024 5:37 PM SALESFORCE DEVELOPER 11/14/2024 5:53 PM SALESFORCE DEVELOPER Narrative [facility] - 11/14/2024 6:03 PM SALESFORCE DEVELOPER Baseline prior to enoxaparin initiation. Gretel Brar MD LAB BLOOD ORDERABLES Sara l Result [facility] [place] [address] * Creatinine (11/14/2024 5:37 PM SALESFORCE DEVELOPER) Pathologist [facility] Creatinine 0.70 0.60 - 1.10 mg/dL Blood 11/14/2024 5:37 PM SALESFORCE DEVELOPER 11/14/2024 5:53 PM SALESFORCE DEVELOPER Narrative [facility] - 11/14/2024 6:23 PM SALESFORCE DEVELOPER Baseline prior to enoxaparin initiation. us Gretel Brar MD LAB BLOOD ORDERABLES Sara thapa Result BREANNA [facility] [place] [address] * US Internal Jugular Vein for Clot (C) (11/14/2024 11:41 AM SALESFORCE DEVELOPER) Anatomical Region Laterality Modality Vascular Left Ultrasound 11/14/2024 11:4 5 AM SALESFORCE DEVELOPER Impressions 11/14/2024 11:45 AM SALESFORCE DEVELOPER 1. No detectable flow in the right internal jugular vein in the area of the known mass. However, on the recent CT, it is patent just above the junction with the right subclavian vein centrally. Electronically signed by: Gage Alston M.D. Narrative 11/14/2024 11:45 AM SALESFORCE DEVELOPER EXAMINATION: US INTERNAL JUGULAR VEIN FOR CLOT [...] centrally. Electronically signed by: Gage Alston M.D. us Gretel Brar MD IMG US PROCEDURES Final R esult * eGFR (11/14/2024 12:48 AM SALESFORCE DEVELOPER) Pathologist [facility] eGFR >90 >=60 mL/min/1. 73 m2 Comment: [...] reviewed 2021. Blood 11/14/2024 12:4 8 AM SALESFORCE DEVELOPER 11/14/2024 1:07 AM SALESFORCE DEVELOPER Janice Mendes MD LAB BLOOD ORDERABLES Final Result [facility] [place] [address] * Differential, auto (11/14/2024 12:48 AM SALESFORCE DEVELOPER) Pathologist [facility] Neutrophil abs 4.2 1.5 - 6.5 K/cumm Imm gran abs 0.0 0.0 - 0.1 K/cumm [facility] Lymphocyte abs 0.9 0.8 - 3.3 K/cumm [facility] Monocyte abs 0.3 0.2 - 0.8 K/cumm [facility] Eosinophil abs 0.1 0.0 - 0.5 K/cumm [facility] Basophil abs 0.1 0.0 - 0.1 K/cumm [facility] Neutrophil pct 75.5 % [facility] Comment: Interpretive Data Percent cell count reference ranges are not reported, since discordance with absolute values may lead to misinterpretation of CBC data. Current Interpretive Data was last revised on 2017. Imm gran pct 0.4 % [facility] Comment: Interpretive Data Percent cell count reference ranges are not reported, since discordance with absolute values may lead to misinterpretation of CBC data. Current Interpretive Data was last revised on 2017. Lymphocyte pct 15.6 % [facility] Comment: Interpretive Data Percent cell count reference ranges are not reported, since discordance with absolute values may lead to misinterpretation of CBC data. Current Interpretive Data was last revised on 2017. Monocyte pct 5.8 % [facility] Comment: Interpretive Data Percent cell count reference ranges are not reported, since discordance with absolute values may lead to misinterpretation of CBC data. Current Interpretive Data was last revised on 2017. Eosinophil pct 1.8 % [facility] Comment: Interpretive Data Percent cell count reference ranges are not reported, since discordance with absolute values may lead to misinterpretation of CBC data. Current Interpretive Data was last revised on 2017. Basophil pct 0.9 % [facility] Comment: Interpretive Data Percent cell count reference ranges are not reported, since discordance with absolute values may lead to misinterpretation of CBC data. Current Interpretive Data was last revised on 2017. Blood 11/14/2024 12:4 8 AM SALESFORCE DEVELOPER 11/14/2024 1:09 AM SALESFORCE DEVELOPER us Janice Mendes MD LAB BLOOD ORDERABLES Final Result [facility] [place] [address] * CBC with auto differential (11/14/2024 12:48 AM SALESFORCE DEVELOPER) WBC 5.6 3.8 - 9.9 K/cumm Hgb 12.2 11.9 - 15.5 g/dL [facility] Hct 35.9 35.6 - 45.5 % [facility] Plt 202 150 - 400 K/cumm [facility] MPV 11.8 9.1 - 12.3 fL [facility] RBC 4.29 3.90 - 5.20 M/cumm [facility] MCV 83.7 81.3 - 96.4 fL [facility] MCH 28.4 27.1 - 33.3 pg [facility] MCHC 34.0 32.3 - 35.7 g/dL [facility] RDW CV 14.1 11.1 - 14.9 % [facility] RDW SD 42.8 35.7 - 48.1 fL [facility] NRBC abs 0.00 0.00 - 0.01 K/cumm [facility] Blood 11/14/2024 12:4 8 AM SALESFORCE DEVELOPER 11/14/2024 1:09 AM SALESFORCE DEVELOPER Janice Mendes MD LAB BLOOD ORDERABLES Final Result Performing Organization Address City/[facility]/ZIP Co de Phone Number [facility] [place] [address] * (ABNORMAL) Uric acid (11/14/2024 12:48 AM SALESFORCE DEVELOPER) Pathologist [facility] Uric acid 8.2(H) 2.5 - 7.0 mg/dL Blood 11/14/2024 12:4 8 AM SALESFORCE DEVELOPER 11/14/2024 1:00 AM SALESFORCE DEVELOPER Janice Mendes MD LAB BLOOD ORDERABLES Final Result [facility] [place] [address] * Phosphorus (11/14/2024 12:48 AM SALESFORCE DEVELOPER) Phosphorus, pl 2.5 2.3 - 4.5 mg/dL Blood 11/14/2024 12:4 8 AM SALESFORCE DEVELOPER 11/14/2024 1:00 AM SALESFORCE DEVELOPER us Janice Mendes MD LAB BLOOD ORDERABLES Final Result Performing Organization Address [facility] [place] [address] * Magnesium (11/14/2024 12:48 AM SALESFORCE DEVELOPER) Magnesium 1.7 1.4 - 2.5 mg/dL Blood 11/14/2024 12:4 8 AM SALESFORCE DEVELOPER 11/14/2024 1:00 AM SALESFORCE DEVELOPER us Gretel Brar MD LAB BLOOD ORDERABLES Sara l Result Performing Organization Address [facility] [place] [address] * (ABNORMAL) Lactate dehydrogenase (LD) (11/14/2024 12:48 AM SALESFORCE DEVELOPER) Lactate dehydrogenase (LDH) 251(H) 100 - 250 Units/L Blood 11/14/2024 12:4 8 AM SALESFORCE DEVELOPER 11/14/2024 1:00 AM SALESFORCE DEVELOPER Janice Mendes MD LAB BLOOD ORDERABLES Final Result Performing Organization Address [facility] de Phone Number [facility] [place] [address] * Haptoglobin (11/14/2024 12:48 AM SALESFORCE DEVELOPER) Haptoglobin 77.0 30.0 - 200.0 mg/dL Blood 11/14/2024 12:4 8 AM SALESFORCE DEVELOPER 11/14/2024 1:00 AM SALESFORCE DEVELOPER us Gretel Brar MD LAB BLOOD ORDERABLES Sara l Result Performing Organization Address City/[facility] Co de Phone Number [facility] [place] [place] [address] * Basic metabolic panel (11/14/2024 12:48 AM SALESFORCE DEVELOPER) Sodium 143 135 - 145 mmol/L Potassium, pl 3.5 3.3 - 4.9 mmol/L [facility] Chloride 106 97 - 110 mmol/L [facility] CO2 26 22 - 32 mmol/L [facility] Anion gap 11 2 - 15 mmol/L [facility] BUN 8 6 - 25 mg/dL [facility] Creatinine 0.65 0.60 - 1.10 mg/dL [facility] Glucose 104 70 - 199 mg/dL [facility] Comment: Interpretive Data Fasting glucose >/= 126 [...] 2022. Calcium 8.7 8.5 - 10.3 mg/dL [facility] Blood 11/14/2024 12:4 8 AM SALESFORCE DEVELOPER 11/14/2024 1:00 AM SALESFORCE DEVELOPER Janice Mendes MD LAB BLOOD ORDERABLES Final Result [facility] [place] [address] * eGFR (11/13/2024 7:19 PM SALESFORCE DEVELOPER) Pathologist [facility] eGFR >90 >=60 mL/min/1. 73 m2 Comment: [...] last reviewed 2021. Blood 11/13/2024 7:19 PM SALESFORCE DEVELOPER 11/13/2024 7:45 PM SALESFORCE DEVELOPER Janice Mendes MD LAB BLOOD ORDERABLES Final Result Performing Organization Address [facility] Phone Number [facility] [place] [address] * (ABNORMAL) Uric acid (11/13/2024 7:19 PM SALESFORCE DEVELOPER) Uric acid 8.6(H) 2.5 - 7.0 mg/dL Blood 11/13/2024 7:19 PM SALESFORCE DEVELOPER 11/13/2024 7:37 PM SALESFORCE DEVELOPER Janice Mendes MD LAB BLOOD ORDERABLES Final Result Performing Organization Address [facility] de Phone Number [facility] [place] [address] * Phosphorus (11/13/2024 7:19 PM SALESFORCE DEVELOPER) Phosphorus, pl 2.3 2.3 - 4.5 mg/dL Blood 11/13/2024 7:19 PM SALESFORCE DEVELOPER 11/13/2024 7:37 PM SALESFORCE DEVELOPER Janice Mendes MD LAB BLOOD ORDERABLES Final Result [facility] [place] [address] * Lactate dehydrogenase (LD) (11/13/2024 7:19 PM SALESFORCE DEVELOPER) [facility] Lactate dehydrogenase (LDH) 223 100 - 250 Units/L Blood 11/13/2024 7:19 PM SALESFORCE DEVELOPER 11/13/2024 7:37 PM SALESFORCE DEVELOPER Janice Mendes MD LAB BLOOD ORDERABLES Final Result Performing Organization Address City/State/[facility] Co de Phone Number [facility] [place] [address] * Basic metabolic panel (11/13/2024 7:19 PM SALESFORCE DEVELOPER) [facility] Sodium 144 135 - 145 mmol/L Potassium, pl 3.7 3.3 - 4.9 mmol/L [facility] Chloride 106 97 - 110 mmol/L [facility] CO2 27 22 - 32 mmol/L [facility] Anion gap 11 2 - 15 mmol/L [facility] BUN 9 6 - 25 mg/dL [facility] Creatinine 0.71 0.60 - 1.10 mg/dL [facility] Glucose 101 70 - 199 mg/dL [facility] Comment: Interpretive Data Fasting glucose >/= 126 [...] 2022. Calcium 9.0 8.5 - 10.3 mg/dL [facility] Blood 11/13/2024 7:19 PM SALESFORCE DEVELOPER 11/13/2024 7:37 PM SALESFORCE DEVELOPER us Janice Mendes MD LAB BLOOD ORDERABLES Final Result [facility] [place] [address] * TRANSTHORACIC ECHO (TTE) COMPLETE W DOPPLER/CF WO CONTRAST (11/13/2024 3:38 PM SALESFORCE DEVELOPER) Anatomical Region Laterality Modality Ultrasound 11/13/2024 3:08 PM SALESFORCE DEVELOPER Narrative 11/13/2024 4:12 PM SALESFORCE DEVELOPER [facility] [place] [address] Transthoracic Echocardiographic Report Patient Name: CAT HANCOCK L : 1960 (64y 7m) Gender: F Study Date: 11/13/2024 03:08:34 PM Ht(Inch): 60 Wt(Lb): 147.05 BSA: 1.68 Waxing Machine Operator: Nadya [place] Location: [id number] Order Provider: JACOB LUBIN Heart Rate: 76 BMI: 28.72 BP: 139 / 75 Quality: The study images were of technically good quality. Ref Provider: JACOB LUBIN PROCEDURES: Echocardiographic Report: [id number]) Transthoracic complete echo with strain imaging, 2D, [...] By: Rell Swann MD 11/13/2024 4:12:31 PM SALESFORCE DEVELOPER Electronically Signed By: Rell Swann MD 11/13/2024 4:12:31 PM SALESFORCE DEVELOPER Procedure Note Rell Swann MD - 11/13/2024 [facility] [place] [address] Transthoracic Echocardiographic Report Patient Name: CAT HANCOCK L : 1960 (64y 7m) Gender: F Study Date: 11/13/2024 03:08:34 PM Ht(Inch): 60 Wt(Lb): 147.05 BSA: 1.68 Waxing Machine Operator: Nadya [place] Location: [id number] Order Provider:JACOB LUBIN Heart Rate: 76 BMI: 28.72 BP: 139 / 75 Quality: The study images were oftechnically good quality. Ref Provider: JACOB LUBIN PROCEDURES: Echocardiographic Report: ([id number]) Transthoracic complete echo withstrain imaging, 2D, spectral [...] LA Length 2C 4.96 cm MV Decel Cvdz049.90 msec [ 104.00 - 258.00 ] LA [...] cm [ 1.71 - 5.00 ] RA Inemdw32.02 ml RA Volume Index9.54 ml/m2 AoR Diam [...] By: Rell Swann MD 11/13/2024 4:12:31 PM SALESFORCE DEVELOPER Electronically Signed By: Rell Swann MD 11/13/2024 4:12:31 PM SALESFORCE DEVELOPER us Jacob Lubin MD CV ECHO PROCEDURES Final Result * CT Chest Abdomen Pelvis W Contrast (11/13/2024 2:15 PM SALESFORCE DEVELOPER) Anatomical Region Laterality Modality Body N/A Computed Tomogra phy 11/13/2024 3:09 PM SALESFORCE DEVELOPER Impressions 11/13/2024 3:09 PM SALESFORCE DEVELOPER 1. Incompletely imaged neck mass similar to [...] Prieto MD, PHD Narrative 11/13/2024 3:09 PM SALESFORCE DEVELOPER EXAMINATION: Computed tomography of the chest, abdomen [...] R esult * eGFR (11/13/2024 2:53 AM SALESFORCE DEVELOPER) eGFR 78 >=60 mL/min/1. 73 m2 Comment: [...] last reviewed 2021. Blood 11/13/2024 2:53 AM SALESFORCE DEVELOPER 11/13/2024 3:12 AM SALESFORCE DEVELOPER us Janice Mendes MD LAB BLOOD ORDERABLES Final Result [facility] [place] [address] * Differential, auto (11/13/2024 2:53 AM SALESFORCE DEVELOPER) Neutrophil abs 4.5 1.5 - 6.5 K/cumm Imm gran abs 0.0 0.0 - 0.1 K/cumm [facility] Lymphocyte abs 1.2 0.8 - 3.3 K/cumm [facility] Monocyte abs 0.5 0.2 - 0.8 K/cumm [facility] Eosinophil abs 0.1 0.0 - 0.5 K/cumm [facility] Basophil abs 0.1 0.0 - 0.1 K/cumm [facility] Neutrophil pct 69.4 % [facility] Comment: Interpretive Data Percent cell count reference ranges are not reported, since discordance with absolute values may lead to misinterpretation of CBC data. Current Interpretive Data was last revised on 2017. Imm gran pct 0.3 % [facility] Comment: Interpretive Data Percent cell count reference ranges are not reported, since discordance with absolute values may lead to misinterpretation of CBC data. Current Interpretive Data was last revised on 2017. Lymphocyte pct 19.1 % [facility] Comment: Interpretive Data Percent cell count reference ranges are not reported, since discordance with absolute values may lead to misinterpretation of CBC data. Current Interpretive Data was last revised on 2017. Monocyte pct 7.6 % [facility] Comment: Interpretive Data Percent cell count reference ranges are not reported, since discordance with absolute values may lead to misinterpretation of CBC data. Current Interpretive Data was last revised on 2017. Eosinophil pct 2.2 % [facility] Comment: Interpretive Data Percent cell count reference ranges are not reported, since discordance with absolute values may lead to misinterpretation of CBC data. Current Interpretive Data was last revised on 2017. Basophil pct 1.4 % [facility] Comment: Interpretive Data Percent cell count reference ranges are not reported, since discordance with absolute values may lead to misinterpretation of CBC data. Current Interpretive Data was last revised on 2017. Blood 11/13/2024 2:53 AM SALESFORCE DEVELOPER 11/13/2024 3:12 AM SALESFORCE DEVELOPER Janice Mendes MD LAB BLOOD ORDERABLES Final Result Performing Organization Address City/[facility]/ZIP Co de Phone Number [facility] [place] [address] * CBC with auto differential (11/13/2024 2:53 AM SALESFORCE DEVELOPER) Pathologist [facility] WBC 6.5 3.8 - 9.9 K/cumm Hgb 14.3 11.9 - 15.5 g/dL [facility] Hct 43.3 35.6 - 45.5 % [facility] Plt 244 150 - 400 K/cumm [facility] MPV 11.5 9.1 - 12.3 fL [facility] RBC 5.11 3.90 - 5.20 M/cumm [facility] MCV 84.7 81.3 - 96.4 fL [facility] MCH 28.0 27.1 - 33.3 pg [facility] MCHC 33.0 32.3 - 35.7 g/dL [facility] RDW CV 14.0 11.1 - 14.9 % [facility] RDW SD 43.3 35.7 - 48.1 fL [facility] NRBC abs 0.00 0.00 - 0.01 K/cumm [facility] Blood 11/13/2024 2:53 AM SALESFORCE DEVELOPER 11/13/2024 3:12 AM SALESFORCE DEVELOPER Janice Mendes MD LAB BLOOD ORDERABLES Final Result Performing Organization Address City/[facility]/ZIP Co de Phone Number [facility] [place] [address] * Type and screen (11/13/2024 2:53 AM SALESFORCE DEVELOPER) Heidi, indirect Negative ABO Rh O Positive [facility] Blood 11/13/2024 2:53 AM SALESFORCE DEVELOPER 11/13/2024 3:10 AM SALESFORCE DEVELOPER Narrative [facility] - 11/13/2024 4:06 AM SALESFORCE DEVELOPER Has the patient had Daratumumab or Isatuximab in the past 6 months?->Unknown Janice Mendes MD LAB BLOOD BANK TEST ORDERAB LES Final Result Performing Organization Address City/[facility] Co de Phone Number [facility] [place] [address] * (ABNORMAL) Uric acid (11/13/2024 2:53 AM SALESFORCE DEVELOPER) Uric acid 10.5(H) 2.5 - 7.0 mg/dL Blood 11/13/2024 2:53 AM SALESFORCE DEVELOPER 11/13/2024 3:01 AM SALESFORCE DEVELOPER Janice Mendes MD LAB BLOOD ORDERABLES Final Result Performing Organization Address [facility] Co de Phone Number [facility] [place] [address] * Phosphorus (11/13/2024 2:53 AM SALESFORCE DEVELOPER) Phosphorus, pl 2.5 2.3 - 4.5 mg/dL Blood 11/13/2024 2:53 AM SALESFORCE DEVELOPER 11/13/2024 3:01 AM SALESFORCE DEVELOPER Janice Mendes MD LAB BLOOD ORDERABLES Final Result Performing Organization Address [facility] Co de Phone Number [facility] [place] [address] * Magnesium (11/13/2024 2:53 AM SALESFORCE DEVELOPER) Magnesium 1.9 1.4 - 2.5 mg/dL Blood 11/13/2024 2:53 AM SALESFORCE DEVELOPER 11/13/2024 3:01 AM SALESFORCE DEVELOPER Jacob Lubin MD LAB BLOOD ORDERABLES Sara l Result Performing Organization Address [facility] de Phone Number [facility] [place] [address] * Lactate dehydrogenase (LD) (11/13/2024 2:53 AM SALESFORCE DEVELOPER) [facility] Lactate dehydrogenase (LDH) 228 100 - 250 Units/L Blood 11/13/2024 2:53 AM SALESFORCE DEVELOPER 11/13/2024 3:01 AM SALESFORCE DEVELOPER Janice Mendes MD LAB BLOOD ORDERABLES Final Result Performing Organization Address [facility] [place] [address] * Haptoglobin (11/13/2024 2:53 AM SALESFORCE DEVELOPER) [facility] Haptoglobin 92.0 30.0 - 200.0 mg/dL Blood 11/13/2024 2:53 AM SALESFORCE DEVELOPER 11/13/2024 3:01 AM SALESFORCE DEVELOPER Jacob Lubin MD LAB BLOOD ORDERABLES Sara l Result Performing Organization Address [facility] [place] [address] * (ABNORMAL) Basic metabolic panel (11/13/2024 2:53 AM SALESFORCE DEVELOPER) [facility] Sodium 146(H) 135 - 145 mmol/L Potassium, pl 3.5 3.3 - 4.9 mmol/L [facility] Chloride 104 97 - 110 mmol/L [facility] CO2 26 22 - 32 mmol/L [facility] Anion gap 16(H) 2 - 15 mmol/L [facility] BUN 16 6 - 25 mg/dL [facility] Creatinine 0.83 0.60 - 1.10 mg/dL [facility] Glucose 88 70 - 199 mg/dL [facility] Comment: Interpretive Data Fasting glucose >/= 126 [...] 2022. Calcium 9.6 8.5 - 10.3 mg/dL [facility] Blood 11/13/2024 2:53 AM SALESFORCE DEVELOPER 11/13/2024 3:01 AM SALESFORCE DEVELOPER Janice Mendes MD LAB BLOOD ORDERABLES Final Result [facility] One [facility] [place] [address] * Differential, auto (11/12/2024 12:45 PM SALESFORCE DEVELOPER) Neutrophil abs 5.1 1.5 - 6.5 K/cumm Imm gran abs 0.0 0.0 - 0.1 K/cumm [facility] Lymphocyte abs 1.1 0.8 - 3.3 K/cumm [facility] Monocyte abs 0.5 0.2 - 0.8 K/cumm [facility] Eosinophil abs 0.1 0.0 - 0.5 K/cumm [facility] Basophil abs 0.1 0.0 - 0.1 K/cumm [facility] Neutrophil pct 72.9 % [facility] Comment: Interpretive Data Percent cell count reference ranges are not reported, since discordance with absolute values may lead to misinterpretation of CBC data. Current Interpretive Data was last revised on 2017. Imm gran pct 0.3 % [facility] Comment: Interpretive Data Percent cell count reference ranges are not reported, since discordance with absolute values may lead to misinterpretation of CBC data. Current Interpretive Data was last revised on 2017. Lymphocyte pct 16.3 % [facility] Comment: Interpretive Data Percent cell count reference ranges are not reported, since discordance with absolute values may lead to misinterpretation of CBC data. Current Interpretive Data was last revised on 2017. Monocyte pct 7.4 % [facility] Comment: Interpretive Data Percent cell count reference ranges are not reported, since discordance with absolute values may lead to misinterpretation of CBC data. Current Interpretive Data was last revised on 2017. Eosinophil pct 2.0 % BREANNA [facility] Comment: Interpretive Data Percent cell count reference ranges are not reported, since discordance with absolute values may lead to misinterpretation of CBC data. Current Interpretive Data was last revised on 2017. Basophil pct 1.1 % [facility] Comment: Interpretive Data Percent cell count reference ranges are not reported, since discordance with absolute values may lead to misinterpretation of CBC data. Current Interpretive Data was last revised on 2017. Blood 11/12/2024 12:4 5 PM SALESFORCE DEVELOPER 11/12/2024 1:20 PM SALESFORCE DEVELOPER us Jacob Lubin MD LAB BLOOD ORDERABLES Sara thapa Result [facility] [place] [address] * Melinda-Lopes Virus (EBV) DNA Quantitative Blood (11/12/2024 12:45 PM SALESFORCE DEVELOPER) [facility] EBV DNA Result Not Detected [facility] Comment: Interpretive Data The quantifiable range of this assay is 35 IUnits/mL to 100,000,000 IUnits/mL (1.54 log IUnits/mL to 8.0 log IUnits/mL). Testing was performed by the [employer] EBV Test ([employer] Testing performed at [facility]. Current interpretive data was last revised on 2023. Blood 11/12/2024 12:4 5 PM SALESFORCE DEVELOPER 11/12/2024 1:14 PM SALESFORCE DEVELOPER Jacob Lubin MD LAB MICROBIOLOGY - GENERA L ORDERABLES Final Result Performing Organization Address [facility] Co de Phone Number [facility] [place] [address] [facility] * HIV 1/2 Antibody plus p24 Antigen Blood (11/12/2024 12:45 PM SALESFORCE DEVELOPER) [facility] HIV 1/2 ab + p24 ag Nonreactive Nonreactive Comment:Nonreactive for HIV- 1 antigen and HIV-1/HIV-2 antibodies. No laboratory evidence of HIV infection. If acute HIV infection is suspected, consider testing for HIV-1 RNA. Current interpretive data was last revised on 22. Blood 11/12/2024 12:4 5 PM SALESFORCE DEVELOPER 11/12/2024 1:21 PM SALESFORCE DEVELOPER Jacob Lubin MD LAB MICROBIOLOGY - GENERA L ORDERABLES Final Result Performing Organization Address [facility] Co de Phone [place] [address] * (ABNORMAL) CBC with auto differential (11/12/2024 12:45 PM SALESFORCE DEVELOPER) [facility] WBC 7.0 3.8 - 9.9 K/cumm Hgb 14.4 11.9 - 15.5 g/dL [facility] Hct 44.8 35.6 - 45.5 % [facility] Plt 259 150 - 400 K/cumm [facility] MPV 11.7 9.1 - 12.3 fL [facility] RBC 5.21(H) 3.90 - 5.20 M/cumm [facility] MCV 86.0 81.3 - 96.4 fL [facility] MCH 27.6 27.1 - 33.3 pg [facility] MCHC 32.1(L) 32.3 - 35.7 g/dL [facility] RDW CV 13.9 11.1 - 14.9 % [facility] RDW SD 43.6 35.7 - 48.1 fL [facility] NRBC abs 0.00 0.00 - 0.01 K/cumm [facility] Blood 11/12/2024 12:4 5 PM SALESFORCE DEVELOPER 11/12/2024 1:20 PM SALESFORCE DEVELOPER Jacob Lubin MD LAB BLOOD ORDERABLES Sara l Result Performing Organization Address [facility] Co de Phone Number [facility] Department [place] [address] * (ABNORMAL) Melinda-Lopes virus (EBV) antibody panel Blood (11/12/2024 12:45 PM SALESFORCE DEVELOPER) [facility] EBV nuclear Ab Positive(A) Negative Comment:Indicates the presen ce of detectable IgG antibody to EBV Nuclear Antigen. EBV VCA IgG Positive(A) Negative [facility] Comment:Indicates the presen ce of antibody; 90% of the adult population will have been infected with EBV sometime in the past. EBV VCA IgM Negative Negative [facility] Comment:No detectable IgM an tibody to EBV-VCA. A negative result indicates no current infection with EBV. If clinical suspicion of acute EBV infection is present, testing should be repeated after one week. EBV interp Past Infection [facility] Blood 11/12/2024 12:4 5 PM SALESFORCE DEVELOPER 11/12/2024 1:20 PM SALESFORCE DEVELOPER Jacob Lubin MD LAB MICROBIOLOGY - GENERA L ORDERABLES Final Result Performing Organization Address [facility] de Phone Number [facility] Department [place] [address] * Hepatitis panel, acute Blood (11/12/2024 12:45 PM SALESFORCE DEVELOPER) [facility] Hep A IgM Nonreactive Nonreactive Hep B core IgM Nonreactive Nonreactive [facility] Hep C Ab Nonreactive Nonreactive [facility] Comment:Antibodies to HCV no t detected. Does NOT exclude the possibility of recent exposure to HCV. Current interpretive data was last revised on 22 HepBsAg Nonreactive Nonreactive [facility] Blood 11/12/2024 12:4 5 PM SALESFORCE DEVELOPER 11/12/2024 1:20 PM SALESFORCE DEVELOPER us Jaocb Lubin MD LAB MICROBIOLOGY - GENERA L ORDERABLES Final Result [facility] [place] [address] * US Guided Biopsy Thyroid (11/12/2024 11:07 AM SALESFORCE DEVELOPER) Anatomical Region Laterality Modality Thyroid N/A Ultrasound 11/12/2024 2:28 PM SALESFORCE DEVELOPER Impressions 11/12/2024 3:00 PM SALESFORCE DEVELOPER 1. Successful ultrasound-guided core needle biopsy of right neck mass. 2. Please see separate Surgical Pathology results for final interpretation. Dr. Dakota De Santiago (vice president network development) personally participated in sonographic imaging of this patient. Dictated by: Dakota De Santiago M.D. The radiology attending physician has personally reviewed this study, and had reviewed and/or edited this written report and agrees with it. Electronically signed by: Serjio Cabrera M.D. Narrative 11/12/2024 3:00 PM SALESFORCE DEVELOPER EXAMINATION: ULTRASOUND-GUIDED CORE BIOPSY HISTORY: 64-year-old female [...] placed in formalin and submitted to the hot roller service for delivery to Surgical Pathology. No [...] placed in formalin and submitted to the hot roller service for delivery to Surgical Pathology. No [...] for final interpretation. Dr. Dakota De Santiago (vice president network development) personally participated in sonographic imaging of this patient. Dictated by: Dakota De Santiago M.D. The radiology attending physician has personally reviewed this study, and had reviewed and/or edited this written report and agrees with it. Electronically signed by: Serjio Cabrera M.D. us Jacob Lubin MD IMG US PROCEDURES Final R esult * Flow Leukemia/Lymphoma Tissue (11/12/2024 10:03 AM SALESFORCE DEVELOPER) Jones Stain Test Completed Leukemia/Lymp kobi Result See separate Surgical Pathology report. BREANNA MATTA Tissue 11/12/2024 10:0 3 AM SALESFORCE DEVELOPER 11/12/2024 3:58 PM SALESFORCE DEVELOPER us Jacob Lubin MD LAB PATHOLOGY ORDERABLES Final Result BREANNA [facility] [place] [address] * Surgical pathology (11/12/2024 10:03 AM SALESFORCE DEVELOPER) Tissue (Thyroid Biopsy) 11/12/2024 10:03 AM SALESFORCE DEVELOPER Tissue (Thyroid Biopsy) 11/12/2024 10:04 AM SALESFORCE DEVELOPER Comment:Prelim FNA positive for DLBCL Narrative PATHOLOGY BJ - 11/17/2024 10:21 AM SALESFORCE DEVELOPER EPIC results best viewed via link to PDF [facility] Robyn Ahum[facility] [place] [address] Note to Patients: This report may contain [...] Gender: F : 1960 (Age: 64) Address: [address] [place] [address] Hospital #: [id number] Taken:11/12/2024 Received:11/12/2024 Reported: 11/17/2024 Patient Type: [facility] Inpatient Service: Oncology Location: [place] [address] Physician(s): Serjio Cabrera M.D. 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 Large atypical cells are [id number] B-cells with coexpression of PAX5, CD10 (weak, [...] CD38 (dimmer), CD22 Antigens not expressed: CD34, Kenmar, Lambda, CD5, CD200, CD123 CD3+ T-lymphocytes show no moore T cell antigen aberrancies and have a CD4 to CD8 ratio within normal limits. Natural killer cells are not increased. Plasma cells are not overtly increased. No significant increase in CD45 dim population is identified. CD34+ blasts are not increased. A Jones-Giemsa stained cytospin from the flow cytometry specimen was examined for internal clinical quality rn purposes. Flow cytometry was performed using antibodies to the following cellular antigens: CD45, CD34, CD19, CD20, Kenmar, Lambda, CD10, CD5, CD200, CD38, CD2, CD3, [...] diameter. Labeled A1 to A2. Jar 0. sxst/11/12/2024 13:38 PA(s): Melissa Dotson By this signature, [...] Surgical Pathology and Flow Cytometry Departments at [facility] as part of an ongoing quality management nurse program and in compliance with federally mandated [...] Surgical Pathology and Flow Cytometry Departments of [facility]. It has not been cleared or approved by the U. S. Food and Drug Administration. IMAGES AND SCANNED DOCUMENTS, IF INCLUDED, ONLY VIEWABLE IN PDF VERSION OF REPORT Jacob Lubin MD LAB PATHOLOGY ORDERABLES Final Result PATHOLOGY [facility] 3rd Floor [place], [place] [phone] * eGFR (11/12/2024 5:00 AM SALESFORCE DEVELOPER) eGFR 81 >=60 mL/min/1. 73 m2 Comment: [...] last reviewed 2021. Blood 11/12/2024 5:00 AM SALESFORCE DEVELOPER 11/11/2024 11:32 PM SALESFORCE DEVELOPER us Jacob Lubin MD LAB BLOOD ORDERABLES Sara l Result CERNER [facility] One [facility] Department [place] [address] * (ABNORMAL) Uric acid (11/12/2024 5:00 AM SALESFORCE DEVELOPER) Pathologist [facility] Uric acid 12.7(H) 2.5 - 7.0 mg/dL Blood 11/12/2024 5:00 AM SALESFORCE DEVELOPER 11/11/2024 11:32 PM SALESFORCE DEVELOPER Jacob Lubin MD LAB BLOOD ORDERABLES Sara l Result Performing Organization Address City/[facility] Co de Phone Number [facility] [place] [address] * Phosphorus (11/12/2024 5:00 AM SALESFORCE DEVELOPER) Pathologist [facility] Phosphorus, pl 3.2 2.3 - 4.5 mg/dL Blood 11/12/2024 5:00 AM SALESFORCE DEVELOPER 11/11/2024 11:32 PM SALESFORCE DEVELOPER Jacob Lubin MD LAB BLOOD ORDERABLES Sara l Result Performing Organization Address [facility] Co de Phone Number [facility] [place] [address] * Magnesium (11/12/2024 5:00 AM SALESFORCE DEVELOPER) Pathologist [facility] Magnesium 2.0 1.4 - 2.5 mg/dL Blood 11/12/2024 5:00 AM SALESFORCE DEVELOPER 11/11/2024 11:32 PM SALESFORCE DEVELOPER Jacob Lubin MD LAB BLOOD ORDERABLES Sara l Result Performing Organization Address [facility] Co de Phone Number [facility] [place] [address] * Lactate dehydrogenase (LD) (11/12/2024 5:00 AM SALESFORCE DEVELOPER) [facility] Lactate dehydrogenase (LDH) 234 100 - 250 Units/L Blood 11/12/2024 5:00 AM SALESFORCE DEVELOPER 11/11/2024 11:32 PM SALESFORCE DEVELOPER Jacob Lubin MD LAB BLOOD ORDERABLES Sara l Result Performing Organization Address City/[facility] Co de Phone Number [facility] [place] [address] * Haptoglobin (11/12/2024 5:00 AM SALESFORCE DEVELOPER) Pathologist [facility] Haptoglobin 103.0 30.0 - 200.0 mg/dL Blood 11/12/2024 5:00 AM SALESFORCE DEVELOPER 11/11/2024 11:32 PM SALESFORCE DEVELOPER Jacob Lubin MD LAB BLOOD ORDERABLES Sara l Result Performing Organization Address [facility] de Phone Number [facility] Department [place] [address] * (ABNORMAL) Basic metabolic panel (11/12/2024 5:00 AM SALESFORCE DEVELOPER) [facility] Sodium 143 135 - 145 mmol/L Potassium, pl 3.5 3.3 - 4.9 mmol/L [facility] Chloride 99 97 - 110 mmol/L [facility] CO2 25 22 - 32 mmol/L [facility] Anion gap 19(H) 2 - 15 mmol/L [facility] BUN 17 6 - 25 mg/dL [facility] Creatinine 0.80 0.60 - 1.10 mg/dL [facility] Glucose 73 70 - 199 mg/dL [facility] Comment: Interpretive Data Fasting glucose >/= 126 [...] 2022. Calcium 10.1 8.5 - 10.3 mg/dL BREANNA [facility] Blood 11/12/2024 5:00 AM SALESFORCE DEVELOPER 11/11/2024 11:32 PM SALESFORCE DEVELOPER us Jacob Lubin MD LAB BLOOD ORDERABLES Sara thapa Result [facility] One [facility] Department [place] [address] * Cytogenetics (11/12/2024 12:00 AM SALESFORCE DEVELOPER) Miscellaneous 11/12/2024 11/13/2024 Narrative 11/16/2024 5:30 PM SALESFORCE DEVELOPER EPIC results best viewed via link to PDF [facility] Department of Pathol [address] [place] [id number] Patient Information Name: CAT HANCOCK Gender: F : 1960 (Age: 64) Tissue: FFPE FISH Visit Information Hospital #: [id number] Facility: [facility] Service: [facility] OP Location: [place] [address] Patient Type: [facility] Inpatient Specimen Information: Culture #: [id number] Date Collected: 11/12/2024 Date Accessioned: 11/14/2024 Date Ordered: 11/13/2024 Physician(s): Serjio Cabrera M.D. Processing: FFPE FISH - Right thyroid mass Indication: The patient is a 64-year-old woman presenting with thyroid mass; dysphagia, unspecified type. Operative procedure: Thyroid mass biopsy. Specimen Quality: Adequate FISH: FFPE CLINICAL REPORT PARAFFIN EMBEDDED FISH Fluorescence In-situ hybridization (FISH) Results: Specimen # [id number] NEGATIVE- FISH result for MYC gene [...] Break Apart Rearrangement probe set ([employer], [place], [place]). In this particular case, there was [...] developed and its performance characteristics determined by [facility]. It has not been cleared or approved by the FDA. The laboratory is regulated under CLIA as qualified to perform high- complexity testing. This test is used for clinical purposes. It should not be regarded as investigational or for research. IGH::BCL2 FISH FISH was performed utilizing [employer] IGH/BCL2 Dual Color Dual Fusion probe set ([employer], [place], [place]). In this particular case, no dual-fused [...] developed and its performance characteristics determined by [facility]. It has not been cleared or approved by the FDA. The laboratory is regulated under CLIA as qualified to perform high- complexity testing. This test is used for clinical purposes. It should not be regarded as investigational or for research. BCL6-BA FISH FISH was performed utilizing [employer] LSI BCL6 (3q27) Dual Color Break Apart Rearrangement probe set ([employer], [place], [place]). In this particular case, there was no split of SpectrumOrange and SpectrumGreen signals in 200 interphase nuclei examined utilizing a manual scoring system and therefore, no evidence for a BCL6-containing chromosomal rearrangement. A loss of BCL6 was seen in 38%, the significance of which, if any, is unclear. The above test was developed and its performance characteristics determined by [facility]. It has not been cleared or approved [...] Res ult * eGFR (11/11/2024 9:57 PM SALESFORCE DEVELOPER) eGFR 80 >=60 mL/min/1. 73 m2 Comment: [...] last reviewed 2021. Blood 11/11/2024 9:57 PM SALESFORCE DEVELOPER 11/11/2024 11:34 PM SALESFORCE DEVELOPER us Jacob Lubin MD LAB BLOOD ORDERABLES Sara thapa Result [facility] One [facility] [place] [address] * (ABNORMAL) Uric acid (11/11/2024 9:57 PM SALESFORCE DEVELOPER) Pathologist [facility] Uric acid 12.4(H) 2.5 - 7.0 mg/dL Blood 11/11/2024 9:57 PM SALESFORCE DEVELOPER 11/11/2024 11:34 PM SALESFORCE DEVELOPER Jacob Lubin MD LAB BLOOD ORDERABLES Sara l Result Performing Organization Address City/State/[facility] Co de Phone Number [facility] [place] [address] * Phosphorus (11/11/2024 9:57 PM SALESFORCE DEVELOPER) [facility] Phosphorus, pl 3.3 2.3 - 4.5 mg/dL Blood 11/11/2024 9:5 7 PM SALESFORCE DEVELOPER 11/11/2024 11:33 PM SALESFORCE DEVELOPER Jacob Lubin MD LAB BLOOD ORDERABLES Sara l Result Performing Organization Address [facility] Co de Phone Number [facility] [place] [address] * Magnesium (11/11/2024 9:57 PM SALESFORCE DEVELOPER) [facility] Magnesium 2.0 1.4 - 2.5 mg/dL Blood 11/11/2024 9:57 PM SALESFORCE DEVELOPER 11/11/2024 11:33 PM SALESFORCE DEVELOPER Jacob Lubin MD LAB BLOOD ORDERABLES Sara l Result Performing Organization Address [facility] Co de Phone Number [facility] [place] [address] * Lactate dehydrogenase (LD) (11/11/2024 9:57 PM SALESFORCE DEVELOPER) [facility] Lactate dehydrogenase (LDH) 240 100 - 250 Units/L Blood 11/11/2024 9:57 PM SALESFORCE DEVELOPER 11/11/2024 11:34 PM SALESFORCE DEVELOPER Jacob Lubin MD LAB BLOOD ORDERABLES Sara l Result Performing Organization Address [facility] Co de Phone Number [facility] [place] [address] * Haptoglobin (11/11/2024 9:57 PM SALESFORCE DEVELOPER) Pathologist [facility] Haptoglobin 102.0 30.0 - 200.0 mg/dL Blood 11/11/2024 9:57 PM SALESFORCE DEVELOPER 11/11/2024 11:34 PM SALESFORCE DEVELOPER Jacob Lubin MD LAB BLOOD ORDERABLES Sara l Result Performing Organization Address [facility] de Phone Number [facility] [place] [address] * (ABNORMAL) Basic metabolic panel (11/11/2024 9:57 PM SALESFORCE DEVELOPER) [facility] Sodium 142 135 - 145 mmol/L Potassium, pl 3.5 3.3 - 4.9 mmol/L [facility] Chloride 99 97 - 110 mmol/L [facility] CO2 26 22 - 32 mmol/L [facility] Anion gap 17(H) 2 - 15 mmol/L [facility] BUN 17 6 - 25 mg/dL [facility] Creatinine 0.81 0.60 - 1.10 mg/dL [facility] Glucose 77 70 - 199 mg/dL [facility] Comment: Interpretive Data Fasting glucose >/= 126 [...] 2022. Calcium 9.9 8.5 - 10.3 mg/dL BREANNA [facility] Blood 11/11/2024 9:57 PM SALESFORCE DEVELOPER 11/11/2024 11:34 PM SALESFORCE DEVELOPER us Jacob Lubin MD LAB BLOOD ORDERABLES Sara alanis Result BREANNA [facility] One [facility] [place] [address] * FL Modified Barium Swallow W Video (11/11/2024 10:36 AM SALESFORCE DEVELOPER) Anatomical Region Laterality Modality Head and Neck N/A Radio Fluoroscop y 11/11/2024 11:0 0 AM SALESFORCE DEVELOPER Impressions 11/11/2024 11:33 AM SALESFORCE DEVELOPER The swallowing mechanism is abnormal; see above [...] Jas Deng M.D. Narrative 11/11/2024 11:33 AM SALESFORCE DEVELOPER EXAMINATION: MODIFIED BARIUM SWALLOW HISTORY: Dysphagia. TECHNIQUE: [...] it. Electronically signed by: Jas Deng M.D. Jacob Lubin MD IMG FLUOROSCOPY PROCEDURE S Final Result * RN PSYCHIATRIC Evaluate and Treat (VFSS) (11/11/2024 10:15 AM SALESFORCE DEVELOPER) Narrative Jasmyn Mcclellan SLP - 11/11/2024 10:15 AM SALESFORCE DEVELOPER Jasmyn Mcclellan SLP 11/11/2024 2:18 PM Speech-Language [...] Diet: Regular General Information Cat Hancock 11/11/24 RN PSYCHIATRIC Received On: 11/11/24 General Observations: Pt was seen sitting upright in fluoro chair. Required encouragement to participate in exam. Reason for Referral:further define swallow physiology Pain Score: 0 - No pain If pain >4, was RN notified? N/A Patient Stated Goal/Comments: none stated Clinical Impression & Professional Recommendations Diet Solids Recommendation: Full liquids (NO PUREE) Diet Liquids Recommendations: [place] thick Recommended Form of Medications: (crushed with [...] at 90 degrees. Consistencies Administered: Thin liquids, [place] thickened liquids, Purees Administered consistencies contain barium product. Thin Liquids: Laryngeal Penetration: Present Aspiration Present: Yes Timing: During Amount: Moderate Penetration Aspiration Scale-Thin: 8-Material enters the airway, passes below the vocal folds and no effort is made to eject [place] Thickened Liquids: Laryngeal Penetration: Present Aspiration Present: No Penetration Aspiration Scale-[place]: 2-Material enters the airway, remains above the [...] treatment goals and details, if indicated. Plan RN PSYCHIATRIC Frequency of Services during current admission: 2-3x/wk RN PSYCHIATRIC Recommendation (Add'l Services): Outpatient RN PSYCHIATRIC Next Visit Plan: treatment/therapy Discharge Summary Statement If this is the last swallow therapy visit, this serves as the discharge summary. us Jacob Lubin MD RN PSYCHIATRIC ORDERABLES Final Res ult * eGFR (11/09/2024 10:53 PM SALESFORCE DEVELOPER) eGFR 82 >=60 mL/min/1. 73 m2 Comment: [...] reviewed 2021. Blood 11/09/2024 10:5 3 PM SALESFORCE DEVELOPER 11/09/2024 11:38 PM SALESFORCE DEVELOPER us Carlos Enrique Powers MD LAB BLOOD ORDERABLES Final Result BREANNA [facility] [place] [address] * Differential, auto (11/09/2024 10:53 PM SALESFORCE DEVELOPER) Neutrophil abs 4.7 1.5 - 6.5 K/cumm Imm gran abs 0.0 0.0 - 0.1 K/cumm [facility] Lymphocyte abs 1.1 0.8 - 3.3 K/cumm [facility] Monocyte abs 0.5 0.2 - 0.8 K/cumm [facility] Eosinophil abs 0.1 0.0 - 0.5 K/cumm [facility] Basophil abs 0.1 0.0 - 0.1 K/cumm [facility] Neutrophil pct 72.4 % [facility] Comment: Interpretive Data Percent cell count reference ranges are not reported, since discordance with absolute values may lead to misinterpretation of CBC data. Current Interpretive Data was last revised on 2017. Imm gran pct 0.3 % [facility] Comment: Interpretive Data Percent cell count reference ranges are not reported, since discordance with absolute values may lead to misinterpretation of CBC data. Current Interpretive Data was last revised on 2017. Lymphocyte pct 17.2 % [facility] Comment: Interpretive Data Percent cell count reference ranges are not reported, since discordance with absolute values may lead to misinterpretation of CBC data. Current Interpretive Data was last revised on 2017. Monocyte pct 7.7 % [facility] Comment: Interpretive Data Percent cell count reference ranges are not reported, since discordance with absolute values may lead to misinterpretation of CBC data. Current Interpretive Data was last revised on 2017. Eosinophil pct 1.5 % [facility] Comment: Interpretive Data Percent cell count reference ranges are not reported, since discordance with absolute values may lead to misinterpretation of CBC data. Current Interpretive Data was last revised on 2017. Basophil pct 0.9 % [facility] Comment: Interpretive Data Percent cell count reference ranges are not reported, since discordance with absolute values may lead to misinterpretation of CBC data. Current Interpretive Data was last revised on 2017. Blood 11/09/2024 10:5 3 PM SALESFORCE DEVELOPER 11/09/2024 11:38 PM SALESFORCE DEVELOPER Carlos Enrique Powers MD LAB BLOOD ORDERABLES Final Result Performing Organization Address City/[facility] Co de Phone Number [facility] Department [place] [address] * (ABNORMAL) CBC with auto differential (11/09/2024 10:53 PM SALESFORCE DEVELOPER) Pathologist [facility] WBC 6.5 3.8 - 9.9 K/cumm Hgb 14.9 11.9 - 15.5 g/dL [facility] Hct 44.8 35.6 - 45.5 % [facility] Plt 218 150 - 400 K/cumm [facility] MPV 11.2 9.1 - 12.3 fL [facility] RBC 5.26(H) 3.90 - 5.20 M/cumm [facility] MCV 85.2 81.3 - 96.4 fL [facility] MCH 28.3 27.1 - 33.3 pg [facility] MCHC 33.3 32.3 - 35.7 g/dL [facility] RDW CV 13.9 11.1 - 14.9 % [facility] RDW SD 43.0 35.7 - 48.1 fL [facility] NRBC abs 0.00 0.00 - 0.01 K/cumm [facility] Blood 11/09/2024 10:5 3 PM SALESFORCE DEVELOPER 11/09/2024 11:38 PM SALESFORCE DEVELOPER Carlos Enrique Powers MD LAB BLOOD ORDERABLES Final Result Performing Organization Address [facility] Co de Phone Number [facility] Department [place] [address] * Phosphorus (11/09/2024 10:53 PM SALESFORCE DEVELOPER) Pathologist [facility] Phosphorus, pl 2.6 2.3 - 4.5 mg/dL Blood 11/09/2024 10:5 3 PM SALESFORCE DEVELOPER 11/09/2024 11:38 PM SALESFORCE DEVELOPER Carlos Enrique Powers MD LAB BLOOD ORDERABLES Final Result Performing Organization Address [facility]/ZIP Co de Phone Number [facility] Department [place] [address] * Magnesium (11/09/2024 10:53 PM SALESFORCE DEVELOPER) [facility] Magnesium 2.2 1.4 - 2.5 mg/dL Blood 11/09/2024 10:5 3 PM SALESFORCE DEVELOPER 11/09/2024 11:38 PM SALESFORCE DEVELOPER Carlos Enrique Powers MD LAB BLOOD ORDERABLES Final Result [facility] [place] [address] * Basic metabolic panel (11/09/2024 10:53 PM SALESFORCE DEVELOPER) [facility] Sodium 141 135 - 145 mmol/L Potassium, pl 3.6 3.3 - 4.9 mmol/L [facility] Chloride 101 97 - 110 mmol/L [facility] CO2 26 22 - 32 mmol/L [facility] Anion gap 14 2 - 15 mmol/L [facility] BUN 14 6 - 25 mg/dL [facility] Creatinine 0.79 0.60 - 1.10 mg/dL [facility] Glucose 87 70 - 199 mg/dL [facility] Comment: Interpretive Data Fasting glucose >/= 126 [...] 2022. Calcium 9.8 8.5 - 10.3 mg/dL [facility] Blood 11/09/2024 10:5 3 PM SALESFORCE DEVELOPER 11/09/2024 11:38 PM SALESFORCE DEVELOPER Carlos Enrique Powers MD LAB BLOOD ORDERABLES Final Result [facility] Department [place] [address] * US Guided Thyroid Fine Needle Aspiration 1st Lesion (11/09/2024 12:14 PM SALESFORCE DEVELOPER) Anatomical Region Laterality Modality Thyroid N/A Ultrasound 11/09/2024 12:3 7 PM SALESFORCE DEVELOPER Impressions 11/09/2024 12:37 PM SALESFORCE DEVELOPER Successful thyroid biopsy of the right thyroid lobe. Electronically signed by: Aniyah Camacho M.D. Narrative 11/09/2024 12:37 PM SALESFORCE DEVELOPER EXAMINATION: ULTRASOUND-GUIDED THYROID FINE NEEDLE ASPIRATION HISTORY: [...] fine needle aspirates were handed to the construction safety consultant present during the procedure. Please refer to the dictated cytology report for final interpretation. The patient's skin was cleaned and dressed. The patient tolerated the procedure well without immediate complication. Dr. Aniyah Camacho M.D., the attending radiologist, was present from the beginning to the end of the procedure. Drs. Aniyah Camacho and Jonnathan performed the biopsy. Dr. De Santiago (vice president network development) personally participated in sonographic imaging of this [...] fine needle aspirates were handed to the construction safety consultant present during the procedure. Please refer to the dictated cytology report for final interpretation. The patient's skin was cleaned and dressed. The patient tolerated the procedure well without immediate complication. Dr. Aniyah Camacho M.D., the attending radiologist, was present from the beginning to the end of the procedure. Drs. Aniyah Camacho and Jonnathan performed the biopsy. Dr. De Santiago (vice president network development) personally participated in sonographic imaging of this patient. IMPRESSION: Successful thyroid biopsy of the right thyroid lobe. Electronically signed by: Aniyah Camacho M.D. us Janice Mendes MD IMG US PROCEDURES Final Res ult * Cytology (11/09/2024 11:45 AM SALESFORCE DEVELOPER) Fine needle aspirate (Thyroid Gland (Cytology)) 11/09/2024 11:56 AM SALESFORCE DEVELOPER Comment:BRAF STAINING ALSO Narrative PATHOLOGY [facility] - 11/12/2024 4:20 PM SALESFORCE DEVELOPER EPIC results best viewed via link to PDF [facility] Robyn Ahumada [facility] [place] [address] Note to Patients: This report may contain [...] Gender: F : 1960 (Age: 64) Address: [address] [place], [place] [id number] Hospital #: [id number] Taken:11/09/2024 Received:11/09/2024 Reported: 11/12/2024 Patient Type: [facility] Inpatient Service: Medical Location: [facility] Physician(s): Rony Paulino M.D. FINAL DIAGNOSIS A. [...] and preliminary findings were sent to Diana Esparza, Doug, and Sean via secure Recovers message on . This case was reviewed by Dr. Hutchinson (Hematopathology) who agrees with the diagnosis. pamo/11/10/2024 10:24 By this signature, I attest that the above diagnosis is based upon my personal examination of the slides(and/or other material indicated in the diagnosis). Marii Hanson M.D. Report Electronically Reviewed and Signed Out By Marii Hanson M.D. 11/12/2024 16:20:41 Jasmyn Bowers, CT([facility]) Gross Description A. Thyroid, right lobe mass, [...] Surgical Pathology and Flow Cytometry Departments at [facility] as part of an ongoing quality management nurse program and in compliance with federally mandated [...] Surgical Pathology and Flow Cytometry Departments of [facility]. It has not been cleared or approved by the U. S. Food and Drug Administration. Janice Mendes MD LAB CYTOLOGY ORDERABLES Fin al Result PATHOLOGY [facility] 3rd Floor [place], [place] [phone] * eGFR (11/08/2024 11:27 PM SALESFORCE DEVELOPER) eGFR 71 >=60 mL/min/1. 73 m2 Comment: [...] reviewed 2021. Blood 11/08/2024 11:2 7 PM SALESFORCE DEVELOPER 11/09/2024 12:21 AM SALESFORCE DEVELOPER Carlos Enrique Powers MD LAB BLOOD ORDERABLES Final Result BREANNA [facility] Department [place] [address] * Differential, auto (11/08/2024 11:27 PM SALESFORCE DEVELOPER) Neutrophil abs 5.2 1.5 - 6.5 K/cumm Imm gran abs 0.0 0.0 - 0.1 K/cumm [facility] Lymphocyte abs 1.2 0.8 - 3.3 K/cumm [facility] Monocyte abs 0.6 0.2 - 0.8 K/cumm [facility] Eosinophil abs 0.1 0.0 - 0.5 K/cumm [facility] Basophil abs 0.1 0.0 - 0.1 K/cumm [facility] Neutrophil pct 72.6 % [facility] Comment: Interpretive Data Percent cell count reference ranges are not reported, since discordance with absolute values may lead to misinterpretation of CBC data. Current Interpretive Data was last revised on 2017. Imm gran pct 0.6 % [facility] Comment: Interpretive Data Percent cell count reference ranges are not reported, since discordance with absolute values may lead to misinterpretation of CBC data. Current Interpretive Data was last revised on 2017. Lymphocyte pct 16.9 % [facility] Comment: Interpretive Data Percent cell count reference ranges are not reported, since discordance with absolute values may lead to misinterpretation of CBC data. Current Interpretive Data was last revised on 2017. Monocyte pct 7.7 % [facility] Comment: Interpretive Data Percent cell count reference ranges are not reported, since discordance with absolute values may lead to misinterpretation of CBC data. Current Interpretive Data was last revised on 2017. Eosinophil pct 1.4 % [facility] Comment: Interpretive Data Percent cell count reference ranges are not reported, since discordance with absolute values may lead to misinterpretation of CBC data. Current Interpretive Data was last revised on 2017. Basophil pct 0.8 % [facility] Comment: Interpretive Data Percent cell count reference ranges are not reported, since discordance with absolute values may lead to misinterpretation of CBC data. Current Interpretive Data was last revised on 2017. Blood 11/08/2024 11:2 7 PM SALESFORCE DEVELOPER 11/09/2024 12:24 AM SALESFORCE DEVELOPER Carlos Enrique Powers MD LAB BLOOD ORDERABLES Final Result Performing Organization Address [facility]/State/ZIP Co de Phone Number [facility] Department [place] [address] * (ABNORMAL) CBC with auto differential (11/08/2024 11:27 PM SALESFORCE DEVELOPER) Pathologist [facility] WBC 7.1 3.8 - 9.9 K/cumm Hgb 14.0 11.9 - 15.5 g/dL [facility] Hct 43.9 35.6 - 45.5 % [facility] Plt 221 150 - 400 K/cumm [facility] MPV 11.0 9.1 - 12.3 fL [facility] RBC 5.02 3.90 - 5.20 M/cumm [facility] MCV 87.5 81.3 - 96.4 fL [facility] MCH 27.9 27.1 - 33.3 pg [facility] MCHC 31.9(L) 32.3 - 35.7 g/dL [facility] RDW CV 13.7 11.1 - 14.9 % [facility] RDW SD 43.6 35.7 - 48.1 fL [facility] NRBC abs 0.00 0.00 - 0.01 K/cumm [facility] Blood 11/08/2024 11:2 7 PM SALESFORCE DEVELOPER 11/09/2024 12:24 AM SALESFORCE DEVELOPER Carlos Enrique Powers MD LAB BLOOD ORDERABLES Final Result Performing Organization Address City/[facility]/ZIP Co de Phone Number [facility] [place] [address] * Phosphorus (11/08/2024 11:27 PM SALESFORCE DEVELOPER) Phosphorus, pl 2.6 2.3 - 4.5 mg/dL Blood 11/08/2024 11:2 7 PM SALESFORCE DEVELOPER 11/09/2024 12:21 AM SALESFORCE DEVELOPER Carlos Enrique Powers MD LAB BLOOD ORDERABLES Final Result Performing Organization Address City/[facility]/ZIP Co de Phone Number [facility] [place] [address] * Magnesium (11/08/2024 11:27 PM SALESFORCE DEVELOPER) [facility] Magnesium 2.0 1.4 - 2.5 mg/dL Blood 11/08/2024 11:2 7 PM SALESFORCE DEVELOPER 11/09/2024 12:21 AM SALESFORCE DEVELOPER Carlos Enrique Powers MD LAB BLOOD ORDERABLES Final Result Performing Organization Address [facility] de Phone Number [facility] [place] [address] * Basic metabolic panel (11/08/2024 11:27 PM SALESFORCE DEVELOPER) [facility] Sodium 142 135 - 145 mmol/L Potassium, pl 3.8 3.3 - 4.9 mmol/L [facility] Chloride 101 97 - 110 mmol/L [facility] CO2 28 22 - 32 mmol/L [facility] Anion gap 13 2 - 15 mmol/L [facility] BUN 12 6 - 25 mg/dL [facility] Creatinine 0.89 0.60 - 1.10 mg/dL [facility] Glucose 88 70 - 199 mg/dL [facility] Comment: Interpretive Data Fasting glucose >/= 126 [...] 2022. Calcium 9.7 8.5 - 10.3 mg/dL [facility] Blood 11/08/2024 11:2 7 PM SALESFORCE DEVELOPER 11/09/2024 12:21 AM SALESFORCE DEVELOPER us Carlos Enrique Powers MD LAB BLOOD ORDERABLES Final Result Performing Organization Address City/[facility] Co de Phone Number [facility] [place] [address] * Check Sample (11/07/2024 11:34 AM SALESFORCE DEVELOPER) ABO Rh O Positive [facility] HCLL OTHER 11/07/2024 11:3 4 AM SALESFORCE DEVELOPER 11/07/2024 11:45 AM SALESFORCE DEVELOPER us Gurinder Fagan MD PhD LAB BLOOD ORDERABL ES Final Result Performing Organization Address [facility] de Phone Number [facility] [place] [address] [facility] * eGFR (11/07/2024 9:00 AM SALESFORCE DEVELOPER) eGFR 80 >=60 mL/min/1. 73 m2 Comment: [...] last reviewed 2021. Blood 11/07/2024 9:00 AM SALESFORCE DEVELOPER 11/07/2024 9:25 AM SALESFORCE DEVELOPER us Preethi Beck MD LAB BLOOD ORDERABLE S Final Result [facility] [place] [address] * Differential, auto (11/07/2024 9:00 AM SALESFORCE DEVELOPER) Neutrophil abs 4.8 1.5 - 6.5 K/cumm Imm gran abs 0.0 0.0 - 0.1 K/cumm [facility] Lymphocyte abs 1.0 0.8 - 3.3 K/cumm [facility] Monocyte abs 0.4 0.2 - 0.8 K/cumm [facility] Eosinophil abs 0.1 0.0 - 0.5 K/cumm [facility] Basophil abs 0.1 0.0 - 0.1 K/cumm [facility] Neutrophil pct 75.7 % [facility] Comment: Interpretive Data Percent cell count reference ranges are not reported, since discordance with absolute values may lead to misinterpretation of CBC data. Current Interpretive Data was last revised on 2017. Imm gran pct 0.2 % [facility] Comment: Interpretive Data Percent cell count reference ranges are not reported, since discordance with absolute values may lead to misinterpretation of CBC data. Current Interpretive Data was last revised on 2017. Lymphocyte pct 15.9 % [facility] Comment: Interpretive Data Percent cell count reference ranges are not reported, since discordance with absolute values may lead to misinterpretation of CBC data. Current Interpretive Data was last revised on 2017. Monocyte pct 6.6 % [facility] Comment: Interpretive Data Percent cell count reference ranges are not reported, since discordance with absolute values may lead to misinterpretation of CBC data. Current Interpretive Data was last revised on 2017. Eosinophil pct 0.8 % [facility] Comment: Interpretive Data Percent cell count reference ranges are not reported, since discordance with absolute values may lead to misinterpretation of CBC data. Current Interpretive Data was last revised on 2017. Basophil pct 0.8 % [facility] Comment: Interpretive Data Percent cell count reference ranges are not reported, since discordance with absolute values may lead to misinterpretation of CBC data. Current Interpretive Data was last revised on 2017. Blood 11/07/2024 9:00 AM SALESFORCE DEVELOPER 11/07/2024 9:23 AM SALESFORCE DEVELOPER Preethi Beck MD LAB BLOOD ORDERABLE S Final Result Performing Organization Address City/[facility] Co de Phone Number [facility] [place] [address] * (ABNORMAL) Thyroid Function Castro (11/07/2024 9:00 AM SALESFORCE DEVELOPER) [facility] TSH 20.90(H) 0.30 - 4.20 mcIUnit/mL Blood 11/07/2024 9:00 AM SALESFORCE DEVELOPER 11/07/2024 9:25 AM SALESFORCE DEVELOPER Preethi Beck MD LAB BLOOD ORDERABLE S Final Result Performing Organization Address [facility] Co de Phone Number [facility] [place] [address] * (ABNORMAL) CBC with auto differential (11/07/2024 9:00 AM SALESFORCE DEVELOPER) [facility] WBC 6.3 3.8 - 9.9 K/cumm Hgb 13.3 11.9 - 15.5 g/dL [facility] Hct 41.6 35.6 - 45.5 % [facility] Plt 201 150 - 400 K/cumm [facility] MPV 11.1 9.1 - 12.3 fL [facility] RBC 4.71 3.90 - 5.20 M/cumm [facility] MCV 88.3 81.3 - 96.4 fL [facility] MCH 28.2 27.1 - 33.3 pg [facility] MCHC 32.0(L) 32.3 - 35.7 g/dL [facility] RDW CV 13.7 11.1 - 14.9 % [facility] RDW SD 44.7 35.7 - 48.1 fL [facility] NRBC abs 0.00 0.00 - 0.01 K/cumm [facility] Blood 11/07/2024 9:00 AM SALESFORCE DEVELOPER 11/07/2024 9:23 AM SALESFORCE DEVELOPER Preethi Beck MD LAB BLOOD ORDERABLE S Final Result Performing Organization Address [facility] de Phone Number [facility] [place] [address] * aPTT (11/07/2024 9:00 AM SALESFORCE DEVELOPER) aPTT 32 28 - 38 sec Comment: Interpretive Data Heparin therapeutic range: 66.0 - 100.0 seconds. Range based on correlation with therapeutic heparin activity range of 0.3 - 0.7 Units/mL. Current interpretive data was last revised on 2023. Blood 11/07/2024 9:00 AM SALESFORCE DEVELOPER 11/07/2024 9:32 AM SALESFORCE DEVELOPER Preethi Beck MD LAB BLOOD ORDERABLE S Final Result Performing Organization Address [facility] de Phone Number [facility] [place] [address] * Protime-INR (11/07/2024 9:00 AM SALESFORCE DEVELOPER) PT 13.0 9.7 - 13.0 sec INR 1.20 0.90 - 1.20 [facility] Comment: Interpretive data Oral anticoagulant therapeutic ranges: Venous thromboembolism prophylaxis or treatment: 2.0-3.0 CARDIOLOGY Standard range: 2.0-3.0 High-intensity range: 2.5-3.5 Refer to indication-specific guidelines for appropriate target ranges for prosthetic heart valve replacement. Current interpretive data was last revised on 2019. Blood 11/07/2024 9:00 AM SALESFORCE DEVELOPER 11/07/2024 9:32 AM SALESFORCE DEVELOPER Preethi Beck MD LAB BLOOD ORDERABLE S Final Result Performing Organization Address [facility] Co de Phone Number [facility] [place] [address] * Type and screen (11/07/2024 9:00 AM SALESFORCE DEVELOPER) ABO Rh O Positive Heidi, indirect Negative [facility] [facility] Blood 11/07/2024 9:00 AM SALESFORCE DEVELOPER 11/07/2024 9:52 AM SALESFORCE DEVELOPER Narrative [facility] - 11/07/2024 10:37 AM SALESFORCE DEVELOPER Has the patient had Daratumumab or Isatuximab in the past 6 months?->Unknown Result [facility] Preethi Beck MD LAB BLOOD BANK TEST ORDERABLES Final Result Performing Organization Address [facility] [place] [address] * T4, free (11/07/2024 9:00 AM SALESFORCE DEVELOPER) Free T4 1.04 0.90 - 1.70 ng/dL Blood 11/07/2024 9:00 AM SALESFORCE DEVELOPER 11/07/2024 9:25 AM SALESFORCE DEVELOPER Narrative [facility] - 11/07/2024 10:19 AM SALESFORCE DEVELOPER This test was reflexed from a TSH result. Result [facility] Preethi Beck MD LAB BLOOD ORDERABLE S Final Result Performing Organization Address [facility] Co de Phone Number [facility] [place] [address] * (ABNORMAL) Comprehensive metabolic panel (11/07/2024 9:00 AM SALESFORCE DEVELOPER) Sodium 143 135 - 145 mmol/L Potassium, pl 4.0 3.3 - 4.9 mmol/L [facility] Chloride 103 97 - 110 mmol/L [facility] CO2 26 22 - 32 mmol/L [facility] Anion gap 14 2 - 15 mmol/L [facility] BUN 12 6 - 25 mg/dL [facility] Creatinine 0.81 0.60 - 1.10 mg/dL [facility] Glucose 92 70 - 199 mg/dL [facility] Comment: Interpretive Data Fasting glucose >/= 126 [...] 2022. Calcium 9.4 8.5 - 10.3 mg/dL [facility] Bilirubin, total 1.5(H) 0.1 - 1.2 mg/dL [facility] Protein, pl 7.7 6.5 - 8.5 g/dL [facility] Albumin 4.4 3.5 - 5.0 g/dL [facility] Alk phos 67 40 - 130 Units/L [facility] ALT 19 7 - 45 Units/L [facility] AST 36 10 - 45 Units/L [facility] Blood 11/07/2024 9:00 AM SALESFORCE DEVELOPER 11/07/2024 9:25 AM SALESFORCE DEVELOPER us Preethi Beck MD LAB BLOOD ORDERABLE S Final Result [facility] Department [place] [address] * CT Body Outside Consult (11/07/2024 8:55 AM SALESFORCE DEVELOPER) Anatomical Region Laterality Modality Body N/A Computed Tomogra phy 11/07/2024 9:49 AM SALESFORCE DEVELOPER Impressions 11/07/2024 10:05 AM SALESFORCE DEVELOPER 1. Large predominantly hypoattenuating right thyroid lesion [...] images may or may not represent the [place] source data set and thus may contain changes that may lower the accuracy of this second-opinion interpretation. Dictated by: Anand Staton M.D. The radiology attending physician has personally reviewed this study, and had reviewed and/or edited this written report and agrees with it. Electronically signed by: MD Allen Coelho 11/07/2024 10:05 AM SALESFORCE DEVELOPER EXAMINATION: RADIOLOGY CONSULTATION ON OUTSIDE IMAGING STUDY STUDY INITIALLY PERFORMED: 11/07/[address] [facility]. TYPE OF STUDY: Multiple CT images of [...] IMAGING STUDY STUDY INITIALLY PERFORMED: 11/07/[address] [facility]. TYPE OF STUDY: Multiple CT images of [...] images may or may not represent the [place] source data set and thus may contain [...] Neuro CT Outside Consult (11/07/2024 8:52 AM SALESFORCE DEVELOPER) Anatomical Region Laterality Modality N/A Computed Tomogra phy 11/07/2024 10:2 0 AM SALESFORCE DEVELOPER Impressions 11/07/2024 10:20 AM SALESFORCE DEVELOPER 1. Large heterogeneously enhancing mass within the [...] images may or may not represent the [place] source data set and thus may contain changes that may lower the accuracy of this second-opinion interpretation. Electronically signed by: Esteban Day MD Narrative 11/07/2024 10:20 AM SALESFORCE DEVELOPER EXAMINATION: RADIOLOGY CONSULTATION ON OUTSIDE IMAGING STUDY STUDY INITIALLY PERFORMED: 11/07/[address] [facility]. TYPE OF STUDY: Multiple CT images of [...] IMAGING STUDY STUDY INITIALLY PERFORMED: 11/07/[address] [facility]. TYPE OF STUDY: Multiple CT images of [...] images may or may not represent the [place] source data set and thus may contain changes that may lower the accuracy of this second-opinion interpretation. Electronically signed by: Esteban Day MD Preethi Beck MD IMG CT PROCEDURES F inal Result from Last [address] [facility] MEDICARE [facility]ICARE [facility] Advance Directives For more information, please contact: [phone] * Full Code (Latest Code Status on File) Date Activated Date Inactivated Comments 11/08/2024 8:11 AM 11/20/2024 6:20 PM Care Teams Sales Representative Groceries Relationship Specialty Start Date End Date No, Physician PCP - General 11/07/24 Bob Menard MD [address] [place] [address] Consulting Physician Internal Medicine 11/18/24
--- OUTSIDE RECORDS SUMMARY | 2024-12-22 19:21 | XMS_ITS ---
Author Organization [facility] Address [address] [place] [address] Care Team Providers Care Lead Application Architect Name Role Phone No, Physician Primary Care Provider [phone] Bob Menard MD Unavailable [phone] Active Problems Problem Noted Date Diagnosed Date DLBCL (diffuse large B cell lymphoma) 11/17/2024 Assessment & Plan (11/18/2024 3:19 PM ELECTRONIC TECHNOLOGIST): P/w 1 month of difficulty swallowing, neck [...] 11/13/2024 Assessment & Plan (11/17/2024 2:53 PM ELECTRONIC TECHNOLOGIST): Neuro CT OSH on 11/07 with read [...] 11/12/2024 Assessment & Plan (11/13/2024 5:02 PM ELECTRONIC TECHNOLOGIST): Continue synthroid Dysphagia 11/12/2024 Assessment & Plan (11/20/2024 3:19 PM ELECTRONIC TECHNOLOGIST): - Related to mass effect from the [...] wash. Remain upright 30 mins after meals Current Treatment and Therapy Plans [id number] - [facility] - Lymphoma - [id number] - Arm A - Glofitamab with Fernando-R-CHP (Polatuzumab vedotin, Rituximab, Cyclophosphamide, Doxorubicin, and Prednisone) * Plan Start Date:11/17/2024 Plan Provider:Bob Menard MD Linked Problems Chemotherapy induced neutrop eniaDiffuse large B-cell lymphoma, unspecified body region (HCC) Treatment Medications Current Day (Day 1 5, Cycle 2 - Planned for 12/25/2024) Next Day (Day 1, Cycle 3 - Planned for 01/01/2025) cycloPHOSphamide (CYTOXAN)cycloPHOSphamide IVPB in 250 mL (vial 200 mg/mL)(J9071)cycloPHOSphamide IVPB in 250 mL (vial 200 mg/mL)(J9073)DOXOrubicin (ADRIAMYCIN)DOXOrubicin (ADRIAMYCIN) 2 mg/mLNDV-[facility] (/[id number]) Glofitamab ([id number]) IV syringe in 22.5 mL (ANTI-LAG-3)[facility] (/[id number]) Glofitamab ([id number]) IVPB in 50 mL (ANTI-LAG-3)[facility] (/[id number]) polatuzumab vedotin IVPB in [facility] (/[id number]) Rituximab IVPB in 500 MLTHAY[facility] Glofitamab ([id number]) (/[id number])[facility] polatuzumab vedotin (/[id number])[facility] Rituximab (/[id number]) [facility] Glofitamab ([id number]) (/[id number]) 10 mg in sodium chloride 0.9% 50 mL IVPB cycloPHOSphamide (J9073) 1,200 mg in sodium chloride 0.9% 250 mL IVPBDOXOrubicin (ADRIAMYCIN) 2 mg/mL IV syringe 80.6 mg 40.3 [facility] polatuzumab vedotin (/VQ52206) 110 mg in dextrose 5% 100 mL [facility]PB[facility] Rituximab (/[id number]) 604 mg in sodium chloride 0.9% 500 mL IVPB IV Maintenance Therapy Plan* Plan Start Date:12/11/2024 Plan Provider:Bob Menard MD Linked Problems Diffuse large B-cell lymphom a, unspecified body region (HCC) Treatment Medications No medications scheduled. Past Treatment and Therapy Plans No past plan information found. Lifetime Dose Tracking * Chemical Lifetime Dose Automatic Entry Manual Entr y doxorubicin 100.657 mg/m2 (165.6 mg) 100.657 mg/m2 (165.6 mg) 0 mg/m2 (0 mg) Fluoro Time 6 minutes 6 minutes 0 minutes cyclophosphamide 1,507.246 mg/m2 (2,480 mg) 1,507.246 mg/m2 (2,480 mg) 0 mg/m2 (0 mg) doxorubicin isotoxic equivalent (Please manually verify calculation) 100.657 mg/m2 (165.6 mg) 100.657 mg/m2 (165.6 mg) 0 mg/m2 (0 mg) Air kerma at the reference point (Ka,r) 23.9 mGy 23.9 mGy 0 mGy DLP 716 mGycm 716 mGycm 0 mGycm Resolved Problems Problem Noted Date Diagnosed Date Resolved Date Hyperuricemia 11/13/2024 11/17/2024 Assessment & Plan (11/17/2024 2:53 PM ELECTRONIC TECHNOLOGIST): -s/p IVF and allopurinol given uric acid 12.7 (LDH, phos, K all WNL) - Uric acid normalized; allopurinol decreased from b.i.d. to once daily 11/16
--- OUTSIDE RECORDS SUMMARY | 2024-12-22 19:22 | XMS_ITS | Clinical Summary ---
Author Organization [facility] Address [facility] [place] [address] Care Team Providers Care [employer] Name Role Phone None, Provider MD Primary Care Provider Unavaila ble Allergies No known active allergies Medications No known medications Encounters Date Type Department Care Team Description 11/07/2024 1:14 AM B[facility]KE [facility]ER [facility] - 11/07/2024 7:15 AM [facility]RA[facility]ER [facility] Emergency [place] [address] [facility] [id number] Norm Stanley DO Sprague, Robert, DO Neck Swelling Discharge Disposition: Transfer to [facility] 11/07/2024 Travel from Last 3 Months Family History Relation Status Comments Father Alive Mother Alive Social History Tobacco Use Types Packs/Day Years Used Date Smoking Tobacco: Never Smokeless Tobacco: Never Tobacco Cessation:Counseling Given: Not Answered Alcohol Use Standard Drinks/Week Comments Not Currently 0 (1 standard drink = 0.6 oz pur e alcohol) Comments No Sex and Gender Information Value Date Recorded Sex Assigned at Female 11/07/2024 1:38 AM [facility]ER [facility] Legal Sex Female 1:08 AM [facility] Gender Identity Not on file Sexual Orientation Not on file Last Filed Vital Signs Vital Sign Reading Time Taken Comments Blood Pressure 134/68 11/07/2024 7:00 AM [facility] Pulse 104 11/07/2024 1:15 AM [facility]ER [facility] Temperature 36.6 C (97.9 F) 11/07/2024 6:39 AM [facility] Respiratory Rate 18 11/07/2024 6:39 AM BRAKE [facility]ER [facility] Oxygen Saturation 97% 11/07/2024 7:00 AM B[facility]PLER [facility] Inhaled Oxygen Concentration - - Weight 74.8 kg (165 lb) 11/07/2024 1:15 AM B[facility]PLER [facility] Height 152.4 cm (5') 11/07/2024 1:15 AM [facility]ER [facility] Body Mass Index 32.22 11/07/2024 1:15 AM B[facility]KE [facility]ER [facility]IN[facility] Plan of Treatment Health Maintenance Due Date Last Done Comments Colorectal Cancer Screening Colonoscopy (10 Years) 1958 Hepatitis C 1976 DTaP, Tdap and Td Vaccines ( 1 - Tdap) 1977 Mammogram Screening 1998 Zoster Vaccines (1 of 2) 2008 Annual Medicare Wellness Visit 2023 Dexa Scan (General) 2023 Pneumococcal Vaccine: 65+ Ye ars (1 of 1 - PCV) 2023 COVID-19 Vaccine (1 - 2023-2 5 season) 2024 RSV Immunization or 60+ Years (1 - 1-dose 75+ series) 2033 Meningococcal B Vaccine Aged Out No l onger eligible based on patient's age to complete this topic Meningococcal Vaccine Aged Out No nemo marva eligible based on patient's age to complete this topic RSV Immunizations Under 20 Months Aged Out No longer eligible based on patient's age to complete this topic Procedures Procedure Name Priority Date/Time Associated Diagnosis Comments CT CHEST W CON STAT 11/07/2024 3:[address] SOFT TISSUE NECK W CON STAT 11/07/2024 3:04 AM [facility]ER [facility] THYROXINE, FREE (FT4) STAT 11/07/2024 1:54 AM [facility]RAKE [facility]PLER [facility] TSH W/REFLEX STAT 11/07/2024 1:54 AM [facility] COMPREHENSIVE METABOLIC PANEL STAT 11/07/2024 1:54 AM [facility]ER [facility]KEY CBC W/DIFF AUTOMATED STAT 11/07/2024 1:54 AM BRAKE COUPLER DINKEY from Last 3 Months Results * CT CHEST W CON (11/07/2024 3:04 AM BRAKE COUPLER DINKEY) Anatomical Region Laterality Modality Chest Computed Tomogra phy 11/07/2024 3:10 AM B[facility]ER [facility] Impressions 11/07/2024 3:14 AM BRAKE [facility]ER [facility]INKEY Impression: Prominent supraclavicular lymph nodes measuring up to 8 mm in short axis diameter. Otherwise, there are no acute pulmonary findings. Referred By: Interpreted By: Choco Jack MD, 11/07/2024 3:10 AM Narrative 11/07/2024 3:14 AM [facility] [address] [place] [address] Examination: CT CHEST W CON Exam time: 11/07/2024 2:41 AM Indication: Right neck swelling for one month. Dysphagia. Comparison:None Technique: IV contrast: 90 mL Isovue 370. Technical comments: Standard technique. Dose reduction: This CT exam was performed using one or more of the following dose reduction techniques: Automated exposure control, adjustment of the mA and/or kV according to patient size, and/or use of iterative reconstruction technique. Findings: There is no airspace consolidation, pleural effusion, or pneumothorax. The central airways are patent. There is a partially visualized mass in the neck described in a separate report. There are a few prominent supraclavicular lymph nodes measuring up to 8 mm in short axis diameter. There is no axillary, hilar, or mediastinal lymphadenopathy. There is no pericardial effusion. Images of the upper abdomen demonstrate cholelithiasis. There are hepatic cysts, the largest measuring about 5.3 cm near the hepatic dome. No acute osseous abnormality. Procedure Note Choco Jack MD - 11/07/[address] [place] [address] Examination: CT CHEST W CON Exam time: 11/07/2024 2:41 AM Indication: Right neck swelling for one month. Dysphagia. Comparison:None Technique: IV contrast: 90 mL Isovue 370. Technical comments: Standard technique. Dose reduction: This CT exam was performed using one or more of thefollowing dose reduction techniques: Automated exposure control,adjustment of the mA and/or kV according to patient size, and/or use ofiterative reconstruction technique. Findings: There is no airspace consolidation, pleural effusion, orpneumothorax. The central airways are patent. There is a partiallyvisualized mass in the neck described in a separate report. There are afew prominent supraclavicular lymph nodes measuring up to 8 mm in shortaxis diameter. There is no axillary, hilar, or mediastinallymphadenopathy. There is no pericardial effusion. Images of the upperabdomen demonstrate cholelithiasis. There are hepatic cysts, the largestmeasuring about 5.3 cm near the hepatic dome. No acute osseousabnormality. Impression: Prominent supraclavicular lymph nodes measuring up to 8 mm inshort axis diameter. Otherwise, there are no acute pulmonary findings. Referred By: Interpreted By: Choco Jack MD, 11/07/2024 3:10 AM us Norm Stanley DO CT Final Result * CT SOFT TISSUE NECK W CON (11/07/2024 3:04 AM BRAKE COUPLER DINKEY) Anatomical Region Laterality Modality Neck Computed Tomogra phy 11/07/2024 3:11 AM BRAKE [facility]PLER [facility]INKEY Impressions 11/07/2024 3:18 AM BRAKE COUPLER DINKEY IMPRESSION: ===== 1. Large heterogeneously enhancing mass centered over expected location of right thyroid with extension into the superior mediastinum. There is potential invasion of the right cricoid cartilage. Mass effect causes leftward deviation of larynx and upper trachea with effacement of airway most prominent at level of vocal cords. Clinical attention to potential need for airway management recommended. 2. No convincing cervical lymphadenopathy apart from immediately adjacent satellite lesion to the right which could be a lobular extension of the main mass versus adjacent metastatic lymph node. 3. Overall appearance concerning for thyroid malignancy. Biopsy and surgical referral recommended. Referred By: Interpreted By: Riley García MD, 11/07/2024 3:11 AM Narrative 11/07/2024 3:18 AM [facility] [address] [place] [address] EXAMINATION: CT soft tissue neck with contrast EXAM DATE/TIME: 11/07/2024 2:41 AM REASON FOR EXAM: Neck mass, into the chest, voice change Right-sided neck swelling for one month. Dysphagia. Wheezing. COMPARISON: None TECHNIQUE: Axial CT images of the soft tissues of the neck are performed before and after uneventful intravenous administration of 90 cc Isovue-370. Subsequent coronal and sagittal reformatted sequences are created for evaluation. A dose lowering technique was used for this procedure, which may include, but is not limited to, dose reduction technique, automated exposure control, iterative reconstruction, ALARA (As Low As Reasonably Achievable), or Image Gently techniques. FINDINGS: Some breathing motion artifact limits examination. There is a large heterogeneously enhancing mass centered over expected location of right thyroid. The right thyroid is not identified. Mass lesion measures 7.0 x 6.5 x 10.6 cm. There is an immediately adjacent 3.6 cm heterogeneously enhancing mass to the right. Mass causes leftward deviation of larynx and upper trachea. Inferior border of the mass extends into the superior mediastinum. The superior border is well above level of glottis. There is potential invasion of the right cricoid cartilage. Mass effect causes effacement of airway most prominent at level of vocal cords. No convincing cervical lymphadenopathy apart from immediately adjacent satellite lesion to the right which could be a lobular extension of the main mass versus adjacent metastatic lymph node. There is mass effect on the right jugular vein left aortic arch. Visualized bilateral subclavian arteries and brachiocephalic artery are patent. Visualized upper lungs are clear. Visualized posterior fossa contents unremarkable. Retro-orbital fat is clean bilaterally. Paranasal sinuses are clear. Mastoid air cells are clear. Multilevel degenerative changes in the cervical spine. Temporomandibular joints are located. No acute osseous abnormalities. Parotid glands and submandibular glands grossly unremarkable apart from some mass effect. ===== Procedure Note Riley García MD - 11/07/[address] [place] [address] EXAMINATION: CT soft tissue neck with contrast EXAM DATE/TIME: 11/07/2024 2:41 AM REASON FOR EXAM: Neck mass, into the chest, voice change Right-sided neck swelling for one month. Dysphagia. Wheezing. COMPARISON: None TECHNIQUE: Axial CT images of the soft tissues of the neck are performedbefore and after uneventful intravenous administration of 90 ccIsovue-370. Subsequent coronal and sagittal reformatted sequences arecreated for evaluation. A dose lowering technique was used for thisprocedure, which may include, but is not limited to, dose reductiontechnique, automated exposure control, iterative reconstruction, ALARA (AsLow As Reasonably Achievable), or Image Gently techniques. FINDINGS: Some breathing motion artifact limits examination. There is alarge heterogeneously enhancing mass centered over expected location ofright thyroid. The right thyroid is not identified. Mass lesion measures7.0 x 6.5 x 10.6 cm. There is an immediately adjacent 3.6 cmheterogeneously enhancing mass to the right. Mass causes leftwarddeviation of larynx and upper trachea. Inferior border of the massextends into the superior mediastinum. The superior border is well abovelevel of glottis. There is potential invasion of the right cricoidcartilage. Mass effect causes effacement of airway most prominent atlevel of vocal cords. No convincing cervical lymphadenopathy apart fromimmediately adjacent satellite lesion to the right which could be alobular extension of the main mass versus adjacent metastatic lymph node.There is mass effect on the right jugular vein left aortic arch.Visualized bilateral subclavian arteries and brachiocephalic artery arepatent. Visualized upper lungs are clear. Visualized posterior fossacontents unremarkable. Retro-orbital fat is clean bilaterally. Paranasalsinuses are clear. Mastoid air cells are clear. Multilevel degenerativechanges in the cervical spine. Temporomandibular joints are located. Noacute osseous abnormalities. Parotid glands and submandibular glandsgrossly unremarkable apart from some mass effect. ===== IMPRESSION: ===== 1. Large heterogeneously enhancing mass centered over expected locationof right thyroid with extension into the superior mediastinum. There ispotential invasion of the right cricoid cartilage. Mass effect causesleftward deviation of larynx and upper trachea with effacement of airwaymost prominent at level of vocal cords. Clinical attention to potentialneed for airway management recommended. 2. No convincing cervical lymphadenopathy apart from immediately adjacentsatellite lesion to the right which could be a lobular extension of themain mass versus adjacent metastatic lymph node. 3. Overall appearance concerning for thyroid malignancy. Biopsy andsurgical referral recommended. Referred By: Interpreted By: Riley García MD, 11/07/2024 3:11 AM us Norm Stanley DO CT Final Result * (ABNORMAL) TSH W/REFLEX (11/07/2024 1:54 AM BRAKE COUPLER DINKEY) TSH 25.471(H) 0.358 - 3.740 uIU/ML 11/07/2024 3:01 AM BRAKE [facility]PLER [facility]IN[facility] Comment: ASSAY PERFORMED BY CHEMILUMINESCENT IMMUNOASSAY METHODOLOGY USING SIEMENS DIMENSION REAGENT. PATIENT RESULTS DETERMINED BY ASSAYS FROM DIFFERENT MANUFACTURERS AND/OR BY DIFFERENT METHODS MAY NOT BE COMPARABLE. 11/07/2024 1:54 AM BRAKE COUPLER DINKEY us Norm Stanley DO LABORATORY Final Result [facility] [address] [employer] [address], * (ABNORMAL) COMPREHENSIVE METABOLIC PANEL (11/07/2024 1:54 AM BRAKE COUPLER DINKEY) SODIUM S/P/B 141 136 - 145 MMOL/L 11/07/2024 2:38 AM [facility]ER [facility] POTASSIUM S/P/B 3.9 3.5 - 5.1 MMOL/L 11/07/2024 3:[address] [facility] Comment:MILD HEMOLYSIS, RESU LT MAY BE AFFECTED. CHLORIDE S/P/B 101 98 - 107 MMOL/L 11/07/2024 2:38 AM [facility]PL[facility] CO2 29.3 21.0 - 32.0 MMOL/L 11/07/2024 2:38 AM [facility] GLUCOSE 93 70 - 99 MG/DL 11/07/2024 2:[address] [facility] Comment: FASTING GLUCOSE 100 TO 125 MG/DL IS CONSISTENT WITH IMPAIRED FASTING GLUCOSE. FASTING GLUCOSE >125 MG/DL IS CONSISTENT WITH DIABETES. RANDOM GLUCOSE >200 MG/DL WITH HYPERGLYCEMIC SYMPTOMS IS CONSISTENT WITH DIABETES. PER ADA GUIDELINES BUN 12 6 - 24 MG/DL 11/07/2024 2:[address] [facility] CREATININE S/P/B 0.80 0.55 - 1.02 MG/DL 11/07/2024 2:[address] [facility] CALCIUM S/P/B 9.1 8.4 - 10.5 MG/DL 11/07/2024 2:[address] [facility] BILIRUBIN TOTAL S/P/B 1.6(H) 0.2 - 1.0 MG/DL 11/07/2024 3:[address] [facility] Comment: THIS ASSAY IS NOT RECOMMENDED FOR PATIENTS UNDERGOING TREATMENT WITH ELTROMBOPAG DUE TO THE POTENTIAL FOR FALSELY ELEVATED RESULTS. ALKALINE PHOSPHATASE S/P/B 68 50 - 130 U/L 11/07/2024 2:[address] [facility] AST 26 15 - 37 U/L 11/07/2024 3:[address] [facility] Comment:MILD HEMOLYSIS, RESU LT MAY BE AFFECTED. ALT 31 14 - 59 U/L 11/07/2024 2:[address] [facility] TOTAL PROTEIN S/P/B 7.9 6.4 - 8.2 G/DL 11/07/2024 2:[address] [facility] ALBUMIN S/P/B 4.0 3.4 - 5.0 G/DL 11/07/2024 2:[address] [facility] ANION GAP 10.7 5.0 - 15.0 MMOL/L 11/07/2024 2:[address] [facility] OSMOLALITY (CALC) 291 MOSM/KG 025 2:[address] [facility] Comment:REFERENCE RANGE NOT ESTABLISHED GFR ESTIMATE 81(L) >89 ML/MIN/1. 73 M2 11/07/2024 2:[address] [facility] GFR NOTES GFR REFERENCE S: 11/07/2024 2:[address] [facility] Comment: THE ESTIMATED GFR IS CALCULATED USING THE 2020 CKD-EPI EQUATION. THE FOLLOWING CATEGORIES FOR GRADING RENAL FUNCTION ARE RECOMMENDED BY THE INTERNATIONAL SOCIETY OF NEPHROLOGY (KDIGO 2012 CLINICAL PRACTICE GUIDELINE). G1,NORMAL OR HIGH: >89 ml/min/1.73 m2 G2,MILDLY DECREASED: 60-89 ml/min/1.73 m2 G3A,MILDLY TO MODERATELY DECREASED: 45-59 ml/min/1.73 m2 G3B,MODERATELY TO SEVERELY DECREASED: 30-44 ml/min/1.73 m2 G4,SEVERELY DECREASED: 15-29 ml/min/1.73 m2 G5,KIDNEY FAILURE: <15 ml/min/1.73 m2 11/07/2024 1:54 AM BRAKE [facility]PLER [facility]INKEY us Norm Stanley DO LABORATORY Final Result [facility] [address] [employer] [place] [address], * (ABNORMAL) CBC W/DIFF AUTOMATED (11/07/2024 1:54 AM BRAKE [facility]PLER [facility]INKEY) WBC 7.20 4.00 - 10.80 x10'3/uL 11/07/2024 2:[address] [facility] RBC 4.87 4.10 - 5.40 x10'6/uL 11/07/2024 2:[address] [facility] HGB 13.8 12.0 - 16.0 G/DL 11/07/2024 2:[address] [facility] HCT 42.1 36.0 - 47.0 % 11/07/2024 2:[address] [facility] MCV 86.4 78.0 - 100.0 FL 11/07/2024 2:[address] [facility] MCH 28.3 27.0 - 31.0 PG 11/07/2024 2:[address] [facility] MCHC 32.8(L) 33.0 - 36.0 G/DL 11/07/2024 2:[address] [facility] RDW 13.8 11.5 - 14.5 % 11/07/2024 2:[address] [facility] PLT 222 150 - 350 x10'3/uL 11/07/2024 2:[address] [facility] MPV 10.8(H) 7.4 - 10.4 FL 11/07/2024 2:[address] [facility] CBC COMMENT NORMAL REFERENCE RANGE NOT ESTABLISHED FOR THE PROPORTIONAL LEUKOCYTE DIFFERENTIAL. 11/07/2024 2:[address] [facility] NEUTROPHILS % 78.3 % 11/07/2024 2:[address] [facility] LYMPHOCYTES % 12.9 % 11/07/2024 2:[address] [facility] MONOCYTES % 6.7 % 11/07/2024 2:[address] [facility] EOSINOPHILS % 1.3 % 11/07/2024 2:[address] [facility] BASOPHILS % 0.7 % 11/07/2024 2:[address] [facility] IMMATURE GRANS % 0.1 % 11/07/19 2:[address] [facility] NRBC % 0.0 % 11/07/2024 2:[address] [facility] ABS. NEUTROPHILS 5.64 1.60 - 8.30 x10'3/uL 11/07/2024 2:[address] [facility] ABS. LYMPHOCYTES 0.93 0.80 - 4.70 x10'3/uL 11/07/2024 2:[address] [facility] ABS. MONOCYTES 0.48 0.00 - 1.50 x10'3/uL 11/07/2024 2:[address] [facility] ABS. EOSINOPHILS 0.09 0.00 - 0.40 x10'3/uL 11/07/2024 2:[address] [facility] ABS. BASOPHILS 0.05 0.00 - 0.20 x10'3/uL 11/07/2024 2:[address] [facility] ABS. IMMATURE GRANULOCYTES 0.01 0.00 - 0.03 x10'3/uL 11/07/2024 2:[address] [facility] ABS. NUCLEATED RBC'S 0.00 0.00 - 0.01 x10'3/uL 11/07/2024 2:[address] [facility] 11/07/2024 1:54 AM B[facility] us Norm Stanley DO LABORATORY Final Result Performing Organization Address City/[facility]/ZIP Co de Phone Number [facility] [address] [place] [address], [place] [phone] * THYROXINE, FREE (FT4) (11/07/2024 1:54 AM BRAKE COUPLER [facility]INKEY) FREE T4 0.95 0.76 - 1.46 NG/DL 11/07/2024 3:21 AM [facility] 11/07/2024 1:54 AM BRAKE COUPLER DINKEY us Norm Stanley DO LABORATORY Final Result Performing Organization Address [facility] [place] [address], [place] [phone] from Last 3 Months Insurance MEDICARE [facility] Care Teams [employer] Relationship Specialty Start Date End Date None, Provider, PCP - General UNKNOWN PHYSICIAN SPECIALTY 11/07/24
[2024-12-22 19:50] LABS: Influenza A QL RT-PCR Negative (Negative); Influenza B QL RT-PCR Negative (Negative); RSV RNA, RT-PCR Negative (Negative); SARS-CoV-2 RNA PCR Negative (Negative)
[2024-12-22 19:59] LABS: Reflex Lactic Acid Yes or No Add Lactic
[2024-12-22] MEDS: TUBING, BLOOD PLUM PUMP TUBING 1 EACH XX (20:59)
[2024-12-22] MEDS: SODIUM CHLORIDE 0.9% IV 250 ML 30 ML IV CONT (20:59)
[2024-12-22] MEDS: ACETAMINOPHEN 325 MG TABLET 650 MG PO (20:59)
--- NOTE | 2024-12-22 21:55 | PC.NURSE ---
This RN spoke to Karla mendiola Rowell about pt. Will continue to wait for placement.
[2024-12-22 23:09] LABS: MRSA (PCR) NOT DETECTED (NOT DETECTE)
[2024-12-22] MEDS: dexAMETHasone SOD PHOS INJ 10 MG/ML 1 ML VIAL IV PUSH (23:37)
[2024-12-22] MEDS: CEFEPIME 2 GM/NS 50 ML 2 GM/50 ML BAG IVPB (23:39)
[2024-12-23] VITALS (75 sets, daily range): BP systolic 101–166; BP diastolic 39–93; PULSE 112–143; RESP 23–46; TEMP 36.4–38; O2SAT 87–98
--- NOTE | 2024-12-23 | PC.NURSE ---
Order given for norepi drip. OK to hold until BP decreases again.
[2024-12-23] MEDS: SODIUM CHLORIDE 0.9% IV 500 ML 30 ML (00:08)
[2024-12-23] MEDS: SODIUM CHLORIDE 0.9% IV 250 ML 30 ML IV CONT (00:08)
[2024-12-23] MEDS: SODIUM CHLORIDE 0.9% IV 250 ML 30 ML (00:09)
[2024-12-23] MEDS: TUBING, BLOOD PLUM PUMP TUBING 2 EACH XX (00:09)
[2024-12-23] MEDS: TUBING, BLOOD SET 1 EACH XX (00:10)
--- NOTE | 2024-12-23 01:41 | PC.NURSE ---
ok to infusing caldalor 400mg x 1 dose per edp sadie
[2024-12-23] MEDS: SODIUM CHLORIDE 0.9% IV 1,000 ML 125 ML IV CONT (02:00)
[2024-12-23] MEDS: VANCOMYCIN 750 MG/NS 250 ML 750 MG/250 ML BAG 250 MG IVPB (02:00)
[2024-12-23] MEDS: TOCILIZUMAB IVPB (02:05)
[2024-12-23] MEDS: SODIUM CHLORIDE 0.9% IVPB (02:05)
[2024-12-23] MEDS: IBUPROFEN IV 400 MG in SODIUM CHLORIDE 0.9% IV 100 ML 208 MG IVPB (02:20)
--- NOTE | 2024-12-23 02:32 | PC.NURSE ---
Oldest Sister Patricia Eva [phone]
[2024-12-23 05:36] LABS: Hematocrit 28.8 % (37.0-47.0); Hemoglobin 9.9 g/dL (12.0-15.0); Immature Platelet Fraction Pct 3.5 % (0.9-11.2); Mean Corpuscular HGB Conc 34.4 g/dl (32-36); Mean Corpuscular Hemoglobin 28.2 pg (26-34); Mean Corpuscular Volume 82.1 fl (80-100); Mean Platelet Volume 11.2 fl (7.4-10.4); Platelet Count Result 47 k/mm3 (150-375); Red Blood Count 3.51 M/mm3 (4.2-5.4)
[2024-12-23 05:47] LABS: INR 1.3; Prothrombin Time 16.8 Seconds (11.1-14.7)
[2024-12-23 05:48] LABS: Partial Thromboplastin Time 30.6 Seconds (22.3-36.8)
[2024-12-23 06:08] LABS: Alanine Aminotransferase 19 U/L (6-35); Albumin Level 2.8 g/dL (3.5-5.1); Alkaline Phosphatase 54 U/L (38-126); Anion Gap 13 mmol/L (4-12); Aspartate Amino Transferase 19 U/L (14-36); Bilirubin,Total 1.3 mg/dL (0.2-1.3); Blood Urea Nitrogen 30 mg/dL (7-17); Carbon Dioxide 22 mmol/L (22-30); Chloride 105 mmol/L (98-107); Estimated CRCL calculation 29 ml/min; Estimated Glomerular Filt Rate 38; Glucose 167 mg/dL (65-110); Potassium 2.9 mmol/L (3.4-5.0); Sodium 140 mmol/L (137-145); White Blood Count 0.3 K/mm3 (4.5-10.0)
[2024-12-23 06:34] LABS: Band Neutrophils Percent 3 % (0-6)
[2024-12-23 06:35] LABS: Lymphocytes Percent Manual 3 % (18-44); Neutrophils Absolute Manual 0.27 K/mm3 (1.7-7.2); Neutrophils Percent Manual 90 % (46-73); Total Cells Counted 100
[2024-12-23 06:36] LABS: Monocytes Absolute Manual 0.01 K/mm3 (0.1-0.90); Monocytes Percent Manual 4 % (3-9); Platelet Estimate Slightly Decreased (Adequate); Schistocytes None Seen
[2024-12-23 06:47] LABS: CRP 42.3 mg/dL (<1.0)
--- NOTE | 2024-12-23 06:50 | PC.NURSE ---
[facility] transfer called.This RN spoke to Nicolette. Pt has a bed located in ICU [id number] located on the [facility]. Nurse-Nurse report will be called to [phone]. RN states to let [facility] know what the ETA is when known.
--- NOTE | 2024-12-23 07:06 | PC.NURSE ---
Report was given to nurse-nurse report at [facility]. All questions answered. Advised a 20-30 minute wait to our facility and then they will be on their way to [facility].
--- NOTE | 2024-12-23 07:10 | PC.NURSE ---
Attempted to call sister Patricia with no answer. Voicemail was left.
[2024-12-23 07:25] LABS: Erythrocyte Sedimentation Rate > 140 mm/hr (0-20)
[2024-12-23] MEDS: dexAMETHasone SOD PHOS INJ 10 MG/ML 1 ML VIAL IV PUSH (07:56)
== END 2024-12-23 07:59 | disposition short-term general hospital (02) ==
PROVIDERS: Student in an Organized Health Care Education/Training Program; Emergency Provider Emergency Medicine
DX: T80 Complications following infusion, transfusion and therapeutic injection (principal); D89.834 Cytokine release syndrome, grade 4; N17.9 Acute kidney failure, unspecified; R65.21 Severe sepsis with septic shock; R50.81 Fever presenting with conditions classified elsewhere; D70.9 Neutropenia, unspecified; N39.0 Urinary tract infection, site not specified; R19.7 Diarrhea, unspecified; D64.9 Anemia, unspecified; Z20.822 Contact with and (suspected) exposure to COVID-19; C83.30 Diffuse large B-cell lymphoma, unspecified site; E03.9 Hypothyroidism, unspecified; Z86.718 Personal history of other venous thrombosis and embolism; Z79.60 Long term (current) use of unspecified immunomodulators and immunosuppressants; R94.31 Abnormal electrocardiogram [ECG] [EKG]; R00.0 Tachycardia, unspecified; Z79.01 Long term (current) use of anticoagulants
CPT/HCPCS: 36415; 36430; 70450; 71045; 80053; 81001; 83605; 85025; 85055; 85610; 85652; 85730; 86140; 86850; 86900; 86901; 86923; 87040; 87077; 87186; 87637; 87641; 93005; 96361; 96365; 96366; 96367; 96368; 99291; A9270; J0692; J0696; J1100; J1741; J3370; J7030; J7040; J7050; P9016; P9034; Q0249